=== PATIENT | female | born 1955 | race Caucasian/White ===

== ENCOUNTER 2016-11-08 13:17 | Emergency (ER) | payer MEDICARE, OTHER ==
[~2016-11-08] VITALS: Ht 167.6 cm; Wt 79.8 kg
[~2016-11-08 13:17] MED LIST: HYDR-757 PO
[2016-11-08] MEDS ORDERED: AMBIEN (13:45)
[2016-11-08] MEDS ORDERED: XANAX (13:46)
[2016-11-08] MEDS ORDERED: [UNRECOGNIZED DRUG - OTHER] (13:46)
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
[2016-11-08] MEDS ORDERED: SULF1TAB35 PO (14:37)
[2016-11-08] MEDS ORDERED: NAPR500T4 PO (14:37)
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
[2016-11-08 14:42] VITALS: BP 135/74
== END 2016-11-08 14:41 | disposition home or self-care (01) ==
LOC: EDUNIT# 13:17 → ER 13:23
DX: R22.0 Localized swelling, mass and lump, head (principal); E03.9 Hypothyroidism, unspecified; F41.9 Anxiety disorder, unspecified; F32.9 Major depressive disorder, single episode, unspecified; Z98.84 Bariatric surgery status; Z90.710 Acquired absence of both cervix and uterus; Z98.51 Tubal ligation status; Z90.89 Acquired absence of other organs
CPT/HCPCS: 70450; 99282

== ENCOUNTER → 2017-03-06 | Outpatient (CLI) | payer MEDICARE ==
[~2017-03-06] MED LIST changes: +AMBIEN; +NAPR500T4 PO; +SULF1TAB35 PO; +XANAX; +[UNRECOGNIZED DRUG - OTHER]
--- NOTE | 2017-03-06 09:44 | Diagnostic Imaging Report ---
PROCEDURE: CT sinuses without contrast TECHNIQUE: Multiple contiguous axial images were obtained through the sinuses without the use of intravenous contrast. Coronal and sagittal reformations were then performed. INDICATION: Chronic sinusitis. FINDINGS: There is a mucosal retention cyst measuring 1.4 cm in the inferior aspect of the left maxillary sinus. The right maxillary sinus is clear. The sphenoidal sinuses are clear. The frontal sinuses are clear. The ethmoidal air cells are also clear. There is moderate mucosal thickening along the inferior turbinates and mild mucosal thickening in the middle turbinates with mild narrowing of the nasal passages. No significant nasal septal deviation. The mastoid air cells and middle ear cavities are clear. IMPRESSION: Mucosal thickening along the nasal turbinates and mucosal retention cysts in the inferior aspect of the left maxillary sinus are seen. Dictated by: Dictated on workstation # [id number]
== END ==
LOC: RAD 07:57
PROVIDERS: ATTEND Family Medicine
DX: J34.1 Cyst and mucocele of nose and nasal sinus (principal); J32.9 Chronic sinusitis, unspecified
CPT/HCPCS: 70486

== ENCOUNTER 2017-04-10 10:43 | Emergency (ER) | payer MEDICARE ==
[~2017-04-10] VITALS: Ht 167.6 cm; Wt 72.6 kg
--- OUTSIDE RECORDS SUMMARY | 2017-04-10 10:49 | XMS REPORT | CCD ---
Author Author HERNANDEZ NICKERSON Unknown Address [address] [facility] [place], [place] [id number] Care Team Providers Care Dentistry Teacher Name Role Phone GERARDO MCCULLOUGH, FAVIOLA MC Attphys F., NICO NASST S., BIANKA PALAFOX NASST S., ROZ NASST C., ARLEEN KLEIN NASST S., ARCHANA NASST P., PARAMJIT NASST S., HAMMAD NASST B., DEMETRIUS Marquez NASST Vital Signs Vital Sign Value Unit Date/Time Recent/Initial? Weight Measured 176 lbs 02/08/2015 11:21 Initial VS Height 66 in 02/08/2015 11:21 Initial VS BMI (Body Mass Index) 28.41 kg/m^2 02/08/2015 11:21 Initial VS BSA (Body Surface Area) 1.93 m^2 02/08/2015 11:21 Initial VS BP Systolic 128 mmHg 02/08/2015 11:57 Initial VS BP Diastolic 63 mmHg 02/08/2015 11:57 Initial VS Heart Rate 91 bpm 02/08/2015 11:57 Initial VS O2 % BldC Oximetry 95 % 02/08/2015 11:57 Initial VS Respiratory Rate 18 bpm 02/08/2015 11:58 Initial VS Body Temperature 96.3 degrees 02/08/2015 13:15 Initial VS BP Systolic 121 mmHg 02/10/2015 11:17 Most Recent VS BP Diastolic 65 mmHg 02/10/2015 11:17 Most Recent VS Respiratory Rate 16 bpm 02/10/2015 11:17 Most Recent VS Heart Rate 80 bpm 02/10/2015 11:17 Most Recent VS O2 % BldC Oximetry 96 % 02/10/2015 11:17 Most Recent VS Body Temperature 99.5 degrees 02/10/2015 11:17 Most Recent VS Allergies Allergy Code Allergy Type Reaction Status KEFLEX 426228 Drug allergy LIP SWELLING, TROUBLE BREATHING Active MORPHINE 7052 Drug allergy LIP SWELLING, TROUBLE BREATHING Active Procedures Procedure Code Procedure Type Date Replacement of Left Knee Joint with Synthetic Substitute, Cemented, Open A [id number] ICD-10 PCS 02/08/2015 PT GROUP THERAPY 347182953 SNOMED CT 02/10/2015 PT GROUP THERAPY 193009142 SNOMED CT 02/10/2015 PT GROUP THERAPY 860732204 SNOMED CT 02/09/2015 PT GROUP THERAPY 012473332 SNOMED CT 02/09/2015 PT EVALUATION 463741591 SNOMED CT 02/08/2015 KNEE 1V OR 2V 63326209 SNOMED CT 02/08/2015 CBC W/ AUTO DIFF (RFLX MAN DIFF IF IND) 8064546 SNOMED CT 02/10/2015 CBC W/ AUTO DIFF (RFLX MAN DIFF IF IND) 3954321 SNOMED CT 02/09/2015 THERAPEP SUBSEQUENT 216793722 SNOMED CT 02/10/2015 THERAPEP SUBSEQUENT 745046139 SNOMED CT 02/10/2015 THERAPEP SUBSEQUENT 698842295 SNOMED CT 02/10/2015 THERAPEP SUBSEQUENT 832865489 SNOMED CT 02/09/2015 THERAPEP SUBSEQUENT 821733067 SNOMED CT 02/09/2015 THERAPEP SUBSEQUENT 406800315 SNOMED CT 02/09/2015 THERAPEP SUBSEQUENT 778984468 SNOMED CT 02/09/2015 THERAPEP SUBSEQUENT 531590511 SNOMED CT 02/08/2015 THERAPEP TREATMENT 889827801 SNOMED CT 02/08/2015 ^CBC W/AUTO DIFF 3682900 SNOMED CT 02/09/2015 ^CBC W/AUTO DIFF 7067970 SNOMED CT 02/10/2015 History of Immunizations Unknown or Not Available. Problems Problem Code Start Date Resolved Date Status Primary osteoarthritis of left knee 188167172 Active Post op pain 848716872 02/08/2015 Active Status post knee replacement [id number] 02/08/2015 Active Results CBC W/ AUTO DIFF (RFLX MAN DIFF IF IND) - Collect Date/Time: 02/10/2015 06:35 Test Name Code Test Result Test Units Test Ref Range WBC 78418-3 7.8 TH/CMM L=4.5 H=10.8 RBC 789-8 3.92 ML/CMM L=4.20 H=5.40 HGB 718-7 12.1 G/DL L=12.0 H=16.0 HCT 4544-3 37.2 % L=37.0 H=47.0 MCV 95 FL L=81 H=99 MCH 30.9 PG L=27.0 H=33.0 MCHC 32.5 G/DL L=31.0 H=36.0 RDW SD 44 FL L=36 H=50 RDW CV 12.7 % L=0.0 H=14.8 MPV 10.3 FL L=9.3 H=12.5 PLT 777-3 232 TH/CMM L=130 H=440 NRBC# 0.00 TH/CMM L=0.00 H=0.00 NRBC% 0.0 /100WBC L=0.0 H=2.0 %NEUT 62.4 % %LYMP 27.2 % %MONO 8.6 % %EOS 1.4 % %BASO 0.4 % #NEUT 4.85 TH/CMM L=2.10 H=8.20 #LYMP 2.12 TH/CMM L=0.90 H=5.20 #MONO 0.67 TH/CMM L=0.16 H=1.00 #EOS 0.11 TH/CMM L=0.00 H=0.80 #BASO 0.03 TH/CMM L=0.00 H=0.20 MANUAL DIFF NOT IND N/A CBC W/ AUTO DIFF (RFLX MAN DIFF IF IND) - Collect Date/Time: 02/09/2015 06:15 Test Name Code Test Result Test Units Test Ref Range WBC 14358-6 10.6 TH/CMM L=4.5 H=10.8 RBC 789-8 4.00 ML/CMM L=4.20 H=5.40 HGB 718-7 12.3 G/DL L=12.0 H=16.0 HCT 4544-3 37.4 % L=37.0 H=47.0 MCV 94 FL L=81 H=99 MCH 30.8 PG L=27.0 H=33.0 MCHC 32.9 G/DL L=31.0 H=36.0 RDW SD 42 FL L=36 H=50 RDW CV 12.3 % L=0.0 H=14.8 MPV 10.3 FL L=9.3 H=12.5 PLT 777-3 264 TH/CMM L=130 H=440 NRBC# 0.00 TH/CMM L=0.00 H=0.00 NRBC% 0.0 /100WBC L=0.0 H=2.0 %NEUT 69.5 % %LYMP 22.2 % %MONO 7.9 % %EOS 0.3 % %BASO 0.1 % #NEUT 7.39 TH/CMM L=2.10 H=8.20 #LYMP 2.36 TH/CMM L=0.90 H=5.20 #MONO 0.84 TH/CMM L=0.16 H=1.00 #EOS 0.03 TH/CMM L=0.00 H=0.80 #BASO 0.01 TH/CMM L=0.00 H=0.20 MANUAL DIFF NOT IND N/A Active Medications Medication Code Dose Units Frequency Route Modification Start Date/Time Aspirin 325MG Oral Tablet, Enteric Coated 692621 1 TABLET EVERY 12 HOURS BY MOUTH 02/09/2015 18:30 Prescription Detail 1 TABLET BY MOUTH EVERY 12 HOURS begin 24hrs after the last xarelto dose Citalopram 20MG Oral Tablet [id number] 20 MILLIGRAMS DAILY ORAL 02/09/2015 18:28 Prescription Detail 20 MILLIGRAMS ORAL DAILY Docusate Sodium 100MG Oral Capsule 4717606 1 TABLET TWO TIMES A DAY BY MOUTH 02/09/2015 18:28 Prescription Detail 1 TABLET BY MOUTH TWO TIMES A DAY Hold with loose stools Gabapentin 100MG Oral Capsule 871257 100 MILLIGRAMS NEEDED ORAL 02/09/2015 18:28 Prescription Detail 100 MILLIGRAMS ORAL NEEDED HYDROcodone bitartrate-acetaminophen 10MG-325MG Oral Tablet 302178 03/24 TABLET NEEDED EVERY 4 HR BY MOUTH FOR PAIN 02/09/2015 18:28 Prescription Detail 03/24 TABLET BY MOUTH NEEDED EVERY 4 HR FOR PAIN Levothyroxine 125MCG Oral Tablet 705260 125 MCG DAILY ORAL 02/09/2015 18:28 Prescription Detail 125 MCG ORAL DAILY Thera-M Enhanced 90MG-0.03MG-0.15MG-4 Oral Tablet 583220 1 TABLET DAILY BY MOUTH 02/09/2015 18:28 Prescription Detail 1 TABLET BY MOUTH DAILY Xarelto 10MG Oral Tablet [id number] 1 TABLET DAILY BY MOUTH 02/09/2015 18:28 Prescription Detail 1 TABLET BY MOUTH DAILY Medications Administered During Visit Medication Dose Units Frequency Route Date/ Time of Last Dose LR 1000ML IV [PREDEFINED] CONT IV IV 02/09/2015 02:43 VANCOMYCIN [PREDEFINED] ADV IV : 1000MG Q10H IVPB 02/09/2015 05:35 VITAMIN (LH SUB FOR ALL MULTIVITAMINS) 1 TAB DAILY PO 02/10/2015 08:06 ASCORBIC ACID [VITAMIN C] TAB : 500 MG 500 MG DAILY PO 02/10/2015 08:06 FERROUS SULFATE 325MG TABLET 325 MG BID PO 02/10/2015 08:06 DOCUSATE SODIUM 100 MG [COLACE] CAPSULE 100 MG BID PO 02/10/2015 08:06 RIVAROXABAN [XARELTO] TABLET : 10MG 10 MG X1 PO 02/09/2015 05:35 RIVAROXABAN [XARELTO] TABLET : 10MG 10 MG DAILY PO 02/10/2015 08:06 NORCO [HYDROCODONE/APAP] 10/325MG TAB 1 TAB PRN PO 02/10/2015 15:16 CELECOXIB [CELEBREX] CAPSULE : 200 MG 200 MG BID PO 02/10/2015 08:06 TRANEXAMIC ACID 1000MG/100ML [PREDEFINED X1 IVPB 02/08/2015 13:49 CITALOPRAM [CELEXA] TABLET : 20 MG 20 MG DAILY PO 02/10/2015 08:06 LEVOTHYROXINE (SYNTHROID)125 MCG 125 MCG DAILY PO 02/10/2015 05:39 Encounters Encounter Diagnosis Diagnosis Code Start Date Unilateral primary osteoarthritis, left knee [id number] 02/08/2015 Social History Smoking Status Code Start Date End Date Never smoker [id number] Patient Decision Aids Unknown or Not Available. Discharge Instructions You were admitted to [facility] on 02/08/2015 with a principal diagnosis of Unilateral primary osteoarthritis, left knee. You were discharged from [facility] on 02/10/2015. Should you have any questions prior to discharge, please contact a member of your healthcare team. If you have left the hospital and have any questions, please contact your primary care physician. CHIEF COMPLAINT: C/O PAIN TO LEFT KNEE. Chief Complaint and Reason For Visit Chief Complaint Date of Onset L TKR Function Status Unknown or Not Available. Plan of Care Unknown or Not Available. Referral/Transition of Care Unknown or Not Available.
--- NOTE | 2017-04-10 11:51 | Diagnostic Imaging Report ---
INDICATION: Fall, left lower leg pain. Exam correlated with knee radiographs 05/19/2015. FINDINGS: Knee arthroplasty appears stable. Regional swelling and joint effusion have significantly decreased. No fracture or dislocation. IMPRESSION: Reduction in joint effusion and swelling associated with knee arthroplasty. No acute abnormality or adverse change. Dictated by: Dictated on workstation # [id number]
--- NOTE | 2017-04-10 11:58 | Diagnostic Imaging Report ---
EXAMINATION: Left foot. INDICATION: Injury. FINDINGS: Three views were obtained. There is no fracture, dislocation, or acute bony abnormality evident. There is a prominent calcaneal spur. There is also a large calcified enthesophyte along the posterior aspect of the calcaneus. In addition, there is a small calcific density in the soft tissues adjacent to the base of the fifth metatarsal. This finding is most likely a sequela of prior trauma. Soft tissues are otherwise unremarkable. IMPRESSION: There is no evidence for an acute bony abnormality. Dictated by: Dictated on workstation # [id number]
[2017-04-10] MEDS ORDERED: HYDR-757 PO (13:12)
--- NOTE | 2017-04-10 13:12 | ED Lower Extremity ---
General Chief Complaint: Lower Extremity Stated Complaint: L FOOT PAIN Source: patient Exam Limitations: no limitations History of Present Illness Date Seen by Provider: Apr 10, 2017 Time Seen by Provider: 13:09 Initial Comments To ER wtih c/o fall of 3rd step of ladder yesterday. C/o foot pain on left only with weightbearing today. Onset: yesterday Severity: moderate Pain/Injury Location: left foot Modifying Factors: Worse With Movement Allergies and Home Medications Allergies Coded Allergies: cephalexin (Verified Allergy, Unknown, 01/25/15) morphine (Verified Allergy, Unknown, 01/25/15) Home Medications Hydrocodone/Acetaminophen 1 Each Tablet, 1 EACH PO TID PRN for PAIN, #10 Prescribed by: CHEL CAREY on 01/25/15 2306 Naproxen 500 Mg Tablet, 500 MG PO BID, #20 Prescribed by: PAO PALMA on 11/08/16 1437 Sulfamethoxazole/Trimethoprim 1 Each Tablet, 1 EACH PO BID, #20 Prescribed by: PAO PALMA on 11/08/16 1437 [Ambien] , (Reported) [Thyroidthyroid] , (Reported) [Xanax] , (Reported) Constitutional: see HPI EENTM: see HPI Respiratory: no symptoms reported Cardiovascular: no symptoms reported Genitourinary: no symptoms reported Musculoskeletal: see HPI Skin: no symptoms reported Psychiatric/Neurological: No Symptoms Reported Past Edcborv-Nibofr-Pazgwa Hx Patient Social History Recent Foreign Travel: No Contact w/Someone Who Travel: No Surgeries Surgeries: Abdominal, Gallbladder, Hysterectomy, Orthopedic, Thyroidectomy, 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 Reproductive System 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, 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 Endocrine Endocrine Disorders: Hypothyroidsim HEENT HEENT Disorders: Double Vision Psychosocial Behavioral Health Disorders: Anxiety, Depression Physical Exam Vital Signs Capillary Refill : General Appearance: WD/WN, no apparent distress HEENT: PERRL/EOMI, normal ENT inspection Neck: non-tender, full range of motion Respiratory: no respiratory distress, no accessory muscle use Hips: bilateral hip non-tender, bilateral hip normal inspection, bilateral hip normal range of motion Legs: bilateral leg non-tender, bilateral leg normal inspection, bilateral leg normal range of motion Knees: bilateral knee non-tender, bilateral knee normal inspection, bilateral knee normal range of motion Ankles: bilateral ankle non-tender, bilateral ankle normal inspection, bilateral ankle normal range of motion Feet: left foot pain, left foot soft tissue tenderness, left foot swelling Neurologic/Psychiatric: alert, normal mood/affect, oriented x 3 Skin: normal color, warm/dry Progress/Results/Core Measures Results/Orders My Orders Orders - CHEL CAREY APRN Tibia/Fibula, Left, 2 Views (04/10/17 10:48) Foot, Left, 3 Views (04/10/17 10:48) Departure Communication (Admissions) Progress Notes mild ecchymosis over the lateral left foot Impression Impression: Primary Impression: Contusion of foot Disposition: HOME, SELF-CARE Condition: Stable Departure-Patient Inst. Decision time for Depature: 13:11 Referrals: LONNIE WORTHINGTON MD (PCP/Family) Primary Care Physician Patient Instructions: Contusion (DC) Add. Discharge Instructions: 1. Wear the walking boot for 1 week or until pain subsides. If no improvement in 1 week follow up with your doctor 2. Pain meds as directed. All discharge instructions reviewed with patient and/ or family. Voiced understanding. Scripts Hydrocodone/Acetaminophen ([employer] 5-325 Tablet) 1 Each Tablet 1 EACH PO Q4H Y for PAIN-SEVERE TO BREAKTHROUGH, #10 TAB Prov: CHEL CAREY APRN 04/10/17 CHEL CAREY APRN Apr 10, 2017 13:12
[2017-04-10 13:30] VITALS: BP 136/103
== END 2017-04-10 13:30 | disposition home or self-care (01) ==
LOC: EDUNIT# 10:43 → ER 10:45
DX: S90.32XA Contusion of left foot, initial encounter (principal); F41.9 Anxiety disorder, unspecified; F32.9 Major depressive disorder, single episode, unspecified; E03.9 Hypothyroidism, unspecified; Z98.51 Tubal ligation status; Z90.710 Acquired absence of both cervix and uterus; Z90.89 Acquired absence of other organs; W11.XXXA Fall on and from ladder, initial encounter
CPT/HCPCS: 73590; 73630; 99283

== ENCOUNTER 2018-04-20 16:38 | Emergency (ER) | payer MEDICARE ==
[~2018-04-20] VITALS: Ht 167.6 cm; Wt 80.7 kg
[~2018-04-20 16:38] MED LIST changes: +HYDR-4226 PO; -HYDR-757 PO; +NAPR-915 PO; -NAPR500T4 PO
--- OUTSIDE RECORDS SUMMARY | 2018-04-20 16:43 | XMS REPORT ---
Author Author DARRIN GODWIN Organization [facility] Address [address] [place] [address] Care Team Providers Care Volunteer Services Assistant Name Role Phone DARRIN GODWIN Unavailable PROBLEMS Type Condition ICD9-CM Code ISY34-NW Code Onset Dates Condition Status SNOMED Code Problem Adjustment disorder with mixed anxiety and depressed mood F43.23 Active 92188825 Problem Psychophysiological insomnia F51.04 Active 075636382 Problem Generalized anxiety disorder F41.1 Active 95019486 Problem Current mild episode of major depressive disorder without prior episode F32.0 Active 29364530 Problem Hypothyroidism (acquired) E03.9 Active 549871981 Problem Primary insomnia F51.01 Active 9251046 Problem Hypoglycemia E16.2 Active 031843707 Problem Vitamin D deficiency E55.9 Active 67370091 Problem Moderate episode of recurrent major depressive disorder F33.1 Active 446813271 Problem Severe episode of recurrent major depressive disorder, without psychotic features F33.2 Active 86933171 Problem ROSY (generalized anxiety disorder) F41.1 Active 34081281 Problem Panic disorder F41.0 Active 871734777 ALLERGIES No Information ENCOUNTERS Encounter Location Date Diagnosis [place] [address] [address] Feb, [place] [address] [place] [id number] [place] [address] 64933- 7185 Jan, Hypothyroidism (acquired) E03.9 [facility] [address] [place] [id number] [place] [address] 28809- 7075 Dec, Panic disorder F41.0 [place] [address] [address]- [address] Dec, Allergic contact dermatitis due to food in contact with skin L23.6 and Encounter for immunization Z23 [place] [address] 44[address]- 1455 Nov, Panic disorder F41.0 ; ROSY (generalized anxiety disorder) F41.1 ; Moderate episode of recurrent major depressive disorder F33.1 and Primary insomnia F51.01 [facility] [address] [place] [id number] [place] [address] 48039- 0179 Nov, Panic disorder F41.0 [place] [address] [place] [id number] [place] [address] 07046- 5899 Oct, Current mild episode of major depressive disorder without prior episode F32.0 [place] [address] [place] [id number] [place] [address] 85525- 5799 Oct, Hypoglycemia E16.2 ; Allergic contact dermatitis due to plants, except food L23.7 ; Hypothyroidism (acquired) E03.9 ; Vitamin D deficiency E55.9 ; Current mild episode of major depressive disorder without prior episode F32.0 and Generalized anxiety disorder F41.1 [place] [address] [place] [address] 57963- 7002 Oct, Panic disorder F41.0 ; ROSY (generalized anxiety disorder) F41.1 ; Moderate episode of recurrent major depressive disorder F33.1 and Primary insomnia F51.01 [place] [address] [place] [address] 45088- 2228 Oct, [place] [address] [address] Sep, Panic disorder F41.0 [place] [address] [place] [id number] [place] [address] 18590- 0901 Aug, Panic disorder F41.0 ; Generalized anxiety disorder F41.1 and Moderate episode of recurrent major depressive disorder F33.1 [place] [address] [place] [address] 08242- 1271 Aug, [facility] [address] [place] [address] 44118- 7614 July, [place] [address] [place] [id number] [place] [address] 29807- 7070 July, [place] [address] [place] [id number] [place] [address] 06060- 7283 Jun, Panic disorder F41.0 ; ROSY (generalized anxiety disorder) F41.1 and Moderate episode of recurrent major depressive disorder F33.1 [place] [address] [place] [id number] [place] [address] 99874- 8117 Jun, [place] [address] 92443- 4862 Jun, Vitamin D deficiency E55.9 [place] [address] [place] [id number] [place] [address] 25740- 6080 Jun, Current mild episode of major depressive disorder without prior episode F32.0 and Generalized anxiety disorder F41.1 [place] [address] [place] [id number] [place] [address] 43718- 6241 Jun, Current mild episode of major depressive disorder without prior episode F32.0 ; Primary insomnia F51.01 and Hypothyroidism (acquired) E03.9 [place] [address] [place] [id number] [place] [address] 77308- 3346 May, Panic disorder F41.0 ; ROSY (generalized anxiety disorder) F41.1 and Moderate episode of recurrent major depressive disorder F33.1 [place] [address] [place] [id number] [place] [address] 54388- 6860 26 May, 2017 Severe episode of recurrent major depressive disorder, without psychotic features F33.2 ; Generalized anxiety disorder F41.1 and Adjustment disorder with mixed anxiety and depressed mood F43.23 [place] [address] [place] [id number] [place] [address] 66859- 0779 15 May, 2017 Severe episode of recurrent major depressive disorder, without psychotic features F33.2 ; Generalized anxiety disorder F41.1 and Adjustment disorder with mixed anxiety and depressed mood F43.23 [place] [address] [place] [id number] [place] [address] 48633- 8818 14 May, 2017 [place] [address] [facility] [id number] [place] [address] May, Severe episode of recurrent major depressive disorder, without psychotic features F33.2 ; Generalized anxiety disorder F41.1 ; Psychophysiological insomnia F51.04 ; Guilty feelings R45.89 and Adjustment disorder with mixed anxiety and depressed mood F43.23 IMMUNIZATIONS No Known Immunizations SOCIAL HISTORY Never Assessed REASON FOR VISIT Lab Order PLAN OF CARE VITAL SIGNS MEDICATIONS Unknown Medications RESULTS No Results PROCEDURES No Known procedures INSTRUCTIONS MEDICATIONS ADMINISTERED No Known Medications MEDICAL (GENERAL) HISTORY Type Description Date Medical History Depression Medical History anxiety/ panic attacks Medical History Hypothyroidism Surgical History Left & right knee replacement Surgical History Gastric bypass Surgical History Gallbladder Surgical History Thyroid Surgical History Hysterectomy Surgical History Tubal ligation Surgical History Carpal tunnel bi lat Surgical History Inpingment surgery bi lat shoulder Surgical History Cyst removal Surgical History right hand carpal tunnel release 12/26/17 Hospitalization History Surgery Hospitalization History Child
--- OUTSIDE RECORDS SUMMARY | 2018-04-20 16:43 | XMS REPORT ---
Author Author DARRIN GODWIN Organization [facility] Address [address] [place] [address] Care Team Providers Care Breaker Up Machine Operator Name Role Phone DARRIN GODWIN Unavailable PROBLEMS Type Condition ICD9-CM Code NPD90-EQ Code Onset Dates Condition Status SNOMED Code Problem Adjustment disorder with mixed anxiety and depressed mood F43.23 Active 41732780 Problem Psychophysiological insomnia F51.04 Active 124142873 Problem Generalized anxiety disorder F41.1 Active 51769951 Problem Current mild episode of major depressive disorder without prior episode F32.0 Active 95964848 Problem Hypothyroidism (acquired) E03.9 Active 133760594 Problem Primary insomnia F51.01 Active 4010743 Problem Hypoglycemia E16.2 Active 333616314 Problem Vitamin D deficiency E55.9 Active 17207668 Problem Moderate episode of recurrent major depressive disorder F33.1 Active 868853597 Problem Severe episode of recurrent major depressive disorder, without psychotic features F33.2 Active 58247645 Problem ROSY (generalized anxiety disorder) F41.1 Active 44262356 Problem Panic disorder F41.0 Active 987317637 ALLERGIES No Information ENCOUNTERS Encounter Location Date Diagnosis [place] [address] [place] [address] 63530- 0444 Feb, [facility] [address] [place] [id number] [place] [address] 51340- 4875 Jan, Panic disorder F41.0 [facility] [address] [place] [id number] [place] [address] 49652- 9427 Jan, Hypothyroidism (acquired) E03.9 [facility] [address] [place] [id number] [place] [address] 04479- 9423 Dec, Panic disorder F41.0 [facility] [address] [place] [id number] [place] [address] 88784- 5144 Dec, Allergic contact dermatitis due to food in contact with skin L23.6 and Encounter for immunization Z23 [place] [address] [place] [id number] [place] [address] 83827- 0014 Nov, Panic disorder F41.0 ; ROSY (generalized anxiety disorder) F41.1 ; Moderate episode of recurrent major depressive disorder F33.1 and Primary insomnia F51.01 [place] [address] [place] [id number] [place] [address] 17651- 5169 Nov, Panic disorder F41.0 [place] [address] [place] [id number] [place] [address] 21630- 5273 Oct, Current mild episode of major depressive disorder without prior episode F32.0 [place] [address] [place] [id number] [place] [address] 74152- 0704 Oct, Hypoglycemia E16.2 ; Allergic contact dermatitis due to plants, except food L23.7 ; Hypothyroidism (acquired) E03.9 ; Vitamin D deficiency E55.9 ; Current mild episode of major depressive disorder without prior episode F32.0 and Generalized anxiety disorder F41.1 [place] [address] [place] [id number] [place] [address] 92732- 1066 Oct, Panic disorder F41.0 ; ROSY (generalized anxiety disorder) F41.1 ; Moderate episode of recurrent major depressive disorder F33.1 and Primary insomnia F51.01 [place] [address] [place] [address] 84377- 9067 Oct, [place] [address] [place] [id number] [place] [address] 87005- 4539 Sep, Panic disorder F41.0 [place] [address] [place] [id number] [place] [address] 69951- 0787 Aug, Panic disorder F41.0 ; Generalized anxiety disorder F41.1 and Moderate episode of recurrent major depressive disorder F33.1 [place] [address] [place] [address] 13026- 6182 Aug, [place] [address] [place] [id number] [address]- 9214 July, [place] [address] [place] [id number] [place] [address] 77868- 6593 July, [place] [address] [place] [id number] [place] [address] 00240- 4802 Jun, Panic disorder F41.0 ; ROSY (generalized anxiety disorder) F41.1 and Moderate episode of recurrent major depressive disorder F33.1 [place] [address] [place] [id number] [place] [address] 32241- 4831 Jun, [place] [address] [place] [id number] [place] [address] 11981- 6354 Jun, Vitamin D deficiency E55.9 [place] [address] [place] [id number] [place] [address] 31250- 2039 Jun, Current mild episode of major depressive disorder without prior episode F32.0 and Generalized anxiety disorder F41.1 [place] [address] [address]- 5762 Jun, Current mild episode of major depressive disorder without prior episode F32.0 ; Primary insomnia F51.01 and Hypothyroidism (acquired) E03.9 [place] [address] [place] [address] 37882- 9576 May, Panic disorder F41.0 ; ROSY (generalized anxiety disorder) F41.1 and Moderate episode of recurrent major depressive disorder F33.1 [place] [address] [place] [address] 74901- 1424 May, Severe episode of recurrent major depressive disorder, without psychotic features F33.2 ; Generalized anxiety disorder F41.1 and Adjustment disorder with mixed anxiety and depressed mood F43.23 [place] [address] [place] [address] 04349- 5788 May, Severe episode of recurrent major depressive disorder, without psychotic features F33.2 ; Generalized anxiety disorder F41.1 and Adjustment disorder with mixed anxiety and depressed mood F43.23 [facility] [address] [facility] [id number] [place] [address]- 3533 May, [facility] [address] [facility] [id number] [address]- 1[address] 08 May, 2017 Severe episode of recurrent major depressive disorder, without psychotic features F33.2 ; Generalized anxiety disorder F41.1 ; Psychophysiological insomnia F51.04 ; Guilty feelings R45.89 and Adjustment disorder with mixed anxiety and depressed mood F43.23 IMMUNIZATIONS No Known Immunizations SOCIAL HISTORY Never Assessed REASON FOR VISIT medication PLAN OF CARE VITAL SIGNS MEDICATIONS Medication Instructions Dosage Frequency Start Date End Date Duration Status Celexa 40 MG Orally Once a day 1 tablet 24h May, 30 days Active Levothyroxine Sodium 112 MCG Orally Once a day 1 tablet 24h 30 days Active RESULTS No Results PROCEDURES No Known procedures [...]
--- OUTSIDE RECORDS SUMMARY | 2018-04-20 16:43 | XMS REPORT ---
Author Author DARRIN GODWIN Organization [facility] Address [address] [place] [address] Care Team Providers Care Seaport Planning Manager Name Role Phone DARRIN GODWIN Unavailable PROBLEMS Type Condition ICD9-CM Code LAU24-ME Code Onset Dates Condition Status SNOMED Code Problem Primary insomnia F51.01 Active 9129927 Problem Generalized anxiety disorder F41.1 Active 26395103 Problem Adjustment disorder with mixed anxiety and depressed mood F43.23 Active 24400890 Problem Current mild episode of major depressive disorder without prior episode F32.0 Active 84980816 Problem Hypothyroidism (acquired) E03.9 Active 548922847 Problem Hypoglycemia E16.2 Active 889016590 Problem Vitamin D deficiency E55.9 Active 35304441 Problem Severe episode of recurrent major depressive disorder, without psychotic features F33.2 Active 02193140 Problem Psychophysiological insomnia F51.04 Active 061481486 Problem Panic disorder F41.0 Active 648940300 Problem Moderate episode of recurrent major depressive disorder F33.1 Active 754404482 ALLERGIES No Information ENCOUNTERS Encounter Location Date Diagnosis [facility] [address] [place] [address] 28525- 9275 Mar, [facility] [address] [place] [id number] [place] [address] 55848- 4425 Feb, Panic disorder F41.0 ; Generalized anxiety disorder F41.1 ; Moderate episode of recurrent major depressive disorder F33.1 and Primary insomnia F51.01 [facility] [address] [place] [id number] [place] [address] 54328- 5981 Feb, Hypothyroidism (acquired) E03.9 [facility] [address] [place] [id number] [place] [address] 79757- 9429 Jan, Panic disorder F41.0 [facility] [address] [place] [id number] [place] [address] 31270- 3170 Jan, Hypothyroidism (acquired) E03.9 [place] [address] [place] [address] 56376- 6880 Dec, Panic disorder F41.0 [place] [address] [place] [address] 41477- 7821 Dec, Allergic contact dermatitis due to food in contact with skin L23.6 and Encounter for immunization Z23 [place] [address] [place] [id number] [place] [address] 53514- 6788 Nov, Panic disorder F41.0 ; ROSY (generalized anxiety disorder) F41.1 ; Moderate episode of recurrent major depressive disorder F33.1 and Primary insomnia F51.01 [place] [address] [place] [address] 61102- 8481 Nov, Panic disorder F41.0 [place] [address] [place] [id number] [place] [address] 89941- 1178 Oct, Current mild episode of major depressive disorder without prior episode F32.0 [place] [address] [place] [id number] [place] [address] 63658- 3352 Oct, Hypoglycemia E16.2 ; Allergic contact dermatitis due to plants, except food L23.7 ; Hypothyroidism (acquired) E03.9 ; Vitamin D deficiency E55.9 ; Current mild episode of major depressive disorder without prior episode F32.0 and Generalized anxiety disorder F41.1 [place] [address] [place] [address] 84375- 7346 Oct, Panic disorder F41.0 ; ROSY (generalized anxiety disorder) F41.1 ; Moderate episode of recurrent major depressive disorder F33.1 and Primary insomnia F51.01 [place] [address] [place] [address] 94402- 5508 Oct, [place] [address] [place] [address] 60270- 4222 Sep, Panic disorder F41.0 [place] [address] [place] [id number] [address]- 0186 Aug, Panic disorder F41.0 ; Generalized anxiety disorder F41.1 and Moderate episode of recurrent major depressive disorder F33.1 [place] [address] [place] [address] 88096- 3364 Aug, [place] [address] [place] [id number] [place] [address] 50546- 0862 July, [place] [address] [place] [id number] [place] [address] 90867- 7672 July, [place] [address] [place] [id number] [place] [address] 60144- 4999 Jun, Panic disorder F41.0 ; ROSY (generalized anxiety disorder) F41.1 and Moderate episode of recurrent major depressive disorder F33.1 [place] [address] [place] [id number] [place] [address] 40752- 9920 Jun, [place] [address] [place] [id number] [place] [address] 93517- 2741 Jun, Vitamin D deficiency E55.9 [place] [address] [place] [id number] [place] [address] 40416- 8092 Jun, Current mild episode of major depressive disorder without prior episode F32.0 and Generalized anxiety disorder F41.1 [place] [address] [place] [address] 88490- 2809 Jun, Current mild episode of major depressive disorder without prior episode F32.0 ; Primary insomnia F51.01 and Hypothyroidism (acquired) E03.9 [place] [address] [address]- 9798 May, Panic disorder F41.0 ; ROSY (generalized anxiety disorder) F41.1 and Moderate episode of recurrent major depressive disorder F33.1 [place] [address] [place] [address] 62773- 0159 May, Severe episode of recurrent major depressive disorder, without psychotic features F33.2 ; Generalized anxiety disorder F41.1 and Adjustment disorder with mixed anxiety and depressed mood F43.23 [facility] [address] [facility] [id number] [address]- [address] 15 May, 2017 Severe episode of recurrent major depressive disorder, without psychotic features F33.2 ; Generalized anxiety disorder F41.1 and Adjustment disorder with mixed anxiety and depressed mood F43.23 [place] [address] [place] [id number] [address]- 5595 14 May, 2017 [place] [address] [place] [id number] [address]- 8000 08 May, 2017 Severe episode of recurrent major depressive disorder, without psychotic features F33.2 ; Generalized anxiety disorder F41.1 ; Psychophysiological insomnia F51.04 ; Guilty feelings R45.89 and Adjustment disorder with mixed anxiety and depressed mood F43.23 IMMUNIZATIONS No Known Immunizations SOCIAL HISTORY Never Assessed REASON FOR VISIT Lab (walk-in) PLAN OF CARE VITAL SIGNS MEDICATIONS Unknown Medications RESULTS Name Result Date Reference Range TSH 2018-03-11 TSH 0.12 0.40-4.50 PROCEDURES Procedure Date Ordered Result Body Site ASSAY THYROID STIM HORMONE Mar 11, 2018 VENIPUNCT, ROUTINE* Mar 11, 2018 INSTRUCTIONS MEDICATIONS ADMINISTERED No Known Medications MEDICAL [...]
--- OUTSIDE RECORDS SUMMARY | 2018-04-20 16:44 | XMS REPORT ---
Author Author DARRIN GODWIN Organization [facility] Address [address] [place] [address] Care Team Providers Care Top Cager Name Role Phone DARRIN GODWIN Unavailable PROBLEMS Type Condition ICD9-CM Code [id number] Code Onset Dates Condition Status SNOMED Code Problem Adjustment disorder with mixed anxiety and depressed mood F43.23 Active 68971175 Problem Psychophysiological insomnia F51.04 Active 718833796 Problem Generalized anxiety disorder F41.1 Active 81821871 Problem Current mild episode of major depressive disorder without prior episode F32.0 Active 24164455 Problem Hypothyroidism (acquired) E03.9 Active 265208410 Problem Primary insomnia F51.01 Active 7183939 Problem Hypoglycemia E16.2 Active 143066299 Problem Vitamin D deficiency E55.9 Active 55354484 Problem Moderate episode of recurrent major depressive disorder F33.1 Active 315015595 Problem Severe episode of recurrent major depressive disorder, without psychotic features F33.2 Active 73436308 Problem ROSY (generalized anxiety disorder) F41.1 Active 74847285 Problem Panic disorder F41.0 Active 646567506 ALLERGIES Substance Reaction Event Type Date Status Morphine Sulfate headache/ nausea Drug Allergy Oct, Active Keflex anaphylaxis Drug Allergy Oct, Active ENCOUNTERS Encounter Location Date Diagnosis [facility] [id number] [address] Nov, Panic disorder F41.0 [facility] [id number] [address] Oct, Current mild episode of major depressive disorder without prior episode F32.0 [facility] [id number] [place] [address] 33992- 4616 Oct, Hypoglycemia E16.2 ; Allergic contact dermatitis due to plants, except food L23.7 ; Hypothyroidism (acquired) E03.9 ; Vitamin D deficiency E55.9 ; Current mild episode of major depressive disorder without prior episode F32.0 and Generalized anxiety disorder F41.1 [facility] [address], [place] [address] Oct, Panic disorder F41.0 ; ROSY (generalized anxiety disorder) F41.1 ; Moderate episode of recurrent major depressive disorder F33.1 and Primary insomnia F51.01 [facility] [address] [place] [address] 84600- [address]71 Oct, [facility] [id number], [place] [address] Sep, Panic disorder F41.0 [facility] [id number] [place] [address] 76129- 0509 Aug, Panic disorder F41.0 ; Generalized anxiety disorder F41.1 and Moderate episode of recurrent major depressive disorder F33.1 [facility] [id number] [place] [address] 22684- 5266 Aug, [facility] [address] [address] July, [facility] [id number] [place] [address] 72730- 9445 July, [facility] [id number] [address] Jun, Panic disorder F41.0 ; ROSY (generalized anxiety disorder) F41.1 and Moderate episode of recurrent major depressive disorder F33.1 [facility] [address], [place] [address] Jun, [facility] [id number] [place] [address] 36493- 0610 Jun, Vitamin D deficiency E55.9 [facility] [id number], [place] [address] Jun, Current mild episode of major depressive disorder without prior episode F32.0 and Generalized anxiety disorder F41.1 [place] [address] [place] [address] 20662- 1529 09 Jun, 2017 Current mild episode of major depressive disorder without prior episode F32.0 ; Primary insomnia F51.01 and Hypothyroidism (acquired) E03.9 [place] [id number] [place] [address] 25794- 7644 May, Panic disorder F41.0 ; ROSY (generalized anxiety disorder) F41.1 and Moderate episode of recurrent major depressive disorder F33.1 [place] [id number] [place] [address] 47730- 9206 May, Severe episode of recurrent major depressive disorder, without psychotic features F33.2 ; Generalized anxiety disorder F41.1 and Adjustment disorder with mixed anxiety and depressed mood F43.23 [place] [id number] [place] [address] 26009- 1315 15 May, 2017 Severe episode of recurrent major depressive disorder, without psychotic features F33.2 ; Generalized anxiety disorder F41.1 and Adjustment disorder with mixed anxiety and depressed mood F43.23 [place] [id number] [place] [address] 26114- 6271 May, [place] [id number] [place] [address] 85399- 3906 May, Severe episode of recurrent major depressive disorder, without psychotic features F33.2 ; Generalized anxiety disorder F41.1 ; Psychophysiological insomnia F51.04 ; Guilty feelings R45.89 and Adjustment disorder with mixed anxiety and depressed mood F43.23 IMMUNIZATIONS Vaccine Route Administration Date Status KENALOG 40 MG/ML (PER 10 MG) IM Intramuscular Oct 24, 2017 Administered SOCIAL HISTORY Never Assessed REASON FOR VISIT PT is here for thyroid levels checked as well as concerns with CESAR Yoder MA PLAN OF CARE VITAL SIGNS Height 66 in 2017-10-24 Weight 180.5 lbs 2017-10-24 Temperature 97.7 degrees Fahrenheit 2017-10-24 Heart Rate 76 bpm 2017-10-24 Respiratory Rate 18 2017-10-24 BMI 29.13 kg/m2 2017-10-24 Blood pressure systolic 128 mmHg 2017-10-24 Blood pressure diastolic 74 mmHg 2017-10-24 MEDICATIONS Medication Instructions Dosage Frequency Start Date End Date Duration Status Neurontin 100 mg Orally Once a day 2 capsule 24h Active Celexa 20 MG Orally Once a day 1 tablet 24h May, 30 days Active Klonopin 1 MG Orally twice a day as needed 1/2 tablet May, 30 days Active Amitriptyline HCl 25 MG Orally Once a day 1 tablet 24h 30 days Active Levothyroxine Sodium 112 MCG Orally Once a day 1 tablet 24h Active RESULTS No Results PROCEDURES Procedure Date Ordered Result Body Site GLYCATED HEMOGLOBIN TEST Oct 24, 2017 KENALOG 40 MG/ML (PER 10 MG) Oct 24, 2017 THER/PROPH/DIAG INJ, SC/IM Oct 24, 2017 INSTRUCTIONS MEDICATIONS ADMINISTERED No Known Medications MEDICAL [...] bi lat shoulder Surgical History Cyst removal Hospitalization History Surgery Hospitalization History Child
--- OUTSIDE RECORDS SUMMARY | 2018-04-20 16:44 | XMS REPORT ---
Author Author ROZ KAPLAN [facility] Address [address] [place] [address] Care Team Providers Care Consumer Marketing Manager Name Role Phone ROZ KAPLAN Unavailable PROBLEMS ALLERGIES ENCOUNTERS IMMUNIZATIONS No Known Immunizations SOCIAL HISTORY No smoking Hx information available REASON FOR VISIT PLAN OF CARE VITAL SIGNS MEDICATIONS RESULTS No Results PROCEDURES No Known procedures INSTRUCTIONS MEDICATIONS ADMINISTERED No Known Medications MEDICAL (GENERAL) HISTORY
--- OUTSIDE RECORDS SUMMARY | 2018-04-20 16:44 | XMS REPORT ---
Author Author DARRIN GODWIN Organization [facility] Address [address] [place] [address] Care Team Providers Care Cost Control Analyst Name Role Phone DARRIN GODWIN Unavailable PROBLEMS Type Condition ICD9-CM Code [id number] Code Onset Dates Condition Status SNOMED Code Problem Adjustment disorder with mixed anxiety and depressed mood F43.23 Active 37922864 Problem Psychophysiological insomnia F51.04 Active 630918345 Problem Generalized anxiety disorder F41.1 Active 40276909 Problem Current mild episode of major depressive disorder without prior episode F32.0 Active 39219068 Problem Hypothyroidism (acquired) E03.9 Active 401219261 Problem Primary insomnia F51.01 Active 7821513 Problem Hypoglycemia E16.2 Active 375767160 Problem Vitamin D deficiency E55.9 Active 70948053 Problem Moderate episode of recurrent major depressive disorder F33.1 Active 983068576 Problem Severe episode of recurrent major depressive disorder, without psychotic features F33.2 Active 65509137 Problem ROSY (generalized anxiety disorder) F41.1 Active 64276306 Problem Panic disorder F41.0 Active 793298978 ALLERGIES No Information ENCOUNTERS Encounter Location Date Diagnosis [address] [address] [place] [address] 79243- 9069 Nov, Panic disorder F41.0 [place] [address] [place] [address] 87820- 6238 Oct, Current mild episode of major depressive disorder without prior episode F32.0 [place] [id number] [place] [address] 45112- 0120 Oct, Hypoglycemia E16.2 ; Allergic contact dermatitis due to plants, except food L23.7 ; Hypothyroidism (acquired) E03.9 ; Vitamin D deficiency E55.9 ; Current mild episode of major depressive disorder without prior episode F32.0 and Generalized anxiety disorder F41.1 [place] [address], [place] [address] Oct, Panic disorder F41.0 ; ROSY (generalized anxiety disorder) F41.1 ; Moderate episode of recurrent major depressive disorder F33.1 and Primary insomnia F51.01 [facility] [address], [place] [address] Oct, [facility] [id number] [place] [address] 67362- 1412 Sep, Panic disorder F41.0 [facility] [id number] [place] [address] 03075- 6585 Aug, Panic disorder F41.0 ; Generalized anxiety disorder F41.1 and Moderate episode of recurrent major depressive disorder F33.1 [facility] [id number], [place] [address] Aug, [facility] [id number] [place] [address] 74137- 1129 July, [facility] [id number] [place] [address] 88979- 7000 July, [facility] [id number] [place] [address] 05185- 2536 Jun, Panic disorder F41.0 ; ROSY (generalized anxiety disorder) F41.1 and Moderate episode of recurrent major depressive disorder F33.1 [facility] [address], [place] [address] Jun, [facility] [address] [place] [address] 44024- 5779 Jun, Vitamin D deficiency E55.9 [facility] [address], [place] [address] Jun, Current mild episode of major depressive disorder without prior episode F32.0 and Generalized anxiety disorder F41.1 [facility] [address] [place] [address] 92074- 5406 Jun, Current mild episode of major depressive disorder without prior episode F32.0 ; Primary insomnia F51.01 and Hypothyroidism (acquired) E03.9 [id number] [place] [address] May, Panic disorder F41.0 ; ROSY (generalized anxiety disorder) F41.1 and Moderate episode of recurrent major depressive disorder F33.1 [place] [address] May, Severe episode of recurrent major depressive disorder, without psychotic features F33.2 ; Generalized anxiety disorder F41.1 and Adjustment disorder with mixed anxiety and depressed mood F43.23 [id number] [place] [address] 80120- 9150 May, Severe episode of recurrent major depressive disorder, without psychotic features F33.2 ; Generalized anxiety disorder F41.1 and Adjustment disorder with mixed anxiety and depressed mood F43.23 [address] [id number] [place] [address] 17647- 8752 May, [id number] [place] [address] 15331- 6364 May, Severe episode of recurrent major depressive disorder, without psychotic features F33.2 ; Generalized anxiety disorder F41.1 ; Psychophysiological insomnia F51.04 ; Guilty feelings R45.89 and Adjustment disorder with mixed anxiety and depressed mood F43.23 IMMUNIZATIONS No Known Immunizations SOCIAL HISTORY Never Assessed REASON FOR VISIT med refill PLAN OF CARE VITAL SIGNS MEDICATIONS Medication Instructions Dosage Frequency Start Date End Date Duration Status Levothyroxine Sodium 112 MCG Orally Once a [...]
--- OUTSIDE RECORDS SUMMARY | 2018-04-20 16:44 | XMS REPORT ---
Author Author ROSAURA ROZ Organization [facility] Address [address] [place] [address] Care Team Providers Care House Painting Instructor Name Role Phone ROSAURA ROZ Unavailable PROBLEMS Type Condition ICD9-CM Code [id number] Code Onset Dates Condition Status SNOMED Code Problem Adjustment disorder with mixed anxiety and depressed mood F43.23 Active 18674711 Problem Psychophysiological insomnia F51.04 Active 009437346 Problem Generalized anxiety disorder F41.1 Active 80513612 Problem Current mild episode of major depressive disorder without prior episode F32.0 Active 82355753 Problem Hypothyroidism (acquired) E03.9 Active 237853773 Problem Primary insomnia F51.01 Active 1601527 Problem Hypoglycemia E16.2 Active 576458875 Problem Vitamin D deficiency E55.9 Active 72234520 Problem Moderate episode of recurrent major depressive disorder F33.1 Active 001103789 Problem Severe episode of recurrent major depressive disorder, without psychotic features F33.2 Active 48581661 Problem ROSY (generalized anxiety disorder) F41.1 Active 49870998 Problem Panic disorder F41.0 Active 623750677 ALLERGIES No Information ENCOUNTERS Encounter Location Date Diagnosis [id number] [place] [address] 70251- [address]67 Feb, [facility] [id number] [place] [address] 11502- 4953 Dec, Panic disorder F41.0 [address] [id number] [place] [address] 02946- 3870 Dec, Allergic contact dermatitis due to food in contact with skin L23.6 and Encounter for immunization Z23 [address] [id number] [place] [address] 01260- 4623 24 Nov, 2017 Panic disorder F41.0 ; ROSY (generalized anxiety disorder) F41.1 ; Moderate episode of recurrent major depressive disorder F33.1 and Primary insomnia F51.01 [facility] [address], [place] [address]- [address] Nov, Panic disorder F41.0 [facility] [id number] [place] [address] 40786- 6632 Oct, Current mild episode of major depressive disorder without prior episode F32.0 [facility] [id number] [place] [address] 20573- 8353 Oct, Hypoglycemia E16.2 ; Allergic contact dermatitis due to plants, except food L23.7 ; Hypothyroidism (acquired) E03.9 ; Vitamin D deficiency E55.9 ; Current mild episode of major depressive disorder without prior episode F32.0 and Generalized anxiety disorder F41.1 [id number] [place] [address] 26251- 3659 Oct, Panic disorder F41.0 ; ROSY (generalized anxiety disorder) F41.1 ; Moderate episode of recurrent major depressive disorder F33.1 and Primary insomnia F51.01 [facility] [address] [place] [address] 93056- 8831 Oct, [facility] [id number] [place] [address] 40089- 2792 Sep, Panic disorder F41.0 [facility] [address] [place] [address] 55768- 9874 Aug, Panic disorder F41.0 ; Generalized anxiety disorder F41.1 and Moderate episode of recurrent major depressive disorder F33.1 [facility] [address], [place] [address] Aug, [facility] [id number] [place] [address] 65696- 5799 July, [facility] [address] [place] [address] 84268- 3867 July, [facility] [id number] [place] [address] 50236- 9623 Jun, Panic disorder F41.0 ; ROSY (generalized anxiety disorder) F41.1 and Moderate episode of recurrent major depressive disorder F33.1 [address] [address], [place] [address]- 2512 Jun, [address] [address] [place] [address] 44730- 9132 Jun, Vitamin D deficiency E55.9 [place] [address] [place] [address] 18610- 7864 Jun, Current mild episode of major depressive disorder without prior episode F32.0 and Generalized anxiety disorder F41.1 [place] [id number] [place] [address] 90585- 5031 Jun, Current mild episode of major depressive disorder without prior episode F32.0 ; Primary insomnia F51.01 and Hypothyroidism (acquired) E03.9 [place] [id number] [place] [address] 43411- 5878 May, Panic disorder F41.0 ; ROSY (generalized anxiety disorder) F41.1 and Moderate episode of recurrent major depressive disorder F33.1 [address] [address] [place] [address] 00028- 0277 May, Severe episode of recurrent major depressive disorder, without psychotic features F33.2 ; Generalized anxiety disorder F41.1 and Adjustment disorder with mixed anxiety and depressed mood F43.23 [address] [address] [place] [address] 63524- 6876 15 May, 2017 Severe episode of recurrent major depressive disorder, without psychotic features F33.2 ; Generalized anxiety disorder F41.1 and Adjustment disorder with mixed anxiety and depressed mood F43.23 [address] [address], [place] [address]- [address] May, [place] [address] [place] [address] 99302- 7323 May, Severe episode of recurrent major depressive disorder, without psychotic features F33.2 ; Generalized anxiety disorder F41.1 ; Psychophysiological insomnia F51.04 ; Guilty feelings R45.89 and Adjustment disorder with mixed anxiety and depressed mood F43.23 IMMUNIZATIONS No Known Immunizations SOCIAL HISTORY Never Assessed REASON FOR VISIT klonopin refill PLAN OF CARE VITAL SIGNS MEDICATIONS Medication Instructions Dosage Frequency Start Date End Date Duration Status Klonopin 1 MG Orally twice a day as needed 1/2 tablet May, 30 days Active RESULTS No Results PROCEDURES [...]
--- OUTSIDE RECORDS SUMMARY | 2018-04-20 16:44 | XMS REPORT ---
Author Author ROSAURA ROZ Organization [facility] Address [address] [place] [address] Care Team Providers Care Motorboat Mechanic Helper Name Role Phone NIDHIMYRA ROZ Unavailable PROBLEMS Type Condition ICD9-CM Code [id number] Code Onset Dates Condition Status SNOMED Code Problem Adjustment disorder with mixed anxiety and depressed mood F43.23 Active 69241025 Problem Psychophysiological insomnia F51.04 Active 863832810 Problem Generalized anxiety disorder F41.1 Active 99432593 Problem Current mild episode of major depressive disorder without prior episode F32.0 Active 57520369 Problem Hypothyroidism (acquired) E03.9 Active 138266375 Problem Primary insomnia F51.01 Active 0704218 Problem Hypoglycemia E16.2 Active 677719188 Problem Vitamin D deficiency E55.9 Active 29182063 Problem Moderate episode of recurrent major depressive disorder F33.1 Active 902243784 Problem Severe episode of recurrent major depressive disorder, without psychotic features F33.2 Active 49399597 Problem ROSY (generalized anxiety disorder) F41.1 Active 25125114 Problem Panic disorder F41.0 Active 977820537 ALLERGIES No Information ENCOUNTERS Encounter Location Date Diagnosis [facility] [id number] [place] [address] 54006- 0939 Oct, Current mild episode of major depressive disorder without prior episode F32.0 [facility] [id number] [place] [address] 25391- 4463 Oct, Hypoglycemia E16.2 ; Allergic contact dermatitis due to plants, except food L23.7 ; Hypothyroidism (acquired) E03.9 ; Vitamin D deficiency E55.9 ; Current mild episode of major depressive disorder without prior episode F32.0 and Generalized anxiety disorder F41.1 [facility] [id number] [address]- 5[address] Oct, Panic disorder F41.0 ; ROSY (generalized anxiety disorder) F41.1 ; Moderate episode of recurrent major depressive disorder F33.1 and Primary insomnia F51.01 [place] [address] [place] [address] 80363- 1142 Oct, [facility] [id number] [place] [address] 90107- 7481 Sep, Panic disorder F41.0 [facility] [id number] [place] [address] 94157- 6717 Aug, Panic disorder F41.0 ; Generalized anxiety disorder F41.1 and Moderate episode of recurrent major depressive disorder F33.1 [place] [id number] [place] [address] 02746- 9525 Aug, [place] [id number] [place] [address] 07219- 8304 July, [facility] [id number] [place] [address] 33344- 9998 July, [facility] [id number] [place] [address] 46754- 8708 Jun, Panic disorder F41.0 ; ROSY (generalized anxiety disorder) F41.1 and Moderate episode of recurrent major depressive disorder F33.1 [place] [address] [address]- 88[address] Jun, [place] [id number] [place] [address] 91564- 7501 Jun, Vitamin D deficiency E55.9 [place] [address] [place] [address] 35353- 8277 Jun, Current mild episode of major depressive disorder without prior episode F32.0 and Generalized anxiety disorder F41.1 [facility] [address] [address]- 9315 Jun, Current mild episode of major depressive disorder without prior episode F32.0 ; Primary insomnia F51.01 and Hypothyroidism (acquired) E03.9 [place] [id number] [address]- 1798 May, Panic disorder F41.0 ; ROSY (generalized anxiety disorder) F41.1 and Moderate episode of recurrent major depressive disorder F33.1 [place] [address] [address]- 1816 May, Severe episode of recurrent major depressive disorder, without psychotic features F33.2 ; Generalized anxiety disorder F41.1 and Adjustment disorder with mixed anxiety and depressed mood F43.23 [place] [address] [place] [address] 06014- 6044 15 May, 2017 Severe episode of recurrent major depressive disorder, without psychotic features F33.2 ; Generalized anxiety disorder F41.1 and Adjustment disorder with mixed anxiety and depressed mood F43.23 [place] [address] [address]- 9555 May, [place] [id number] [place] [address] 79854- 8976 May, Severe episode of recurrent major depressive [...]
--- OUTSIDE RECORDS SUMMARY | 2018-04-20 16:44 | XMS REPORT ---
Author Author ROSAURA ROZ Organization [facility] Address [address] [place] [address] Care Team Providers Care Dental Floss Packer Name Role Phone NIDHIMYRA ROZ Unavailable PROBLEMS Type Condition ICD9-CM Code [id number] Code Onset Dates Condition Status SNOMED Code Problem Adjustment disorder with mixed anxiety and depressed mood F43.23 Active 53761963 Problem Psychophysiological insomnia F51.04 Active 540973679 Problem Generalized anxiety disorder F41.1 Active 38785042 Problem Current mild episode of major depressive disorder without prior episode F32.0 Active 92106731 Problem Hypothyroidism (acquired) E03.9 Active 170139132 Problem Primary insomnia F51.01 Active 9237105 Problem Hypoglycemia E16.2 Active 402047572 Problem Vitamin D deficiency E55.9 Active 46901315 Problem Moderate episode of recurrent major depressive disorder F33.1 Active 069904156 Problem Severe episode of recurrent major depressive disorder, without psychotic features F33.2 Active 76469831 Problem ROSY (generalized anxiety disorder) F41.1 Active 74129572 Problem Panic disorder F41.0 Active 952609875 ALLERGIES Substance Reaction Event Type Date Status Morphine Sulfate headache/ nausea Drug Allergy Aug, Active Keflex anaphylaxis Drug Allergy Aug, Active ENCOUNTERS Encounter Location Date Diagnosis [facility] [address] [facility] [id number] [address] Nov, [facility] [address] [facility] [id number] [address] Oct, Current mild episode of major depressive disorder without prior episode F32.0 [facility] [id number] [address] Oct, Hypoglycemia E16.2 ; Allergic contact dermatitis due to plants, except food L23.7 ; Hypothyroidism (acquired) E03.9 ; Vitamin D deficiency E55.9 ; Current mild episode of major depressive disorder without prior episode F32.0 and Generalized anxiety disorder F41.1 [facility] [address] [address] Oct, Panic disorder F41.0 ; ROSY (generalized anxiety disorder) F41.1 ; Moderate episode of recurrent major depressive disorder F33.1 and Primary insomnia F51.01 [facility] [address] [place] [address] Oct, [facility] [id number] [address] Sep, Panic disorder F41.0 [facility] [id number] [place] [address]- 2447 Aug, Panic disorder F41.0 ; Generalized anxiety disorder F41.1 and Moderate episode of recurrent major depressive disorder F33.1 [facility] [id number] [place] [address] Aug, [facility] [address] [address] July, [facility] [id number] [place] [address] 28183- 8283 July, [facility] [id number] [address] Jun, Panic disorder F41.0 ; ROSY (generalized anxiety disorder) F41.1 and Moderate episode of recurrent major depressive disorder F33.1 [facility] [address] [address] Jun, [facility] [id number] [place] [address]04- 3190 Jun, Vitamin D deficiency E55.9 [facility] [id number] [address] Jun, Current mild episode of major depressive disorder without prior episode F32.0 and Generalized anxiety disorder F41.1 [place] [address] [place] [address] 09 Jun, 2017 Current mild episode of major depressive disorder without prior episode F32.0 ; Primary insomnia F51.01 and Hypothyroidism (acquired) E03.9 [place] [id number] [place] [address] 47748- 4[address] May, Panic disorder F41.0 ; ROSY (generalized anxiety disorder) F41.1 and Moderate episode of recurrent major depressive disorder F33.1 [place] [id number] [place] [address]35- 1686 May, Severe episode of recurrent major depressive disorder, without psychotic features F33.2 ; Generalized anxiety disorder F41.1 and Adjustment disorder with mixed anxiety and depressed mood F43.23 [place] [id number] [place] [address] 11684- 0728 15 May, 2017 Severe episode of recurrent major depressive disorder, without psychotic features F33.2 ; Generalized anxiety disorder F41.1 and Adjustment disorder with mixed anxiety and depressed mood F43.23 [place] [id number] [place] [address] 88028- 9828 14 May, 2017 [place] [id number] [place] [address] 29003- 3090 08 May, 2017 Severe episode of recurrent major depressive disorder, without psychotic features F33.2 ; Generalized anxiety disorder F41.1 ; Psychophysiological insomnia F51.04 ; Guilty feelings R45.89 and Adjustment disorder with mixed anxiety and depressed mood F43.23 IMMUNIZATIONS No Known Immunizations SOCIAL HISTORY Never Assessed REASON FOR VISIT eliud/oniel Cr MA PLAN OF CARE Activity Details Follow Up 4 Weeks, prn Reason: VITAL SIGNS Height 66 in 2017-08-27 Weight 185.5 lbs 2017-08-27 Heart Rate 63 bpm 2017-08-27 Respiratory Rate 20 2017-08-27 BMI 29.94 kg/m2 2017-08-27 Blood pressure systolic 115 mmHg 2017-08-27 Blood pressure diastolic 60 mmHg 2017-08-27 MEDICATIONS Medication Instructions Dosage Frequency Start Date End Date Duration Status Neurontin 100 MG Orally Once a day 2 capsule 24h Active Celexa 10 MG Orally Once a day 1 tablet 24h May, Active Levothyroxine Sodium 112 MCG Orally Once a day 1 tablet 24h Active Amitriptyline HCl 25 MG Orally Once a day 1 tablet 24h Aug, 30 day(s) Active Klonopin 0.5 MG Orally twice a day as needed 1 tablet May, Active RESULTS No Results PROCEDURES Procedure Date Ordered Result Body Site [facility] VISIT ESTABLISHED PATIENT August 27, 2017 INSTRUCTIONS MEDICATIONS ADMINISTERED No Known Medications [...]
--- OUTSIDE RECORDS SUMMARY | 2018-04-20 16:44 | XMS REPORT ---
Author Author ROSAURA ROZ Organization [facility] Address [address] [place] [address] Care Team Providers Care Reimbursement Liaison Name Role Phone NIDHIROZ RENTERIA Unavailable PROBLEMS Type Condition ICD9-CM Code [id number] Code Onset Dates Condition Status SNOMED Code Problem Adjustment disorder with mixed anxiety and depressed mood F43.23 Active 18131065 Problem Psychophysiological insomnia F51.04 Active 657135472 Problem Generalized anxiety disorder F41.1 Active 62316237 Problem Current mild episode of major depressive disorder without prior episode F32.0 Active 96784177 Problem Hypothyroidism (acquired) E03.9 Active 962656277 Problem Primary insomnia F51.01 Active 0586273 Problem Hypoglycemia E16.2 Active 230201919 Problem Vitamin D deficiency E55.9 Active 84345720 Problem Moderate episode of recurrent major depressive disorder F33.1 Active 835223809 Problem Severe episode of recurrent major depressive disorder, without psychotic features F33.2 Active 23577649 Problem ROSY (generalized anxiety disorder) F41.1 Active 51433609 Problem Panic disorder F41.0 Active 788597181 ALLERGIES Substance Reaction Event Type Date Status Morphine Sulfate headache/ nausea Drug Allergy Oct, Active Keflex anaphylaxis Drug Allergy Oct, Active ENCOUNTERS Encounter Location Date Diagnosis [facility] [id number] [address] Nov, Panic disorder F41.0 [facility] [id number] [address] Oct, Current mild episode of major depressive disorder without prior episode F32.0 [facility] [id number] [address] Oct, Hypoglycemia E16.2 ; Allergic contact dermatitis due to plants, except food L23.7 ; Hypothyroidism (acquired) E03.9 ; Vitamin D deficiency E55.9 ; Current mild episode of major depressive disorder without prior episode F32.0 and Generalized anxiety disorder F41.1 [facility] [id number] [place] [address] 9778 Oct, Panic disorder F41.0 ; ROSY (generalized anxiety disorder) F41.1 ; Moderate episode of recurrent major depressive disorder F33.1 and Primary insomnia F51.01 [facility] [id number] [place] [address] 74984- 5562 Oct, [facility] [id number] [place] [address] 30681- 8380 Sep, Panic disorder F41.0 [facility] [id number] [place] [address] 14658- 3354 Aug, Panic disorder F41.0 ; Generalized anxiety disorder F41.1 and Moderate episode of recurrent major depressive disorder F33.1 [facility] [id number] [place] [address] 01152- 5346 Aug, [facility] [id number] [place] [address] 35743- 3897 July, [facility] [id number] [place] [address] 59406- 2768 July, [facility] [id number] [place] [address] 16906- 4722 Jun, Panic disorder F41.0 ; ROSY (generalized anxiety disorder) F41.1 and Moderate episode of recurrent major depressive disorder F33.1 [facility] [address] [address] Jun, [facility] [id number] [place] [address] 46972- 7415 Jun, Vitamin D deficiency E55.9 [facility] [address] [address] Jun, Current mild episode of major depressive disorder without prior episode F32.0 and Generalized anxiety disorder F41.1 [place] [address] [place] [address] 98529- 6637 Jun, Current mild episode of major depressive disorder without prior episode F32.0 ; Primary insomnia F51.01 and Hypothyroidism (acquired) E03.9 [place] [id number] [place] [address] 70338- 7659 May, Panic disorder F41.0 ; ROSY (generalized anxiety disorder) F41.1 and Moderate episode of recurrent major depressive disorder F33.1 [place] [id number] [place] [address]99- 7977 May, Severe episode of recurrent major depressive disorder, without psychotic features F33.2 ; Generalized anxiety disorder F41.1 and Adjustment disorder with mixed anxiety and depressed mood F43.23 [place] [id number] [place] [address] 97089- 1356 15 May, 2017 Severe episode of recurrent major depressive disorder, without psychotic features F33.2 ; Generalized anxiety disorder F41.1 and Adjustment disorder with mixed anxiety and depressed mood F43.23 [place] [id number] [place] [address] 19771- 8779 May, [place] [id number] [place] [address] 44153- 3105 May, Severe episode of recurrent major depressive disorder, without psychotic features F33.2 ; Generalized anxiety disorder F41.1 ; Psychophysiological insomnia F51.04 ; Guilty feelings R45.89 and Adjustment disorder with mixed anxiety and depressed mood F43.23 IMMUNIZATIONS No Known Immunizations SOCIAL HISTORY Never Assessed REASON FOR VISIT f/u Guillermo PLAN OF CARE Activity Details Follow Up 4 Weeks Reason: VITAL SIGNS Height 66 in 2017-10-23 Weight 183.6 lbs 2017-10-23 Heart Rate 80 bpm 2017-10-23 Respiratory Rate 22 2017-10-23 BMI 29.63 kg/m2 2017-10-23 Blood pressure systolic 136 mmHg 2017-10-23 Blood pressure diastolic 90 mmHg 2017-10-23 MEDICATIONS Medication Instructions Dosage Frequency Start Date End Date Duration Status Celexa 20 MG Orally Once a day 1 tablet 24h May, 30 days Active Levothyroxine Sodium 112 MCG Orally Once a day 1 tablet 24h Active Neurontin 100 MG Orally Once a day 2 capsule 24h Active Klonopin 1 MG Orally twice a [...]
--- OUTSIDE RECORDS SUMMARY | 2018-04-20 16:44 | XMS REPORT ---
Author Author DARRIN GODWIN Organization [facility] Address [address] [place] [address] Care Team Providers Care Journeyman Level Acoustic Analyst Name Role Phone DARRIN GODWIN Unavailable PROBLEMS Type Condition ICD9-CM Code [id number] Code Onset Dates Condition Status SNOMED Code Problem Adjustment disorder with mixed anxiety and depressed mood F43.23 Active 32386797 Problem Psychophysiological insomnia F51.04 Active 474293621 Problem Generalized anxiety disorder F41.1 Active 32399856 Problem Current mild episode of major depressive disorder without prior episode F32.0 Active 28484733 Problem Hypothyroidism (acquired) E03.9 Active 772937646 Problem Primary insomnia F51.01 Active 6052819 Problem Hypoglycemia E16.2 Active 492900081 Problem Vitamin D deficiency E55.9 Active 29817228 Problem Moderate episode of recurrent major depressive disorder F33.1 Active 317353600 Problem Severe episode of recurrent major depressive disorder, without psychotic features F33.2 Active 69863976 Problem ROSY (generalized anxiety disorder) F41.1 Active 81347839 Problem Panic disorder F41.0 Active 397406241 ALLERGIES No Information ENCOUNTERS Encounter Location Date Diagnosis [place] [id number] [place] [address] 64372- 4693 Nov, Panic disorder F41.0 [place] [address] [place] [address] 24149- 9886 Oct, Current mild episode of major depressive disorder without prior episode F32.0 [place] [id number] [place] [address] 47828- 5421 Oct, Hypoglycemia E16.2 ; Allergic contact dermatitis due to plants, except food L23.7 ; Hypothyroidism (acquired) E03.9 ; Vitamin D deficiency E55.9 ; Current mild episode of major depressive disorder without prior episode F32.0 and Generalized anxiety disorder F41.1 [place] [address], [place] [address] Oct, Panic disorder F41.0 ; ROSY (generalized anxiety disorder) F41.1 ; Moderate episode of recurrent major depressive disorder F33.1 and Primary insomnia F51.01 [facility] [address], [place] [address] Oct, [facility] [id number] [place] [address] 19335- 4270 Sep, Panic disorder F41.0 [facility] [id number] [place] [address] 98091- 3908 Aug, Panic disorder F41.0 ; Generalized anxiety disorder F41.1 and Moderate episode of recurrent major depressive disorder F33.1 [facility] [id number], [place] [address] Aug, [facility] [id number] [place] [address] 25297- 0841 July, [facility] [id number] [place] [address] 33485- 6042 July, [facility] [id number] [place] [address] 92454- 9061 Jun, Panic disorder F41.0 ; ROSY (generalized anxiety disorder) F41.1 and Moderate episode of recurrent major depressive disorder F33.1 [facility] [address], [place] [address]- 16[address] Jun, [facility] [address] [place] [address] 08885- 1942 Jun, Vitamin D deficiency E55.9 [facility] [address], [place] [address]- [address] Jun, Current mild episode of major depressive disorder without prior episode F32.0 and Generalized anxiety disorder F41.1 [facility] [address] [place] [address] 57183- 3982 Jun, Current mild episode of major depressive disorder without prior episode F32.0 ; Primary insomnia F51.01 and Hypothyroidism (acquired) E03.9 [place] [id number] [place] [address] May, Panic disorder F41.0 ; ROSY (generalized anxiety disorder) F41.1 and Moderate episode of recurrent major depressive disorder F33.[address] [address]- [address] May, Severe episode of recurrent major depressive disorder, without psychotic features F33.2 ; Generalized anxiety disorder F41.1 and Adjustment disorder with mixed anxiety and depressed mood F43.23 [place] [id number] [place] [address] 41666- 8697 May, Severe episode of recurrent major depressive disorder, without psychotic features F33.2 ; Generalized anxiety disorder F41.1 and Adjustment disorder with mixed anxiety and depressed mood F43.23 [place] [id number] [place] [address] 03059- 9418 May, [place] [id number] [place] [address] 24356- 3263 May, Severe episode of recurrent major depressive disorder, without psychotic features F33.2 ; Generalized anxiety disorder F41.1 ; Psychophysiological insomnia F51.04 ; Guilty feelings R45.89 and Adjustment disorder with mixed anxiety and depressed mood F43.23 IMMUNIZATIONS No Known Immunizations SOCIAL HISTORY Never Assessed REASON FOR VISIT blood work PLAN OF CARE VITAL SIGNS MEDICATIONS Unknown [...]
--- OUTSIDE RECORDS SUMMARY | 2018-04-20 16:44 | XMS REPORT ---
Author Author ROSAURA ROZ Organization [facility] Address [address] [place] [address] Care Team Providers Care College Athlete Name Role Phone ROSAURA ROZ Unavailable PROBLEMS Type Condition ICD9-CM Code [id number] Code Onset Dates Condition Status SNOMED Code Problem Adjustment disorder with mixed anxiety and depressed mood F43.23 Active 89094552 Problem Psychophysiological insomnia F51.04 Active 285499511 Problem Generalized anxiety disorder F41.1 Active 00351547 Problem Current mild episode of major depressive disorder without prior episode F32.0 Active 24071929 Problem Hypothyroidism (acquired) E03.9 Active 749283172 Problem Primary insomnia F51.01 Active 3208843 Problem Hypoglycemia E16.2 Active 709297683 Problem Vitamin D deficiency E55.9 Active 64814503 Problem Moderate episode of recurrent major depressive disorder F33.1 Active 703214176 Problem Severe episode of recurrent major depressive disorder, without psychotic features F33.2 Active 48204305 Problem ROSY (generalized anxiety disorder) F41.1 Active 41926375 Problem Panic disorder F41.0 Active 104889134 ALLERGIES No Information ENCOUNTERS Encounter Location Date Diagnosis [place] [id number], [place] [address] Feb, [facility] [address] [place] [address]102- 2716 Dec, [facility] [id number] [place] [address] 13559- 0833 24 Nov, 2017 Panic disorder F41.0 ; ROSY (generalized anxiety disorder) F41.1 ; Moderate episode of recurrent major depressive disorder F33.1 and Primary insomnia F51.01 [facility] [address], [place] [address]- [address] 12 Nov, 2017 Panic disorder F41.0 [place] [address], [place] [address]- [address] Oct, Current mild episode of major depressive disorder without prior episode F32.0 [place] [id number] [place] [address] 96256- 9831 Oct, Hypoglycemia E16.2 ; Allergic contact dermatitis due to plants, except food L23.7 ; Hypothyroidism (acquired) E03.9 ; Vitamin D deficiency E55.9 ; Current mild episode of major depressive disorder without prior episode F32.0 and Generalized anxiety disorder F41.1 [place] [address] [place] [address] 42295- 7917 Oct, Panic disorder F41.0 ; ROSY (generalized anxiety disorder) F41.1 ; Moderate episode of recurrent major depressive disorder F33.1 and Primary insomnia F51.01 [place] [id number] [place] [address] 02846- 9089 Oct, [place] [id number] [place] [address] 43543- 5055 Sep, Panic disorder F41.0 [place] [id number] [place] [address] 72771- 6048 Aug, Panic disorder F41.0 ; Generalized anxiety disorder F41.1 and Moderate episode of recurrent major depressive disorder F33.1 [place] [address] [place] [address] 91833- 7632 Aug, [place] [id number] [place] [address] 59904- 9703 July, [facility] [id number] [place] [address] 00069- 5800 July, [place] [id number] [place] [address] 93726- 2990 Jun, Panic disorder F41.0 ; ROSY (generalized anxiety disorder) F41.1 and Moderate episode of recurrent major depressive disorder F33.1 [place] [id number] [place] [address] 43323- 4690 Jun, [place] [address] 8[address]15- 5638 Jun, Vitamin D deficiency E55.9 [place] [id number] [place] [address] 80580- 3167 10 Jun, 2017 Current mild episode of major depressive disorder without prior episode F32.0 and Generalized anxiety disorder F41.1 [place] [address] 06777- 8189 09 Jun, 2017 Current mild episode of major depressive disorder without prior episode F32.0 ; Primary insomnia F51.01 and Hypothyroidism (acquired) E03.9 [place] [address] 50388- 3294 May, Panic disorder F41.0 ; ROSY (generalized anxiety disorder) F41.1 and Moderate episode of recurrent major depressive disorder F33.1 [place] [id number] [place] [address] 61606- 0824 May, Severe episode of recurrent major depressive disorder, without psychotic features F33.2 ; Generalized anxiety disorder F41.1 and Adjustment disorder with mixed anxiety and depressed mood F43.23 [place] [id number] [place] [address] 73343- 6223 15 May, 2017 Severe episode of recurrent major depressive disorder, without psychotic features F33.2 ; Generalized anxiety disorder F41.1 and Adjustment disorder with mixed anxiety and depressed mood F43.23 [place] [id number] [place] [address] 63394- 0003 May, [place] [address] 11198- 8523 08 May, 2017 Severe episode of recurrent [...]
--- OUTSIDE RECORDS SUMMARY | 2018-04-20 16:45 | XMS REPORT ---
Author Author DARRIN GODWIN Organization [facility] Address [address] [place] [address] Care Team Providers Care Distribution District Supervisor Name Role Phone DARRIN GODWIN Unavailable PROBLEMS Type Condition ICD9-CM Code TAU64-ND Code Onset Dates Condition Status SNOMED Code Problem Primary insomnia F51.01 Active 0471392 Problem Generalized anxiety disorder F41.1 Active 63451990 Problem Adjustment disorder with mixed anxiety and depressed mood F43.23 Active 49032605 Problem Current mild episode of major depressive disorder without prior episode F32.0 Active 33460879 Problem Hypothyroidism (acquired) E03.9 Active 894051932 Problem Vitamin D deficiency E55.9 Active 11684123 Problem ROSY (generalized anxiety disorder) F41.1 Active 94623643 Problem Severe episode of recurrent major depressive disorder, without psychotic features F33.2 Active 37130502 Problem Psychophysiological insomnia F51.04 Active 657618687 Problem Panic disorder F41.0 Active 486961840 Problem Moderate episode of recurrent major depressive disorder F33.1 Active 127206023 ALLERGIES No Information ENCOUNTERS Encounter Location Date Diagnosis [facility] [id number] [place] [address] 26384- 6386 Sep, Panic disorder F41.0 [facility] [id number] [place] [address] 62554- 2020 Aug, Panic disorder F41.0 ; Generalized anxiety disorder F41.1 and Moderate episode of recurrent major depressive disorder F33.1 [facility] [id number] [place] [address] 68811- 7008 Aug, [facility] [id number] [place] [address] 65498- 9599 July, [facility] [id number] [place] [address] 74912- 4555 July, [place] [address] [address] Jun, Panic disorder F41.0 ; ROSY (generalized anxiety disorder) F41.1 and Moderate episode of recurrent major depressive disorder F33.1 [place] [id number] [place] [address] 98349- 5784 Jun, [place] [address] 75925- 3781 Jun, Vitamin D deficiency E55.9 [place] [id number] [place] [address] 44496- 8430 Jun, Current mild episode of major depressive disorder without prior episode F32.0 and Generalized anxiety disorder F41.1 [place] [id number] [place] [address] 33998- 8455 Jun, Current mild episode of major depressive disorder without prior episode F32.0 ; Primary insomnia F51.01 and Hypothyroidism (acquired) E03.9 [place] [id number] [place] [address] 95970- 6542 May, Panic disorder F41.0 ; ROSY (generalized anxiety disorder) F41.1 and Moderate episode of recurrent major depressive disorder F33.1 [place] [id number] [place] [address] 34706- 1113 May, Severe episode of recurrent major depressive disorder, without psychotic features F33.2 ; Generalized anxiety disorder F41.1 and Adjustment disorder with mixed anxiety and depressed mood F43.23 [place] [id number] [place] [address] 51445- 1484 15 May, 2017 Severe episode of recurrent major depressive disorder, without psychotic features F33.2 ; Generalized anxiety disorder F41.1 and Adjustment disorder with mixed anxiety and depressed mood F43.23 [place] [id number] [place] [address] 61976- 1109 May, [place] [address] 92886- 9803 08 May, 2017 Severe episode of recurrent major depressive disorder, without psychotic features F33.2 ; Generalized anxiety disorder F41.1 ; Psychophysiological insomnia F51.04 ; Guilty feelings R45.89 and Adjustment disorder with mixed anxiety and depressed mood F43.23 IMMUNIZATIONS No Known Immunizations SOCIAL HISTORY Never Assessed REASON FOR VISIT PLAN OF CARE VITAL SIGNS MEDICATIONS Medication Instructions Dosage Frequency Start Date End Date Duration Status Cholecalciferol 31484 UNIT Orally 2 times a week 1 capsule Jun, Jun, 12 Weeks Active RESULTS No Results PROCEDURES No Known [...]
--- OUTSIDE RECORDS SUMMARY | 2018-04-20 16:45 | XMS REPORT ---
Author Author ROSAURA ROZ Organization [facility] Address [address] [place] [address] Care Team Providers Care Butt Sawyer Name Role Phone ROSAURA ROZ Unavailable PROBLEMS Type Condition ICD9-CM Code [id number] Code Onset Dates Condition Status SNOMED Code Problem Adjustment disorder with mixed anxiety and depressed mood F43.23 Active 04990060 Problem Psychophysiological insomnia F51.04 Active 952136271 Problem Generalized anxiety disorder F41.1 Active 64849281 Problem Current mild episode of major depressive disorder without prior episode F32.0 Active 57903307 Problem Hypothyroidism (acquired) E03.9 Active 653184842 Problem Primary insomnia F51.01 Active 2784969 Problem Hypoglycemia E16.2 Active 832950075 Problem Vitamin D deficiency E55.9 Active 96908366 Problem Moderate episode of recurrent major depressive disorder F33.1 Active 565053962 Problem Severe episode of recurrent major depressive disorder, without psychotic features F33.2 Active 64693385 Problem ROSY (generalized anxiety disorder) F41.1 Active 08383139 Problem Panic disorder F41.0 Active 110739148 ALLERGIES No Information ENCOUNTERS Encounter Location Date Diagnosis [facility] [address] [place] [address] 41774- 5681 Nov, [facility] [id number] [place] [address] 78965- 2137 Oct, Hypoglycemia E16.2 ; Allergic contact dermatitis due to plants, except food L23.7 ; Hypothyroidism (acquired) E03.9 ; Vitamin D deficiency E55.9 ; Current mild episode of major depressive disorder without prior episode F32.0 and Generalized anxiety disorder F41.1 [facility] [id number] [address] Oct, Panic disorder F41.0 ; ROSY (generalized anxiety disorder) F41.1 ; Moderate episode of recurrent major depressive disorder F33.1 and Primary insomnia F51.01 [place] [address] [address] Oct, [place] [address] [place] [id number] [place] [address] 89112- 8360 Sep, Panic disorder F41.0 [place] [id number] [place] [address] 38349- 4414 Aug, Panic disorder F41.0 ; Generalized anxiety disorder F41.1 and Moderate episode of recurrent major depressive disorder F33.1 [place] [address] [place] [id number] [place] [address] 28031- 0480 Aug, [place] [id number] [place] [address] 28426- 7741 July, [place] [id number] [place] [address] 71965- 9449 July, [place] [id number] [place] [address] 90003- 9660 Jun, Panic disorder F41.0 ; ROSY (generalized anxiety disorder) F41.1 and Moderate episode of recurrent major depressive disorder F33.1 [place] [address] [place] [address] 20552- 3066 Jun, [place] [address] [id number] [place] [address] 48324- 5572 Jun, Vitamin D deficiency E55.9 [place] [address] [id number] [place] [address] 44476- 7121 Jun, Current mild episode of major depressive disorder without prior episode F32.0 and Generalized anxiety disorder F41.1 [place] [address] [place] [address] 21063- 5121 Jun, Current mild episode of major depressive disorder without prior episode F32.0 ; Primary insomnia F51.01 and Hypothyroidism (acquired) E03.9 [place] [address] [place] [address] [address] 1437 May, Panic disorder F41.0 ; ROSY (generalized anxiety disorder) F41.1 and Moderate episode of recurrent major depressive disorder F33.1 [place] [address] [place] [address] 77470- 8924 May, Severe episode of recurrent major depressive disorder, without psychotic features F33.2 ; Generalized anxiety disorder F41.1 and Adjustment disorder with mixed anxiety and depressed mood F43.23 [place] [address] [id number] [place] [address] 59594- 2306 15 May, 2017 Severe episode of recurrent major depressive disorder, without psychotic features F33.2 ; Generalized anxiety disorder F41.1 and Adjustment disorder with mixed anxiety and depressed mood F43.23 [place] [address] [place] [address] 57598- 8708 May, [place] [address] [place] [address] 66547- 8628 May, Severe episode of recurrent major depressive disorder, without psychotic features F33.2 ; Generalized anxiety disorder F41.1 ; Psychophysiological insomnia F51.04 ; Guilty feelings R45.89 and Adjustment disorder with mixed anxiety and depressed mood F43.23 IMMUNIZATIONS No Known Immunizations SOCIAL HISTORY Never Assessed REASON FOR VISIT Requests return call PLAN OF CARE VITAL SIGNS MEDICATIONS Medication Instructions Dosage Frequency Start Date End Date Duration Status Trazodone HCl 50 MG Orally Once a day 0.5-1 tablet at night prn sleep 24h July, 30 day(s) Active RESULTS No Results PROCEDURES No Known [...]
--- OUTSIDE RECORDS SUMMARY | 2018-04-20 16:45 | XMS REPORT ---
Author Author DARRIN GODWIN Organization [facility] [place] Address [address] [place] [address] Care Team Providers Care Placing Judge Name Role Phone DARRIN GODWIN Unavailable PROBLEMS Type Condition ICD9-CM Code IZM76-OD Code Onset Dates Condition Status SNOMED Code Problem Primary insomnia F51.01 Active 5116169 Problem Generalized anxiety disorder F41.1 Active 47901700 Problem Adjustment disorder with mixed anxiety and depressed mood F43.23 Active 30514135 Problem Current mild episode of major depressive disorder without prior episode F32.0 Active 41784960 Problem Hypothyroidism (acquired) E03.9 Active 955832126 Problem Vitamin D deficiency E55.9 Active 23246570 Problem ROSY (generalized anxiety disorder) F41.1 Active 71685556 Problem Severe episode of recurrent major depressive disorder, without psychotic features F33.2 Active 13480968 Problem Psychophysiological insomnia F51.04 Active 469720851 Problem Panic disorder F41.0 Active 662507295 Problem Moderate episode of recurrent major depressive disorder F33.1 Active 438756873 ALLERGIES No Information ENCOUNTERS Encounter Location Date Diagnosis [facility] [place] [address] [place] [address] 75855- 3905 Sep, Panic disorder F41.0 [facility] [place] [id number] [place] [address] 78022- 2161 Aug, Panic disorder F41.0 ; Generalized anxiety disorder F41.1 and Moderate episode of recurrent major depressive disorder F33.1 [facility] [place] [id number] [place] [address] 22364- 5619 Aug, [facility] [place] [id number] [place] [address] 92510- 6551 July, [facility] [place] [id number] [place] [address] 78888- 2498 July, [place] [address], [place] [address]- 2195 Jun, Panic disorder F41.0 ; ROSY (generalized anxiety disorder) F41.1 and Moderate episode of recurrent major depressive disorder F33.1 [place] [id number] [place] [address] 54133- 4555 Jun, [place] [address] 11718- 2575 Jun, Vitamin D deficiency E55.9 [place] [address] [id number] [place] [address] 33906- 4401 Jun, Current mild episode of major depressive disorder without prior episode F32.0 and Generalized anxiety disorder F41.1 [place] [address] [id number] [place] [address] 77023- 5412 Jun, Current mild episode of major depressive disorder without prior episode F32.0 ; Primary insomnia F51.01 and Hypothyroidism (acquired) E03.9 [place] [address] [id number] [place] [address] 61736- 2767 May, Panic disorder F41.0 ; ROSY (generalized anxiety disorder) F41.1 and Moderate episode of recurrent major depressive disorder F33.1 [place] [address] [id number] [place] [address] 52569- 1218 May, Severe episode of recurrent major depressive disorder, without psychotic features F33.2 ; Generalized anxiety disorder F41.1 and Adjustment disorder with mixed anxiety and depressed mood F43.23 [place] [id number] [place] [address] 61773- 3231 15 May, 2017 Severe episode of recurrent major depressive disorder, without psychotic features F33.2 ; Generalized anxiety disorder F41.1 and Adjustment disorder with mixed anxiety and depressed mood F43.23 [place] [id number] [place] [address] 76564- 4791 May, [place] [address] 08945- 2757 08 May, 2017 Severe episode of recurrent major depressive disorder, without psychotic features F33.2 ; Generalized anxiety disorder F41.1 ; Psychophysiological insomnia F51.04 ; Guilty feelings R45.89 and Adjustment disorder with mixed anxiety and depressed mood F43.23 IMMUNIZATIONS No Known Immunizations SOCIAL HISTORY Never Assessed REASON FOR VISIT lab results PLAN OF CARE VITAL SIGNS MEDICATIONS Medication Instructions Dosage Frequency Start Date End Date Duration Status Cholecalciferol 30375 UNIT Orally 2 times a week 1 [...]
--- OUTSIDE RECORDS SUMMARY | 2018-04-20 16:45 | XMS REPORT ---
Author Author ROSAURA ROZ Organization [facility] Address [address] [place] [address] Care Team Providers Care Grain Distributor Name Role Phone NIDHIMYRA ROZ Unavailable PROBLEMS Type Condition ICD9-CM Code XBZ24-LO Code Onset Dates Condition Status SNOMED Code Problem Adjustment disorder with mixed anxiety and depressed mood F43.23 Active 47443541 Problem Psychophysiological insomnia F51.04 Active 837954483 Problem Generalized anxiety disorder F41.1 Active 74061093 Problem Current mild episode of major depressive disorder without prior episode F32.0 Active 86420824 Problem Hypothyroidism (acquired) E03.9 Active 154008068 Problem Primary insomnia F51.01 Active 9182634 Problem Hypoglycemia E16.2 Active 197356706 Problem Vitamin D deficiency E55.9 Active 86561057 Problem Moderate episode of recurrent major depressive disorder F33.1 Active 285790614 Problem Severe episode of recurrent major depressive disorder, without psychotic features F33.2 Active 87956424 Problem ROSY (generalized anxiety disorder) F41.1 Active 66384668 Problem Panic disorder F41.0 Active 011038595 ALLERGIES No Information ENCOUNTERS Encounter Location Date Diagnosis [place] [address] [place] [address] 50350- 6365 Nov, [place] [address] [place] [address] 64908- 3202 Oct, Current mild episode of major depressive disorder without prior episode F32.0 [place] [address] [place] [address] 23982- 4778 Oct, Hypoglycemia E16.2 ; Allergic contact dermatitis due to plants, except food L23.7 ; Hypothyroidism (acquired) E03.9 ; Vitamin D deficiency E55.9 ; Current mild episode of major depressive disorder without prior episode F32.0 and Generalized anxiety disorder F41.1 [place] [address], [place] [address]- 8899 Oct, Panic disorder F41.0 ; ROSY (generalized anxiety disorder) F41.1 ; Moderate episode of recurrent major depressive disorder F33.1 and Primary insomnia F51.01 [facility] [address], [place] [address]- 48[address] Oct, [facility] [id number] [place] [address] 63784- 4679 Sep, Panic disorder F41.0 [facility] [id number] [place] [address] 87167- 1926 Aug, Panic disorder F41.0 ; Generalized anxiety disorder F41.1 and Moderate episode of recurrent major depressive disorder F33.1 [facility] [id number] [address]- 9406 Aug, [facility] [id number] [place] [address] 80011- 9638 July, [facility] [id number] [place] [address] 61533- 2045 July, [facility] [id number] [place] [address] 76661- 1663 Jun, Panic disorder F41.0 ; ROSY (generalized anxiety disorder) F41.1 and Moderate episode of recurrent major depressive disorder F33.1 [facility] [address], [place] [address]- 2532 Jun, [facility] [address] [place] [address] 27818- 3891 Jun, Vitamin D deficiency E55.9 [facility] [address], [place] [address]- 3242 Jun, Current mild episode of major depressive disorder without prior episode F32.0 and Generalized anxiety disorder F41.1 [facility] [address] [place] [address] 77192- 1695 Jun, Current mild episode of major depressive disorder without prior episode F32.0 ; Primary insomnia F51.01 and Hypothyroidism (acquired) E03.9 [place] [id number] [place], [place] [address]- 5752 May, Panic disorder F41.0 ; ROSY (generalized anxiety disorder) F41.1 and Moderate episode of recurrent major depressive disorder F33.[address] 74154- 4300 May, Severe episode of recurrent major depressive disorder, without psychotic features F33.2 ; Generalized anxiety disorder F41.1 and Adjustment disorder with mixed anxiety and depressed mood F43.23 [place] [id number] [place] [address] 43780- 5600 May, Severe episode of recurrent major depressive disorder, without psychotic features F33.2 ; Generalized anxiety disorder F41.1 and Adjustment disorder with mixed anxiety and depressed mood F43.23 [place] [id number] [place] [address] 15844- 8506 May, [place] [id number] [place] [address] 63916- 7121 May, Severe episode of recurrent major depressive disorder, without psychotic features F33.2 ; Generalized anxiety disorder F41.1 ; Psychophysiological insomnia F51.04 ; Guilty feelings R45.89 and Adjustment disorder with mixed anxiety and depressed mood F43.23 IMMUNIZATIONS No Known Immunizations SOCIAL HISTORY Never Assessed REASON FOR VISIT medication questions PLAN OF CARE VITAL SIGNS MEDICATIONS Unknown [...]
--- OUTSIDE RECORDS SUMMARY | 2018-04-20 16:45 | XMS REPORT ---
Author Author ROSAURA ROZ Organization [facility] Address [address] [place] [address] Care Team Providers Care Vacation Sales Advisor Name Role Phone ROSAURA ROZ Unavailable PROBLEMS Type Condition ICD9-CM Code [id number] Code Onset Dates Condition Status SNOMED Code Problem Primary insomnia F51.01 Active 9165367 Problem Generalized anxiety disorder F41.1 Active 19117742 Problem Adjustment disorder with mixed anxiety and depressed mood F43.23 Active 43596245 Problem Current mild episode of major depressive disorder without prior episode F32.0 Active 63953161 Problem Hypothyroidism (acquired) E03.9 Active 776266693 Problem Vitamin D deficiency E55.9 Active 72738095 Problem ROSY (generalized anxiety disorder) F41.1 Active 81188828 Problem Severe episode of recurrent major depressive disorder, without psychotic features F33.2 Active 47743029 Problem Psychophysiological insomnia F51.04 Active 475392187 Problem Panic disorder F41.0 Active 191734360 Problem Moderate episode of recurrent major depressive disorder F33.1 Active 364267023 ALLERGIES No Information ENCOUNTERS Encounter Location Date Diagnosis [facility] [address] [place] [address] 94238- 0234 Nov, [facility] [id number] [place] [address] 70116- 9701 Oct, [facility] [id number] [place] [address] 40921- 5550 Oct, Panic disorder F41.0 ; ROSY (generalized anxiety disorder) F41.1 ; Moderate episode of recurrent major depressive disorder F33.1 and Primary insomnia F51.01 [facility] [address] [place] [address] 11912- 7150 Oct, [facility] [id number] [place] [address] 81565- 3744 Sep, Panic disorder F41.0 [place] [address] [place] [address] 86429- 0426 Aug, Panic disorder F41.0 ; Generalized anxiety disorder F41.1 and Moderate episode of recurrent major depressive disorder F33.1 [place] [address] [place] [address] 66142- 6881 Aug, [place] [id number] [place] [address] 54302- 5999 July, [place] [address] [place] [address] 82485- 7971 July, [place] [id number] [place] [address] 64405- 8454 Jun, Panic disorder F41.0 ; ROSY (generalized anxiety disorder) F41.1 and Moderate episode of recurrent major depressive disorder F33.1 [place] [address] [place] [address] 04760- 2977 Jun, [place] [id number] [place] [address] 56416- 7029 Jun, Vitamin D deficiency E55.9 [place] [address] [place] [address] 14733- 4764 Jun, Current mild episode of major depressive disorder without prior episode F32.0 and Generalized anxiety disorder F41.1 [place] [address] [place] [address] 07834- 9759 Jun, Current mild episode of major depressive disorder without prior episode F32.0 ; Primary insomnia F51.01 and Hypothyroidism (acquired) E03.9 [place] [address] [place] [address] 81273- 5465 May, Panic disorder F41.0 ; ROSY (generalized anxiety disorder) F41.1 and Moderate episode of recurrent major depressive disorder F33.1 [place] [address] [place] [address] 52407- 5617 May, Severe episode of recurrent major depressive disorder, without psychotic features F33.2 ; Generalized anxiety disorder F41.1 and Adjustment disorder with mixed anxiety and depressed mood F43.23 [place] [id number], [place] [address] 15 May, 2017 Severe episode of recurrent major depressive disorder, without psychotic features F33.2 ; Generalized anxiety disorder F41.1 and Adjustment disorder with mixed anxiety and depressed mood F43.23 [place] [id number] [address] 14 May, 2017 [place] [id number] [address] 266[address] May, Severe episode of recurrent major depressive disorder, without psychotic features F33.2 ; Generalized anxiety disorder F41.1 ; Psychophysiological insomnia F51.04 ; Guilty feelings R45.89 and Adjustment disorder with mixed anxiety and depressed mood F43.23 IMMUNIZATIONS No Known Immunizations SOCIAL HISTORY Never Assessed REASON FOR VISIT f/u WB-OLI PLAN OF CARE Activity Details Follow Up 3 Months, prn Reason: VITAL SIGNS Height 66 in 2017-07-14 Weight 177 lbs 2017-07-14 Heart Rate 70 bpm 2017-07-14 Respiratory Rate 20 2017-07-14 BMI 28.57 kg/m2 2017-07-14 Blood pressure systolic 118 mmHg 2017-07-14 Blood pressure diastolic 74 mmHg 2017-07-14 MEDICATIONS Medication Instructions Dosage Frequency Start Date End Date Duration Status Cholecalciferol 62886 UNIT Orally 2 times a week 1 capsule Jun, Jun, 12 Weeks Active Neurontin 100 MG Orally Once a day 2 capsule 24h Active Celexa 10 MG Orally Once a day 1 tablet 24h May, 30 days Active Klonopin 0.5 MG Orally twice a day as needed 1 tablet May, 30 days Active Levothyroxine Sodium 112 MCG Orally Once a day 1 tablet 24h Active RESULTS No Results PROCEDURES Procedure Date Ordered Result Body Site [facility] VISIT ESTABLISHED PATIENT July 14, 2017 INSTRUCTIONS MEDICATIONS ADMINISTERED No Known Medications [...]
--- OUTSIDE RECORDS SUMMARY | 2018-04-20 16:45 | XMS REPORT ---
Author Author DARRIN GODWIN Organization [facility] Address [address] [place] [address] Care Team Providers Care Ham Marker Name Role Phone DARRIN GODWIN Unavailable PROBLEMS Type Condition ICD9-CM Code YRO92-PA Code Onset Dates Condition Status SNOMED Code Problem Primary insomnia F51.01 Active 5196120 Problem Generalized anxiety disorder F41.1 Active 78887439 Problem Adjustment disorder with mixed anxiety and depressed mood F43.23 Active 12048897 Problem Current mild episode of major depressive disorder without prior episode F32.0 Active 61894654 Problem Hypothyroidism (acquired) E03.9 Active 893337548 Problem Vitamin D deficiency E55.9 Active 01823825 Problem ROSY (generalized anxiety disorder) F41.1 Active 41921736 Problem Severe episode of recurrent major depressive disorder, without psychotic features F33.2 Active 43413503 Problem Psychophysiological insomnia F51.04 Active 774585079 Problem Panic disorder F41.0 Active 809001651 Problem Moderate episode of recurrent major depressive disorder F33.1 Active 174196317 ALLERGIES Substance Reaction Event Type Date Status Morphine Sulfate headache/ nausea Drug Allergy Jun, Active Keflex anaphylaxis Drug Allergy Jun, Active ENCOUNTERS Encounter Location Date Diagnosis [facility] [id number] [address] Sep, Panic disorder F41.0 [facility] [id number] [address] Aug, Panic disorder F41.0 ; Generalized anxiety disorder F41.1 and Moderate episode of recurrent major depressive disorder F33.1 [facility] [id number] [address] Aug, [facility] [id number] [address] July, [place] [address] [place] [address] 81474- 3599 July, [place] [id number] [place] [address] 66556- 7863 Jun, Panic disorder F41.0 ; ROSY (generalized anxiety disorder) F41.1 and Moderate episode of recurrent major depressive disorder F33.1 [place] [id number] [place] [address] 62701- 8468 Jun, [place] [id number] [place] [address] 18231- 9567 Jun, Vitamin D deficiency E55.9 [place] [id number] [place] [address] 31392- 9184 Jun, Current mild episode of major depressive disorder without prior episode F32.0 and Generalized anxiety disorder F41.1 [place] [id number] [place] [address] 11415- 7782 Jun, Current mild episode of major depressive disorder without prior episode F32.0 ; Primary insomnia F51.01 and Hypothyroidism (acquired) E03.9 [place] [id number] [place] [address] 48523- 8553 May, Panic disorder F41.0 ; ROSY (generalized anxiety disorder) F41.1 and Moderate episode of recurrent major depressive disorder F33.1 [place] [id number] [place] [address] 19148- 9045 May, Severe episode of recurrent major depressive disorder, without psychotic features F33.2 ; Generalized anxiety disorder F41.1 and Adjustment disorder with mixed anxiety and depressed mood F43.23 [place] [id number] [place] [address] 24564- 0169 15 May, 2017 Severe episode of recurrent major depressive disorder, without psychotic features F33.2 ; Generalized anxiety disorder F41.1 and Adjustment disorder with mixed anxiety and depressed mood F43.23 [place] [id number] [place] [address] 99677- 2044 May, [facility] [address] [facility] [id number] [address] May, Severe episode of recurrent major depressive disorder, without psychotic features F33.2 ; Generalized anxiety disorder F41.1 ; Psychophysiological insomnia F51.04 ; Guilty feelings R45.89 and Adjustment disorder with mixed anxiety and depressed mood F43.23 IMMUNIZATIONS No Known Immunizations SOCIAL HISTORY Never Assessed REASON FOR VISIT Establish Care----Bushra, requesting thyroid labs PLAN OF CARE VITAL SIGNS Height 66 in 2017-06-30 Weight 182 lbs 2017-06-30 Temperature 98.1 degrees Fahrenheit 2017-06-30 Heart Rate 70 bpm 2017-06-30 Respiratory Rate 20 2017-06-30 BMI 29.37 kg/m2 2017-06-30 Blood pressure systolic 114 mmHg 2017-06-30 Blood pressure diastolic 70 mmHg 2017-06-30 MEDICATIONS Medication Instructions Dosage Frequency Start Date End Date Duration Status Klonopin 0.5 MG Orally twice a day as needed 1 tablet May, 30 days Active Levothyroxine Sodium 125 mcg Orally Once a day 1 tablet 24h Active Neurontin 100 MG Orally Once a day 2 capsule 24h Active Ambien 10 mg Orally Once a day 1 tablet at bedtime as needed 24h Jun, Active Celexa 10 MG Orally Once a day 1 tablet 24h May, 30 day(s) Active RESULTS No Results PROCEDURES Procedure Date Ordered Result Body Site [facility] VISIT ESTABLISHED PATIENT June 30, 2017 VENFARRAH, ROUTINE* June 30, 2017 LAB NOT BILLED BY [facility] June 30, 2017 INSTRUCTIONS MEDICATIONS ADMINISTERED No Known Medications [...]
--- OUTSIDE RECORDS SUMMARY | 2018-04-20 16:45 | XMS REPORT ---
Author Author DARRIN GODWIN Organization [facility] Address [address] [place] [address] Care Team Providers Care Worm Packer Name Role Phone DARRIN GODWIN Unavailable PROBLEMS Type Condition ICD9-CM Code YHF42-ZA Code Onset Dates Condition Status SNOMED Code Problem Primary insomnia F51.01 Active 9679380 Problem Generalized anxiety disorder F41.1 Active 07680568 Problem Adjustment disorder with mixed anxiety and depressed mood F43.23 Active 52107996 Problem Current mild episode of major depressive disorder without prior episode F32.0 Active 66559914 Problem Hypothyroidism (acquired) E03.9 Active 798395261 Problem Vitamin D deficiency E55.9 Active 63754483 Problem ROSY (generalized anxiety disorder) F41.1 Active 09193549 Problem Severe episode of recurrent major depressive disorder, without psychotic features F33.2 Active 65904451 Problem Psychophysiological insomnia F51.04 Active 852025368 Problem Panic disorder F41.0 Active 377894225 Problem Moderate episode of recurrent major depressive disorder F33.1 Active 776654224 ALLERGIES No Information ENCOUNTERS Encounter Location Date Diagnosis [facility] [address] [place] [address] 89097- 9628 Sep, Panic disorder F41.0 [facility] [id number] [place] [address] 35212- 4969 Aug, Panic disorder F41.0 ; Generalized anxiety disorder F41.1 and Moderate episode of recurrent major depressive disorder F33.1 [facility] [id number] [place] [address] 21646- 8729 Aug, [facility] [id number] [place] [address] 41017- 5074 July, [facility] [id number] [place] [address] 35491- 3435 July, [place] [address] [address]- 0671 Jun, Panic disorder F41.0 ; ROSY (generalized anxiety disorder) F41.1 and Moderate episode of recurrent major depressive disorder F33.1 [place] [id number] [place] [address] 61059- 0757 Jun, [place] [address] 0[address]76- 2686 Jun, Vitamin D deficiency E55.9 [place] [id number] [place] [address] 82903- 1946 Jun, Current mild episode of major depressive disorder without prior episode F32.0 and Generalized anxiety disorder F41.1 [place] [id number] [place] [address] 76626- 6484 Jun, Current mild episode of major depressive disorder without prior episode F32.0 ; Primary insomnia F51.01 and Hypothyroidism (acquired) E03.9 [place] [id number] [place] [address] 26747- 9703 May, Panic disorder F41.0 ; ROSY (generalized anxiety disorder) F41.1 and Moderate episode of recurrent major depressive disorder F33.1 [place] [id number] [place] [address] 48075- 0712 May, Severe episode of recurrent major depressive disorder, without psychotic features F33.2 ; Generalized anxiety disorder F41.1 and Adjustment disorder with mixed anxiety and depressed mood F43.23 [place] [id number] [place] [address] 74705- 8728 15 May, 2017 Severe episode of recurrent major depressive disorder, without psychotic features F33.2 ; Generalized anxiety disorder F41.1 and Adjustment disorder with mixed anxiety and depressed mood F43.23 [place] [id number] [place] [address] 94916- 9364 May, [place] [address] 02485- 3270 May, Severe episode of recurrent major depressive disorder, without psychotic features F33.2 ; Generalized anxiety disorder F41.1 ; Psychophysiological insomnia F51.04 ; Guilty feelings R45.89 and Adjustment disorder with mixed anxiety and depressed mood F43.23 IMMUNIZATIONS No Known Immunizations SOCIAL HISTORY Never Assessed REASON FOR VISIT lab results. PLAN OF CARE VITAL SIGNS MEDICATIONS Medication Instructions Dosage Frequency Start Date End Date Duration Status Levothyroxine Sodium 112 MCG Orally Once a day 1 tablet 24h Active RESULTS No Results PROCEDURES No Known [...]
--- OUTSIDE RECORDS SUMMARY | 2018-04-20 16:45 | XMS REPORT ---
Author Author SWATHI DE LA ROSA [facility] Address [address] [place] [address] Care Team Providers Care Community Development Coordinator Name Role Phone SWATHI DE LA ROSA Unavailable PROBLEMS Type Condition ICD9-CM Code JBA54-ML Code Onset Dates Condition Status SNOMED Code Problem Adjustment disorder with mixed anxiety and depressed mood F43.23 Active 05683571 Problem Psychophysiological insomnia F51.04 Active 746535351 Problem Generalized anxiety disorder F41.1 Active 54813172 Problem Current mild episode of major depressive disorder without prior episode F32.0 Active 10708892 Problem Hypothyroidism (acquired) E03.9 Active 163895635 Problem Primary insomnia F51.01 Active 7216397 Problem Hypoglycemia E16.2 Active 922003672 Problem Vitamin D deficiency E55.9 Active 93804119 Problem Moderate episode of recurrent major depressive disorder F33.1 Active 554026933 Problem Severe episode of recurrent major depressive disorder, without psychotic features F33.2 Active 89661064 Problem ROSY (generalized anxiety disorder) F41.1 Active 02860753 Problem Panic disorder F41.0 Active 532617787 ALLERGIES No Information ENCOUNTERS Encounter Location Date Diagnosis [facility] [address] [place] [address] 48511- 4064 Nov, [facility] [address] [place] [address] 67213- 7560 Oct, Hypoglycemia E16.2 ; Allergic contact dermatitis due to plants, except food L23.7 ; Hypothyroidism (acquired) E03.9 ; Vitamin D deficiency E55.9 ; Current mild episode of major depressive disorder without prior episode F32.0 and Generalized anxiety disorder F41.1 [facility] [id number] [place] [address] 75231- 5360 Oct, Panic disorder F41.0 ; ROSY (generalized anxiety disorder) F41.1 ; Moderate episode of recurrent major depressive disorder F33.1 and Primary insomnia F51.01 [place] [address], [place] [address]- [address] Oct, [place] [id number] [place] [address] 99693- 9861 Sep, Panic disorder F41.0 [place] [id number] [place] [address] 26764- 1681 Aug, Panic disorder F41.0 ; Generalized anxiety disorder F41.1 and Moderate episode of recurrent major depressive disorder F33.1 [place] [id number] [place] [address] 53333- 4906 Aug, [place] [id number] [place] [address] 23746- 1331 July, [place] [id number] [place] [address] 06244- 5177 July, [place] [id number] [place] [address] 97256- 2929 Jun, Panic disorder F41.0 ; ROSY (generalized anxiety disorder) F41.1 and Moderate episode of recurrent major depressive disorder F33.1 [place] [address] [place] [address] 24854- 1390 Jun, [place] [id number] [place] [address] 62939- 3634 Jun, Vitamin D deficiency E55.9 [place] [address] [place] [address] 56775- 3005 Jun, Current mild episode of major depressive disorder without prior episode F32.0 and Generalized anxiety disorder F41.1 [place] [id number] [place] [address] 11095- 1181 Jun, Current mild episode of major depressive disorder without prior episode F32.0 ; Primary insomnia F51.01 and Hypothyroidism (acquired) E03.9 [place] [id number], [place] [address]- 9581 May, Panic disorder F41.0 ; ROSY (generalized anxiety disorder) F41.1 and Moderate episode of recurrent major depressive disorder F33.1 [place] [address] [place] [address] 05017- 7093 May, Severe episode of recurrent major depressive disorder, without psychotic features F33.2 ; Generalized anxiety disorder F41.1 and Adjustment disorder with mixed anxiety and depressed mood F43.23 [place] [id number] [place] [address] 44076- 7993 15 May, 2017 Severe episode of recurrent major depressive disorder, without psychotic features F33.2 ; Generalized anxiety disorder F41.1 and Adjustment disorder with mixed anxiety and depressed mood F43.23 [place] [address] [place] [address] 87583- 6925 May, [place] [address] [place] [address] 19177- 3216 May, Severe episode of recurrent major depressive disorder, without psychotic features F33.2 ; Generalized anxiety disorder F41.1 ; Psychophysiological insomnia F51.04 ; Guilty feelings R45.89 and Adjustment disorder with mixed anxiety and depressed mood F43.23 IMMUNIZATIONS No Known Immunizations SOCIAL HISTORY Never Assessed REASON FOR VISIT eye exam PLAN OF CARE VITAL SIGNS MEDICATIONS Unknown [...]
--- OUTSIDE RECORDS SUMMARY | 2018-04-20 16:46 | XMS REPORT ---
Author Author ALEXANDRO Navas Organization [facility] Address [address] [place] [address] Care Team Providers Care Kennel Helper Name Role Phone Yosef ALEXANDRO Unavailable PROBLEMS Type Condition ICD9-CM Code HSD02-RR Code Onset Dates Condition Status SNOMED Code Problem Primary insomnia F51.01 Active 9994822 Problem Generalized anxiety disorder F41.1 Active 27773352 Problem Adjustment disorder with mixed anxiety and depressed mood F43.23 Active 83467321 Problem Current mild episode of major depressive disorder without prior episode F32.0 Active 58065312 Problem Hypothyroidism (acquired) E03.9 Active 422009447 Problem Vitamin D deficiency E55.9 Active 12583963 Problem ROSY (generalized anxiety disorder) F41.1 Active 58911300 Problem Severe episode of recurrent major depressive disorder, without psychotic features F33.2 Active 40828935 Problem Psychophysiological insomnia F51.04 Active 832058791 Problem Panic disorder F41.0 Active 945965475 Problem Moderate episode of recurrent major depressive disorder F33.1 Active 346491216 ALLERGIES No Information ENCOUNTERS Encounter Location Date Diagnosis [facility] [address], [place] [address] Sep, [facility] [address] [place] [address] Aug, Panic disorder F41.0 ; Generalized anxiety disorder F41.1 and Moderate episode of recurrent major depressive disorder F33.1 [facility] [address] [place] [address] Aug, [facility] [id number] [place] [address] July, [facility] [id number] [place] [address] July, [place] [address], [place] [address] Jun, Panic disorder F41.0 ; ROSY (generalized anxiety disorder) F41.1 and Moderate episode of recurrent major depressive disorder F33.1 [place] [address], [place] [address] Jun, [place] [id number] [place] [address]- 79[address] Jun, Vitamin D deficiency E55.9 [place] [id number] [place] [address]- [address] Jun, Current mild episode of major depressive disorder without prior episode F32.0 and Generalized anxiety disorder F41.1 [place] [id number] [place] [address]- [address] Jun, Current mild episode of major depressive disorder without prior episode F32.0 ; Primary insomnia F51.01 and Hypothyroidism (acquired) E03.9 [place] [id number] [place] [address] May, Panic disorder F41.0 ; RSOY (generalized anxiety disorder) F41.1 and Moderate episode of recurrent major depressive disorder F33.1 [place] [address], [place] [address] May, Severe episode of recurrent major depressive disorder, without psychotic features F33.2 ; Generalized anxiety disorder F41.1 and Adjustment disorder with mixed anxiety and depressed mood F43.23 [place] [address], [place] [address] 15 May, 2017 Severe episode of recurrent major depressive disorder, without psychotic features F33.2 ; Generalized anxiety disorder F41.1 and Adjustment disorder with mixed anxiety and depressed mood F43.23 [place] [address], [place] [address] May, [place] [id number] [place] [address] 08 May, 2017 Severe episode of recurrent major depressive disorder, without psychotic features F33.2 ; Generalized anxiety disorder F41.1 ; Psychophysiological insomnia F51.04 ; Guilty feelings R45.89 and Adjustment disorder with mixed anxiety and depressed mood F43.23 IMMUNIZATIONS No Known Immunizations SOCIAL HISTORY Never Assessed REASON FOR VISIT f/u PLAN OF CARE Activity Details Follow Up Next available Reason:depression, anxiety VITAL SIGNS MEDICATIONS Unknown Medications RESULTS No Results PROCEDURES Procedure Date Ordered Result Body Site Psychotherapy, patient &/family, 30 minutes, established patient June 05, 2017 INSTRUCTIONS MEDICATIONS ADMINISTERED No Known Medications [...]
--- OUTSIDE RECORDS SUMMARY | 2018-04-20 16:46 | XMS REPORT ---
Author Author ROSAURA ROZ Organization [facility] Address [address] [place] [address] Care Team Providers Care Instructor Nurse Name Role Phone NIDHIMYRA ROZ Unavailable PROBLEMS Type Condition ICD9-CM Code UCE93-ZI Code Onset Dates Condition Status SNOMED Code Problem Primary insomnia F51.01 Active 5791391 Problem Generalized anxiety disorder F41.1 Active 09185707 Problem Adjustment disorder with mixed anxiety and depressed mood F43.23 Active 53451275 Problem Current mild episode of major depressive disorder without prior episode F32.0 Active 12822922 Problem Hypothyroidism (acquired) E03.9 Active 497109234 Problem Vitamin D deficiency E55.9 Active 02727853 Problem ROSY (generalized anxiety disorder) F41.1 Active 81047453 Problem Severe episode of recurrent major depressive disorder, without psychotic features F33.2 Active 81490607 Problem Psychophysiological insomnia F51.04 Active 362655581 Problem Panic disorder F41.0 Active 035357651 Problem Moderate episode of recurrent major depressive disorder F33.1 Active 829789598 ALLERGIES Substance Reaction Event Type Date Status Morphine Sulfate headache/ nausea Drug Allergy May, Active Keflex anaphylaxis Drug Allergy May, Active ENCOUNTERS Encounter Location Date Diagnosis [facility] [id number], [place] [address] Sep, [facility] [id number], [place] [address] Sep, Panic disorder F41.0 [facility] [address], [place] [address] Aug, Panic disorder F41.0 ; Generalized anxiety disorder F41.1 and Moderate episode of recurrent major depressive disorder F33.1 [facility] [id number], [place] [address] Aug, [place] [address], [place] [address] July, [place] [id number] [place] [address]- [address] July, [place] [address] [place] [address] 07[address]- 7689 Jun, Panic disorder F41.0 ; ROSY (generalized anxiety disorder) F41.1 and Moderate episode of recurrent major depressive disorder F33.1 [place] [id number] [place] [address]- [address] Jun, [place] [id number] [place] [address]- 9415 Jun, Vitamin D deficiency E55.9 [place] [id number] [place] [address] 32[address]- 3556 Jun, Current mild episode of major depressive disorder without prior episode F32.0 and Generalized anxiety disorder F41.1 [place] [id number] [place] [address]- 7[address] Jun, Current mild episode of major depressive disorder without prior episode F32.0 ; Primary insomnia F51.01 and Hypothyroidism (acquired) E03.9 [place] [address], [place] [address] May, Panic disorder F41.0 ; ROSY (generalized anxiety disorder) F41.1 and Moderate episode of recurrent major depressive disorder F33.1 [place] [address], [place] [address] May, Severe episode of recurrent major depressive disorder, without psychotic features F33.2 ; Generalized anxiety disorder F41.1 and Adjustment disorder with mixed anxiety and depressed mood F43.23 [place] [address], [place] [address] May, Severe episode of recurrent major depressive disorder, without psychotic features F33.2 ; Generalized anxiety disorder F41.1 and Adjustment disorder with mixed anxiety and depressed mood F43.23 [facility] [address] [facility] [id number] [place] [address] 14 May, 2017 [facility] [address] [facility] [id number] [place] [address] 08 May, 2017 Severe episode of recurrent major depressive disorder, without psychotic features F33.2 ; Generalized anxiety disorder F41.1 ; Psychophysiological insomnia F51.04 ; Guilty feelings R45.89 and Adjustment disorder with mixed anxiety and depressed mood F43.23 IMMUNIZATIONS No Known Immunizations SOCIAL HISTORY Never Assessed REASON FOR VISIT intake Guillermo PLAN OF CARE Activity Details Follow Up 4 Weeks Reason: VITAL SIGNS Height 66 in 2017-06-16 Weight 180.5 lbs 2017-06-16 Heart Rate 64 bpm 2017-06-16 Respiratory Rate 20 2017-06-16 BMI 29.13 kg/m2 2017-06-16 Blood pressure systolic 112 mmHg 2017-06-16 Blood pressure diastolic 66 mmHg 2017-06-16 MEDICATIONS Medication Instructions Dosage Frequency Start Date End Date Duration Status Celexa 10 MG Orally Once a day 1 tablet 24h May, 30 day(s) Active Neurontin 100 MG Orally Once a day 2 capsule 24h Active Klonopin 0.5 MG Orally twice a day as needed 1 tablet May, 30 days Active Levothyroxine Sodium 125 MCG Orally Once a day 1 tablet 24h Active RESULTS No Results PROCEDURES Procedure Date Ordered Result Body Site [facility] VISIT ESTABLISHED PATIENT June 16, 2017 INSTRUCTIONS MEDICATIONS ADMINISTERED No Known Medications [...]
--- OUTSIDE RECORDS SUMMARY | 2018-04-20 16:46 | XMS REPORT ---
Author Author ALEXANDRO Navas Organization [facility] Address [address] [place] [address] Care Team Providers Care Director Community Health Nursing Name Role Phone Yosef ALEXANDRO Unavailable PROBLEMS Type Condition ICD9-CM Code TBH00-RM Code Onset Dates Condition Status SNOMED Code Problem Primary insomnia F51.01 Active 2579827 Problem Generalized anxiety disorder F41.1 Active 07643066 Problem Adjustment disorder with mixed anxiety and depressed mood F43.23 Active 57463369 Problem Current mild episode of major depressive disorder without prior episode F32.0 Active 72793567 Problem Hypothyroidism (acquired) E03.9 Active 850107831 Problem Vitamin D deficiency E55.9 Active 97291986 Problem ROSY (generalized anxiety disorder) F41.1 Active 97386388 Problem Severe episode of recurrent major depressive disorder, without psychotic features F33.2 Active 29511246 Problem Psychophysiological insomnia F51.04 Active 078035535 Problem Panic disorder F41.0 Active 516698239 Problem Moderate episode of recurrent major depressive disorder F33.1 Active 248303051 ALLERGIES No Information ENCOUNTERS Encounter Location Date Diagnosis [facility] [address], [place] [address] Sep, [facility] [address] [place] [address]- 3085 Sep, Panic disorder F41.0 [facility] [id number] [place] [address]- 4123 Aug, Panic disorder F41.0 ; Generalized anxiety disorder F41.1 and Moderate episode of recurrent major depressive disorder F33.1 [facility] [address], [place] [address] Aug, [facility] [id number] [place] [address]- [address] July, [place] [address], [place] [address] July, [place] [address] [place] [address]- 3260 Jun, Panic disorder F41.0 ; ROSY (generalized anxiety disorder) F41.1 and Moderate episode of recurrent major depressive disorder F33.1 [place] [id number] [place] [address]- 1180 Jun, [place] [id number] [place] [address] 23107- 1425 Jun, Vitamin D deficiency E55.9 [place] [address] [place] [address] 43851- 7913 Jun, Current mild episode of major depressive disorder without prior episode F32.0 and Generalized anxiety disorder F41.1 [place] [address] [place] [address] 65653- 5202 Jun, Current mild episode of major depressive disorder without prior episode F32.0 ; Primary insomnia F51.01 and Hypothyroidism (acquired) E03.9 [place] [address] [place] [address]15- 3801 May, Panic disorder F41.0 ; ROSY (generalized anxiety disorder) F41.1 and Moderate episode of recurrent major depressive disorder F33.1 [place] [address] [place] [address] 48466- 1689 May, Severe episode of recurrent major depressive disorder, without psychotic features F33.2 ; Generalized anxiety disorder F41.1 and Adjustment disorder with mixed anxiety and depressed mood F43.23 [place] [address] [place] [address] 9[address]- 1076 May, Severe episode of recurrent major depressive disorder, without psychotic features F33.2 ; Generalized anxiety disorder F41.1 and Adjustment disorder with mixed anxiety and depressed mood F43.23 [place] [id number] [address] May, [facility] [address] [facility] [id number] [place] [address] 08 May, 2017 Severe episode of recurrent major depressive disorder, without psychotic features F33.2 ; Generalized anxiety disorder F41.1 ; Psychophysiological insomnia F51.04 ; Guilty feelings R45.89 and Adjustment disorder with mixed anxiety and depressed mood F43.23 IMMUNIZATIONS No Known Immunizations SOCIAL HISTORY Never Assessed REASON FOR VISIT Requests return call PLAN OF CARE VITAL SIGNS MEDICATIONS Unknown [...]
--- OUTSIDE RECORDS SUMMARY | 2018-04-20 16:46 | XMS REPORT | Continuity of Care Document ---
Author Author [facility] Organization [facility] Address Unknown Phone Unavailable Allergies Active Description Code Type Severity Reaction Onset Reported/Identified Relationship to Patient Clinical Status Yes cephalexin [id number] Drug Allergy Unknown N/A 01/25/2015 Yes morphine [id number] Drug Allergy Unknown N/A 01/25/2015 Yes No Known Drug Allergies [id number] Drug Allergy Unknown N/A 01/25/2015 Medications There is no data. Problems Date Dx Coded Attending Type Code Diagnosis Diagnosed By 01/25/2015 CHEL CAREY APRN Ot S83.91XA SPRAIN OF UNSPECIFIED SITE OF RIGHT KNEE 01/25/2015 CHEL CAREY APRN Ot W17.81XA FALL DOWN EMBANKMENT (HILL), INITIAL ENC 01/25/2015 CHEL CAREY APRN Ot Y92.838 [facility] RECREATION AREA PLACE 01/25/2015 CHEL CAREY ENTERPRISE INTEGRATION DEVELOPER Ot Y99.8 OTHER EXTERNAL CAUSE STATUS 01/25/2015 CHEL CAREY APRN Ot Z96.651 PRESENCE OF RIGHT ARTIFICIAL KNEE JOINT 02/27/2015 IRENE MCCULLOUGH, CARRIE Tariq Ot R10.9 UNSPECIFIED ABDOMINAL PAIN 02/27/2015 IRENE MCCULLOUGH, CARRIE Tariq Ot R40.0 SOMNOLENCE 02/27/2015 IRENE MCCULLOUGH, CARRIE T Ot R42 DIZZINESS AND GIDDINESS 02/27/2015 IRENE MCCULLOUGH, CARRIE Tariq Ot T43.3X5A ADVERSE EFFECT OF PHENOTHIAZINE ANTIPSYC 11/08/2016 PAO PALMA DO Ot E03.9 HYPOTHYROIDISM, UNSPECIFIED 11/08/2016 PAO PALMA DO Ot F32.9 MAJOR DEPRESSIVE DISORDER, SINGLE EPISOD 11/08/2016 PAO PALMA DO Ot F41.9 ANXIETY DISORDER, UNSPECIFIED 11/08/2016 PAO PALMA DO Ot H57.8 OTHER SPECIFIED DISORDERS OF EYE AND ADN 11/08/2016 PAO PALMA DO Ot R22.0 LOCALIZED SWELLING, MASS AND LUMP, HEAD 11/08/2016 PAO PALMA DO Ot Z90.710 ACQUIRED ABSENCE OF BOTH CERVIX AND UTER 11/08/2016 PAO PALMA DO Ot Z90.89 ACQUIRED ABSENCE OF OTHER ORGANS 11/08/2016 PAO PALMA DO Ot Z98.51 TUBAL LIGATION STATUS 11/08/2016 PAO PALMA DO Ot Z98.84 BARIATRIC SURGERY STATUS 03/07/2017 ANDER MCCULLOUGH, LONNIE R Ot J32.9 CHRONIC SINUSITIS, UNSPECIFIED 03/07/2017 ANDER MCCULLOUGH, LONNIE R Ot J34.1 CYST AND MUCOCELE OF NOSE AND NASAL SINU 03/27/2017 ANDER MCCULLOUGH, LONNIE R Ot J32.9 CHRONIC SINUSITIS, UNSPECIFIED 03/27/2017 ANDER MCCULLOUGH, LONNIE R Ot J34.1 CYST AND MUCOCELE OF NOSE AND NASAL SINU 04/10/2017 CHEL CAREY APRN Ot E03.9 HYPOTHYROIDISM, UNSPECIFIED 04/10/2017 CHEL CAREY APRN Ot F32.9 MAJOR DEPRESSIVE DISORDER, SINGLE EPISOD 04/10/2017 CHEL CAREY APRN Ot F41.9 ANXIETY DISORDER, UNSPECIFIED 04/10/2017 CHEL CAREY APRN Ot M25.572 PAIN IN LEFT ANKLE AND JOINTS OF LEFT FO 04/10/2017 CHEL CAREY APRN Ot S90.32XA CONTUSION OF LEFT FOOT, INITIAL ENCOUNTE 04/10/2017 CHEL CAREY APRN Ot W11.XXXA FALL ON AND FROM LADDER, INITIAL ENCOUNT 04/10/2017 CHEL CAREY APRN Ot Z90.710 ACQUIRED ABSENCE OF BOTH CERVIX AND UTER 04/10/2017 CHEL CAREY APRN Ot Z90.89 ACQUIRED ABSENCE OF OTHER ORGANS 04/10/2017 CHEL CAREY APRN Ot Z98.51 TUBAL LIGATION STATUS 04/14/2017 CHEL CAREY APRN Ot E03.9 HYPOTHYROIDISM, UNSPECIFIED 04/14/2017 CHEL CAREY APRN Ot F32.9 MAJOR DEPRESSIVE DISORDER, SINGLE EPISOD 04/14/2017 CHEL CAREY APRN Ot F41.9 ANXIETY DISORDER, UNSPECIFIED 04/14/2017 CHEL CAREY APRN Ot M25.572 PAIN IN LEFT ANKLE AND JOINTS OF LEFT FO 04/14/2017 CHEL CAREY APRN Ot S90.32XA CONTUSION OF LEFT FOOT, INITIAL ENCOUNTE 04/14/2017 CHEL CAREY APRN Ot W11.XXXA FALL ON AND FROM LADDER, INITIAL ENCOUNT 04/14/2017 CHEL CAREY APRN Ot Z90.710 ACQUIRED ABSENCE OF BOTH CERVIX AND UTER 04/14/2017 CHEL CAREY APRN Ot Z90.89 ACQUIRED ABSENCE OF OTHER ORGANS 04/14/2017 CHEL CAREY APRN Ot Z98.51 TUBAL LIGATION STATUS 05/02/2017 ANDER MCCULLOUGH, LONNIE Carias Ot J32.9 CHRONIC SINUSITIS, UNSPECIFIED 05/02/2017 LONNIE WORTHINGTON MD, Ot J34.1 CYST AND MUCOCELE OF NOSE AND NASAL SINU Procedures There is no data. Results Test Result Range TSH - 06/30/17 10:11 TSH 0.07 mIU/L 0.40-4.50 VITAMIN D, 25-H - 06/30/17 10:11 VITAMIN D,25-OH,TOTAL,IA 17 ng/mL 30-100 TSH - 10/24/17 11:10 TSH 0.30 mIU/L 0.40-4.50 TSH - 03/11/18 11:04 TSH 0.12 mIU/L 0.40-4.50 Encounters ACCT No. Visit Date/Time Discharge Status Pt. Type Provider Facility Loc./Unit Complaint [id number] 03/25/2015 23:04:22 03/25/2015 23:59:59 CLS Outpatient Cari Craig [id number] 03/19/2013 12:46:57 Document Registration [id number] 04/16/2018 09:20:00 04/16/2018 23:59:59 CLS Outpatient DARRIN GODWIN APRN [facility] [id number] 03/11/2018 11:00:00 Document Registration [id number] 10/24/2017 11:00:00 Document Registration [id number] 06/30/2017 10:20:00 Document Registration [id number] 04/10/2017 10:45:00 04/10/2017 13:30:00 DIS Emergency CHEL CAREY APRN [facility] ER L FOOT PAIN [id number] 03/06/2017 07:57:00 03/06/2017 23:59:59 CLS Outpatient ANDER MCCULLOUGH, LONNIE Carias [facility] RAD HX OF PARANASAL SINUS PAIN [id number] 11/08/2016 13:23:00 11/08/2016 14:41:00 DIS Emergency PAO PALMA DO [facility] ER RIGHT EYE ISSUES [id number] 04/29/2015 14:30:00 04/29/2015 23:59:59 CLS Outpatient TRAVIS ROMAN [facility] QUICK [id number] 02/27/2015 21:11:00 02/27/2015 23:22:00 DIS Emergency IRENE MCCULLOUGH, CARRIE Tariq [facility] ER ALLERGIC REACTION TO MEDS [id number] 01/25/2015 21:28:00 01/25/2015 23:14:00 DIS Emergency CHEL CAREY APRN [facility] ER R KNEE PAIN/FALL
--- OUTSIDE RECORDS SUMMARY | 2018-04-20 16:46 | XMS REPORT ---
Author Author ALEXANDRO Navas Organization [facility] Address [address] [place] [address] Care Team Providers Care Rehabilitation Supervisor Name Role Phone Yosef ALEXANDRO Unavailable PROBLEMS Type Condition ICD9-CM Code MIJ12-WH Code Onset Dates Condition Status SNOMED Code Problem Primary insomnia F51.01 Active 0254260 Problem Generalized anxiety disorder F41.1 Active 04294909 Problem Adjustment disorder with mixed anxiety and depressed mood F43.23 Active 77619886 Problem Current mild episode of major depressive disorder without prior episode F32.0 Active 65276030 Problem Hypothyroidism (acquired) E03.9 Active 680000224 Problem Vitamin D deficiency E55.9 Active 34015432 Problem ROSY (generalized anxiety disorder) F41.1 Active 20709829 Problem Severe episode of recurrent major depressive disorder, without psychotic features F33.2 Active 02885196 Problem Psychophysiological insomnia F51.04 Active 953976216 Problem Panic disorder F41.0 Active 241628843 Problem Moderate episode of recurrent major depressive disorder F33.1 Active 844610341 ALLERGIES No Information ENCOUNTERS Encounter Location Date Diagnosis [facility] [address], [place] [address] Sep, [facility] [address] [place] [address]- [address] Sep, Panic disorder F41.0 [facility] [id number] [place] [address]67- 6[address] Aug, Panic disorder F41.0 ; Generalized anxiety disorder F41.1 and Moderate episode of recurrent major depressive disorder F33.1 [facility] [address], [place] [address] Aug, [facility] [id number] [place] [address]- [address]32 July, [place] [address], [place] [address] July, [place] [address] [place] [address]8529- 6668 Jun, Panic disorder F41.0 ; ROSY (generalized anxiety disorder) F41.1 and Moderate episode of recurrent major depressive disorder F33.1 [place] [id number] [place] [address] 78[address]- 0174 Jun, [place] [id number] [place] [address] 21433- 1527 Jun, Vitamin D deficiency E55.9 [place] [address] [place] [address] 742[address]- 2965 Jun, Current mild episode of major depressive disorder without prior episode F32.0 and Generalized anxiety disorder F41.1 [place] [address] [place] [address] 19015- 4199 Jun, Current mild episode of major depressive disorder without prior episode F32.0 ; Primary insomnia F51.01 and Hypothyroidism (acquired) E03.9 [place] [address] [place] [address] 70194- 1738 May, Panic disorder F41.0 ; ROSY (generalized anxiety disorder) F41.1 and Moderate episode of recurrent major depressive disorder F33.1 [place] [address] [place] [address] 62[address]- 6030 May, Severe episode of recurrent major depressive disorder, without psychotic features F33.2 ; Generalized anxiety disorder F41.1 and Adjustment disorder with mixed anxiety and depressed mood F43.23 [place] [address] [place] [address] 28813- 8772 May, Severe episode of recurrent major depressive disorder, without psychotic features F33.2 ; Generalized anxiety disorder F41.1 and Adjustment disorder with mixed anxiety and depressed mood F43.23 [place] [id number] [address] May, [facility] [address] [facility] [id number] [place] [address] 08 May, 2017 Severe episode of recurrent major depressive disorder, without psychotic features F33.2 ; Generalized anxiety disorder F41.1 ; Psychophysiological insomnia F51.04 ; Guilty feelings R45.89 and Adjustment disorder with mixed anxiety and depressed mood F43.23 IMMUNIZATIONS No Known Immunizations SOCIAL HISTORY Never Assessed REASON FOR VISIT f/u PLAN OF CARE Activity Details Follow Up 2 Weeks Reason:Depression, anxiety VITAL SIGNS MEDICATIONS Unknown Medications RESULTS No Results PROCEDURES Procedure Date Ordered Result Body Site Psychotherapy, patient &/family, 30 minutes, established patient June 16, 2017 INSTRUCTIONS MEDICATIONS ADMINISTERED No [...]
--- OUTSIDE RECORDS SUMMARY | 2018-04-20 16:46 | XMS REPORT ---
Author Author ALEXANDRO Navas Organization [facility] Address [address] [place] [address] Care Team Providers Care Fertilizer Loader Name Role Phone Yosef ALEXANDRO Unavailable PROBLEMS Type Condition ICD9-CM Code [id number] Code Onset Dates Condition Status SNOMED Code Problem Primary insomnia F51.01 Active 1413052 Problem Generalized anxiety disorder F41.1 Active 98726957 Problem Adjustment disorder with mixed anxiety and depressed mood F43.23 Active 67432703 Problem Current mild episode of major depressive disorder without prior episode F32.0 Active 58146419 Problem Hypothyroidism (acquired) E03.9 Active 807790153 Problem Vitamin D deficiency E55.9 Active 39252561 Problem ROSY (generalized anxiety disorder) F41.1 Active 18472358 Problem Severe episode of recurrent major depressive disorder, without psychotic features F33.2 Active 53491229 Problem Psychophysiological insomnia F51.04 Active 252678092 Problem Panic disorder F41.0 Active 633192131 Problem Moderate episode of recurrent major depressive disorder F33.1 Active 062575479 ALLERGIES No Information ENCOUNTERS Encounter Location Date Diagnosis [facility] [id number] [address] Sep, [facility] [id number] [place] [address] Aug, Panic disorder F41.0 ; Generalized anxiety disorder F41.1 and Moderate episode of recurrent major depressive disorder F33.1 [facility] [id number] [place] [address] Aug, [facility] [id number] [place] [address] July, [facility] [id number] [place] [address] July, [place] [id number], [place] [address] Jun, Panic disorder F41.0 ; ROSY (generalized anxiety disorder) F41.1 and Moderate episode of recurrent major depressive disorder F33.1 [place] [address], [place] [address] Jun, [place] [id number] [place] [address] Jun, Vitamin D deficiency E55.9 [place] [id number] [place] [address] Jun, Current mild episode of major depressive disorder without prior episode F32.0 and Generalized anxiety disorder F41.1 [place] [id number] [place] [address] Jun, Current mild episode of major depressive disorder without prior episode F32.0 ; Primary insomnia F51.01 and Hypothyroidism (acquired) E03.9 [place] [id number] [place] [address] May, Panic disorder F41.0 ; ROSY (generalized anxiety disorder) F41.1 and Moderate episode of recurrent major depressive disorder F33.1 [place] [address] [address] May, Severe episode of recurrent major depressive disorder, without psychotic features F33.2 ; Generalized anxiety disorder F41.1 and Adjustment disorder with mixed anxiety and depressed mood F43.23 [place] [address], [place] [address] May, 2017 Severe episode of recurrent major depressive disorder, without psychotic features F33.2 ; Generalized anxiety disorder F41.1 and Adjustment disorder with mixed anxiety and depressed mood F43.23 [place] [address], [place] [address] May, [place] [id number] [place] [address] May, Severe episode of recurrent major depressive disorder, without psychotic features F33.2 ; Generalized anxiety disorder F41.1 ; Psychophysiological insomnia F51.04 ; Guilty feelings R45.89 and Adjustment disorder with mixed anxiety and depressed mood F43.23 IMMUNIZATIONS No Known Immunizations SOCIAL HISTORY Never Assessed REASON FOR VISIT intake PLAN OF CARE Activity Details Follow Up 1 Week Reason:Anxiety, depression, adjustment disorder VITAL SIGNS MEDICATIONS Unknown Medications RESULTS No Results PROCEDURES Procedure Date Ordered Result Body Site Psych diagnostic evaluation, new patient May 29, 2017 INSTRUCTIONS MEDICATIONS ADMINISTERED No Known Medications [...]
[2018-04-20] MEDS ORDERED: NS IV 1000 ML 1,000 ML IV SCH (17:00)
[2018-04-20] MEDS ORDERED: KETOROLAC 30 MG/ML VIAL IVP ONE (17:00)
[2018-04-20 17:09] LABS: BASOPHILS % (AUTO) 1 % (0-10); EOSINOPHILS # (AUTO) 0.2 10^3/uL (0.0-0.3); EOSINOPHILS % (AUTO) 2 % (0-10); HEMATOCRIT 41 % (35-52); HEMOGLOBIN 13.5 G/DL (11.5-16.0); LYMPHOCYTES # (AUTO) 2.6 X 10^3 (1.0-4.0); LYMPHOCYTES % (AUTO) 37 % (12-44); MEAN CORPUSCULAR HEMOGLOBIN 31 PG (25-34); MEAN CORPUSCULAR HGB CONC 33 G/DL (32-36); MEAN CORPUSCULAR VOLUME 94 FL (80-99); MEAN PLATELET VOLUME 9.3 FL (7.4-10.4); MONOCYTES # (AUTO) 0.5 X 10^3 (0.0-1.0); MONOCYTES % (AUTO) 6 % (0-12); NEUTROPHILS # (AUTO) 3.8 X 10^3 (1.8-7.8); NEUTROPHILS % (AUTO) 54 % (42-75); PLATELET COUNT 311 10^3/uL (130-400)
[2018-04-20 17:12] LABS: BILIRUBIN,URINE NEGATIVE (NEGATIVE); CLARITY,URINE CLEAR; COLOR,URINE YELLOW; GLUCOSE, URINE (UA) NEGATIVE (NEGATIVE); KETONES,URINE NEGATIVE (NEGATIVE); LEUKOCYTE ESTERASE ,URINE 3+ (NEGATIVE); NITRITE,URINE NEGATIVE (NEGATIVE); PH,URINE 5 (5-9); PROTEIN,URINE NEGATIVE (NEGATIVE); UROBILINOGEN,URINE NORMAL (NORMAL)
[2018-04-20 17:18] LABS: BACTERIA,URINE NEGATIVE /HPF
[2018-04-20 17:27] LABS: BILIRUBIN,TOTAL 0.4 MG/DL (0.1-1.0); CALCIUM 8.6 MG/DL (8.5-10.1); CREATININE SERUM 0.97 MG/DL (0.60-1.30); POTASSIUM 4.3 MMOL/L (3.6-5.0); TOTAL PROTEIN 6.9 GM/DL (6.4-8.2)
--- NOTE | 2018-04-20 17:51 | Diagnostic Imaging Report ---
INDICATION: Right flank pain KUB 5:39 PM Gallbladder surgically absent. There is moderate amount of stool throughout the colon. Bowel gas pattern is normal. There are no pathologic masses or calcifications. IMPRESSION: Fecal stasis consistent with constipation. Dictated by: Dictated on workstation # [id number]
--- NOTE | 2018-04-20 17:52 | Diagnostic Imaging Report ---
PROCEDURE: CT urinary tract, rule out kidney stone. TECHNIQUE: Multiple contiguous axial images were obtained through the abdomen and pelvis without the use of intravenous contrast. INDICATION: Posterior flank pain. History of kidney stones. COMPARISON: None FINDINGS: Included portions of the lung bases show 4-5 mm juxtapleural micronodular density within the included portions of the posterior left lower lobe (image 12, series 2). Benign calcified granuloma is also noted within the left lower lobe. CT ABDOMEN: There is colonic diverticulosis, but no CT evidence of acute diverticulitis. A normal appendix cannot be adequately identified, but there is no pericecal inflammation. Small bowel loops are nondistended. Postsurgical changes of previous gastric bypass are noted. Evaluation of the kidneys suggests small hypodense cyst involving the posterior medial margins of the inferior pole on the right. Otherwise, kidneys have an unremarkable noncontrast CT appearance. No renal or ureter calculi are seen on either side. There is no hydroureteronephrosis or other evidence of obstruction. The adrenal glands, spleen, pancreas, and liver have an unremarkable noncontrast CT appearance. There is no loculated fluid collection, free fluid, or free air within the abdomen. No abnormal mesenteric or retroperitoneal adenopathy is seen. There is mild scattered calcified aortic and arterial atherosclerosis. Bony structures show no acute abnormalities. CT PELVIS: Urinary bladder is unopacified. No calculi are seen within the urinary bladder. There is no loculated fluid collection, free fluid, or free air within the pelvis. No abnormal lymph nodes are identified. Bony structures show no acute abnormalities. IMPRESSION: 1. Probable hypodense right renal cyst. Otherwise, unremarkable noncontrast CT of the kidneys and bilateral renal collecting systems. 2. Colonic diverticulosis, but no CT evidence of acute diverticulitis. 3. Small micronodule within the included portions of the left lower lobe, as described above. If patient is in a high-risk category, such as history of smoking, may want to consider one-year followup to ensure stability. Dictated by: Dictated on workstation # [id number]
--- NOTE | 2018-04-20 18:22 | ED Back Pain ---
General Chief Complaint: Back Problems Stated Complaint: PAIN IN LOWER BACK RIGHT SIDE Nursing Triage Note: pt arrived POV with family member et ambulated to triage room with complaints of right flank et back pain. Pt was seen at [facility] and her urine sample showed she had blood in urine. pt states that she has hx of kidney stones. pt states no one will get her in for a dr appointment for 3 weeks and the pain is getting worse. Nursing Sepsis Screen: No Definite Risk History of Present Illness Date Seen by Provider: Apr 20, 2018 Time Seen by Provider: 16:50 Initial Comments 62-year-old female who presents to the emergency room with complaints of low back pain for 3 weeks and blood in her urine. She reports that she was seen at [facility] and was told that her urine sample had blood in it. She then went to Dr. Villa office to make herself an appointment and has one scheduled for 04/27/18. She is concerned that she will not be able to make it to the appointment because her pain is getting worse. Denies nausea, vomiting, diarrhea. Allergies and Home Medications Allergies Coded Allergies: cephalexin (Verified Allergy, Unknown, 01/25/15) morphine (Verified Allergy, Unknown, 01/25/15) Home Medications Hydrocodone/Acetaminophen 1 Each Tablet, 1 EACH PO TID PRN for PAIN Prescribed by: CHEL CAREY on 01/25/15 2306 Hydrocodone/Acetaminophen 1 Each Tablet, 1 EACH PO Q4H PRN for PAIN-SEVERE TO BREAKTHROUGH Prescribed by: CHEL CAREY on 04/10/17 1312 Naproxen 500 Mg Tablet, 500 MG PO BID Prescribed by: PAO PALMA on 11/08/16 1437 Sulfamethoxazole/Trimethoprim 1 Each Tablet, 1 EACH PO BID Prescribed by: PAO PALMA on 11/08/16 1437 Past Dituavo-Vwcusw-Shcnhi Hx Patient Social History Alcohol Use: Denies Use Recreational Drug Use: No Recent Foreign Travel: No Contact w/Someone Who Travel: No Recent Infectious Disease Expo: No Past Medical History Surgeries: Yes (gastric bypass, carpal tunel, bilat shoulder, r knee) Abdominal, Gallbladder, Hysterectomy, Orthopedic, Thyroidectomy, 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 Respiratory: No Cardiac: No Neurological: No Reproductive Disorders: No 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 oz. 80.314294xe; 28.40 BMI Method:Stated Progress/Results/Core Measures Results/Orders Lab Results Laboratory Tests Test 04/20/18 16:59 04/20/18 17:05 Range/Units White Blood Count 7.0 4.3-11.0 10^3/uL Red Blood Count 4.31 L 4.35-5.85 10^6/uL Hemoglobin 13.5 11.5-16.0 G/DL Hematocrit 41 35-52 % Mean Corpuscular Volume 94 80-99 FL Mean Corpuscular Hemoglobin 31 25-34 PG Mean Corpuscular Hemoglobin Concent 33 32-36 G/DL Red Cell Distribution Width 12.0 10.0-14.5 % Platelet Count 311 130-400 10^3/uL Mean Platelet Volume 9.3 7.4-10.4 FL Neutrophils (%) (Auto) 54 42-75 % Lymphocytes (%) (Auto) 37 12-44 % Monocytes (%) (Auto) 6 0-12 % Eosinophils (%) (Auto) 2 0-10 % Basophils (%) (Auto) 1 0-10 % Neutrophils # (Auto) 3.8 1.8-7.8 X 10^3 Lymphocytes # (Auto) 2.6 1.0-4.0 X 10^3 Monocytes # (Auto) 0.5 0.0-1.0 X 10^3 Eosinophils # (Auto) 0.2 0.0-0.3 10^3/uL Basophils # (Auto) 0.0 0.0-0.1 10^3/uL Sodium Level 141 135-145 MMOL/L Potassium Level 4.3 3.6-5.0 MMOL/L Chloride Level 106 98-107 MMOL/L Carbon Dioxide Level 25 21-32 MMOL/L Anion Gap 10 5-14 MMOL/L Blood Urea Nitrogen 15 7-18 MG/DL Creatinine 0.97 0.60-1.30 MG/DL Estimat Glomerular Filtration Rate 59 BUN/Creatinine Ratio 15 Glucose Level 83 70-105 MG/DL Calcium Level 8.6 8.5-10.1 MG/DL Corrected Calcium 8.6 8.5-10.1 MG/DL Total Bilirubin 0.4 0.1-1.0 MG/DL Aspartate Amino Transf (AST/SGOT) 19 5-34 U/L Alanine Aminotransferase (ALT/SGPT) 14 0-55 U/L Alkaline Phosphatase 98 40-136 U/L Total Protein 6.9 6.4-8.2 GM/DL Albumin 4.0 3.2-4.5 GM/DL Amylase Level 47 25-125 U/L Lipase 29 8-78 U/L Urine Color YELLOW Urine Clarity CLEAR Urine pH 5 5-9 Urine Specific [place] 1.025 H 1.016-1.022 Urine Protein NEGATIVE NEGATIVE Urine Glucose (UA) NEGATIVE NEGATIVE Urine Ketones NEGATIVE NEGATIVE Urine Nitrite NEGATIVE NEGATIVE Urine Bilirubin NEGATIVE NEGATIVE Urine Urobilinogen NORMAL NORMAL MG/DL Urine Leukocyte Esterase 3+ H NEGATIVE Urine RBC (Auto) 4+ H NEGATIVE Urine RBC 2-5 H /HPF Urine WBC 2-5 /HPF Urine Squamous Epithelial Cells 2-5 /HPF Urine Crystals NONE /LPF Urine Bacteria NEGATIVE /HPF Urine Casts NONE /LPF Urine Mucus NEGATIVE /LPF Urine Culture Indicated NO My Orders Orders - PILAR MYLES Comprehensive Metabolic Panel (04/20/18 16:50) Lipase (04/20/18 16:50) Amylase (04/20/18 16:50) Ua Culture If Indicated (04/20/18 16:50) Saline Lock/Iv-Start (04/20/18 16:50) Cbc With Automated Diff (04/20/18 16:50) Ct Abd/Pelvis Wo(Kidney Stone) (04/20/18 16:50) Abdomen/Kub 1view (04/20/18 16:50) Ketorolac Injection (Toradol Injection) (04/20/18 17:00) Ns Iv 1000 Ml (Sodium Chloride 0.9%) (04/20/18 17:00) Medications Given in ED Current Medications Medications Dose Ordered Sig/Vivian Route Start Time Stop Time Status Last Admin Dose Admin Ketorolac Tromethamine 30 mg ONCE ONCE IVP 04/20/18 17:00 1/28/19 17:01 DC 04/20/18 17:10 30 MG Vital Signs/I&O 04/20/18 16:38 Temp 96.7 Pulse 70 Resp 18 B/P (MAP) 177/77 (110) Pulse Ox 98 O2 Delivery Room Air Blood Pressure Mean: 110 Departure Impression Primary Impression: Hematuria Additional Impressions: Low back pain Constipation Lung nodule Disposition: HOME, SELF-CARE Condition: Stable/Unchanged Departure-Patient Inst. Decision time for Depature: 18:20 Referrals: LONNIE WORTHINGTON MD (PCP/Family) Primary Care Physician Patient Instructions: Blood in the Urine (Hematuria) in Adults, Constipation in Adults, Low Back Pain (DC) Add. Discharge Instructions: Keep your appointment as scheduled with Dr. Mcqueen on 04/27/18. Follow-up with your primary care provider as scheduled on 05/11/18. For your constipation I would recommend MiraLAX 1 capful twice a day until clear and then use half a capful as needed to manage regular bowel movements. You may use ibuprofen and Tylenol as directed by the bottle for pain relief. Return back to the emergency room for worsening symptoms or concerns as needed. Follow-up with your primary care provider to further evaluate the lung nodule. CT is recommending follow-up within 1 year. All discharge instructions reviewed with patient and/or family. Voiced understanding. PILAR MYLES Apr 20, 2018 18:22
[2018-04-20 18:36] VITALS: BP 0/0
== END 2018-04-20 18:34 | disposition home or self-care (01) ==
LOC: EDUNIT# 16:38 → ER 16:39
DX: R31.9 Hematuria, unspecified (principal); M54.5 Low back pain; K59.00 Constipation, unspecified; R91.1 Solitary pulmonary nodule; E05.00 Thyrotoxicosis with diffuse goiter without thyrotoxic crisis or storm; E03.9 Hypothyroidism, unspecified; F41.9 Anxiety disorder, unspecified; F32.9 Major depressive disorder, single episode, unspecified; Z88.1 Allergy status to other antibiotic agents; Z88.5 Allergy status to narcotic agent; Z98.84 Bariatric surgery status; Z98.890 Other specified postprocedural states; Z90.710 Acquired absence of both cervix and uterus; Z90.89 Acquired absence of other organs; Z98.51 Tubal ligation status
CPT/HCPCS: 36415; 74018; 74176; 80053; 81000; 82150; 83690; 85025; 96374

== ENCOUNTER 2018-05-08 11:15 | Outpatient (CLI) | payer MEDICARE ==
[2018-05-08] MEDS ORDERED: RT-ALBUTEROL SULF 2.5 MG/3 ML PRE-MIX VIAL INH ONE (12:00)
== END 2018-05-08 12:45 | disposition home or self-care (01) ==
LOC: SLEEP 11:15
PROVIDERS: ATTEND Nurse Practitioner Family
DX: G47.10 Hypersomnia, unspecified (principal); G47.00 Insomnia, unspecified; E66.9 Obesity, unspecified; R06.00 Dyspnea, unspecified; R91.1 Solitary pulmonary nodule
CPT/HCPCS: 94060; 94726; 94729

== ENCOUNTER → 2018-05-25 | Outpatient (CLI) | payer MEDICARE ==
[~2018-05-25] MED LIST changes: +CATHETER FLUSH 10 ML SYR IV PRN; +IOHEXOL 350 MG/ML 100 ML (OMNIPAQUE 350) VIAL IV ONE; +NS 100 ML (IVPB) BAG IV ONE; +RECEIVED CONTRAST 20 ML VIAL IV SCH
[2018-05-25 06:55] LABS: CREATININE SERUM 0.96 MG/DL (0.60-1.30)
--- NOTE | 2018-05-25 09:21 | Diagnostic Imaging Report ---
PROCEDURE: CT chest with contrast only. TECHNIQUE: Multiple contiguous axial images were obtained through the chest after administration of intravenous contrast. INDICATION: Followup pulmonary nodule. COMPARISON: CT of abdomen and pelvis dated 04/20/2018. FINDINGS: Evaluation of the lung hinojosa demonstrates 6 mm micronodular density associated with the major fissure on the left (image #27, series 2). There is a 9 mm subpleural micronodular density within the posterior margins of the left lower lobe. This however is new when compared to 04/20/2018. Previously described juxtapleural 4 mm micronodule is only faintly visualized on this exam (image #38, series 2), but appears stable. Subpleural micronodule more superiorly also within the posterior margins of the left lower lobe is noted and measures [address] showed benign calcifications. Calcifications on this exam are inconspicuous and may be related to volume averaging given the differences in slice thickness. No suspicious for nodules or masses are seen on the right. There is no focal consolidation, large effusion, nor pneumothorax on either side. Cardiomediastinal structures show stable heart size. There is no large pericardial effusion. No pathologically enlarged or morphologically abnormal adenopathy is seen within the mediastinum, gia, nor axilla on today's exam. Bony structures show age-related degenerative changes. No acute appearing osseous abnormalities are identified. Included portions of the upper abdomen are unremarkable. IMPRESSION: Multiple left-sided pulmonary micronodules as described above. The largest of these measures 9 mm, but given that this appears to be new when compared to 04/20/2018 it is felt to be on the basis of probable small focus of rounded atelectasis or other infectious or inflammatory change. Regardless, six-month followup CT chest is recommended to ensure stability. Dictated by: Dictated on workstation # [id number]
== END ==
LOC: RAD 06:27
PROVIDERS: ATTEND Nurse Practitioner Family
DX: J98.4 Other disorders of lung (principal); M89.8X9 Other specified disorders of bone, unspecified site; R91.8 Other nonspecific abnormal finding of lung field; G47.10 Hypersomnia, unspecified; G47.00 Insomnia, unspecified; E66.9 Obesity, unspecified
CPT/HCPCS: 36415; 71260; 82565; 84520

== ENCOUNTER 2018-09-19 12:27 | Emergency (ER) | payer MEDICARE ==
[~2018-09-19] VITALS: Ht 167.6 cm; Wt 82.6 kg
[~2018-09-19 12:27] MED LIST changes: -CATHETER FLUSH 10 ML SYR IV PRN; -IOHEXOL 350 MG/ML 100 ML (OMNIPAQUE 350) VIAL IV ONE; -NS 100 ML (IVPB) BAG IV ONE; -RECEIVED CONTRAST 20 ML VIAL IV SCH
--- OUTSIDE RECORDS SUMMARY | 2018-09-19 12:34 | XMS REPORT | Continuity of Care Document ---
Author Organization Unknown Address Unknown Allergies Active Description Code Type Severity Reaction Onset Reported/Identified Relationship to Patient Clinical Status Yes cephalexin [id number] Drug Allergy Unknown N/A 01/25/2015 Yes morphine [id number] Drug Allergy Unknown N/A 01/25/2015 Yes No Known Drug Allergies [id number] Drug Allergy Unknown N/A 01/25/2015 Medications There is no data. Problems Date Dx Coded Attending Type Code Diagnosis Diagnosed By 01/25/2015 CHEL CAREY APRN Ot S83.91XA SPRAIN OF UNSPECIFIED SITE OF RIGHT KNEE 01/25/2015 CHEL CAREY APRN Ot W17.81XA FALL DOWN EMBANKMENT ([place]), INITIAL ENC 01/25/2015 CHEL CAREY APRN Ot Y92.838 [facility] RECREATION AREA PLACE 01/25/2015 CHEL CAREY POLITICAL GEOGRAPHER Ot Y99.8 OTHER EXTERNAL CAUSE STATUS 01/25/2015 [...] APRN Ot F41.9 ANXIETY DISORDER, UNSPECIFIED 04/10/2017 CHLE CAREY APRN Ot M25.572 PAIN IN LEFT [...] TUBAL LIGATION STATUS 05/02/2017 ANDER MCCULLOUGH, LONNIE R Ot J32.9 CHRONIC SINUSITIS, UNSPECIFIED 05/02/2017 ANDER MCCULLOUGH, LONNIE R Ot J34.1 CYST AND MUCOCELE OF NOSE AND NASAL SINU 04/20/2018 ANDER MCCULLOUGH, LONNIE R Ot J32.9 CHRONIC SINUSITIS, UNSPECIFIED 04/20/2018 ANDER MCCULLOUGH, LONNIE R Ot J34.1 CYST AND MUCOCELE OF NOSE AND NASAL SINU 04/20/2018 PILAR MYLES Ot E03.9 HYPOTHYROIDISM, UNSPECIFIED 04/20/2018 PILAR MYLES Ot E05.00 THYROTOXICOSIS W DIFFUSE GOITER W/O THYR 04/20/2018 PILAR MYLES Ot F32.9 MAJOR DEPRESSIVE DISORDER, SINGLE EPISOD 04/20/2018 PILAR MYLES Ot F41.9 ANXIETY DISORDER, UNSPECIFIED 04/20/2018 PILAR MYLES Ot K59.00 CONSTIPATION, UNSPECIFIED 04/20/2018 PILAR MYLES Ot M54.5 LOW BACK PAIN 04/20/2018 PILAR MYLES Ot R31.9 HEMATURIA, UNSPECIFIED 04/20/2018 PILAR MYLES Ot R91.1 SOLITARY PULMONARY NODULE 04/20/2018 PILAR MYLES Ot Z88.1 ALLERGY STATUS TO OTHER ANTIBIOTIC AGENT 04/20/2018 PILAR MYLES Ot Z88.5 ALLERGY STATUS TO NARCOTIC AGENT STATUS 04/20/2018 PILAR MYLES Ot Z90.710 ACQUIRED ABSENCE OF BOTH CERVIX AND UTER 04/20/2018 PILAR MYLES Ot Z90.89 ACQUIRED ABSENCE OF OTHER ORGANS 04/20/2018 PILAR MYLES Ot Z98.51 TUBAL LIGATION STATUS 04/20/2018 MAGNUS MYLESIS Ot Z98.84 BARIATRIC SURGERY STATUS 04/20/2018 PILAR MYLES Ot Z98.890 OTHER SPECIFIED POSTPROCEDURAL STATES 04/20/2018 ANDER MCCULLOUGH, LONNIE R Ot J32.9 CHRONIC SINUSITIS, UNSPECIFIED 04/20/2018 ANDER MCCULLOUGH, LONNIE R Ot J34.1 CYST AND MUCOCELE OF NOSE AND NASAL SINU 05/07/2018 KATHLEEN TALAVERA POLITICAL GEOGRAPHER Ot G47.10 HYPERSOMNIA, UNSPECIFIED 05/08/2018 KATHLEEN TALAVERA POLITICAL GEOGRAPHER Ot G47.10 HYPERSOMNIA, UNSPECIFIED 05/08/2018 ANDER MCCULLOUGH, LONNIE R Ot J32.9 CHRONIC SINUSITIS, UNSPECIFIED 05/08/2018 ANDER MCCULLOUGH, LONNIE R Ot J34.1 CYST AND MUCOCELE OF NOSE AND NASAL SINU 05/08/2018 KATHLEEN TALAVERA POLITICAL GEOGRAPHER Ot G47.10 HYPERSOMNIA, UNSPECIFIED 05/08/2018 KATHLEEN TALAVREA POLITICAL GEOGRAPHER Ot E66.9 OBESITY, UNSPECIFIED 05/08/2018 KATHLEEN TALAVERA POLITICAL GEOGRAPHER Ot G47.00 INSOMNIA, UNSPECIFIED 05/08/2018 KATHLEEN TALAVERA POLITICAL GEOGRAPHER Ot G47.10 HYPERSOMNIA, UNSPECIFIED 05/08/2018 KATHLEEN TALAVERA POLITICAL GEOGRAPHER Ot R06.00 DYSPNEA, UNSPECIFIED 05/08/2018 KATHLEEN TALAVERA POLITICAL GEOGRAPHER Ot R91.1 SOLITARY PULMONARY NODULE 05/11/2018 KATHLEEN TALAVERA POLITICAL GEOGRAPHER Ot E66.9 OBESITY, UNSPECIFIED 05/11/2018 EDMUNDO TALAVERAINE Chevy POLITICAL GEOGRAPHER Ot G47.00 INSOMNIA, UNSPECIFIED 05/11/2018 KATHLEEN TALAVERA POLITICAL GEOGRAPHER Ot G47.10 HYPERSOMNIA, UNSPECIFIED 05/11/2018 KATHLEEN TALAVERA POLITICAL GEOGRAPHER Ot R06.00 DYSPNEA, UNSPECIFIED 05/11/2018 KATHLEEN TALAVERA POLITICAL GEOGRAPHER Ot R91.1 SOLITARY PULMONARY NODULE 05/11/2018 KATHLEEN TALAVERA POLITICAL GEOGRAPHER Ot E66.9 OBESITY, UNSPECIFIED 05/11/2018 KATHLEEN TALAVERA POLITICAL GEOGRAPHER Ot G47.00 INSOMNIA, UNSPECIFIED 05/11/2018 KATHLEEN TALAVERA POLITICAL GEOGRAPHER Ot G47.10 HYPERSOMNIA, UNSPECIFIED 05/11/2018 KATHLEEN TALAVERA POLITICAL GEOGRAPHER Ot R06.00 DYSPNEA, UNSPECIFIED 05/11/2018 KATHLEEN TALAVERA POLITICAL GEOGRAPHER Ot R91.1 SOLITARY PULMONARY NODULE 05/25/2018 ANDER MCCULLOUGH, LONNIE R Ot J32.9 CHRONIC SINUSITIS, UNSPECIFIED 05/25/2018 ANDER MCCULLOUGH, LONNIE R Ot J34.1 CYST AND MUCOCELE OF NOSE AND NASAL SINU 05/26/2018 KATHLEEN TALAVERA POLITICAL GEOGRAPHER Ot E66.9 OBESITY, UNSPECIFIED 05/26/2018 KATHLEEN TALAVERA POLITICAL GEOGRAPHER Ot G47.00 INSOMNIA, UNSPECIFIED 05/26/2018 KATHLEEN TALAVERA POLITICAL GEOGRAPHER Ot G47.10 HYPERSOMNIA, UNSPECIFIED 05/26/2018 KATHLEEN TALAVERA POLITICAL GEOGRAPHER Ot J98.4 OTHER DISORDERS OF LUNG 05/26/2018 KATHLEEN TALAVERA POLITICAL GEOGRAPHER Ot M89.8X9 OTHER SPECIFIED DISORDERS OF BONE, UNSPE 05/26/2018 KATHLEEN TALAVERA POLITICAL GEOGRAPHER Ot R91.8 OTHER NONSPECIFIC ABNORMAL FINDING OF [place] 06/01/2018 KATHLEEN TALAVERA POLITICAL GEOGRAPHER Ot E66.9 OBESITY, UNSPECIFIED 06/01/2018 KATHLEEN TALAVERA POLITICAL GEOGRAPHER Ot G47.00 INSOMNIA, UNSPECIFIED 06/01/2018 KATHLEEN TALAVERA POLITICAL GEOGRAPHER Ot G47.10 HYPERSOMNIA, UNSPECIFIED 06/01/2018 KATHLEEN TALAVERA POLITICAL GEOGRAPHER Ot J98.4 OTHER DISORDERS OF LUNG 06/01/2018 KATHLEEN TALAVERA POLITICAL GEOGRAPHER Ot M89.8X9 OTHER SPECIFIED DISORDERS OF BONE, UNSPE 06/01/2018 KATHLEEN TALAVERA POLITICAL GEOGRAPHER Ot R91.8 OTHER NONSPECIFIC ABNORMAL FINDING OF [place] Procedures There is no data. Results Test Result Range TSH - 06/30/17 10:11 TSH 0.07 mIU/L 0.40-4.50 VITAMIN D, 25-H - 06/30/17 10:11 VITAMIN D,25-OH,TOTAL,IA 17 ng/mL 30-100 TSH - 10/24/17 11:10 TSH 0.30 mIU/L 0.40-4.50 TSH - 03/11/18 11:04 TSH 0.12 mIU/L 0.40-4.50 Complete blood count (CBC) with automated white blood cell (WBC) differential - 04/20/18 16:59 Blood leukocytes automated count (number/volume) 7.0 10*3/uL 4.3-11.0 Blood erythrocytes automated count (number/volume) 4.31 10*6/uL 4.35-5.85 Venous blood hemoglobin measurement (mass/volume) 13.5 g/dL 11.5-16.0 Blood hematocrit (volume fraction) 41 % 35-52 Automated erythrocyte mean corpuscular volume 94 [foz_us] 80-99 Automated erythrocyte mean corpuscular hemoglobin (mass per erythrocyte) 31 pg 25-34 Automated erythrocyte mean corpuscular hemoglobin concentration measurement (mass/volume) 33 g/dL 32-36 Automated erythrocyte distribution width ratio 12.0 % 10.0- 14.5 Automated blood platelet count (count/volume) 311 10*3/uL 130-400 Automated blood platelet mean volume measurement 9.3 [foz_us] 7.4-10.4 Automated blood neutrophils/100 leukocytes 54 % 42-75 Automated blood lymphocytes/100 leukocytes 37 % 12-44 Blood monocytes/100 leukocytes 6 % 0-12 Automated blood eosinophils/100 leukocytes 2 % 0-10 Automated blood basophils/100 leukocytes 1 % 0-10 Blood neutrophils automated count (number/volume) 3.8 10*3 1.8-7.8 Blood lymphocytes automated count (number/volume) 2.6 10*3 1.0-4.0 Blood monocytes automated count (number/volume) 0.5 10*3 0.0- 1.0 Automated eosinophil count 0.2 10*3/uL 0.0-0.3 Automated blood basophil count (count/volume) 0.0 10*3/uL 0.0-0.1 Comprehensive metabolic panel - 04/20/18 16:59 Serum or plasma sodium measurement (moles/volume) 141 mmol/L 135-145 Serum or plasma potassium measurement (moles/volume) 4.3 mmol/L 3.6-5.0 Serum or plasma chloride measurement (moles/volume) 106 mmol/L 98-107 Carbon dioxide 25 mmol/L 21-32 Serum or plasma anion gap determination (moles/volume) 10 mmol/L 5-14 Serum or plasma urea nitrogen measurement (mass/volume) 15 mg/dL 7-18 Serum or plasma creatinine measurement (mass/volume) 0.97 mg/dL 0.60-1.30 Serum or plasma urea nitrogen/creatinine mass ratio 15 NRG Serum or plasma creatinine measurement with calculation of estimated glomerular filtration rate 59 NRG Serum or plasma glucose measurement (mass/volume) 83 mg/dL 70-105 Serum or plasma calcium measurement (mass/volume) 8.6 mg/dL 8.5-10.1 Serum or plasma total bilirubin measurement (mass/volume) 0.4 mg/dL 0.1-1.0 Serum or plasma alkaline phosphatase measurement (enzymatic activity/volume) 98 U/L 40-136 Serum or plasma aspartate aminotransferase measurement (enzymatic activity/volume) 19 U/L 5-34 Serum or plasma alanine aminotransferase measurement (enzymatic activity/volume) 14 U/L 0-55 Serum or plasma protein measurement (mass/volume) 6.9 g/dL 6.4-8.2 Serum or plasma albumin measurement (mass/volume) 4.0 g/dL 3.2-4.5 CALCIUM CORRECTED 8.6 mg/dL 8.5-10.1 Serum or plasma amylase measurement (enzymatic activity/volume) - 04/20/18 16:59 Serum or plasma amylase measurement (enzymatic activity/volume) 47 U/L 25-125 Lipase - 04/20/18 16:59 Lipase 29 U/L 8-78 Complete urinalysis with reflex to culture - 04/20/18 17:05 Urine color determination YELLOW NRG Urine clarity determination CLEAR NRG Urine pH measurement by test strip 5 5-9 Specific gravity of urine by test strip 1.025 1.016-1.022 Urine protein assay by test strip, semi-quantitative NEGATIVE NEGATIVE Urine glucose detection by automated test strip NEGATIVE NEGATIVE Erythrocytes detection in urine sediment by light microscopy 4+ NEGATIVE Urine ketones detection by automated test strip NEGATIVE NEGATIVE Urine nitrite detection by test strip NEGATIVE NEGATIVE Urine total bilirubin detection by test strip NEGATIVE NEGATIVE Urine urobilinogen measurement by automated test strip (mass/volume) NORMAL NORMAL Urine leukocyte esterase detection by dipstick 3+ NEGATIVE Automated urine sediment erythrocyte count by microscopy (number/high power field) [HPF] NRG Automated urine sediment leukocyte count by microscopy (number/high power field) [HPF] NRG Bacteria detection in urine sediment by light microscopy NEGATIVE NRG Squamous epithelial cells detection in urine sediment by light microscopy 2-5 NRG Crystals detection in urine sediment by light microscopy NONE NRG Casts detection in urine sediment by light microscopy NONE NRG Mucus detection in urine sediment by light microscopy NEGATIVE NRG Complete urinalysis with reflex to culture NO NRG LIPID PANEL - 09/14/18 12:16 CHOLESTEROL, TOTAL 191 mg/dL <200 HDL CHOLESTEROL 78 mg/dL >50 TRIGLYCERIDES 122 mg/dL <150 LDL-CHOLESTEROL 91 mg/dL (calc) NRG CHOL/HDLC RATIO 2.4 (calc) <5.0 NON HDL CHOLESTEROL 113 mg/dL (calc) <130 Encounters ACCT No. Visit Date/Time Discharge Status Pt. Type Provider Facility Loc./Unit Complaint [id number] 09/14/2018 10:00:00 09/14/2018 23:59:59 CLS Outpatient DARRIN GODWIN APRN [facility] [id number] 09/14/2018 10:00:00 Document Registration [id number] 03/11/2018 11:00:00 Document Registration [id number] 10/24/2017 11:00:00 Document Registration [id number] 06/30/2017 10:20:00 Document Registration [id number] 03/25/2015 23:04:22 03/25/2015 23:59:59 CLS Outpatient Cari Craig [id number] 03/19/2013 12:46:57 Document Registration [id number] 05/27/2018 09:12:00 05/27/2018 23:59:59 CLS Preadmit KATHLEEN TALAVERA APRN [facility] RAD HYPERSOMNIA, UNSPECIFIED [id number] 05/25/2018 06:27:00 05/25/2018 23:59:59 CLS Outpatient KATHLEEN TALAVERA APRN [facility] RAD LUNG NODULE <6CM ON CT [id number] 05/08/2018 11:15:00 05/08/2018 12:45:00 DIS Outpatient KATHLEEN TALAVERA APRN [facility] SLEEP SUSPECTED SLEEP APNEA [id number] 04/27/2018 09:52:00 04/27/2018 23:59:59 CLS Preadmit KATHLEEN TALAVERA APRN [facility] RT LUNG NODULE <6CM ON CT [id number] 04/20/2018 16:39:00 04/20/2018 18:34:00 DIS Emergency PILAR MYLES [facility] ER PAIN IN LOWER BACK RIGHT SIDE [id number] 04/10/2017 10:45:00 04/10/2017 13:30:00 DIS Emergency CHEL CAREY APRN [facility] ER L FOOT PAIN [id number] 03/06/2017 07:57:00 03/06/2017 23:59:59 CLS Outpatient ANDER MCCULLOUGH, LONNIE Carias [facility] RAD HX OF PARANASAL SINUS PAIN [id number] 11/08/2016 13:23:00 11/08/2016 14:41:00 DIS Emergency PAO PALMA DO [facility] ER RIGHT EYE ISSUES [id number] 04/29/2015 14:30:00 04/29/2015 23:59:59 CLS Outpatient TRAVIS ROMAN [facility] QUICK [id number] 02/27/2015 21:11:00 02/27/2015 23:22:00 DIS Emergency IRENE MCCULLOUGH, CARRIE Tariq [facility] ER ALLERGIC REACTION TO MEDS [id number] 01/25/2015 21:28:00 01/25/2015 23:14:00 DIS Emergency CHEL CAREY APRN [facility] ER R KNEE PAIN/FALL
[2018-09-19] MEDS ORDERED: ANTACID SUSP 30 ML UDC (MYLANTA) PO ONE (12:45)
[2018-09-19] MEDS ORDERED: LIDOCAINE 2% VISCOUS 15 ML UDC PO ONE (12:45)
--- NOTE | 2018-09-19 12:51 | ED Abdominal Pain ---
General Chief Complaint: Abdominal/GI Problems Stated Complaint: STOMACH PAIN/BURNING Source of Information: Patient Exam Limitations: No Limitations History of Present Illness Date Seen by Provider: Sep 19, 2018 Time Seen by Provider: 12:36 Initial Comments Here with burning epigastric pain that has been going on this morning. Has had increasing pain for a few days. Never really had anything like this before. Has had nausea in the past and takes nausea medicines but does not take any acid reducers. Does have history of gastric bypass. Denies vomiting, blood in vomit, stool or urine. Denies fever or chills. Denies breathing problems. Only concern is the epigastric burning pain. Timing/Duration: 4-6 Hours Severity/Quality: Moderate, Burning Location: Epigastric Radiation: No Radiation Activities at Onset: None Modifying Factors: Improves With Other (none) Associated Symptoms: No Back Pain, No Chest Pain, No Diaphoresis, No Fever/Chills, No Fatigue; Nausea/Vomiting; No Shortness of Air, No Swelling/Mass in Abdomen, No Weakness Allergies and Home Medications Allergies Coded Allergies: cephalexin (Verified Allergy, Unknown, 01/25/15) morphine (Verified Allergy, Unknown, 01/25/15) Home Medications Hydrocodone/Acetaminophen 1 Each Tablet, 1 EACH PO TID PRN for PAIN Prescribed by: CHEL CAREY on 01/25/15 2306 Hydrocodone/Acetaminophen 1 Each Tablet, 1 EACH PO Q4H PRN for PAIN-SEVERE TO BREAKTHROUGH Prescribed by: CHEL CAREY on 04/10/17 1312 Naproxen 500 Mg Tablet, 500 MG PO BID Prescribed by: PAO PALMA on 11/08/16 1437 Sulfamethoxazole/Trimethoprim 1 Each Tablet, 1 EACH PO BID Prescribed by: PAO PALMA on 11/08/16 1437 Patient Home Medication List Home Medication List Reviewed: Yes Review of Systems Review of Systems Constitutional: see HPI; No chills, No fever EENTM: No Symptoms Reported Respiratory: Denies Cough, Denies Shortness of Air Cardiovascular: Denies Chest Pain, Denies Palpitations Gastrointestinal: Abdominal Pain; Denies Diarrhea; Nausea; Denies Vomiting Genitourinary: No Symptoms Reported Musculoskeletal: no symptoms reported Skin: no symptoms reported Psychiatric/Neurological: No Symptoms Reported Past Epammrw-Fhzbed-Ztfouo Hx Past Med/Social Hx: Reviewed Nursing Past Med/Soc Hx Patient Social History Alcohol Use: Rarely Uses Recreational Drug Use: No Smoking Status: Never a Smoker Recent Foreign Travel: No Contact w/Someone Who Travel: No Physical Abuse: No Sexual Abuse: No Mistreated: No Fear: No Past Medical History Surgeries: Yes (gastric bypass, carpal tunel, bilat shoulder, r knee) Abdominal, Gallbladder, Hysterectomy, Orthopedic, Thyroidectomy, 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 Respiratory: No Cardiac: No Neurological: No Reproductive Disorders: No [employer] History: Hysterectomy, 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 Genitourinary: No Gastrointestinal: No Musculoskeletal: No Endocrine: Yes (Grave's Eye disease) Hypothyroidsim Double Vision Cancer: No Psychosocial: Yes Anxiety, Depression Integumentary: No Blood Disorders: No Family Medical History Reviewed Nursing Family Hx No Pertinent Family Hx Physical Exam Vital Signs Vital Signs - First Documented 09/19/18 12:40 Temp 97.5 Pulse 92 Resp 20 B/P (MAP) 116/85 (95) Pulse Ox 97 Capillary Refill : Height/Weight/BMI Height: 5'6.00" Weight: 178lbs. oz. 80.175457gv; 28.40 BMI Method:Stated General Appearance: WD/WN, mild distress HEENT: PERRL/EOMI, pharynx normal Neck: full range of motion, supple Respiratory: lungs clear, normal breath sounds Cardiovascular: regular rate, rhythm, no murmur Gastrointestinal: soft; No guarding, No rebound; tenderness (epigastric) Extremities: non-tender, normal inspection Back: normal inspection, no CVA tenderness, no vertebral tenderness Neurologic/Psychiatric: alert, oriented x 3 Skin: normal color, warm/dry Progress/Results/Core Measures Results/Orders Lab Results Laboratory Tests Test 09/19/18 13:13 Range/Units White Blood Count 5.4 4.3-11.0 10^3/uL Red Blood Count 4.13 L 4.35-5.85 10^6/uL Hemoglobin 13.4 11.5-16.0 G/DL Hematocrit 40 35-52 % Mean Corpuscular Volume 98 80-99 FL Mean Corpuscular Hemoglobin 32 25-34 PG Mean Corpuscular Hemoglobin Concent 33 32-36 G/DL Red Cell Distribution Width 12.1 10.0-14.5 % Platelet Count 281 130-400 10^3/uL Mean Platelet Volume 9.1 7.4-10.4 FL Neutrophils (%) (Auto) 63 42-75 % Lymphocytes (%) (Auto) 28 12-44 % Monocytes (%) (Auto) 7 0-12 % Eosinophils (%) (Auto) 2 0-10 % Basophils (%) (Auto) 0 0-10 % Neutrophils # (Auto) 3.4 1.8-7.8 X 10^3 Lymphocytes # (Auto) 1.5 1.0-4.0 X 10^3 Monocytes # (Auto) 0.4 0.0-1.0 X 10^3 Eosinophils # (Auto) 0.1 0.0-0.3 10^3/uL Basophils # (Auto) 0.0 0.0-0.1 10^3/uL Sodium Level 140 135-145 MMOL/L Potassium Level 4.2 3.6-5.0 MMOL/L Chloride Level 104 98-107 MMOL/L Carbon Dioxide Level 26 21-32 MMOL/L Anion Gap 10 5-14 MMOL/L Blood Urea Nitrogen 9 7-18 MG/DL Creatinine 0.87 0.60-1.30 MG/DL Estimat Glomerular Filtration Rate > 60 BUN/Creatinine Ratio 10 Glucose Level 80 70-105 MG/DL Calcium Level 9.2 8.5-10.1 MG/DL Corrected Calcium 9.3 8.5-10.1 MG/DL Total Bilirubin 0.6 0.1-1.0 MG/DL Aspartate Amino Transf (AST/SGOT) 106 H 5-34 U/L Alanine Aminotransferase (ALT/SGPT) 47 0-55 U/L Alkaline Phosphatase 122 40-136 U/L Troponin I < 0.028 <0.028 NG/ML Total Protein 6.7 6.4-8.2 GM/DL Albumin 3.9 3.2-4.5 GM/DL Lipase 39 8-78 U/L My Orders Orders - ELIANA PINEDO MD Lidocaine 2% Viscous 15 Ml (Xylocaine Vi (09/19/18 12:45) Antacid Suspension (Mylanta Suspension (09/19/18 12:45) Cbc With Automated Diff (09/19/18 13:09) Comprehensive Metabolic Panel (09/19/18 13:09) Lipase (09/19/18 13:09) Ed Iv/Invasive Line Start (09/19/18 13:09) Famotidine Injection (Pepcid Injection) (09/19/18 13:09) Pantoprazole Injection (Protonix Injecti (09/19/18 13:15) Fentanyl Injection (Sublimaze Injection (09/19/18 13:09) Ondansetron Injection (Zofran Injectio (09/19/18 13:15) Troponin I (09/19/18 13:19) Ekg Tracing (09/19/18 13:19) Chest Pa/Lat (2 View) (09/19/18 13:23) Fentanyl Injection (Sublimaze Injection (09/19/18 13:43) Sucralfate Tablet (Carafate Tablet) (09/19/18 13:45) Medications Given in ED Current Medications Medications Dose Ordered Sig/Vivian Route Start Time Stop Time Status Last Admin Dose Admin Al Hydrox/Mg Hydrox/Simethicone 30 ml ONCE ONCE PO 09/19/18 12:45 09/19/18 12:46 DC 09/19/18 12:51 30 ML Lidocaine HCl 15 ml ONCE ONCE PO 09/19/18 12:45 09/19/18 12:46 DC 09/19/18 12:52 15 ML Ondansetron HCl 4 mg ONCE ONCE IVP 09/19/18 13:15 09/19/18 13:16 DC 09/19/18 13:19 4 MG Pantoprazole 40 mg ONCE ONCE IV 09/19/18 13:15 09/19/18 13:16 DC 09/19/18 13:18 40 MG Sucralfate 1 gm ONCE ONCE PO 09/19/18 13:45 09/19/18 13:46 DC 09/19/18 13:56 1 GM Vital Signs/I&O 09/19/18 12:40 Temp 97.5 Pulse 92 Resp 20 B/P (MAP) 116/85 (95) Pulse Ox 97 Progress Progress Note : Progress Note Seen and evaluated. GI cocktail ordered. Monitor patient. Pain persists despite GI cocktail. IV, labs, EKG and chest x-ray ordered. Fentanyl 25 g IV ordered as well as Zofran 4 mg IV. Monitor patient. We will initiate Pepcid 20 mg IV and Protonix 40 mg IV. Patient had persistence of pain. Carafate 1 g by mouth as well as fentanyl 25 g IV repeated. Monitor patient. 1403: No significant acute findings on labs or x-ray currently. Monitor patient. 1417: Patient feeling a little better. I did have a long conversation with her about concerns for peptic ulcer disease. We will initiate Carafate outpatient as well as PPI. I will refer her to Dr. Kulkarni. I will send a copy of the chart to his office and she will call Friday morning for appointment. Discharged home with return precautions. Patient verbalize understanding instructions and agreement with plan. Initial ECG Impression Date: Sep 19, 2018 Initial ECG Impression Time: 13:32 Initial ECG Rate: 71 Comment Sinus rhythm with left atrial abnormality. Leftward axis. No evidence of ST elevation FL. No previous available for comparison. Interpreted by me. Diagnostic Imaging Diagonstic Imaging: Xray Plain Films/CT/US/NM/MRI: chest Comments NAME: [facility] REC#: [id number] PT STATUS: REG ER : 1955 PHYSICIAN: ELIANA PINEDO MD ADMIT DATE: 09/19/18/ER Draft Date of Exam:09/19/18 CHEST PA/LAT (2 VIEW) INDICATION: Abdominal and epigastric pain. EXAMINATION: PA and lateral views were obtained. FINDINGS: The heart size, mediastinal configuration, and pulmonary vascularity are within normal limits. There is no pleural effusion, pneumothorax, or pneumonia. The osseous structures are unremarkable. IMPRESSION: No acute cardiopulmonary abnormality. Dictated on workstation # [id number] Dict: 09/19/18 1359 Trans: 09/19/18 1400 [facility] [id number] Interpreted by: KHAI BUSH MD Electronically signed by: Departure Impression Primary Impression: Epigastric abdominal pain Disposition: 01 HOME, SELF-CARE Condition: Stable Departure-Patient Inst. Decision time for Depature: 14:20 Referrals: [facility] (PCP) Primary Care Physician DARRIN GODWIN (Family) Primary Care Physician JO KULKARNI DO Patient Instructions: Peptic Ulcers (DC), Acute Abdomen (Belly Pain), Adult (DC) Add. Discharge Instructions: All discharge instructions reviewed with patient and/or family. Voiced understanding. Take medications as directed. Follow-up with Dr. Kulkarni this week for recheck and further evaluation. Call his office Friday morning for appointment. You should purchase [id number] omeprazole 20 mg tablet or capsule and take that daily for the next 2 weeks. You may extend that for up to 4 more weeks. You may also take Pepcid or the generic famotidine 20 mg once or twice daily as needed for stomach acid problems or stomach upset. You may take Tylenol/acetaminophen 1000 mg every 6-8 hours as needed for pain. Return for worse pain, vomiting, blood in your vomit or stool, black/tarry stools, weakne ss, breathing problems or other concerns as needed. Scripts Sucralfate (Sucralfate) 1 Gm Tablet 1 GM PO ACHS, #60 TAB 0 Refills Prov: ELIANA PINEDO MD 09/19/18 Copy Copies To 1: JO KULKARNI TIMOTHY D MD Sep 19, 2018 12:51
[2018-09-19] MEDS ORDERED: fentaNYL INJECTION 100 MCG/2 ML AMP IVP STA ×2 (13:09→13:43)
[2018-09-19] MEDS ORDERED: FAMOTIDINE 20MG/2ML IV (PEPCID) IV STA (13:09)
[2018-09-19] MEDS ORDERED: ONDANSETRON 4 MG/2 ML (SDV) Z0FRAN IVP ONE (13:15)
[2018-09-19] MEDS ORDERED: PANTOPRAZOLE 40 MG (PROTONIX) VIAL IV ONE (13:15)
[2018-09-19 13:20] LABS: BASOPHILS % (AUTO) 0 % (0-10); EOSINOPHILS # (AUTO) 0.1 10^3/uL (0.0-0.3); EOSINOPHILS % (AUTO) 2 % (0-10); HEMATOCRIT 40 % (35-52); HEMOGLOBIN 13.4 G/DL (11.5-16.0); LYMPHOCYTES # (AUTO) 1.5 X 10^3 (1.0-4.0); LYMPHOCYTES % (AUTO) 28 % (12-44); MEAN CORPUSCULAR HEMOGLOBIN 32 PG (25-34); MEAN CORPUSCULAR HGB CONC 33 G/DL (32-36); MEAN CORPUSCULAR VOLUME 98 FL (80-99); MEAN PLATELET VOLUME 9.1 FL (7.4-10.4); MONOCYTES # (AUTO) 0.4 X 10^3 (0.0-1.0); MONOCYTES % (AUTO) 7 % (0-12); NEUTROPHILS # (AUTO) 3.4 X 10^3 (1.8-7.8); NEUTROPHILS % (AUTO) 63 % (42-75); PLATELET COUNT 281 10^3/uL (130-400); RED CELL DISTRIBUTION WIDTH 12.1 % (10.0-14.5); WHITE BLOOD COUNT 5.4 10^3/uL (4.3-11.0)
[2018-09-19 13:38] LABS: ALANINE AMINOTRANSFERASE 47 U/L (0-55); ALBUMIN 3.9 GM/DL (3.2-4.5); ALKALINE PHOSPHATASE 122 U/L (40-136); BILIRUBIN,TOTAL 0.6 MG/DL (0.1-1.0); BUN/CREATININE RATIO 10; CALCIUM 9.2 MG/DL (8.5-10.1); CARBON DIOXIDE 26 MMOL/L (21-32); CHLORIDE 104 MMOL/L (98-107); CREATININE SERUM 0.87 MG/DL (0.60-1.30); GFR ESTIMATED > 60; GLUCOSE 80 MG/DL (70-105); LIPASE 39 U/L (8-78); POTASSIUM 4.2 MMOL/L (3.6-5.0); SODIUM 140 MMOL/L (135-145); TOTAL PROTEIN 6.7 GM/DL (6.4-8.2)
[2018-09-19] MEDS ORDERED: SUCRALFATE 1 GM (CARAFATE) TAB PO ONE (13:45)
--- NOTE | 2018-09-19 14:01 | Diagnostic Imaging Report ---
INDICATION: Abdominal and epigastric pain. EXAMINATION: PA and lateral views were obtained. FINDINGS: The heart size, mediastinal configuration, and pulmonary vascularity are within normal limits. There is no pleural effusion, pneumothorax, or pneumonia. The osseous structures are unremarkable. IMPRESSION: No acute cardiopulmonary abnormality. Dictated by: Dictated on workstation # [id number]
[2018-09-19] MEDS ORDERED: SUCR1TAB PO (14:26)
[2018-09-19 14:38] VITALS: BP 132/71
== END 2018-09-19 14:38 | disposition home or self-care (01) ==
LOC: EDUNIT# 12:27 → ER 12:28
DX: R10.13 Epigastric pain (principal); E03.9 Hypothyroidism, unspecified; F41.9 Anxiety disorder, unspecified; F32.9 Major depressive disorder, single episode, unspecified; Z90.710 Acquired absence of both cervix and uterus; Z98.51 Tubal ligation status; Z88.1 Allergy status to other antibiotic agents; Z88.5 Allergy status to narcotic agent; Z98.84 Bariatric surgery status
CPT/HCPCS: 36415; 71046; 80053; 83690; 84484; 85025; 93005

== ENCOUNTER 2018-09-28 05:40 | Outpatient (CLI) | payer MEDICARE ==
[~2018-09-28] VITALS: Ht 167.6 cm; Wt 82.6 kg
[~2018-09-28 05:40] MED LIST changes: +SUCR1TAB PO
[2018-09-28] MEDS ORDERED: QUET50TA55 PO (13:02)
[2018-09-28] MEDS ORDERED: LEVO112T55 PO (13:02)
[2018-09-28] MEDS ORDERED: CYCL10TA9 PO (13:02)
[2018-09-28] MEDS ORDERED: CLON1TAB13 PO (13:02)
[2018-09-28] MEDS ORDERED: GABA-486 PO (13:02)
[2018-09-28] MEDS ORDERED: DULO60CA58 PO (13:02)
[2018-09-28] MEDS ORDERED: ONDA4TAB10 PO (13:02)
== END 2018-09-28 13:04 | disposition home or self-care (01) ==
LOC: PREOP 05:40
PROVIDERS: ATTEND Surgery
DX: Z01.818 Encounter for other preprocedural examination (principal)

== ENCOUNTER 2018-10-21 13:36 | Inpatient (IN) | payer MEDICARE, OTHER ==
[~2018-10-21] VITALS: Ht 167.6 cm; Wt 89.2 kg
[~2018-10-21 13:36] MED LIST changes: +CLON1TAB13 PO; +CYCL10TA9 PO; +DULO60CA59 PO; +GABA-486 PO; +LEVO112T55 PO; +ONDA4TAB10 PO; +QUET50TA55 PO
--- OUTSIDE RECORDS SUMMARY | 2018-10-21 13:43 | XMS REPORT | Continuity of Care Document ---
Author Organization Unknown Address Unknown Phone Unavailable Allergies Active Description Code Type Severity Reaction Onset Reported/Identified Relationship to Patient Clinical Status Yes cephalexin [id number] Drug Allergy Unknown N/A 01/25/2015 Yes morphine [id number] Drug Allergy Unknown N/A 01/25/2015 Yes No Known Drug Allergies [id number] Drug Allergy Unknown N/A 01/25/2015 Yes cephalexin [id number] Drug Allergy Severe HIVES/LIPS SWEL 09/28/2018 Yes morphine [id number] Drug Allergy Severe DIFFICULTY BUDDY 09/28/2018 Medications There is no data. Problems Date Dx Coded Attending Type Code Diagnosis Diagnosed By 01/25/2015 CHEL CAREY APRN Ot S83.91XA SPRAIN OF UNSPECIFIED SITE OF RIGHT KNEE 01/25/2015 CHEL CAREY QUIRK SANDER Ot W17.81XA FALL DOWN EMBANKMENT (HILL), INITIAL ENC 01/25/2015 CHEL CAREY APRN Ot Y92.838 [facility] 01/25/2015 CHEL CAREY APRN Ot Y99.8 OTHER EXTERNAL CAUSE STATUS 01/25/2015 CHEL CAREY QUIRK SANDER Ot Z96.651 PRESENCE OF RIGHT ARTIFICIAL KNEE JOINT 02/27/2015 IRENE MCCULLOUGH, CARRIE Tariq Ot R10.9 UNSPECIFIED ABDOMINAL PAIN 02/27/2015 IRENE MCCULLOUGH, CARRIE Tariq Ot R40.0 SOMNOLENCE 02/27/2015 IRENE MCCULLOUGH, CARRIE Tariq Ot R42 DIZZINESS AND GIDDINESS 02/27/2015 IRENE [...] OF NOSE AND NASAL SINU 03/27/2017 ANDER MCCULLOUGH LONNIE R Ot J32.9 CHRONIC SINUSITIS, UNSPECIFIED 03/27/2017 ANDER MCCULLOUGH, LONNIE R Ot J34.1 CYST AND MUCOCELE OF NOSE AND NASAL SINU 04/10/2017 CHEL CRAEY APRN Ot E03.9 HYPOTHYROIDISM, UNSPECIFIED 04/10/2017 CHEL [...] MYLES Ot Z98.51 TUBAL LIGATION STATUS 04/20/2018 PILAR MYLES Ot Z98.84 BARIATRIC SURGERY STATUS 04/20/2018 IPLAR MYLES Ot Z98.890 OTHER SPECIFIED POSTPROCEDURAL STATES 04/20/2018 ANDER MCCULLOUGH, LONNIE R Ot J32.9 CHRONIC SINUSITIS, UNSPECIFIED 04/20/2018 ANDER MCCULLOUGH, LONNIE R Ot J34.1 CYST AND MUCOCELE OF NOSE AND NASAL SINU 05/07/2018 KATHLEEN TALAVERA QUIRK SANDER Ot G47.10 HYPERSOMNIA, UNSPECIFIED 05/08/2018 KATHLEEN TALAVERA QUIRK SANDER Ot G47.10 HYPERSOMNIA, UNSPECIFIED 05/08/2018 ANDER MCCULLOUGH, LONNIE R Ot J32.9 CHRONIC SINUSITIS, UNSPECIFIED 05/08/2018 ANDER MCCULLOUGH, LONNIE R Ot J34.1 CYST AND MUCOCELE OF NOSE AND NASAL SINU 05/08/2018 KATHLEEN TALAVERA E QUIRK SANDER Ot G47.10 HYPERSOMNIA, UNSPECIFIED 05/08/2018 EDMUNDO TALAVERAINE E QUIRK SANDER Ot E66.9 OBESITY, UNSPECIFIED 05/08/2018 EDMUNDO TALAVERAINE E QUIRK SANDER Ot G47.00 INSOMNIA, UNSPECIFIED 05/08/2018 EDMUNDO TALAVERAINE E QUIRK SANDER Ot G47.10 HYPERSOMNIA, UNSPECIFIED 05/08/2018 KATHLEEN TALAVERA QUIRK SANDER Ot R06.00 DYSPNEA, UNSPECIFIED 05/08/2018 KATHLEEN TALAVERA QUIRK SANDER Ot R91.1 SOLITARY PULMONARY NODULE 05/11/2018 KATHLEEN TALAVERA QUIRK SANDER Ot E66.9 OBESITY, UNSPECIFIED 05/11/2018 KATHLEEN TALAVERA QUIRK SANDER Ot G47.00 INSOMNIA, UNSPECIFIED 05/11/2018 KATHLEEN TALAVERA QUIRK SANDER Ot G47.10 HYPERSOMNIA, UNSPECIFIED 05/11/2018 EDMUNDO TALAVERAINE E QUIRK SANDER Ot R06.00 DYSPNEA, UNSPECIFIED 05/11/2018 EDMUNDO TALAVERAINE E QUIRK SANDER Ot R91.1 SOLITARY PULMONARY NODULE 05/11/2018 KATHLEEN TALAVERA QUIRK SANDER Ot E66.9 OBESITY, UNSPECIFIED 05/11/2018 KATHLEEN TALAVERA QUIRK SANDER Ot G47.00 INSOMNIA, UNSPECIFIED 05/11/2018 KATHLEEN TALAVERA QUIRK SANDER Ot G47.10 HYPERSOMNIA, UNSPECIFIED 05/11/2018 KATHLEEN TALAVERA QUIRK SANDER Ot R06.00 DYSPNEA, UNSPECIFIED 05/11/2018 KATHLEEN TALAVERA QUIRK SANDER Ot R91.1 SOLITARY PULMONARY NODULE 05/25/2018 ANDER MCCULLOUGH, LONNIE R Ot J32.9 CHRONIC SINUSITIS, UNSPECIFIED 05/25/2018 ANDER MCCULLOUGH, LONNIE R Ot J34.1 CYST AND MUCOCELE OF NOSE AND NASAL SINU 05/26/2018 KATHLEEN TALAVERA QUIRK SANDER Ot E66.9 OBESITY, UNSPECIFIED 05/26/2018 KATHLEEN TALAVERA QUIRK SANDER Ot G47.00 INSOMNIA, UNSPECIFIED 05/26/2018 KATHLEEN TALAVERA QUIRK SANDER Ot G47.10 HYPERSOMNIA, UNSPECIFIED 05/26/2018 KATHLEEN TALAVERA QUIRK SANDER Ot J98.4 OTHER DISORDERS OF LUNG 05/26/2018 KATHLEEN TALAVERA QUIRK SANDER Ot M89.8X9 OTHER SPECIFIED DISORDERS OF BONE, UNSPE 05/26/2018 EDMUNDO TALAVERAINE Chevy QUIRK SANDER Ot R91.8 OTHER NONSPECIFIC ABNORMAL FINDING OF [place] 06/01/2018 KATHLEEN TALAVERA QUIRK SANDER Ot E66.9 OBESITY, UNSPECIFIED 06/01/2018 KATHLEEN TALAVERA QUIRK SANDER Ot G47.00 INSOMNIA, UNSPECIFIED 06/01/2018 KATHLEEN TALAVERA QUIRK SANDER Ot G47.10 HYPERSOMNIA, UNSPECIFIED 06/01/2018 KATHLEEN TALAVERA QUIRK SANDER Ot J98.4 OTHER DISORDERS OF LUNG 06/01/2018 KATHLEEN TALAVERA QUIRK SANDER Ot M89.8X9 OTHER SPECIFIED DISORDERS OF BONE, UNSPE 06/01/2018 KATHLEEN TALAVERA QUIRK SANDER Ot R91.8 OTHER NONSPECIFIC ABNORMAL FINDING OF [place] 09/19/2018 SHAHIDA MCCULLOUGH, ELIANA Siddiqui Ot E03.9 HYPOTHYROIDISM, UNSPECIFIED 09/19/2018 ELIANA PINEDO MD Ot F32.9 MAJOR DEPRESSIVE DISORDER, SINGLE EPISOD 09/19/2018 ELIANA PINEDO MD Ot F41.9 ANXIETY DISORDER, UNSPECIFIED 09/19/2018 ELIANA PINEDO MD Ot R10.13 EPIGASTRIC PAIN 09/19/2018 ELIANA PINEDO MD Ot Z88.1 ALLERGY STATUS TO OTHER ANTIBIOTIC AGENT 09/19/2018 ELIANA PINEDO MD Ot Z88.5 ALLERGY STATUS TO NARCOTIC AGENT STATUS 09/19/2018 ELIANA PINEOD MD Ot Z90.710 ACQUIRED ABSENCE OF BOTH CERVIX AND UTER 09/19/2018 ELIANA PINEDO MD Ot Z98.51 TUBAL LIGATION STATUS 09/19/2018 ELIANA PINEDO MD Ot Z98.84 BARIATRIC SURGERY STATUS 09/22/2018 ELIANA PINEDO MD Ot E03.9 HYPOTHYROIDISM, UNSPECIFIED 09/22/2018 ELIANA PINEDO MD Ot F32.9 MAJOR DEPRESSIVE DISORDER, SINGLE EPISOD 09/22/2018 ELIANA PINEDO MD Ot F41.9 ANXIETY DISORDER, UNSPECIFIED 09/22/2018 ELIANA PINEDO MD Ot R10.13 EPIGASTRIC PAIN 09/22/2018 ELIANA PINEDO MD Ot Z88.1 ALLERGY STATUS TO OTHER ANTIBIOTIC AGENT 09/22/2018 ELIANA PINEDO MD Ot Z88.5 ALLERGY STATUS TO NARCOTIC AGENT STATUS 09/22/2018 ELIANA PINEDO MD Ot Z90.710 ACQUIRED ABSENCE OF BOTH CERVIX AND UTER 09/22/2018 ELIANA PINEDO MD Ot Z98.51 TUBAL LIGATION STATUS 09/22/2018 ELIANA PINEDO MD Ot Z98.84 BARIATRIC SURGERY STATUS 09/28/2018 JO KULKARNI DO Ot Z01.818 ENCOUNTER FOR OTHER PREPROCEDURAL EXAMIN 10/13/2018 LONNIE WORTHINGTON MD R Ot J32.9 CHRONIC SINUSITIS, UNSPECIFIED 10/13/2018 LONNIE WORTHINGTON MD Ot J34.1 CYST AND MUCOCELE OF NOSE AND NASAL SINU 10/13/2018 KATHLEEN TALAVERA APRN Ot E66.9 OBESITY, UNSPECIFIED 10/13/2018 KATHLEEN TALAVERA APRN Ot G47.00 INSOMNIA, UNSPECIFIED 10/13/2018 KATHLEEN TALAVERA APRN Ot G47.10 HYPERSOMNIA, UNSPECIFIED 10/13/2018 ILAN, KATHLEEN E QUIRK SANDER Ot J98.4 OTHER DISORDERS OF LUNG 10/13/2018 KATHLEEN TALAVERA QUIRK SANDER Ot M89.8X9 OTHER SPECIFIED DISORDERS OF BONE, UNSPE 10/13/2018 KATHLEEN TALAVERA QUIRK SANDER Ot R91.8 OTHER NONSPECIFIC ABNORMAL FINDING OF [place] 10/13/2018 KATHLEEN TALAVERA APRN Ot E66.9 OBESITY, UNSPECIFIED 10/13/2018 KATHLEEN TALAVERA APRN Ot G47.00 INSOMNIA, UNSPECIFIED 10/13/2018 KATHLEEN TALAVERA APRN Ot G47.10 HYPERSOMNIA, UNSPECIFIED 10/13/2018 KATHLEEN TALAVERA QUIRK SANDER Ot J98.4 OTHER DISORDERS OF LUNG 10/13/2018 KATHLEEN TALAVERA APRN Ot M89.8X9 OTHER SPECIFIED DISORDERS OF BONE, UNSPE 10/13/2018 KATHLEEN TALAVERA QUIRK SANDER Ot R91.8 OTHER NONSPECIFIC ABNORMAL FINDING OF [place] 10/14/2018 JO KULKARNI DO B Ot D12.0 BENIGN NEOPLASM OF CECUM 10/14/2018 JO KULKARNI DO B Ot D12.4 BENIGN NEOPLASM OF DESCENDING COLON 10/14/2018 JO KULKARNI DO B Ot F32.9 MAJOR DEPRESSIVE DISORDER, SINGLE EPISOD 10/14/2018 JO KULKARNI DO B Ot F41.9 ANXIETY DISORDER, UNSPECIFIED 10/14/2018 JO KULKARNI DO B Ot G47.10 HYPERSOMNIA, UNSPECIFIED 10/14/2018 DAV KULKARNI DOIC B Ot K20.9 ESOPHAGITIS, UNSPECIFIED 10/14/2018 DAV KULKARNI DOIC B Ot K29.50 UNSPECIFIED CHRONIC GASTRITIS WITHOUT BL 10/14/2018 DAV KULKARNI DOIC B Ot K57.30 DVRTCLOS OF LG INT W/O PERFORATION OR AB 10/14/2018 DAV KULKARNI DOIC B Ot K64.8 OTHER HEMORRHOIDS 10/14/2018 JO KULKARNI DO B Ot R91.1 SOLITARY PULMONARY NODULE 10/14/2018 JO KULKARNI DO B Ot Z79.899 OTHER PENITENTIARY (CURRENT) DRUG THERAPY 10/14/2018 DAV KULKARNI DOIC B Ot Z86.010 PERSONAL HISTORY OF COLONIC POLYPS 10/14/2018 JO KULKARNI DO B Ot Z87.442 PERSONAL HISTORY OF URINARY CALCULI 10/14/2018 JO KULKARNI DO Ot Z88.5 ALLERGY STATUS TO NARCOTIC AGENT STATUS 10/14/2018 JO KULKARNI DO Ot Z96.653 PRESENCE OF ARTIFICIAL KNEE JOINT, BILAT 10/14/2018 JO KULKARNI DO Ot Z98.84 BARIATRIC SURGERY STATUS Procedures There is no data. Results Test [...] NON HDL CHOLESTEROL 113 mg/dL (calc) <130 Complete blood count (CBC) with automated white blood cell (WBC) differential - 09/19/18 13:13 Blood leukocytes automated count (number/volume) 5.4 10*3/uL 4.3-11.0 Blood erythrocytes automated count (number/volume) 4.13 10*6/uL 4.35-5.85 Venous blood hemoglobin measurement (mass/volume) 13.4 g/dL 11.5-16.0 Blood hematocrit (volume fraction) 40 % 35-52 Automated erythrocyte mean corpuscular volume 98 [foz_us] 80-99 Automated erythrocyte mean corpuscular hemoglobin (mass per erythrocyte) 32 pg 25-34 Automated erythrocyte mean corpuscular hemoglobin concentration measurement (mass/volume) 33 g/dL 32-36 Automated erythrocyte distribution width ratio 12.1 % 10.0- 14.5 Automated blood platelet count (count/volume) 281 10*3/uL 130-400 Automated blood platelet mean volume measurement 9.1 [foz_us] 7.4-10.4 Automated blood neutrophils/100 leukocytes 63 % 42-75 Automated blood lymphocytes/100 leukocytes 28 % 12-44 Blood monocytes/100 leukocytes 7 % 0-12 Automated blood eosinophils/100 leukocytes 2 % 0-10 Automated blood basophils/100 leukocytes 0 % 0-10 Blood neutrophils automated count (number/volume) 3.4 10*3 1.8-7.8 Blood lymphocytes automated count (number/volume) 1.5 10*3 1.0-4.0 Blood monocytes automated count (number/volume) 0.4 10*3 0.0- 1.0 Automated eosinophil count 0.1 10*3/uL 0.0-0.3 Automated blood basophil count (count/volume) 0.0 10*3/uL 0.0-0.1 Comprehensive metabolic panel - 09/19/18 13:13 Serum or plasma sodium measurement (moles/volume) 140 mmol/L 135-145 Serum or plasma potassium measurement (moles/volume) 4.2 mmol/L 3.6-5.0 Serum or plasma chloride measurement (moles/volume) 104 mmol/L 98-107 Carbon dioxide 26 mmol/L 21-32 Serum or plasma anion gap determination (moles/volume) 10 mmol/L 5-14 Serum or plasma urea nitrogen measurement (mass/volume) 9 mg/dL 7-18 Serum or plasma creatinine measurement (mass/volume) 0.87 mg/dL 0.60-1.30 Serum or plasma urea nitrogen/creatinine mass ratio 10 NRG Serum or plasma creatinine measurement with calculation of estimated glomerular filtration rate > NRG Serum or plasma glucose measurement (mass/volume) 80 mg/dL 70-105 Serum or plasma calcium measurement (mass/volume) 9.2 mg/dL 8.5-10.1 Serum or plasma total bilirubin measurement (mass/volume) 0.6 mg/dL 0.1-1.0 Serum or plasma alkaline phosphatase measurement (enzymatic activity/volume) 122 U/L 40-136 Serum or plasma aspartate aminotransferase measurement (enzymatic activity/volume) 106 U/L 5-34 Serum or plasma alanine aminotransferase measurement (enzymatic activity/volume) 47 U/L 0-55 Serum or plasma protein measurement (mass/volume) 6.7 g/dL 6.4-8.2 Serum or plasma albumin measurement (mass/volume) 3.9 g/dL 3.2-4.5 CALCIUM CORRECTED 9.3 mg/dL 8.5-10.1 Lipase - 09/19/18 13:13 Lipase 39 U/L 8-78 Serum or plasma troponin i.cardiac measurement (mass/volume) - 09/19/18 13:13 Serum or plasma troponin i.cardiac measurement (mass/volume) < ng/mL <0.028 Encounters ACCT No. Visit Date/Time Discharge Status Pt. Type Provider Facility Loc./Unit Complaint [id number] 09/14/2018 10:00:00 09/14/2018 23:59:59 CLS Outpatient DARRIN GODWIN APRN [facility] [id number] 09/14/2018 10:00:00 Document Registration [id number] 03/11/2018 11:00:00 Document Registration [id number] 10/24/2017 11:00:00 Document Registration [id number] 06/30/2017 10:20:00 Document Registration [id number] 03/25/2015 23:04:22 03/25/2015 23:59:59 CLS Outpatient Cari Craig [id number] 03/19/2013 12:46:57 Document Registration [id number] 10/05/2018 08:28:00 10/05/2018 11:40:00 DIS Outpatient JO KULKARNI DO [facility] ENDO ABD PAIN/NAUSEA [id number] 09/28/2018 05:40:00 09/28/2018 13:04:00 DIS Outpatient JO KULKARNI DO [facility] PREOP COLONOSCOPY/EGD [id number] 09/19/2018 12:28:00 09/19/2018 14:38:00 DIS Emergency SHAHIDA MCCULLOUGH, ELIANA Siddiqui [facility] ER STOMACH PAIN/BURNING [id number] 05/27/2018 09:12:00 05/27/2018 23:59:59 CLS Preadmit KATHLEEN TALAVERA APRN [facility] RAD HYPERSOMNIA, UNSPECIFIED [id number] 05/25/2018 06:27:00 05/25/2018 23:59:59 CLS Outpatient KATHLEEN TALAVERA APRN [facility] RAD LUNG NODULE <6CM ON CT [id number] 05/08/2018 11:15:00 05/08/2018 12:45:00 DIS Outpatient KATHLEEN TALAVERA APRN [facility] SLEEP SUSPECTED SLEEP APNEA [id number] 04/27/2018 09:52:00 04/27/2018 23:59:59 CLS Preadmit KATHLEEN TALAVERA APRN [facility] RT LUNG NODULE <6CM ON CT [id number] 04/20/2018 16:39:00 04/20/2018 18:34:00 DIS Emergency PILAR MYLES [facility] ER PAIN IN LOWER BACK RIGHT SIDE [id number] 04/10/2017 10:45:00 04/10/2017 13:30:00 DIS Emergency CHEL CAREY APRN [facility] ER L FOOT PAIN [id number] 03/06/2017 07:57:00 03/06/2017 23:59:59 CLS Outpatient ANDER MCCULLOUGH, LONNIE Carias [facility] RAD HX OF PARANASAL SINUS PAIN [id number] 11/08/2016 13:23:00 11/08/2016 14:41:00 DIS Emergency LOUIE DOPAO K [facility] ER RIGHT EYE ISSUES [id number] 04/29/2015 14:30:00 04/29/2015 23:59:59 CLS Outpatient TRAVIS ROMAN [facility] QUICK [id number] 02/27/2015 21:11:00 02/27/2015 23:22:00 DIS Emergency IRENE MCCULLOUGH, CARRIE Tariq [facility] ER ALLERGIC REACTION TO MEDS [id number] 01/25/2015 21:28:00 01/25/2015 23:14:00 DIS Emergency CHEL CAREY APRN [facility] ER R KNEE PAIN/FALL
--- NOTE | 2018-10-21 13:56 | ED Abdominal Pain ---
General Stated Complaint: ABD PAIN Source of Information: Patient Exam Limitations: No Limitations History of Present Illness Date Seen by Provider: Oct 21, 2018 Time Seen by Provider: 13:54 Initial Comments To ER with reports of epigastric abdominal pain described as "hot coals" present for 6 months intermittently. Since she awakened this morning at 6 AM the pain has been more constant throughout the day.. She's had gastric bypass, hysterectomy, laparoscopic cholecystectomy. She's had endoscopy and colonoscopy to evaluate for these symptoms recently done here by Dr. Nguyen. Timing/Duration: 1-2 Days Severity/Quality: Moderate Location: Epigastric Radiation: No Radiation Activities at Onset: None Associated Symptoms: Nausea/Vomiting Allergies and Home Medications Allergies Coded Allergies: cephalexin (Verified Allergy, Severe, HIVES/LIPS SWELLING, 09/28/18) morphine (Verified Allergy, Severe, DIFFICULTY BREATHING/HIVES, 09/28/18) Home Medications Clonazepam 1 Mg Tablet, 1 TAB PO PRN, (Reported) Dicyclomine HCl 10 Mg Capsule, 10 MG PO TID Prescribed by: CHEL CAREY on 10/21/18 1545 Duloxetine HCl 60 Mg Capsule.dr, 60 MG PO DAILY, (Reported) Gabapentin 100 Mg Capsule, 100 MG PO DAILY, (Reported) Levothyroxine Sodium 112 Mcg Tablet, 112 MG PO DAILY, (Reported) Ondansetron HCl 4 Mg Tablet, 4 MG PO BID PRN for NAUSEA/VOMITING, (Reported) Quetiapine Fumarate 50 Mg Tablet, 50 MG PO DAILY, (Reported) Sucralfate 1 Gm Tablet, 1 GM PO ACHS Prescribed by: ELIANA PINEDO on 09/19/18 1426 Patient Home Medication List Home Medication List Reviewed: Yes Review of Systems Review of Systems Constitutional: see HPI EENTM: No Symptoms Reported Respiratory: No Symptoms Reported Cardiovascular: No Symptoms Reported Gastrointestinal: See HPI, Abdominal Pain Genitourinary: No Symptoms Reported Musculoskeletal: no symptoms reported Skin: no symptoms reported Psychiatric/Neurological: No Symptoms Reported Endocrine: No Symptoms Reported Hematologic/Lymphatic: No Symptoms Reported Past Lomjgan-Wnsfcl-Ygmbft Hx Patient Social History 2nd Hand Smoke Exposure: No Recent Foreign Travel: No Contact w/Someone Who Travel: No Recent Hopitalizations: No Immunizations Up To Date Date of Pneumonia Vaccine: Dec 22, 2013 Date of Influenza Vaccine: Dec 29, 2017 Seasonal Allergies Seasonal Allergies: No Past Medical History Surgeries: Yes (gastric bypass, carpal tunel, bilat shoulder, BILAT TKR) Abdominal, Gallbladder, Hysterectomy, Orthopedic, Thyroidectomy, 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 Respiratory: No Cardiac: No Neurological: No Reproductive Disorders: No [employer] History: Hysterectomy, 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 Sexually Transmitted Disease: No HIV/AIDS: No Genitourinary: Yes Kidney Stones Gastrointestinal: Yes (ABD PAIN/NAUSEA) Chronic Constipation Musculoskeletal: Yes Arthritis Endocrine: Yes (Grave's Eye disease) Hypothyroidsim HEENT: No (GLASSES, DENTURES) Double Vision Loss of Vision: Denies Hearing Impairment: Denies Cancer: Yes (BASAL CELL ON NOSE) Psychosocial: Yes Anxiety, Depression Integumentary: No Blood Disorders: No Adverse Reaction/Blood Tranf: Yes (N/A) Family Medical History No Pertinent Family Hx Physical Exam Vital Signs Vital Signs - First Documented 10/21/18 14:00 Temp 98.0 Pulse 92 Resp 18 B/P (MAP) 121/88 (99) Pulse Ox 95 O2 Delivery Room Air Capillary Refill : Height/Weight/BMI Height: 5'6.00" Weight: 182lbs. 0.0oz. [id number]; 29.4 BMI Method:Stated General Appearance: WD/WN, no apparent distress Respiratory: no respiratory distress, no accessory muscle use Gastrointestinal: normal bowel sounds, soft Extremities: normal range of motion, non-tender Neurologic/Psychiatric: alert, normal mood/affect, oriented x 3 Skin: normal color, warm/dry Progress/Results/Core Measures Results/Orders Lab Results Laboratory Tests Test 10/21/18 13:57 10/21/18 14:10 Range/Units White Blood Count 6.3 4.3-11.0 10^3/uL Red Blood Count 4.25 L 4.35-5.85 10^6/uL Hemoglobin 13.8 11.5-16.0 G/DL Hematocrit 42 35-52 % Mean Corpuscular Volume 99 80-99 FL Mean Corpuscular Hemoglobin 33 25-34 PG Mean Corpuscular Hemoglobin Concent 33 32-36 G/DL Red Cell Distribution Width 12.3 10.0-14.5 % Platelet Count 298 130-400 10^3/uL Mean Platelet Volume 9.3 7.4-10.4 FL Neutrophils (%) (Auto) 65 42-75 % Lymphocytes (%) (Auto) 27 12-44 % Monocytes (%) (Auto) 7 0-12 % Eosinophils (%) (Auto) 1 0-10 % Basophils (%) (Auto) 0 0-10 % Neutrophils # (Auto) 4.1 1.8-7.8 X 10^3 Lymphocytes # (Auto) 1.7 1.0-4.0 X 10^3 Monocytes # (Auto) 0.4 0.0-1.0 X 10^3 Eosinophils # (Auto) 0.1 0.0-0.3 10^3/uL Basophils # (Auto) 0.0 0.0-0.1 10^3/uL Sodium Level 142 135-145 MMOL/L Potassium Level 4.3 3.6-5.0 MMOL/L Chloride Level 106 98-107 MMOL/L Carbon Dioxide Level 26 21-32 MMOL/L Anion Gap 10 5-14 MMOL/L Blood Urea Nitrogen 11 7-18 MG/DL Creatinine 0.89 0.60-1.30 MG/DL Estimat Glomerular Filtration Rate > 60 BUN/Creatinine Ratio 12 Glucose Level 96 70-105 MG/DL Calcium Level 9.2 8.5-10.1 MG/DL Corrected Calcium 9.4 8.5-10.1 MG/DL Total Bilirubin 0.5 0.1-1.0 MG/DL Aspartate Amino Transf (AST/SGOT) 142 H 5-34 U/L Alanine Aminotransferase (ALT/SGPT) 52 0-55 U/L Alkaline Phosphatase 129 40-136 U/L Total Protein 6.8 6.4-8.2 GM/DL Albumin 3.8 3.2-4.5 GM/DL Lipase 31 8-78 U/L Urine Color YELLOW Urine Clarity CLEAR Urine pH 6 5-9 Urine Specific [place] 1.020 1.016-1.022 Urine Protein 1+ H NEGATIVE Urine Glucose (UA) NEGATIVE NEGATIVE Urine Ketones NEGATIVE NEGATIVE Urine Nitrite NEGATIVE NEGATIVE Urine Bilirubin NEGATIVE NEGATIVE Urine Urobilinogen NORMAL NORMAL MG/DL Urine Leukocyte Esterase NEGATIVE NEGATIVE Urine RBC (Auto) 3+ H NEGATIVE Urine RBC 5-10 H /HPF Urine WBC NONE /HPF Urine Squamous Epithelial Cells 0-2 /HPF Urine Crystals NONE /LPF Urine Bacteria TRACE /HPF Urine Casts NONE /LPF Urine Mucus SMALL H /LPF Urine Culture Indicated NO Urine Opiates Screen NEGATIVE NEGATIVE Urine Oxycodone Screen NEGATIVE NEGATIVE Urine Methadone Screen NEGATIVE NEGATIVE Urine Propoxyphene Screen NEGATIVE NEGATIVE Urine Barbiturates Screen NEGATIVE NEGATIVE Ur Tricyclic Antidepressants Screen POSITIVE H NEGATIVE Urine Phencyclidine Screen NEGATIVE NEGATIVE Urine Amphetamines Screen NEGATIVE NEGATIVE Urine Methamphetamines Screen NEGATIVE NEGATIVE Urine Benzodiazepines Screen NEGATIVE NEGATIVE Urine Cocaine Screen NEGATIVE NEGATIVE Urine Cannabinoids Screen NEGATIVE NEGATIVE My Orders Orders - CHEL CAREY APRN Cbc With Automated Diff (10/21/18 13:51) Comprehensive Metabolic Panel (10/21/18 13:51) Lipase (10/21/18 13:51) Ua Culture If Indicated (10/21/18 13:51) Ed Iv/Invasive Line Start (10/21/18 13:51) Antacid Suspension (Mylanta Suspension (10/21/18 14:00) Lidocaine 2% Viscous 15 Ml (Xylocaine Vi (10/21/18 14:00) Ondansetron Injection (Zofran Injectio (10/21/18 14:00) Fentanyl Injection (Sublimaze Injection (10/21/18 14:00) Ketorolac Injection (Toradol Injection) (10/21/18 14:15) Ct Abdomen/Pelvis W (10/21/18 14:26) Lorazepam Injection (Ativan Injection) (10/21/18 15:00) Drug Screen Stat (Urine) (10/21/18 14:49) Iohexol Injection (Omnipaque 350 Mg/Ml 1 (10/21/18 15:15) Received Contrast (Hold Metformin- Contr (10/21/18 15:15) Sodium Chloride Flush (Catheter Flush Sy (10/21/18 15:15) Ns (Ivpb) (Sodium Chloride 0.9% Ivpb Bag (10/21/18 15:15) Fentanyl Injection (Sublimaze Injection (10/21/18 16:15) Benzocaine Extension Tube (Hurricaine Ex (10/21/18 16:15) Chest 1 View, Ap/Pa Only (10/21/18 16:33) Medications Given in ED Current Medications Medications Dose Ordered Sig/Vivian Route Start Time Stop Time Status Last Admin Dose Admin Al Hydrox/Mg Hydrox/Simethicone 30 ml ONCE ONCE PO 10/21/18 14:00 10/21/18 14:01 DC 10/21/18 14:10 30 ML Benzocaine 1 ea STK-MED ONCE .ROUTE 10/21/18 16:15 10/21/18 16:22 DC 10/21/18 16:15 1 EA Fentanyl Citrate 25 mcg ONCE PRN IVP 10/21/18 14:00 10/21/18 14:10 25 MCG Fentanyl Citrate 50 mcg ONCE ONCE IVP 10/21/18 16:15 10/21/18 16:16 DC 10/21/18 16:15 50 MCG Lidocaine HCl 15 ml ONCE ONCE PO 10/21/18 14:00 10/21/18 14:01 DC 10/21/18 14:10 15 ML Lorazepam 0.5 mg ONCE PRN IVP 10/21/18 15:00 10/21/18 15:10 0.5 MG Ondansetron HCl 4 mg ONCE ONCE IVP 10/21/18 14:00 10/21/18 14:01 DC 10/21/18 14:10 4 MG Vital Signs/I&O 10/21/18 10/21/18 14:00 14:10 Temp 98.0 98.0 Pulse 92 Resp 18 B/P (MAP) 121/88 (99) Pulse Ox 95 O2 Delivery Room Air Departure Communication (Admissions) Time/Spoke to Admitting Phy: 16:[address] Vanegas, we will admit and reevaluate in the morning. 16 [place] nasogastric tube was inserted by me in the left nostril. Patient tolerated this well. We had no output however over the course of about 30 minutes. I went back to check on her and she insisted we remove it. Since we had no output from the nasogastric tube and it was bothering her so much, I did go ahead and remove it. Impression Primary Impression: Intussusception intestine Additional Impression: ABD PAIN; NAUSEA Disposition: ADMITTED INPATIENT Condition: Stable Admissions Decision to Admit Reason: Admit from ER (General) Decision to Admit/Date: Oct 21, 2018 Time/Decision to Admit Time: 16:16 Departure-Patient Inst. Decision time for Depature: 15:19 Referrals: [facility] (PCP) Primary Care Physician DARRIN GODWIN (Family) Primary Care Physician Patient Instructions: CHRONIC PAIN, Irritable Bowel Syndrome (DC) Add. Discharge Instructions: 1. Follow-up with your doctor next week 2. Return to ER for any concerns 3. Scripts Dicyclomine HCl (Dicyclomine HCl) 10 Mg Capsule 10 MG PO TID, #15 CAP Prov: CHEL CAREY APRN 10/21/18 CHEL CAREY APRN Oct 21, 2018 13:56
[2018-10-21] MEDS ORDERED: LIDOCAINE 2% VISCOUS 15 ML UDC PO ONE (14:00)
[2018-10-21] MEDS ORDERED: fentaNYL INJECTION 100 MCG/2 ML AMP IVP PRN (14:00)
[2018-10-21] MEDS ORDERED: ONDANSETRON 4 MG/2 ML (SDV) Z0FRAN IVP ONE (14:00)
[2018-10-21] MEDS ORDERED: ANTACID SUSP 30 ML UDC (MYLANTA) PO ONE (14:00)
[2018-10-21 14:03] LABS: BASOPHILS % (AUTO) 0 % (0-10); EOSINOPHILS # (AUTO) 0.1 10^3/uL (0.0-0.3); EOSINOPHILS % (AUTO) 1 % (0-10); HEMATOCRIT 42 % (35-52); HEMOGLOBIN 13.8 G/DL (11.5-16.0); LYMPHOCYTES # (AUTO) 1.7 X 10^3 (1.0-4.0); LYMPHOCYTES % (AUTO) 27 % (12-44); MEAN CORPUSCULAR HEMOGLOBIN 33 PG (25-34); MEAN CORPUSCULAR HGB CONC 33 G/DL (32-36); MEAN CORPUSCULAR VOLUME 99 FL (80-99); MEAN PLATELET VOLUME 9.3 FL (7.4-10.4); MONOCYTES # (AUTO) 0.4 X 10^3 (0.0-1.0); MONOCYTES % (AUTO) 7 % (0-12); NEUTROPHILS # (AUTO) 4.1 X 10^3 (1.8-7.8); NEUTROPHILS % (AUTO) 65 % (42-75); PLATELET COUNT 298 10^3/uL (130-400); RED CELL DISTRIBUTION WIDTH 12.3 % (10.0-14.5); WHITE BLOOD COUNT 6.3 10^3/uL (4.3-11.0)
[2018-10-21] MEDS ORDERED: KETOROLAC 30 MG/ML VIAL IM ONE (14:15)
[2018-10-21 14:17] LABS: BILIRUBIN,URINE NEGATIVE (NEGATIVE); CLARITY,URINE CLEAR; COLOR,URINE YELLOW; GLUCOSE, URINE (UA) NEGATIVE (NEGATIVE); KETONES,URINE NEGATIVE (NEGATIVE); LEUKOCYTE ESTERASE ,URINE NEGATIVE (NEGATIVE); NITRITE,URINE NEGATIVE (NEGATIVE); PH,URINE 6 (5-9); PROTEIN,URINE 1+ (NEGATIVE); UROBILINOGEN,URINE NORMAL (NORMAL)
[2018-10-21 14:23] LABS: ALANINE AMINOTRANSFERASE 52 U/L (0-55); ALBUMIN 3.8 GM/DL (3.2-4.5); ALKALINE PHOSPHATASE 129 U/L (40-136); BILIRUBIN,TOTAL 0.5 MG/DL (0.1-1.0); BUN/CREATININE RATIO 12; CALCIUM 9.2 MG/DL (8.5-10.1); CARBON DIOXIDE 26 MMOL/L (21-32); CHLORIDE 106 MMOL/L (98-107); CREATININE SERUM 0.89 MG/DL (0.60-1.30); GFR ESTIMATED > 60; GLUCOSE 96 MG/DL (70-105); LIPASE 31 U/L (8-78); POTASSIUM 4.3 MMOL/L (3.6-5.0); SODIUM 142 MMOL/L (135-145); TOTAL PROTEIN 6.8 GM/DL (6.4-8.2)
[2018-10-21 14:31] LABS: BACTERIA,URINE TRACE /HPF; SQUAMOUS EPITHELIAL CELL,UR 0-2 /HPF
[2018-10-21] MEDS ORDERED: LORazepam INJ 2 MG/ML (ATIVAN) VIAL IVP PRN (15:00)
[2018-10-21 15:14] LABS: AMPHETAMINE SCREEN, URINE NEGATIVE (NEGATIVE); BARBITURATE SCREEN URINE NEGATIVE (NEGATIVE); BENZODIAZEPINES SCREEN URINE NEGATIVE (NEGATIVE); CANNABINOID SCREEN, URINE NEGATIVE (NEGATIVE); COCAINE SCREEN URINE NEGATIVE (NEGATIVE); METHADONE STAT NEGATIVE (NEGATIVE); METHAMPHETAMINE SCREEN URINE S NEGATIVE (NEGATIVE); OPIATE SCREEN URINE NEGATIVE (NEGATIVE); OXYCODONE STAT NEGATIVE (NEGATIVE); PROPOXYPHENE STAT NEGATIVE (NEGATIVE); TRICYCLIC ANTIDEPRESSANTS SCRE POSITIVE (NEGATIVE)
[2018-10-21] MEDS ORDERED: IOHEXOL 350 MG/ML 100 ML (OMNIPAQUE 350) VIAL IV ONE (15:15)
[2018-10-21] MEDS ORDERED: HOLD METFORMIN - RECEIVED CONTRAST 20 ML VIAL IV SCH (15:15)
[2018-10-21] MEDS ORDERED: NS 100 ML (IVPB) BAG IV ONE (15:15)
[2018-10-21] MEDS ORDERED: CATHETER FLUSH 10 ML SYR IV PRN (15:15)
[2018-10-21] MEDS ORDERED: DICY10CA12 PO (15:45)
--- NOTE | 2018-10-21 16:11 | Diagnostic Imaging Report ---
PROCEDURE: CT abdomen and pelvis with contrast. TECHNIQUE: Multiple contiguous axial images were obtained through the abdomen and pelvis after administration of intravenous contrast. Auto Exposure Controls were utilized during the CT exam to meet ALARA standards for radiation dose reduction. DATE: October 21, 2018. COMPARISON: CT abdomen and pelvis April 20, 2018. INDICATION: 63-year-old female, abdominal pain, nausea, vomiting. FINDINGS: There is a benign calcified 4 mm left lower lobe granuloma. There is mild atelectasis in the left lower lobe. The heart is not enlarged. There is no identified pericardial effusion. The liver is normal in size and contour. There is no identified liver lesion. The patient is status post cholecystectomy. There is no intrahepatic or extrahepatic bile duct dilation. The main pancreatic duct is not abnormally dilated. Unremarkable appearance of the pancreatic parenchyma. The spleen is not enlarged. The adrenal glands are unremarkable. There is a low-attenuation right renal lesion measuring 9 mm in size on axial image 41 which is consistent with a benign cyst based on internal attenuation measurements. The urinary collecting systems are not distended. There is no identified renal or ureteral stone. The urinary bladder is unremarkable in appearance. There is a large amount of stool throughout the colon. The appendix is not well seen. There are no secondary findings to specifically suggest acute appendicitis. There are postoperative changes at the level of the stomach. There are sutures associated with small bowel. At the site of small bowel related sutures, there is focal dilation of the bowel lumen. This is perhaps best illustrated on coronal image 15 and adjacent sequential images. Just distal to this area, there is a short segment small bowel intussusception perhaps best illustrated on axial image 46 and coronal image 18. The more proximal small bowel is not grossly dilated. There is no free intraperitoneal air. There is no drainable fluid collection. There is no free pelvic fluid. There are atherosclerotic calcifications. There is no identified abnormally enlarged lymph node in the abdomen or pelvis which specifically meets CT size criteria for adenopathy. There is a benign L3 vertebral body hemangioma. There are degenerative changes of the spine. There is no identified acute bony abnormality. IMPRESSION: CT ABDOMEN AND PELVIS. 1. Short segment small bowel intussusception in the mid abdomen which is just distal to the site of small bowel sutures with dilated segment of small bowel at the level of the sutures measuring up to 4.1 cm and no more prominent proximal small bowel distention. 2. No pneumatosis or portal venous gas to specifically suggest intestinal ischemia. No free intraperitoneal air or drainable fluid collection. Dictated by: Dictated on workstation # [id number]
[2018-10-21] MEDS ORDERED: HURRICAINE EXT TUBE (BENZOCAINE) ONE (16:15)
[2018-10-21] MEDS ORDERED: fentaNYL INJECTION 100 MCG/2 ML AMP IVP ONE (16:15)
--- OUTSIDE RECORDS SUMMARY | 2018-10-21 16:56 | XMS REPORT | Continuity of Care Document ---
Author Organization Unknown Address Unknown Phone Unavailable Allergies Active Description Code Type Severity Reaction Onset Reported/Identified Relationship to Patient Clinical Status Yes cephalexin [id number] Drug Allergy Unknown N/A 01/25/2015 Yes morphine [id number] Drug Allergy Unknown N/A 01/25/2015 Yes No Known Drug Allergies [id number] Drug Allergy Unknown N/A 01/25/2015 Yes cephalexin [id number] Drug Allergy Severe HIVES/LIPS SWEL 09/28/2018 Yes morphine [id number] Drug Allergy Severe DIFFICULTY BUDDY 09/28/2018 Medications There is no data. Problems Date Dx Coded Attending Type Code Diagnosis Diagnosed By 01/25/2015 CHEL CAREY APRN Ot S83.91XA SPRAIN OF UNSPECIFIED SITE OF RIGHT KNEE 01/25/2015 CHEL CAREY ROTOFORMER BACKTENDER Ot W17.81XA FALL DOWN EMBANKMENT ([place]), INITIAL ENC 01/25/2015 CHEL CAREY APRN Ot Y92.838 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 [...] MYLES Ot Z98.84 BARIATRIC SURGERY STATUS 04/20/2018 PILAR MYLES Ot Z98.890 OTHER SPECIFIED POSTPROCEDURAL STATES 04/20/2018 ANDER MCCULLOUGH, LONNIE R Ot J32.9 CHRONIC SINUSITIS, UNSPECIFIED 04/20/2018 ANDER MCCULLOUGH, LONNIE R Ot J34.1 CYST AND MUCOCELE OF NOSE AND NASAL SINU 05/07/2018 KATHLEEN TALAVERA ROTOFORMER BACKTENDER Ot G47.10 HYPERSOMNIA, UNSPECIFIED 05/08/2018 KATHLEEN TALAVERA ROTOFORMER BACKTENDER Ot G47.10 HYPERSOMNIA, UNSPECIFIED 05/08/2018 ANDER MCCULLOUGH, LONNIE R Ot J32.9 CHRONIC SINUSITIS, UNSPECIFIED 05/08/2018 ANDER MCCULLOUGH, LONNIE R Ot J34.1 CYST AND MUCOCELE OF NOSE AND NASAL SINU 05/08/2018 KATHLEEN TALAVERA E ROTOFORMER BACKTENDER Ot G47.10 HYPERSOMNIA, UNSPECIFIED 05/08/2018 EDMUNDO TALAVERAINE E ROTOFORMER BACKTENDER Ot E66.9 OBESITY, UNSPECIFIED 05/08/2018 EDMUNDO TALAVERAINE E ROTOFORMER BACKTENDER Ot G47.00 INSOMNIA, UNSPECIFIED 05/08/2018 EDMUNDO TALAVERAINE E ROTOFORMER BACKTENDER Ot G47.10 HYPERSOMNIA, UNSPECIFIED 05/08/2018 KATHLEEN TALAVERA ROTOFORMER BACKTENDER Ot R06.00 DYSPNEA, UNSPECIFIED 05/08/2018 KATHLEEN TALAVERA ROTOFORMER BACKTENDER Ot R91.1 SOLITARY PULMONARY NODULE 05/11/2018 KATHLEEN TALAVERA ROTOFORMER BACKTENDER Ot E66.9 OBESITY, UNSPECIFIED 05/11/2018 KATHLEEN TALAVERA ROTOFORMER BACKTENDER Ot G47.00 INSOMNIA, UNSPECIFIED 05/11/2018 KATHLEEN TALAVERA ROTOFORMER BACKTENDER Ot G47.10 HYPERSOMNIA, UNSPECIFIED 05/11/2018 EDMUNDO TALAVERAINE E ROTOFORMER BACKTENDER Ot R06.00 DYSPNEA, UNSPECIFIED 05/11/2018 EDMUNDO TALAVERAINE E ROTOFORMER BACKTENDER Ot R91.1 SOLITARY PULMONARY NODULE 05/11/2018 KATHLEEN TALAVERA ROTOFORMER BACKTENDER Ot E66.9 OBESITY, UNSPECIFIED 05/11/2018 KATHLEEN TALAVERA ROTOFORMER BACKTENDER Ot G47.00 INSOMNIA, UNSPECIFIED 05/11/2018 KATHLEEN TALAVERA ROTOFORMER BACKTENDER Ot G47.10 HYPERSOMNIA, UNSPECIFIED 05/11/2018 KATHLEEN TALAVERA ROTOFORMER BACKTENDER Ot R06.00 DYSPNEA, UNSPECIFIED 05/11/2018 KATHLEEN TALAVERA ROTOFORMER BACKTENDER Ot R91.1 SOLITARY PULMONARY NODULE 05/25/2018 ANDER MCCULLOUGH, LONINE R Ot J32.9 CHRONIC SINUSITIS, UNSPECIFIED 05/25/2018 ANDER MCCULLOUGH, LONNIE R Ot J34.1 CYST AND MUCOCELE OF NOSE AND NASAL SINU 05/26/2018 KATHLEEN TALAVERA ROTOFORMER BACKTENDER Ot E66.9 OBESITY, UNSPECIFIED 05/26/2018 KATHLEEN TALAVERA ROTOFORMER BACKTENDER Ot G47.00 INSOMNIA, UNSPECIFIED 05/26/2018 KATHLEEN TALAVERA ROTOFORMER BACKTENDER Ot G47.10 HYPERSOMNIA, UNSPECIFIED 05/26/2018 KATHLEEN TALAVERA ROTOFORMER BACKTENDER Ot J98.4 OTHER DISORDERS OF LUNG 05/26/2018 KATHLEEN TALAVERA ROTOFORMER BACKTENDER Ot M89.8X9 OTHER SPECIFIED DISORDERS OF BONE, UNSPE 05/26/2018 EDMUNDO TALAVERAINE Chevy ROTOFORMER BACKTENDER Ot R91.8 OTHER NONSPECIFIC ABNORMAL FINDING OF AUGUSTO 06/01/2018 KATHLEEN TALAVERA ROTOFORMER BACKTENDER Ot E66.9 OBESITY, UNSPECIFIED 06/01/2018 KATHLEEN TALAVERA ROTOFORMER BACKTENDER Ot G47.00 INSOMNIA, UNSPECIFIED 06/01/2018 KATHLEEN TALAVERA ROTOFORMER BACKTENDER Ot G47.10 HYPERSOMNIA, UNSPECIFIED 06/01/2018 KATHLEEN TALAVERA ROTOFORMER BACKTENDER Ot J98.4 OTHER DISORDERS OF LUNG 06/01/2018 KATHLEEN TALAVERA ROTOFORMER BACKTENDER Ot M89.8X9 OTHER SPECIFIED DISORDERS OF BONE, UNSPE 06/01/2018 KATHLEEN TALAVERA ROTOFORMER BACKTENDER Ot R91.8 OTHER NONSPECIFIC ABNORMAL FINDING OF [place]UST[place] 09/19/2018 SHAHIDA MCCULLOUGH, ELIANA Sididqui Ot E03.9 HYPOTHYROIDISM, UNSPECIFIED 09/19/2018 ELIANA PINEDO MD Ot F32.9 MAJOR DEPRESSIVE DISORDER, SINGLE EPISOD 09/19/2018 ELIANA PINEDO MD Ot F41.9 ANXIETY DISORDER, UNSPECIFIED 09/19/2018 ELIANA PINEDO MD Ot R10.13 EPIGASTRIC PAIN 09/19/2018 ELIANA PINEDO MD Ot Z88.1 ALLERGY STATUS TO OTHER ANTIBIOTIC AGENT 09/19/2018 ELIANA PINEDO MD Ot Z88.5 ALLERGY STATUS TO NARCOTIC AGENT STATUS 09/19/2018 ELIANA PINEDO MD Ot Z90.710 ACQUIRED ABSENCE [...] G47.10 HYPERSOMNIA, UNSPECIFIED 10/13/2018 ILAN, KATHLEEN E ROTOFORMER BACKTENDER Ot J98.4 OTHER DISORDERS OF LUNG 10/13/2018 KATHLEEN TALAVERA ROTOFORMER BACKTENDER Ot M89.8X9 OTHER SPECIFIED DISORDERS OF BONE, UNSPE 10/13/2018 KATHLEEN TALAVERA ROTOFORMER BACKTENDER Ot R91.8 OTHER NONSPECIFIC ABNORMAL FINDING OF [place] 10/13/2018 KATHLEEN TALAVERA APRN Ot E66.9 OBESITY, UNSPECIFIED 10/13/2018 KATHLEEN TALAVERA APRN Ot G47.00 INSOMNIA, UNSPECIFIED 10/13/2018 KATHLEEN TALAVERA APRN Ot G47.10 HYPERSOMNIA, UNSPECIFIED 10/13/2018 KATHLEEN TALAVERA ROTOFORMER BACKTENDER Ot J98.4 OTHER DISORDERS OF LUNG 10/13/2018 KATHLEEN TALAVERA APRN Ot M89.8X9 OTHER SPECIFIED DISORDERS OF BONE, UNSPE 10/13/2018 KATHLEEN TALAVERA ROTOFORMER BACKTENDER Ot R91.8 OTHER NONSPECIFIC ABNORMAL FINDING OF [...] JO KULKARNI DO B Ot Z79.899 OTHER [facility] (CURRENT) DRUG THERAPY 10/14/2018 DAV KULKARNI DOIC [...] troponin i.cardiac measurement (mass/volume) < ng/mL <0.028 Complete blood count (CBC) with automated white blood cell (WBC) differential - 10/21/18 13:57 Blood leukocytes automated count (number/volume) 6.3 10*3/uL 4.3-11.0 Blood erythrocytes automated count (number/volume) 4.25 10*6/uL 4.35-5.85 Venous blood hemoglobin measurement (mass/volume) 13.8 g/dL 11.5-16.0 Blood hematocrit (volume fraction) 42 % 35-52 Automated erythrocyte mean corpuscular volume 99 [foz_us] 80-99 Automated erythrocyte mean corpuscular hemoglobin (mass per erythrocyte) 33 pg 25-34 Automated erythrocyte mean corpuscular hemoglobin concentration measurement (mass/volume) 33 g/dL 32-36 Automated erythrocyte distribution width ratio 12.3 % 10.0- 14.5 Automated blood platelet count (count/volume) 298 10*3/uL 130-400 Automated blood platelet mean volume measurement 9.3 [foz_us] 7.4-10.4 Automated blood neutrophils/100 leukocytes 65 % 42-75 Automated blood lymphocytes/100 leukocytes 27 % 12-44 Blood monocytes/100 leukocytes 7 % 0-12 Automated blood eosinophils/100 leukocytes 1 % 0-10 Automated blood basophils/100 leukocytes 0 % 0-10 Blood neutrophils automated count (number/volume) 4.1 10*3 1.8-7.8 Blood lymphocytes automated count (number/volume) 1.7 10*3 1.0-4.0 Blood monocytes automated count (number/volume) 0.4 10*3 0.0- 1.0 Automated eosinophil count 0.1 10*3/uL 0.0-0.3 Automated blood basophil count (count/volume) 0.0 10*3/uL 0.0-0.1 Comprehensive metabolic panel - 10/21/18 13:57 Serum or plasma sodium measurement (moles/volume) 142 mmol/L 135-145 Serum or plasma potassium measurement (moles/volume) 4.3 mmol/L 3.6-5.0 Serum or plasma chloride measurement (moles/volume) 106 mmol/L 98-107 Carbon dioxide 26 mmol/L 21-32 Serum or plasma anion gap determination (moles/volume) 10 mmol/L 5-14 Serum or plasma urea nitrogen measurement (mass/volume) 11 mg/dL 7-18 Serum or plasma creatinine measurement (mass/volume) 0.89 mg/dL 0.60-1.30 Serum or plasma urea nitrogen/creatinine mass ratio 12 NRG Serum or plasma creatinine measurement with calculation of estimated glomerular filtration rate > NRG Serum or plasma glucose measurement (mass/volume) 96 mg/dL 70-105 Serum or plasma calcium measurement (mass/volume) 9.2 mg/dL 8.5-10.1 Serum or plasma total bilirubin measurement (mass/volume) 0.5 mg/dL 0.1-1.0 Serum or plasma alkaline phosphatase measurement (enzymatic activity/volume) 129 U/L 40-136 Serum or plasma aspartate aminotransferase measurement (enzymatic activity/volume) 142 U/L 5-34 Serum or plasma alanine aminotransferase measurement (enzymatic activity/volume) 52 U/L 0-55 Serum or plasma protein measurement (mass/volume) 6.8 g/dL 6.4-8.2 Serum or plasma albumin measurement (mass/volume) 3.8 g/dL 3.2-4.5 CALCIUM CORRECTED 9.4 mg/dL 8.5-10.1 Lipase - 10/21/18 13:57 Lipase 31 U/L 8-78 Complete urinalysis with reflex to culture - 10/21/18 14:10 Urine color determination YELLOW NRG Urine clarity determination CLEAR NRG Urine pH measurement by test strip 6 5-9 Specific gravity of urine by test strip 1.020 1.016-1.022 Urine protein assay by test strip, semi-quantitative 1+ NEGATIVE Urine glucose detection by automated test strip NEGATIVE NEGATIVE Erythrocytes detection in urine sediment by light microscopy 3+ NEGATIVE Urine ketones detection by automated test strip NEGATIVE NEGATIVE Urine nitrite detection by test strip NEGATIVE NEGATIVE Urine total bilirubin detection by test strip NEGATIVE NEGATIVE Urine urobilinogen measurement by automated test strip (mass/volume) NORMAL NORMAL Urine leukocyte esterase detection by dipstick NEGATIVE NEGATIVE Automated urine sediment erythrocyte count by microscopy (number/high power field) [HPF] [facility] Automated urine sediment leukocyte count by microscopy (number/high power field) NONE NRG Bacteria detection in urine sediment by light microscopy TRACE NRG Squamous epithelial cells detection in urine sediment by light microscopy 0-2 NRG Crystals detection in urine sediment by light microscopy NONE NRG Casts detection in urine sediment by light microscopy NONE NRG Mucus detection in urine sediment by light microscopy SMALL NRG Complete urinalysis with reflex to culture NO NRG Urine drug screening test - 10/21/18 14:10 Urine phencyclidine detection by screening method NEGATIVE NEGATIVE Urine benzodiazepines detection by screening method NEGATIVE NEGATIVE Urine cocaine detection NEGATIVE NEGATIVE Urine amphetamines detection by screening method NEGATIVE NEGATIVE Urine methamphetamine detection by screening method NEGATIVE NEGATIVE Urine cannabinoids detection by screening method NEGATIVE NEGATIVE Urine opiates detection by screening method NEGATIVE NEGATIVE Urine barbiturates detection NEGATIVE NEGATIVE Screening urine tricyclic antidepressants detection POSITIVE NEGATIVE Urine methadone detection by screening method NEGATIVE NEGATIVE Urine oxycodone detection NEGATIVE NEGATIVE Urine propoxyphene detection NEGATIVE NEGATIVE Encounters ACCT No. Visit Date/Time Discharge Status Pt. Type Provider Facility Loc./Unit Complaint [id number] 09/14/2018 10:00:00 09/14/2018 23:59:59 CLS Outpatient CITLALI VALENTIN DARRIN Tariq [facility] [place] [id number] 09/14/2018 10:00:00 Document Registration [id number] 03/11/2018 11:00:00 Document Registration [id number] 10/24/2017 11:00:00 Document Registration [id number] 06/30/2017 10:20:00 Document Registration [id number] 03/25/2015 23:04:22 03/25/2015 23:59:59 CLS Outpatient Cari Craig [id number] 03/19/2013 12:46:57 Document Registration [id number] 10/05/2018 08:28:00 10/05/2018 11:40:00 DIS Outpatient JO KULKARNI DO [facility] ENDO ABD PAIN/NAUSEA [id number] 09/28/2018 05:40:00 09/28/2018 13:04:00 DIS Outpatient JO KULKARNI DO [facility] PREOP COLONOSCOPY/EGD [id number] 09/19/2018 12:28:00 09/19/2018 14:38:00 DIS Emergency ELIANA PINEDO MD [facility] ER STOMACH PAIN/BURNING [id number] 05/27/2018 09:12:00 05/27/2018 23:59:59 CLS Preadmit KATHLEEN TALAVERA ROTOFORMER BACKTENDER [facility] RAD HYPERSOMNIA, UNSPECIFIED [id number] 05/25/2018 06:27:00 05/25/2018 23:59:59 CLS Outpatient KATHLEEN TALAVERA ROTOFORMER BACKTENDER [facility] RAD LUNG NODULE <6CM ON CT [id number] 05/08/2018 11:15:00 05/08/2018 12:45:00 DIS Outpatient KATHLEEN TALAVERA ROTOFORMER BACKTENDER [facility] SLEEP SUSPECTED SLEEP APNEA [id number] 04/27/2018 09:52:00 04/27/2018 23:59:59 CLS Preadmit KATHLEEN TALAVERA ROTOFORMER BACKTENDER [facility] RT LUNG NODULE <6CM ON CT [id number] 04/20/2018 16:39:00 04/20/2018 18:34:00 DIS Emergency PILAR MYLES [facility] ER PAIN IN LOWER BACK RIGHT SIDE [id number] 04/10/2017 10:45:00 04/10/2017 13:30:00 DIS Emergency CHEL CAREY ROTOFORMER BACKTENDER [facility] ER L FOOT PAIN [id number] 03/06/2017 07:57:00 03/06/2017 23:59:59 CLS Outpatient ANDER MCCULLOUGH, LONNIE Carias [facility] RAD HX OF PARANASAL SINUS PAIN [id number] 11/08/2016 13:23:00 11/08/2016 14:41:00 DIS Emergency PAO PALMA DO [facility] ER RIGHT EYE ISSUES [id number] 04/29/2015 14:30:00 04/29/2015 23:59:59 CLS Outpatient TRAVIS ROMAN [facility] QUICK [id number] 02/27/2015 21:11:00 02/27/2015 23:22:00 DIS Emergency CARRIE BONILLA MD [facility] ER ALLERGIC REACTION TO MEDS [id number] 01/25/2015 21:28:00 01/25/2015 23:14:00 DIS Emergency CHEL CAREY APRN [facility] ER R KNEE PAIN/FALL [id number] 10/21/2018 14:04:00 Document Registration
[2018-10-21] MEDS ORDERED: ONDANSETRON 4 MG/2 ML (SDV) Z0FRAN IV PRN (17:30)
[2018-10-21] MEDS ORDERED: PROMETHAZINE INJ 25 MG/ML (PHENERGAN) AMP IV PRN (17:30)
--- NOTE | 2018-10-21 17:35 | NUR ---
CLAYTON DANIELLE admitted to room 408-1, with an admitting diagnosis of SMALL BOWEL INTUSSUSCEPTION , on 10/21/18 from ED via , accompanied by STAFF AND FAMILY.CLAYTON DANIELLE introduced to surroundings, call light, bed controls, phone, TV, temperature control, lights, meal times, smoking policy, visitor policy, side rail policy, bathrooms and showers. Patient Rights given to patient in the handbook. CLAYTON DANIELLE verbalizes understanding that [facility] is not responsible for the loss or damage to any personal effects or valuables that are kept in the patients posession during their hospitalization. CLAYTON DANIELLE verbalizes understanding of Interdisciplinary Patient Education. Patient and/or family were informed about the Rapid Response Team and its purpose.
[2018-10-21] MEDS: fentaNYL INJECTION 100 MCG/2 ML AMP IV PRN (18:03)
[2018-10-21] MEDS: PANTOPRAZOLE 40 MG (PROTONIX) VIAL IV SCH (18:10)
[2018-10-21] MEDS: LACTATED RINGERS 1,000 ML IV SCH (18:10)
[2018-10-21 18:56] VITALS: BP 147/85
[2018-10-21 20:00] VITALS: BP 123/79
[2018-10-22] VITALS: BP 122/78
[2018-10-22] MEDS: LACTATED RINGERS 1,000 ML IV SCH ×4 (00:03→19:30)
[2018-10-22] MEDS: fentaNYL INJECTION 100 MCG/2 ML AMP IV PRN ×3 (00:03→12:00)
[2018-10-22 04:00] VITALS: BP 129/80
[2018-10-22 06:48] LABS: BASOPHILS % (AUTO) 0 % (0-10); EOSINOPHILS # (AUTO) 0.2 10^3/uL (0.0-0.3); EOSINOPHILS % (AUTO) 4 % (0-10); HEMATOCRIT 39 % (35-52); HEMOGLOBIN 12.8 G/DL (11.5-16.0); LYMPHOCYTES # (AUTO) 1.8 X 10^3 (1.0-4.0); LYMPHOCYTES % (AUTO) 34 % (12-44); MEAN CORPUSCULAR HEMOGLOBIN 32 PG (25-34); MEAN CORPUSCULAR HGB CONC 33 G/DL (32-36); MEAN CORPUSCULAR VOLUME 99 FL (80-99); MEAN PLATELET VOLUME 9.7 FL (7.4-10.4); MONOCYTES # (AUTO) 0.3 X 10^3 (0.0-1.0); MONOCYTES % (AUTO) 6 % (0-12); NEUTROPHILS % (AUTO) 56 % (42-75); PLATELET COUNT 277 10^3/uL (130-400); RED CELL DISTRIBUTION WIDTH 12.3 % (10.0-14.5); WHITE BLOOD COUNT 5.3 10^3/uL (4.3-11.0)
[2018-10-22 07:13] LABS: ALANINE AMINOTRANSFERASE 38 U/L (0-55); ALBUMIN 3.4 GM/DL (3.2-4.5); ALKALINE PHOSPHATASE 109 U/L (40-136); BILIRUBIN,TOTAL 0.6 MG/DL (0.1-1.0); BUN/CREATININE RATIO 11; CARBON DIOXIDE 27 MMOL/L (21-32); CHLORIDE 104 MMOL/L (98-107); CREATININE SERUM 0.81 MG/DL (0.60-1.30); GFR ESTIMATED > 60; GLUCOSE 73 MG/DL (70-105); POTASSIUM 4.4 MMOL/L (3.6-5.0); SODIUM 141 MMOL/L (135-145); TOTAL PROTEIN 5.9 GM/DL (6.4-8.2)
[2018-10-22 08:00] VITALS: BP 147/87
[2018-10-22] MEDS: PANTOPRAZOLE 40 MG (PROTONIX) VIAL IV SCH (08:50)
[2018-10-22] MEDS ORDERED: OMEP20TA33 PO (09:02)
[2018-10-22] MEDS ORDERED: RANI-613 PO (09:02)
[2018-10-22] MEDS ORDERED: QUET100T69 PO (09:02)
--- NOTE | 2018-10-22 09:05 | NUR ---
WENT OVER THE EXT MED HX WITH THE PATIENT AND SHE VERIFIED HOW SHE TAKES EACH MEDICATION. SHE NO LONGER TAKES THE QUETIAPINE 50MG #90 FOR 30 DAYS FILLED 09-22-18 - SHE IS NOW TAKING THE 100MG HS ONLY. SHE FILLED CARAFATE 1GM #60 FOR A 15 DAY SUPPLY 09-19-18 HOWEVER STATES SHE IS NOT TAKING IT BECAUSE SHE DID NOT THINK IT WORKED. SHE FILLED TRIAMCINOLONE BUT STATES SHE HAD AN ALLERGIC REACTION TO IT WITH [facility]ES AND RASH SO I ADDED IT TO HER ALLERGY LIST. SHE TAKES PRILOSEC AND ZANTAC OTC EACH BID. SHE WAS PRESCRIBED BENTYL FROM THE EMERGENCY ROOM YESTERDAY PRIOR TO BEING ADMITTED. [facility] SO I LEFT IT ON THE MED REC AND EXPLAINED IT TO THE PATIENT SO IT CAN BE ADDRESSED AT DISCHARGE.
[2018-10-22 12:00] VITALS: BP 137/79
--- NOTE | 2018-10-22 12:36 | NUR ---
Initial visit: The pt is [employer] and attends [employer] in [place]. She describes it as a gnosticism of down to earth country people, with whom she well-connects and among whom she feels loved and accepted. The pt has two sons: Mauricio, in [facility] [place] and another who is a policeman in [place], [place]. She requested prayer for Mauricio who is 40, with 4 children, and was recently diagnosed with kidney cancer. We prayed together for her health and that of her son. I offered to close the door as I exited; the pt said the light from the hallway hurts her eyes, so she appreciated the door being closed. Room lights dimmed at this time.
--- NOTE | 2018-10-22 13:15 | Diagnostic Imaging Report ---
INDICATION: Abdominal pain. COMPARISON: CT abdomen and pelvis of 10/21/2018. FINDINGS: There remain a few gas-filled and borderline dilated loops of small bowel in the mid epigastric region. This is most conspicuous at the anastomotic suture line, but could be physiologic due to a [id number] small bowel anastomosis at this location. Air-fluid level is seen on upright imaging. No free intraperitoneal air. Cholecystectomy is noted. Moderate volume of colonic stool. Scattered pelvic phleboliths. Lung bases are clear. IMPRESSION: 1. Persistent gaseous distention of a few proximal small bowel loops could be physiologic from [id number] small bowel anastomosis. If there remains concern for small bowel obstruction, small bowel follow-through may be beneficial. 2. No free intraperitoneal air. Dictated by: Dictated on workstation # [id number]
[2018-10-22 15:56] VITALS: BP 140/78
--- NOTE | 2018-10-22 17:46 | CONSULTATION REPORT ---
DATE OF SERVICE: HISTORY OF PRESENT ILLNESS: The patient is a 63-year-old female who presented with epigastric burning sensation as well as mild nausea; however, no vomiting. She underwent a recent EGD and it sounds as though she did have significant reflux esophagitis; however, no signs of any obstruction. A CT scan was performed upon presentation to the Emergency Department, which did show a few dilated loops of small bowel proximal to the jejunojejunostomy; however, this was not a complete obstruction. She does have a significant amount of stool throughout her colon as well. She underwent a laparoscopic Twan-en-Y gastric bypass in 2011 in the [facility]. Since being admitted, she has had minimal abdominal pain and after enemas and multiple bowel movements, was started on a clear liquid diet, which she has been able to tolerate without any difficulty. PAST MEDICAL HISTORY: Degenerative joint disease, history of Graves' disease, constipation, depression. PAST SURGICAL HISTORY: Tubal ligation, bilateral total knee arthroplasty, bilateral shoulder repair, carpal tunnel release, Twan-en-Y gastric bypass, laparoscopic cholecystectomy, hysterectomy, thyroidectomy. ALLERGIES: CEPHALEXIN, MORPHINE. MEDICATIONS: Clonazepam 1 mg p.r.n., dicyclomine 10 mg t.i.d., duloxetine 60 mg daily, gabapentin 100 mg daily, levothyroxine 112 mcg daily, Zofran 4 mg p.r.n., quetiapine fumarate 50 mg daily, sucralfate q.i.d. SOCIAL HISTORY: Negative smoke, negative alcohol. FAMILY HISTORY: Noncontributory. VITAL SIGNS: Temperature 98.9, blood pressure 140/78, pulse 66, respirations 22, pulse ox 96% on room air. REVIEW OF SYSTEMS: Well-nourished female, currently in no acute distress. She is not experiencing any shortness of breath or difficulty breathing. No chest pain, palpitations, diaphoresis. No nausea, vomiting with mild epigastric burning sensation on an intermittent basis. No longstanding history of chronic constipation and has not had a bowel movement in several days. No red blood per rectum, no dark tarry stools. No fever, chills. No recent inadvertent weight loss. All other review of systems negative. PHYSICAL EXAMINATION: CHEST: Clear. Good breath sounds bilaterally. HEART: Regular, no murmurs. EXTREMITIES: No lower extremity edema, negative Homans sign. ABDOMEN: Soft. There is mild discomfort upon deep palpation of the mid abdominal region. There are no peritoneal signs. No hernias palpable. SKIN: Warm, dry. LABORATORY DATA: WBC 5.3, hemoglobin 12.8, hematocrit 39, platelets 277, BUN 9, creatinine 0.81. ASSESSMENT AND PLAN: A 63-year-old female with history of gastroesophageal reflux disease as well as possible mild stricture at the jejunojejunostomy anastomosis from her previous Twan-en-Y gastric bypass. If this is the case and she develops worsening symptoms including abdominal distention, crampy pain as well as nausea and vomiting, she may need revision of this area of anastomosis. In this scenario, I would recommend further evaluation with an upper GI contrast study with small bowel follow through to confirm the area of stricture or stenosis and then we refer to the appropriate consultants which may include a bariatric surgeon that does do revisions for Twan-en-Y gastric bypass. At this time, she is doing well. We will start a clear liquid diet and recommend stool softeners on a regular basis. We will also slowly advance her diet and when she is able to tolerate a soft diet, we will discharge her home. Job ID: [id number] DocumentID: [id number] Dictated Date: 10/22/2018 17:20:26 Button Tufting Machine Operator Date: 10/22/2018 17:45:55 Dictated By: RONEL LONDONO MD
[2018-10-22] MEDS ORDERED: ACETAMINOPHEN 325 MG TABLET PO PRN (19:15)
[2018-10-22 19:55] VITALS: BP 119/76
[2018-10-23] VITALS: BP 145/85
[2018-10-23] MEDS: fentaNYL INJECTION 100 MCG/2 ML AMP IV PRN (00:43)
[2018-10-23] MEDS: LACTATED RINGERS 1,000 ML IV SCH ×2 (03:13→09:30)
[2018-10-23 04:00] VITALS: BP 138/83
[2018-10-23 08:00] VITALS: BP 151/88
[2018-10-23] MEDS: PANTOPRAZOLE 40 MG (PROTONIX) VIAL IV SCH (08:06)
[2018-10-23 12:00] VITALS: BP 160/79
--- NOTE | 2018-10-23 14:13 | Progress Note ---
Subjective Date Seen by a Provider: Oct 23, 2018 Time Seen by a Provider: 14:00 Subjective/Events-last exam Patient reports doing well today. No N/V. Having BMs. No abdominal pain, fever/chills. Tolerating diet. Patient reports that she is ready to go home. Objective Exam Vital Signs Date Time Temp Pulse Resp B/P (MAP) Pulse Ox O2 Delivery O2 Flow Rate FiO2 10/23/18 12:00 99.0 70 18 160/79 (106) 96 Room Air 10/23/18 08:00 Room Air 10/23/18 08:00 98.9 59 18 151/88 (109) 96 Room Air 10/23/18 04:00 98.6 56 20 138/83 (101) 94 Room Air 10/23/18 00:00 98.7 67 22 145/85 (105) 92 Room Air 10/22/18 20:00 Room Air 10/22/18 19:55 98.9 90 20 119/76 (90) 92 Room Air 10/22/18 15:56 98.9 66 22 140/78 (98) 96 Room Air I & O 10/23/18 07:00 Intake Total 2750 ml Balance 2750 ml Capillary Refill : Less Than 3 Seconds General Appearance: No Apparent Distress, WD/WN Neck: Full Range of Motion, Non Tender, Supple Respiratory: Normal Breath Sounds, No Accessory Muscle Use, No Respiratory Distress Cardiovascular: Regular Rate, Rhythm, No Edema Gastrointestinal: normal bowel sounds, non tender, soft Extremity: Normal Capillary Refill, Normal Inspection, Normal Range of Motion Neurologic/Psychiatric: Alert, Oriented x3 Skin: Normal Color, Warm/Dry Assessment/Plan Assessment/Plan Assess & Plan/Chief Complaint A 63 year old female with history of gastroesophageal reflux disease as well as possible mild stricture at the jejunojejunostomy anastomosis from her previous Twan-en-Y gastric bypass. At this time she tolerating diet. She is not reporting any abdominal pain, N/V, fever/chills. She is having BMs. She may be discharged home and is to call the office next week for follow-up test. Clinical Quality Measures DVT/VTE Risk/Contraindication: Risk Factor Score Per Nursin RFS Level Per Nursing on Admit: 2=Moderate JAG GONZALEZ APRN Oct 23, 2018 14:13
[2018-10-23] MEDS ORDERED: PANT40TA2 PO (14:18)
[2018-10-23] MEDS ORDERED: SUCR1TAB36 PO (14:18)
--- NOTE | 2018-10-23 14:21 | Discharge Inst-Surgical ---
D/C Lap Instructions-KIDO Reconcile Patient Problems Problems Reviewed?: Yes New, Converted, or Re-Newed RX: RX on Chart Call office next week for follow up testing. Activity as tolerated No driving while on pain medications High Fiber Diet 25g or more per day Avoid Alcohol, Caffeine, Spicy [place] and Acid foods. Drink 64 fluid oz or more of fluids per day. Symptoms to Report: Fever over 101 degree F, Nausea/Vomiting If any problems/questions: Contact your physician or go to Emergency Room JAG GONZALEZ APRN Oct 23, 2018 14:21
[2018-10-23 14:47] VITALS: BP 160/79
--- NOTE | 2018-10-26 14:46 | Physician Query-Final Dx ---
SHANTEL DEVINE 10/26/18 1446: Final Diagnosis Give Final Diagnosis Please give Final Diagnosis RONEL LONDONO MD 10/28/18 1003: Final Diagnosis Give Final Diagnosis partial small bowel obstruction SHANTEL DEVINE Oct 26, 2018 14:46 RONEL LONDONO MD Oct 28, 2018 10:03
== END 2018-10-23 14:47 | disposition home or self-care (01) | DRG 394 ==
LOC: EDUNIT# 13:36 → ER 13:36 → UNDOADMOB 16:30 → 4TH 16:30 → OBSVTOIN 10-23 11:45 → INTOOBSV 10-23 11:45 → UNDODISIN 10-23 14:47
PROVIDERS: ADMIT Surgery; ATTEND Surgery
PROC: 0D9670Z Drainage of Stomach with Drainage Device, Via Natural or Artificial Opening (ICD-10-PCS; principal; 2018-10-21)
DX: K91.89 Other postprocedural complications and disorders of digestive system (principal); K56.690 Other partial intestinal obstruction; E05.00 Thyrotoxicosis with diffuse goiter without thyrotoxic crisis or storm; E03.9 Hypothyroidism, unspecified; F41.9 Anxiety disorder, unspecified; F32.9 Major depressive disorder, single episode, unspecified; K21.9 Gastro-esophageal reflux disease without esophagitis; M19.90 Unspecified osteoarthritis, unspecified site; Z90.710 Acquired absence of both cervix and uterus; Z90.49 Acquired absence of other specified parts of digestive tract
CPT/HCPCS: 36415; 74019; 74177; 80053; 80306; 81000; 83690; 85025; G0378

== ENCOUNTER → 2018-10-30 | Outpatient (CLI) | payer MEDICARE ==
[~2018-10-30] MED LIST changes: +BARIUM SUSPENSION 105% (LIQUID POLIBAR PLUS) 240 ML/DOSE PO ONE; +BARIUM SUSPENSION 60% (LIQUID EZ PAQUE) 240 ML DOSE PO ONE; +DICY10CA12 PO; +OMEP20TA33 PO; +PANT40TA2 PO; +QUET100T69 PO; +RANI-613 PO; +SUCR1TAB36 PO
--- NOTE | 2018-10-30 10:08 | Diagnostic Imaging Report ---
INDICATION: Upper abdominal pain. Patient ingested effervescent crystals as well as thin and thick barium and imaging of the esophagus, stomach and small bowel was performed. One minute 26 seconds of fluoroscopy was utilized. Preliminary radiograph does show moderate stool throughout the colon. Surgical clips in the right upper quadrant. The esophagus has fairly smooth contour. No mass or stricture was demonstrated. No hiatal hernia or gastroesophageal reflux was identified. Postsurgical changes gastric bypass are seen. There is prompt emptying into small bowel. Normal progression of contrast through the small bowel is seen. No obstruction is identified. No mass is identified. Fold pattern is unremarkable. IMPRESSION: Postoperative changes of gastric bypass. No acute abnormalities detected. Dictated by: Dictated on workstation # [id number]
== END ==
LOC: RAD 07:08
PROVIDERS: ATTEND Surgery
DX: R10.10 Upper abdominal pain, unspecified (principal); Z98.84 Bariatric surgery status
CPT/HCPCS: 74249

== ENCOUNTER → 2019-04-20 | Outpatient (CLI) | payer MEDICARE ==
[~2019-04-20] MED LIST changes: -BARIUM SUSPENSION 105% (LIQUID POLIBAR PLUS) 240 ML/DOSE PO ONE; -BARIUM SUSPENSION 60% (LIQUID EZ PAQUE) 240 ML DOSE PO ONE; +HOLD METFORMIN - RECEIVED CONTRAST 20 ML VIAL IV SCH; +IOHEXOL 350 MG/ML 100 ML (OMNIPAQUE 350) VIAL IV ONE; +NS 100 ML (IVPB) BAG IV ONE
[2019-04-20 12:21] LABS: BUN/CREATININE RATIO 14; CREATININE SERUM 0.94 MG/DL (0.60-1.30); GFR ESTIMATED > 60
--- NOTE | 2019-04-20 12:58 | Diagnostic Imaging Report ---
EXAMINATION: CT Abdomen and Pelvis with intravenous contrast. TECHNIQUE: Multiple contiguous axial images were obtained through the abdomen and pelvis after the uneventful administration of intravenous contrast. All CT scans use one or more of the following dose optimizing techniques: automated exposure control, MA and/or KvP adjustment based on a patient size and exam type, or iterative reconstruction. HISTORY: Abdominal pain. COMPARISON: 10/21/2018. FINDINGS: Limited views of the lower thorax are unremarkable. The liver is normal without focal lesion. There is no biliary ductal dilation. Gallbladder is absent. Pancreas is normal. Spleen is normal. Adrenal glands are normal. There has been a Twan-en-Y gastric bypass. The CT appearance of the anastomosis is normal. The kidneys are normal. There is no hydronephrosis. Urinary bladder is normal. There are no dilated loops of large or small bowel. No obstruction or inflammation. No free fluid or air. No abdominal or pelvic lymphadenopathy. Aorta is normal in caliber without aneurysm. There are no suspicious osseus lesions. IMPRESSION: 1. Status post Twan-en-Y gastric bypass without acute abnormality in the abdomen or pelvis. Dictated by: Dictated on workstation # [id number]
== END ==
LOC: RAD 11:41
PROVIDERS: ATTEND Surgery
DX: R10.9 Unspecified abdominal pain (principal); Z98.84 Bariatric surgery status
CPT/HCPCS: 36415; 74177; 82565; 84520

== ENCOUNTER 2019-05-04 15:15 | Outpatient (CLI) | payer MEDICARE ==
[~2019-05-04] VITALS: Ht 167 cm; Wt 90.0 kg
[~2019-05-04 15:15] MED LIST changes: -HOLD METFORMIN - RECEIVED CONTRAST 20 ML VIAL IV SCH; -IOHEXOL 350 MG/ML 100 ML (OMNIPAQUE 350) VIAL IV ONE; -NS 100 ML (IVPB) BAG IV ONE; +QUET200T29 PO
== END 2019-05-04 15:29 | disposition home or self-care (01) ==
LOC: PREOP 15:15
PROVIDERS: ATTEND Surgery
DX: Z01.818 Encounter for other preprocedural examination (principal)

== ENCOUNTER 2019-07-29 07:25 | Outpatient (RCR) | payer MEDICARE ==
[~2019-07-29] VITALS: Ht 167.7 cm; Wt 87.3 kg
[~2019-07-29 07:25] MED LIST changes: +ONDA-105 PO; -ONDA4TAB10 PO; +QUET100T33 PO; -QUET100T69 PO; +SPIR25TA5 PO
== END 2019-07-29 15:31 | disposition home or self-care (01) ==
LOC: PREOP 07:25
PROVIDERS: ATTEND Surgery
DX: Z01.818 Encounter for other preprocedural examination (principal); Z11.59 Encounter for screening for other viral diseases
CPT/HCPCS: 87635

== ENCOUNTER 2019-12-11 13:08 | Emergency (ER) | payer MEDICARE ==
[~2019-12-11] VITALS: Ht 168 cm; Wt 80.0 kg
[~2019-12-11 13:08] MED LIST changes: +PANT40TA52 PO
[2019-12-11] MEDS ORDERED: ONDANSETRON 4 MG (ZOFRAN) ORAL DISSOLVE TAB SL STA (13:40)
[2019-12-11] MEDS ORDERED: LIDOCAINE 2% VISCOUS 15 ML UDC PO ONE (13:45)
[2019-12-11] MEDS ORDERED: ANTACID SUSP 30 ML UDC (MYLANTA) PO ONE (13:45)
[2019-12-11 14:19] LABS: BILIRUBIN,URINE NEGATIVE (NEGATIVE); CLARITY,URINE CLEAR; COLOR,URINE YELLOW; GLUCOSE, URINE (UA) NEGATIVE (NEGATIVE); KETONES,URINE NEGATIVE (NEGATIVE); LEUKOCYTE ESTERASE ,URINE NEGATIVE (NEGATIVE); NITRITE,URINE NEGATIVE (NEGATIVE); PROTEIN,URINE NEGATIVE (NEGATIVE)
[2019-12-11 14:32] LABS: AMORPHOUS SEDIMENT,UR RARE AMOR URATES /LPF; BACTERIA,URINE FEW /HPF; WBC,URINE RARE /HPF
--- NOTE | 2019-12-11 14:38 | ED Abdominal Pain ---
General Chief Complaint: Abdominal/GI Problems Stated Complaint: ABD PAIN Nursing Triage Note: Patient reports nausea and feeling like her stomach is on fire x 6 months Sepsis Screen: No Definite Risk Source of Information: Patient Exam Limitations: No Limitations History of Present Illness Date Seen by Provider: Dec 11, 2019 Time Seen by Provider: 13:15 Initial Comments This 64-year-old woman presents to the emergency room with intermittent severe epigastric pain for about the last 6 months. Today he became intolerable. She is presently taking omeprazole once a day and Carafate 3 times a day. She has history of gastric bypass surgery. She is a patient of Dr. Kulkarni and admits she is in need of upper endoscopy. She has had no fever, cough, or shortness of breath. She has nausea without vomiting. Allergies and Home Medications Allergies Coded Allergies: cephalexin (Verified Allergy, Severe, HIVES/LIPS SWELLING, 05/04/19) morphine (Verified Allergy, Severe, DIFFICULTY BREATHING/HIVES, 05/04/19) triamcinolone (Verified Allergy, Intermediate, HIVES/RASH, 05/04/19) Home Medications Clonazepam 1 Mg Tablet, 0.5 MG PO BID PRN for ANXIETY, (Reported) Duloxetine HCl 60 Mg Capsule.dr, 60 MG PO DAILY, (Reported) Famotidine 20 Mg Tablet, 20 MG PO BID Prescribed by: CARRIE MIRANDA on 12/11/19 1439 Gabapentin 100 Mg Capsule, 200 MG PO HS, (Reported) TAKES 2 (100MG) CAPSULES Levothyroxine Sodium 112 Mcg Tablet, 112 MG PO DAILY, (Reported) Pantoprazole Sodium 40 Mg Tablet.dr, 40 MG PO DAILY Prescribed by: CHEL CAREY on 11/26/192221 Quetiapine Fumarate 200 Mg Tablet, 200 MG PO HS, (Reported) Spironolactone 25 Mg Tablet, 25 MG PO DAILY, (Reported) Sucralfate 1 Gm Tablet, 1 GM PO ACHS Chew tablet to a slurry and then swallow Prescribed by: CHEL CAREY on 11/26/192221 Patient Home Medication List Home Medication List Reviewed: Yes Review of Systems Review of Systems Constitutional: no symptoms reported EENTM: No Symptoms Reported Respiratory: No Symptoms Reported Cardiovascular: No Symptoms Reported Gastrointestinal: See HPI Genitourinary: No Symptoms Reported Musculoskeletal: no symptoms reported Skin: no symptoms reported Psychiatric/Neurological: No Symptoms Reported Endocrine: No Symptoms Reported Hematologic/Lymphatic: No Symptoms Reported Past [id number]-Upulni-Krinqz Hx Past Med/Social Hx: Reviewed Nursing Past Med/Soc Hx Patient Social History Alcohol Use: Denies Use Recreational Drug Use: No 2nd Hand Smoke Exposure: No Recent Foreign Travel: No Contact w/Someone Who Travel: No Recent Infectious Disease Expo: No Recent Hopitalizations: No Immunizations Up To Date PED Vaccines UTD: No Date of Pneumonia Vaccine: Dec 22, 2013 Date of Influenza Vaccine: Dec 28, 2018 Seasonal Allergies Seasonal Allergies: No Past Medical History Surgeries: Yes (gastric bypass, carpal tunel, bilat shoulder, BILAT TKR) Abdominal, Gallbladder, Hysterectomy, Orthopedic, Thyroidectomy, 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 Respiratory: No Cardiac: No Neurological: No Reproductive Disorders: No 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 Sexually Transmitted Disease: No HIV/AIDS: No Genitourinary: Yes Kidney Stones Gastrointestinal: Yes Chronic Constipation, Polyps Musculoskeletal: Yes Arthritis Endocrine: Yes Hypothyroidsim HEENT: No (GLASSES, DENTURES) Double Vision Loss of Vision: Denies Hearing Impairment: Denies Cancer: Yes (BASAL CELL ON NOSE) Psychosocial: Yes Anxiety, Depression Integumentary: No Blood Disorders: No Adverse Reaction/Blood Tranf: Yes (N/A) Family Medical History No Pertinent Family Hx Physical Exam Vital Signs Vital Signs - First Documented 12/11/19 13:22 Temp 36.4 Pulse 89 Resp 18 B/P (MAP) 140/82 (101) Pulse Ox 95 Capillary Refill : Less Than 3 Seconds Height/Weight/BMI Height: 5'6.00" Weight: 196lbs. 9.6oz. [id number]; 28.00 BMI Method:Stated General Appearance: WD/WN, no apparent distress HEENT: PERRL/EOMI, normal ENT inspection Neck: normal inspection Respiratory: lungs clear, normal breath sounds, no respiratory distress Cardiovascular: regular rate, rhythm, no edema, no murmur Gastrointestinal: normal bowel sounds, soft, tenderness (epigastric) Extremities: normal inspection, no pedal edema Neurologic/Psychiatric: primer powder blender wet II-XII nml as tested, no motor/sensory deficits, alert, normal mood/affect, oriented x 3 Skin: normal color, warm/dry Progress/Results/Core Measures Results/Orders Lab Results Laboratory Tests Test 12/11/19 13:57 Range/Units Urine Color YELLOW Urine Clarity CLEAR Urine pH 6.0 5-9 Urine Specific [place] 1.025 H 1.016-1.022 Urine Protein NEGATIVE NEGATIVE Urine Glucose (UA) NEGATIVE NEGATIVE Urine Ketones NEGATIVE NEGATIVE Urine Nitrite NEGATIVE NEGATIVE Urine Bilirubin NEGATIVE NEGATIVE Urine Urobilinogen 1.0 < = 1.0 MG/DL Urine Leukocyte Esterase NEGATIVE NEGATIVE Urine RBC (Auto) 1+ H NEGATIVE Urine RBC NONE /HPF Urine WBC RARE /HPF Urine Squamous Epithelial Cells 2-5 /HPF Urine Crystals NONE /LPF Urine Amorphous Sediment RARE KHAI URATES H /LPF Urine Bacteria FEW H /HPF Urine Casts NONE /LPF Urine Mucus NEGATIVE /LPF Urine Culture Indicated NO My Orders Orders - CARRIE BONILLA MD Ua Culture If Indicated (12/11/19 13:15) Ondansetron Oral Dissolve Tab (Zofran (12/11/19 13:40) Lidocaine 2% Viscous 15 Ml (Xylocaine Vi (12/11/19 13:45) Antacid Suspension (Mylanta Suspension (12/11/19 13:45) Medications Given in ED Current Medications Medications Dose Ordered Sig/Vivian Route Start Time Stop Time Status Last Admin Dose Admin Al Hydrox/Mg Hydrox/Simethicone 30 ml ONCE ONCE PO 12/11/19 13:45 12/11/19 13:46 DC 12/11/19 13:58 30 ML Lidocaine HCl 15 ml ONCE ONCE PO 12/11/19 13:45 12/11/19 13:46 DC 12/11/19 13:58 15 ML Vital Signs/I&O 12/11/19 12/11/19 13:22 14:46 Temp 36.4 36.4 Pulse 89 89 Resp 18 18 B/P (MAP) 140/82 (101) 140/82 (101) Pulse Ox 95 95 Blood Pressure Mean: 101 Progress Progress Note : Progress Note GI cocktail improved her pain significantly. We will be beef up her treatment regimen by adding in an H2 mili and increasing her omeprazole to twice daily. I'm also increasing the frequency of her Carafate to 4 times daily. Departure Impression Primary Impression: Epigastric pain Disposition: 01 HOME, SELF-CARE Condition: Improved Departure-Patient Inst. Decision time for Depature: 14:32 Referrals: [facility] (PCP) Primary Care Physician DARRIN GODWIN (Family) Primary Care Physician Patient Instructions: Gastritis, Severe Abdominal Pain, Adult (DC) Add. Discharge Instructions: Increase omeprazole to 20 mg twice a daily. Add Pepcid (famotidine) 20 mg twice daily. Take your Carafate (sucralfate) 30 minutes before meals and again at bedtime (4 times daily). Dissolve or crush and mixed into a small amount of water to make a slurry. Make an appointment with Dr. Kulkarni as soon as possible for endoscopy. Return to the emergency room if you have worsening symptoms despite following these measures. For acute treatment of pain you may also take Tylenol (acetaminophen) up to 1000 mg every 6 hours as needed. You may also use Tums. Avoid the following: Eating large meals, eating close to bedtime, caffeine, carbonation, chocolate, tobacco, alcohol, citrus fruits or juices, tomato products, spicy foods, NSAID medications such as ibuprofen or naproxen, fatty or greasy foods, mints, or anything else you know irritates your stomach. All discharge instructions reviewed with patient and/or family. Voiced understanding. Scripts Famotidine (Pepcid) 20 Mg Tablet 20 MG PO BID, #60 TAB Prov: CARRIE BONILLA MD 12/11/19 Copy Copies To 1: JO KULKARNI DO Copies To 2: SWATHI DE LA ROSA DO CARRIE BONILLA MD Dec 11, 2019 14:38
[2019-12-11] MEDS ORDERED: FAMO-119 PO (14:39)
[2019-12-11 14:46] VITALS: BP 140/82
== END 2019-12-11 14:46 | disposition home or self-care (01) ==
LOC: EDUNIT# 13:08 → ER 13:09
DX: R10.13 Epigastric pain (principal); E03.9 Hypothyroidism, unspecified; F32.9 Major depressive disorder, single episode, unspecified; F41.9 Anxiety disorder, unspecified; Z88.5 Allergy status to narcotic agent; Z88.1 Allergy status to other antibiotic agents; Z88.8 Allergy status to other drugs, medicaments and biological substances; Z79.890 Hormone replacement therapy
CPT/HCPCS: 81000; 99283

== ENCOUNTER 2019-12-30 05:37 | Outpatient (RCR) | payer MEDICARE ==
[~2019-12-30] VITALS: Ht 167.7 cm; Wt 89.1 kg
[~2019-12-30 05:37] MED LIST changes: +FAMO-119 PO; +OMEP40CA27 PO
== END 2020-03-26 | disposition home or self-care (01) ==
LOC: PREOP 05:37
PROVIDERS: ATTEND Surgery
DX: Z01.812 Encounter for preprocedural laboratory examination (principal); Z12.11 Encounter for screening for malignant neoplasm of colon; Z20.828 Contact with and (suspected) exposure to other viral communicable diseases
CPT/HCPCS: 87635

== ENCOUNTER 2020-01-03 08:58 | Day surgery (SDC) | payer MEDICARE ==
[~2020-01-03] VITALS: Ht 93.5 cm; Wt 88.9 kg
--- NOTE | 2020-01-03 09:06 | Progress Note-Pre Operative ---
Pre-Operative Progress Note H&P Reviewed The H&P was reviewed, patient examined and no changes noted. Time Seen by Provider: 09:03 Date H&P Reviewed: Jan 03, 2020 Time H&P Reviewed: 09:03 Pre-Operative Diagnosis: Increasing Epigastric pain, GastroEsophagitis JO KULKARNI DO Jan 03, 2020 09:06
[2020-01-03] MEDS ORDERED: LACTATED RINGERS 1,000 ML IV STA (09:10)
[2020-01-03] MEDS ORDERED: HURRICAINE EXT TUBE (BENZOCAINE) XX PRN (09:15)
[2020-01-03] MEDS ORDERED: LACTATED RINGERS 1,000 ML IV ONE (09:17)
[2020-01-03] MEDS ORDERED: PROPOFOL INJECTION 50 ML IV ONE (09:34)
[2020-01-03] MEDS ORDERED: MIDAZOLAM 2 MG/2 ML (VERSED) VIAL ONE (09:34)
[2020-01-03 09:37] VITALS: BP 145/83
[2020-01-03] MEDS ORDERED: HURRICAINE EXT TUBE (BENZOCAINE) ONE (09:58)
[2020-01-03 10:05] VITALS: BP 131/58
--- NOTE | 2020-01-03 10:05 | Progress Note-Post Operative ---
Post-Operative Progess Note Surgeon (s)/Dry Goods Inspector (s) Surgeon JO KULKARNI DO Dry Goods Inspector: none Pre-Operative Diagnosis Increasing Epigastric pain, GastroEsophagitis Post-Operative Diagnosis Esophagitis Gastritis Procedure & Operative Findings Date of Procedure 01/03/20 Procedure Performed/Findings EGD with bx Anesthesia Type IV sedation by YARD SPECIALIST Estimated Blood Loss Estimated blood loss (mL): scant Specimens/Packing Specimens Removed GE jxn JO Rankin DO Jan 03, 2020 10:05
--- NOTE | 2020-01-03 10:08 | Endoscopy Discharge Instruct ---
Endo Procedure/Findings Findings 1.: Gastritis 2.: Other Findings (Esophagitis) Discharge Instructions - Activity: You might feel a little sleepy until tomorrow. This is due to the medicine you received to relax you. Until tomorrow, you should: NOT drive a car, operate machinery or power tools. NOT drink any alcoholic beverages. NOT make any important decisions or sign importortant papers. Do not return to work until tomorrow, unless otherwise instructed. Resume previous activities tomorrow. Diet: Start by taking liquids. If you tolerate liquids, advance to solid food. 1.: EGD in 3 years Notify Physician - If you experience excessive bleeding, unusual abdominal pain, fever, or chest pain, contact your doctor immediately. JO KULKARNI DO Jan 03, 2020 10:08
[2020-01-03 10:10] VITALS: BP 130/66
[2020-01-03 10:44] VITALS: BP 128/68
--- NOTE | 2020-01-03 14:16 | Anesthesia-General Post-Op ---
MAC Patient Condition Mental Status/LOC: Same as Preop Cardiovascular: Satisfactory Nausea/Vomiting: Absent Respiratory: Satisfactory Pain: Controlled Complications: Absent Post Op Complications Complications None Follow Up Care/Instructions Patient Instructions None needed. Anesthesiology Discharge Order Discharge Order Patient is doing well, no complaints, stable vital signs, no apparent adverse anesthesia problems. No complications reported per nursing. GEORGE RAMIREZ CRNA Jan 03, 2020 14:16
--- NOTE | 2020-01-04 02:32 | OPERATIVE REPORT ---
DATE OF SERVICE: 01/03/2020 PREOPERATIVE DIAGNOSES: Increasing epigastric pain, history of gastritis. POSTOPERATIVE DIAGNOSES: Esophagitis, gastritis. SURGEON: Anshu Nguyen DO SALES FLOOR ASSOCIATE: None. ANESTHESIA: IV sedation by the RN MEDICAL SURGICAL. PROCEDURE: EGD with biopsy. SPECIMEN: Biopsy of the GE junction. BLOOD LOSS: Scant. FLUIDS: Per anesthesia. POSTOPERATIVE CONDITION: Stable. INDICATION FOR PROCEDURE: The patient is a 64-year-old female who is having increasing epigastric pain, burning pain that she states she cannot even stand. She has had multiple EGDs, but she has a history of Twan-en-Y bypass, need to make sure she did not have a marginal ulcer. FINDINGS: The patient had some mild gastritis and esophagitis, but did not see any ulcers. PROCEDURE NOTE: After informed consent was obtained, the patient was brought to the endoscopy suite, placed in bed in left lateral decubitus position. She was administered IV sedation by the RN MEDICAL SURGICAL who then monitored her vitals the entire time, heart rate, blood pressure and pulse ox, then inserted the scope down the mouth through the esophagus right into the very small gastric pouch, could actually see old suture, took a picture of this, looked in the small intestine, looked fine, did see some mild couple spots of blood in the gastric pouch, but again trying to look did not see any ulcers. There is some mild inflammation and what looked like an esophagitis at the GE junction, did a biopsy here and then at this point pulled the scope up the esophagus and out the mouth. The patient tolerated the procedure. She was recovered in endoscopy suite. Job ID: [id number] DocumentID: [id number] Dictated Date: 01/03/2020 16:27:23 Psychological Examiner Date: 01/04/2020 02:30:42 Dictated By: ANSHU NGUYEN DO
== END 2020-01-03 10:45 | disposition home or self-care (01) ==
LOC: ENDO 08:58
PROVIDERS: ATTEND Surgery
DX: K29.50 Unspecified chronic gastritis without bleeding (principal); K21.00 Gastro-esophageal reflux disease with esophagitis, without bleeding; G47.00 Insomnia, unspecified; E89.0 Postprocedural hypothyroidism; F41.9 Anxiety disorder, unspecified; F32.9 Major depressive disorder, single episode, unspecified; M19.91 Primary osteoarthritis, unspecified site; Z88.1 Allergy status to other antibiotic agents; Z98.84 Bariatric surgery status; Z88.5 Allergy status to narcotic agent; Z79.899 Other long term (current) drug therapy; Z79.890 Hormone replacement therapy; Z87.19 Personal history of other diseases of the digestive system; Z96.653 Presence of artificial knee joint, bilateral; Z86.010 Personal history of colon polyps; Z87.442 Personal history of urinary calculi; Z85.828 Personal history of other malignant neoplasm of skin
CPT/HCPCS: 88305

== ENCOUNTER → 2020-01-26 | Outpatient (CLI) | payer MEDICARE | LOC: LABNPT 06:08 | PROVIDERS: ATTEND Podiatrist | DX: Z01.812 Encounter for preprocedural laboratory examination (principal); Z20.828 Contact with and (suspected) exposure to other viral communicable diseases | CPT/HCPCS: 87635 ==

== ENCOUNTER → 2020-02-23 | Outpatient (CLI) | payer MEDICARE ==
--- NOTE | 2020-02-23 11:23 | Diagnostic Imaging Report ---
INDICATION: Right lower extremity pain. 3 weeks post foot surgery. TECHNIQUE: Multiple real-time grayscale images were obtained over the right lower extremity in various projections, bilaterally. Additional duplex Doppler and color Doppler images were also obtained. CORRELATION STUDY: None FINDINGS: Color and grayscale sonographic images demonstrate no intraluminal defect within the visualized portion of the common femoral, superficial femoral and/or popliteal veins to suggest thrombus formation. These vessels demonstrate normal response to compression and augmentation. No soft tissue fluid collection. IMPRESSION: 1. Negative for deep venous thrombosis of the right leg. Dictated by: Dictated on workstation # [id number]
== END ==
LOC: RAD 10:28
PROVIDERS: ATTEND Podiatrist
DX: M79.661 Pain in right lower leg (principal); Z20.828 Contact with and (suspected) exposure to other viral communicable diseases

== ENCOUNTER 2020-06-07 05:35 | Emergency (ER) | payer MEDICARE ==
[~2020-06-07] VITALS: Ht 167.7 cm; Wt 90.0 kg
[~2020-06-07 05:35] MED LIST changes: +QUET50TA22 PO; -QUET50TA55 PO
[2020-06-07 05:50] LABS: BILIRUBIN,URINE NEGATIVE (NEGATIVE); CLARITY,URINE CLEAR; COLOR,URINE YELLOW; GLUCOSE, URINE (UA) NEGATIVE (NEGATIVE); KETONES,URINE NEGATIVE (NEGATIVE); LEUKOCYTE ESTERASE ,URINE NEGATIVE (NEGATIVE); NITRITE,URINE NEGATIVE (NEGATIVE); PH,URINE 5.5 (5-9); PROTEIN,URINE NEGATIVE (NEGATIVE)
--- NOTE | 2020-06-07 06:13 | ED Abdominal Pain ---
General Chief Complaint: - Urinary Stated Complaint: LOWER BACK PAIN;LOWER ABD PRESSURE Nursing Triage Note: AMBULATES TO ROOM #6 WITH C/O URINARY URGENCY ET PRESSURE ASSOCIATED WITH BILAT FLANK PAIN. REPORTS HX KIDNEY STONES. Sepsis Screen: Possible Severe Sepsis Risk Source of Information: Patient Exam Limitations: No Limitations History of Present Illness Date Seen by Provider: Jun 07, 2020 Time Seen by Provider: 06:12 Initial Comments Patient is a 64-year-old female who presents to the emergency department today with a chief complaint of lower abdominal "fullness" and pressure along with increased urinary frequency and urgency. Patient complains of some left-sided back pain. Symptom onset 2 days ago and worse this morning. Patient states she took her nighttime medications last night in order to help her sleep but she still cannot sleep secondary to the discomfort. Patient is currently rating her pain at a "8" out of 10. Patient states that she has not had any nausea, vomiting or diarrhea. Last normal bowel movement was this morning. She denies any fevers or chills or recent upper respiratory tract infections. Patient most recently received her second Covid vaccination 2 days ago. She has not taken anything for the discomfort. Patient states that she has a history of kidney stones in the past most recently about a year ago. Patient has never had to have instrumentation or lithotripsy secondary to kidney stones. She has never seen a urologist for kidney stones. All other review of systems reviewed and negative except as stated. Timing/Duration: 1-2 Days Severity/Quality: Full Location: LLQ Radiation: No Radiation Activities at Onset: None Associated Symptoms: Back Pain (Left flank) Allergies and Home Medications Allergies Coded Allergies: cephalexin (Verified Allergy, Severe, HIVES/LIPS SWELLING, 05/04/19) morphine (Verified Allergy, Severe, DIFFICULTY BREATHING/HIVES, 05/04/19) triamcinolone (Verified Allergy, Intermediate, HIVES/RASH, 05/04/19) Home Medications Clonazepam 1 Mg Tablet, 1 MG PO BID PRN for ANXIETY, (Reported) Duloxetine HCl 60 Mg Capsule.dr, 60 MG PO DAILY, (Reported) Famotidine 20 Mg Tablet, 20 MG PO BID Prescribed by: CARRIE MIRANDA on 12/11/19 1439 Gabapentin 100 Mg Capsule, 200 MG PO HS, (Reported) TAKES 2 (100MG) CAPSULES Levothyroxine Sodium 112 Mcg Tablet, 112 MG PO DAILY, (Reported) Omeprazole 40 Mg Capsule.dr, 40 MG PO DAILY, (Reported) Pantoprazole Sodium 40 Mg Tablet.dr, 40 MG PO DAILY Prescribed by: CHEL CAREY on 11/26/192221 Quetiapine Fumarate 200 Mg Tablet, 200 MG PO HS, (Reported) Spironolactone 25 Mg Tablet, 25 MG PO DAILY, (Reported) Sucralfate 1 Gm Tablet, 1 GM PO ACHS Chew tablet to a slurry and then swallow Prescribed by: CHEL CAREY on 11/26/192221 Patient Home Medication List Home Medication List Reviewed: Yes Review of Systems Review of Systems Constitutional: see HPI EENTM: No Symptoms Reported Cardiovascular: No Symptoms Reported Gastrointestinal: Abdominal Pain ("Fullness") Genitourinary: Frequency, Urgency Musculoskeletal: no symptoms reported Skin: no symptoms reported All Other Systems Reviewed Negative Unless Noted: Yes Past Bhcopzw-Cjnehf-Hsicyi Hx Patient Social History Alcohol Use: Denies Use Smoking Status: Never a Smoker 2nd Hand Smoke Exposure: No Recent Infectious Disease Expo: No Recent Hopitalizations: No Immunizations Up To Date PED Vaccines UTD: No Date of Pneumonia Vaccine: Dec 22, 2013 Date of Influenza Vaccine: Nov 24, 2019 Seasonal Allergies Seasonal Allergies: No Past Medical History Surgeries: Yes (gastric bypass, carpal tunel, bilat shoulder, BILAT TKR) Abdominal, Gallbladder, Hysterectomy, Orthopedic, Thyroidectomy, 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 Respiratory: No Cardiac: No Neurological: No Reproductive Disorders: No 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 Sexually Transmitted Disease: No HIV/AIDS: No Genitourinary: Yes Kidney Stones Gastrointestinal: Yes Gastroesophageal Reflux, Chronic Constipation, Polyps Musculoskeletal: Yes Arthritis Endocrine: Yes Hypothyroidsim HEENT: No (GLASSES, DENTURES) Double Vision Loss of Vision: Denies Hearing Impairment: Denies Cancer: Yes (BASAL CELL ON NOSE) What Type of Treatment Did You: Surgical Intervention Psychosocial: Yes Anxiety, Depression Integumentary: No Blood Disorders: No Adverse Reaction/Blood Tranf: Yes (N/A) Family Medical History No Pertinent Family Hx Physical Exam Vital Signs Vital Signs - First Documented 06/07/20 05:40 Temp 35.9 Pulse 92 Resp 16 B/P (MAP) 149/89 (109) Pulse Ox 97 O2 Delivery Room Air Capillary Refill : Less Than 3 Seconds Height/Weight/BMI Height: 5'6.00" Weight: 196lbs. 9.6oz. [id number]; 32.00 BMI Method:Stated General Appearance: WD/WN, no apparent distress HEENT: PERRL/EOMI Neck: normal inspection Respiratory: lungs clear, normal breath sounds, no respiratory distress, no accessory muscle use Cardiovascular: regular rate, rhythm Gastrointestinal: non tender, soft Extremities: normal inspection Back: normal inspection, CVA tenderness (L) Neurologic/Psychiatric: alert, normal mood/affect, oriented x 3 Skin: normal color, warm/dry Progress/Results/Core Measures Results/Orders Lab Results Laboratory Tests Test 06/07/20 05:45 06/07/20 06:35 Range/Units Urine Color YELLOW Urine Clarity CLEAR Urine pH 5.5 5-9 Urine Specific [place] 1.010 L 1.016-1.022 Urine Protein NEGATIVE NEGATIVE Urine Glucose (UA) NEGATIVE NEGATIVE Urine Ketones NEGATIVE NEGATIVE Urine Nitrite NEGATIVE NEGATIVE Urine Bilirubin NEGATIVE NEGATIVE Urine Urobilinogen 0.2 < = 1.0 MG/DL Urine Leukocyte Esterase NEGATIVE NEGATIVE Urine RBC (Auto) 2+ H NEGATIVE Urine RBC 5-10 H /HPF Urine WBC 2-5 /HPF Urine Squamous Epithelial Cells 2-5 /HPF Urine Crystals PRESENT H /LPF Urine Amorphous Sediment FEW KHAI URATES H /LPF Urine Bacteria NEGATIVE /HPF Urine Casts NONE /LPF Urine Mucus NEGATIVE /LPF Urine Culture Indicated NO Sodium Level 137 135-145 MMOL/L Potassium Level 4.4 3.6-5.0 MMOL/L Chloride Level 104 98-107 MMOL/L Carbon Dioxide Level 26 21-32 MMOL/L Anion Gap 7 5-14 MMOL/L Blood Urea Nitrogen 14 7-18 MG/DL Creatinine 1.15 0.60-1.30 MG/DL Estimat Glomerular Filtration Rate 48 BUN/Creatinine Ratio 12 Glucose Level 100 70-105 MG/DL Calcium Level 8.4 L 8.5-10.1 MG/DL My Orders Orders - BOB WISEMAN MD Ct Abd/Pelvis Wo(Kidney Stone) (06/07/20 06:26) Abdomen, Flat & Upright/Decub (06/07/20 06:26) Ed Iv/Invasive Line Start (06/07/20 06:26) Basic Metabolic Panel (06/07/20 06:26) Fentanyl Injection (Sublimaze Injection (06/07/20 06:30) Ns Iv 1000 Ml (Sodium Chloride 0.9%) (06/07/20 06:30) Fentanyl Injection (Sublimaze Injection (06/07/20 07:30) Glycopyrrolate Injection (Robinul Inject (06/07/20 07:30) Medications Given in ED Current Medications Medications Dose Ordered Sig/Vivian Route Start Time Stop Time Status Last Admin Dose Admin Fentanyl Citrate 50 mcg ONCE ONCE IVP 06/07/20 06:30 06/07/20 06:31 DC 06/07/20 06:36 50 MCG Vital Signs/I&O 06/07/20 05:40 Temp 35.9 Pulse 92 Resp 16 B/P (MAP) 149/89 (109) Pulse Ox 97 O2 Delivery Room Air Blood Pressure Mean: 109 Departure Impression Primary Impression: Renal colic on left side Additional Impression: Hematuria Qualified Codes: R31.29 - Other microscopic hematuria Disposition: HOME, SELF-CARE Condition: Stable Departure-Patient Inst. Decision time for Depature: 07:33 Referrals: [facility] [place]) Primary Care Physician DARRIN GODWIN (Family) Primary Care Physician THADDEUS MCQUEEN MD Patient Instructions: Renal Colic (DC) Add. Discharge Instructions: Drink plenty of fluids to stay well-hydrated. I have given you a prescription for pain medications, take this only as needed for moderate to severe pain every [address] and take pain medication as it can make you sleepy. Always take your pain medication with food. Follow-up with the urologist regarding the blood in your urine. I have given you contact information for Dr. Mcqueen. Return to the emergency department for increased pain especially associated with fever, nausea vomiting or any other emergent concerning symptoms. Scripts Hydrocodone/Acetaminophen (Hydrocodone-Acetamin 5-325 mg) 1 Each Tablet 1 TAB PO Q6H PRN for PAIN-MODERATE (5-7), #10 TAB Prov: BOB WISEMAN MD 06/07/20 BOB WISEMAN MD Jun 07, 2020 06:13
[2020-06-07 06:17] LABS: AMORPHOUS SEDIMENT,UR FEW AMOR URATES /LPF; BACTERIA,URINE NEGATIVE /HPF
[2020-06-07] MEDS ORDERED: fentaNYL INJ 100 MCG/2 ML AMP IVP ONE ×2 (06:30→07:30)
[2020-06-07] MEDS ORDERED: NS IV 1000 ML 1,000 ML IV SCH (06:30)
[2020-06-07 06:52] LABS: POTASSIUM 4.4 MMOL/L (3.6-5.0)
--- NOTE | 2020-06-07 06:52 | Diagnostic Imaging Report ---
INDICATION: Left flank pain with hematuria. KUB shows a moderate amount of stool present in the colon overlying the kidneys obscuring detail. No calculi are demonstrated along the kidneys, ureters or bladder. There are multiple phleboliths in the pelvis. IMPRESSION: No evidence of renal or ureteral calculi. Dictated by: Dictated on workstation # [id number]
[2020-06-07 06:54] LABS: CALCIUM 8.4 MG/DL (8.5-10.1)
--- NOTE | 2020-06-07 06:56 | Diagnostic Imaging Report ---
PROCEDURE: CT urinary tract, rule out kidney stone. TECHNIQUE: Multiple contiguous axial images were obtained through the abdomen and pelvis without the use of intravenous contrast. Auto Exposure Controls were utilized during the CT exam to meet ALARA standards for radiation dose reduction. INDICATION: Hematuria with left flank pain. Comparison with 04/20/2019 exam. FINDINGS: There is no hydronephrosis. No renal calculi. The ureters are not dilated. Bladder appears normal. There are multiple phleboliths in the pelvis. No pelvic masses. Bowel gas pattern appears normal throughout. Surgical sutures are noted within the small bowel as well as the stomach with the gastric sleeve. The liver appears normal. Gallbladder is absent. Bile ducts not dilated. Pancreas and spleen are normal. The adrenal glands are normal. No free air or free fluid. There is mild atherosclerotic changes aorta without aneurysm. No intra-abdominal adenopathy. IMPRESSION: No acute abnormalities are demonstrated when compared with 04/20/2019 exam. Dictated by: Dictated on workstation # [id number]
[2020-06-07 06:58] LABS: CREATININE SERUM 1.15 MG/DL (0.60-1.30)
[2020-06-07] MEDS ORDERED: GLYCOPYRROLATE 0.2 MG/ML (ROBINUL) 2 ML VIAL IV ONE (07:30)
[2020-06-07] MEDS ORDERED: ACHD5005 PO (07:41)
[2020-06-07 07:48] VITALS: BP 135/70
== END 2020-06-07 07:48 | disposition home or self-care (01) ==
LOC: EDUNIT# 05:35 → ER 05:37
DX: N23 Unspecified renal colic (principal); R31.9 Hematuria, unspecified; I10 Essential (primary) hypertension; K21.9 Gastro-esophageal reflux disease without esophagitis; F41.9 Anxiety disorder, unspecified; F32.9 Major depressive disorder, single episode, unspecified; E03.9 Hypothyroidism, unspecified; Z88.1 Allergy status to other antibiotic agents; Z88.5 Allergy status to narcotic agent; Z88.8 Allergy status to other drugs, medicaments and biological substances; Z85.828 Personal history of other malignant neoplasm of skin; Z79.890 Hormone replacement therapy
CPT/HCPCS: 36415; 74019; 74176; 80048; 81000

== ENCOUNTER 2020-06-24 21:14 | Emergency (ER) | payer MEDICARE ==
[~2020-06-24] VITALS: Ht 167.7 cm; Wt 90.7 kg
[~2020-06-24 21:14] MED LIST changes: +ACHD5005 PO
[2020-06-24] MEDS ORDERED: LACTATED RINGERS 1,000 ML IV ONE (21:30)
[2020-06-24 21:36] LABS: BASOPHILS # (AUTO) 0.1 10^3/uL (0.0-0.1); BASOPHILS % (AUTO) 1 % (0-10); EOSINOPHILS # (AUTO) 0.2 10^3/uL (0.0-0.3); EOSINOPHILS % (AUTO) 3 % (0-10); HEMATOCRIT 37 % (35-52); HEMOGLOBIN 12.3 g/dL (11.5-16.0); LYMPHOCYTES # (AUTO) 2.3 10^3/uL (1.0-4.0); LYMPHOCYTES % (AUTO) 28 % (12-44); MEAN CORPUSCULAR HEMOGLOBIN 34 pg (25-34); MEAN CORPUSCULAR HGB CONC 33 g/dL (32-36); MEAN CORPUSCULAR VOLUME 103 fL (80-99); MEAN PLATELET VOLUME 9.1 fL (9.0-12.2); MONOCYTES # (AUTO) 0.6 10^3/uL (0.0-1.0); MONOCYTES % (AUTO) 8 % (0-12); NEUTROPHILS # (AUTO) 4.8 10^3/uL (1.8-7.8); NEUTROPHILS % (AUTO) 60 % (42-75); PLATELET COUNT 306 10^3/uL (130-400)
--- NOTE | 2020-06-24 21:41 | ED GU-Female ---
General Chief Complaint: - Urinary Stated Complaint: DX KIDNEY STONES / URINARY PAIN / BACK PAIN Source: patient History of Present Illness Date Seen by Provider: Jun 24, 2020 Time Seen by Provider: 21:21 Initial Comments PT ARRIVES VIA POV FROM HOME STATES "I'VE BEEN SUFFERING WITH KIDNEY STONES FOR A LONG TIME" STATES THIS EPISODE HAS BEEN GOING ON FOR A MONTH AND GETTING WORSE C/O DIFFUSE LOWER BACK/BILATERAL FLANK PAIN--STATES HER BACK ALWAYS HURTS, AND IT HURTS REALLY BAD WHEN SHE IS PASSING KIDNEY STONES C/O URINARY URGENCY, FREQUENCY, PRESSURE, SMALL AMOUNTS C/O NAUSEA, VOMITED X 4 TODAY--STATES "WHEN THE PAIN GETS BAD" NO FEVER HAS HYDROCODONE AT HOME, BUT HAS NOT TAKEN ANYTHING FOR PAIN AT ANY TIME--STATES "THE PAIN WAS TOO BAD" REASON WHY SHE DID NOT TAKE ANYTHING FOR PAIN PT STATES SHE THINKS SHE MIGHT HAVE PASSED A STONE YESTERDAY, STATES PAIN WAS REAL BAD, AND IT HURT WHEN SHE URINATED, AND THERE WAS BLOOD ON TISSUE WHEN SHE WIPED AFTERWARD PT HAS NEVER SEEN A UROLOGIST, NOR HAD ANY SURGICAL INTERVENTION FOR KIDNEY STONES SEEN HERE 06/07/20 FOR THIS PROBLEM--PAIN WAS ON LEFT SIDE AT THAT TIME PT STATES SHE SAW MECHANICAL SOUND TECHNICIAN AT [facility] IN FOLLOW UP AND WAS REFERRED TO UNKNOWN DIP LUBE OPERATOR IN [place] FOR "BAD KIDNEY FUNCTION" SHE WAS REFERRED TO DR. CAZARES, UROLOGIST, AFTER THAT ER VISIT, BUT PT NEVER FOLLOWED UP NOR ATTEMPTED TO MAKE AN APPOINTMENT WITH HIM PCP: [facility] Allergies and Home Medications Allergies Coded Allergies: cephalexin (Verified Allergy, Severe, HIVES/LIPS SWELLING, 05/04/19) morphine (Verified Allergy, Severe, DIFFICULTY BREATHING/HIVES, 05/04/19) triamcinolone (Verified Allergy, Intermediate, HIVES/RASH, 05/04/19) Home Medications Clonazepam 1 Mg Tablet, 1 MG PO BID PRN for ANXIETY, (Reported) Cyclobenzaprine HCl 10 Mg Tablet, 10 MG PO Q8H PRN for SPASMS Prescribed by: PAO PALMA on 06/24/20 2310 Duloxetine HCl 60 Mg Capsule., 60 MG PO DAILY, (Reported) Famotidine 20 Mg Tablet, 20 MG PO BID Prescribed by: CARRIE MIRANDA on 12/11/19 1439 Gabapentin 100 Mg Capsule, 200 MG PO HS, (Reported) TAKES 2 (100MG) CAPSULES Hydrocodone/Acetaminophen 1 Each Tablet, 1 TAB PO Q6H PRN for PAIN-MODERATE (5- 7) Prescribed by: BOB WISEMAN on 06/07/20 0741 Ketorolac Tromethamine 10 Mg Tablet, 10 MG PO Q6H Prescribed by: PAO PALMA on 06/24/200 Levothyroxine Sodium 112 Mcg Tablet, 112 MG PO DAILY, (Reported) Omeprazole 40 Mg Capsule.dr, 40 MG PO DAILY, (Reported) Pantoprazole Sodium 40 Mg Tablet.dr, 40 MG PO DAILY Prescribed by: CHEL CAREY on 11/26/192221 Quetiapine Fumarate 200 Mg Tablet, 200 MG PO HS, (Reported) Spironolactone 25 Mg Tablet, 25 MG PO DAILY, (Reported) Sucralfate 1 Gm Tablet, 1 GM PO ACHS Chew tablet to a slurry and then swallow Prescribed by: CHEL CAREY on 11/26/192221 Tamsulosin HCl 0.4 Mg Cap, 0.4 MG PO DAILY Prescribed by: PAO PALMA on 06/24/202309 Patient Home Medication List Home Medication List Reviewed: Yes Review of Systems Review of Systems Constitutional: no symptoms reported; No fever Respiratory: no symptoms reported Cardiovascular: no symptoms reported Gastrointestinal: see HPI; No abdominal pain, No diarrhea; nausea, vomiting Genitourinary: see HPI, dysuria, frequency, flank pain, hematuria, pain, urgenc y Musculoskeletal: see HPI, back pain Skin: no symptoms reported Psychiatric/Neurological: No Symptoms Reported Endocrine: No Symptoms Reported Hematologic/Lymphatic: No Symptoms Reported Past Rlorste-Oliqpl-Nzgtqx Hx Past Med/Social Hx: Reviewed and Corrections made Patient Social History 2nd Hand Smoke Exposure: No Recent Hopitalizations: No Immunizations Up To Date PED Vaccines UTD: No Date of Pneumonia Vaccine: Dec 22, 2013 Date of Influenza Vaccine: Nov 24, 2019 Seasonal Allergies Seasonal Allergies: No Past Medical History Surgeries: Yes (gastric bypass, carpal tunel, bilat shoulder, BILAT TKR) Abdominal, Gallbladder, Hysterectomy, Orthopedic, Thyroidectomy, 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 Respiratory: No Cardiac: No Neurological: No Reproductive Disorders: No 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, 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 Sexually Transmitted Disease: No HIV/AIDS: No Genitourinary: Yes Kidney Stones Gastrointestinal: Yes (GASTRITIS) Gastroesophageal Reflux, Chronic Constipation, Diverticulosis, Hemorrhoids, Polyps Musculoskeletal: Yes (MULTIPLE ORTHOPEDIC SURGERIES) Arthritis Endocrine: Yes Hypothyroidsim HEENT: Yes (GLASSES, DENTURES) Double Vision Loss of Vision: Denies Hearing Impairment: Denies Cancer: Yes (BASAL CELL ON NOSE) Skin Did You Recieve Any Treatments: Yes What Type of Treatment Did You: Surgical Intervention Psychosocial: Yes Sleep Difficulties, Anxiety, Depression Integumentary: No Blood Disorders: No Adverse Reaction/Blood Tranf: Yes (N/A) Family Medical History No Pertinent Family Hx PAST SURGICAL HISTORY: -BILATERAL TUBAL LIGATION -BILATERAL TOTAL KNEE REPLACEMENTS -CARPAL TUNNEL SURGERY -LAPAROSCOPIC CHOLECYSTECTOMY -HYSTERECTOMY -THROIDECTOMY -MJ-EN-Y GASTRIC BYPASS IN 2011 OR 2012 -EGD 12/2019--GASTRITIS -COLONOSCOPY 11/2019--POLYPS, DIVERTICULAR DISEASE, INTERNAL HEMORRHOIDS Physical Exam Vital Signs Vital Signs - First Documented 06/24/20 21:20 Temp 36.5 Pulse 85 Resp 18 B/P (MAP) 161/91 (114) Pulse Ox 97 Capillary Refill : Height, Weight, BMI Height: 5'6.00" Weight: 196lbs. 9.6oz. 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, no motor/sensory deficits, alert, normal mood/affect, oriented x 3 Skin: normal color, warm/dry, tattoos/piercings (TATTOOS) Progress/Results/Core Measures Suspected Sepsis SIRS Temperature: Pulse: Respiratory Rate: Laboratory Tests 06/24/20 21:30: White Blood Count 8.0 Blood Pressure / Mean: Laboratory Tests 06/24/20 21:30: Creatinine 1.40H, Platelet Count 306, Total Bilirubin 0.3 Results/Orders Lab Results Laboratory Tests Test 06/24/20 21:30 06/24/20 22:35 Range/Units White Blood Count 8.0 4.3-11.0 10^3/uL Red Blood Count 3.60 L 3.80-5.11 10^6/uL Hemoglobin 12.3 11.5-16.0 g/dL Hematocrit 37 35-52 % Mean Corpuscular Volume 103 H 80-99 fL Mean Corpuscular Hemoglobin 34 25-34 pg Mean Corpuscular Hemoglobin Concent 33 32-36 g/dL Red Cell Distribution Width 12.1 10.0-14.5 % Platelet Count 306 130-400 10^3/uL Mean Platelet Volume 9.1 9.0-12.2 fL Immature Granulocyte % (Auto) 0 % Neutrophils (%) (Auto) 60 42-75 % Lymphocytes (%) (Auto) 28 12-44 % Monocytes (%) (Auto) 8 0-12 % Eosinophils (%) (Auto) 3 0-10 % Basophils (%) (Auto) 1 0-10 % Neutrophils # (Auto) 4.8 1.8-7.8 10^3/uL Lymphocytes # (Auto) 2.3 1.0-4.0 10^3/uL Monocytes # (Auto) 0.6 0.0-1.0 10^3/uL Eosinophils # (Auto) 0.2 0.0-0.3 10^3/uL Basophils # (Auto) 0.1 0.0-0.1 10^3/uL Immature Granulocyte # (Auto) 0.0 0.0-0.1 10^3/uL Sodium Level 140 135-145 MMOL/L Potassium Level 4.0 3.6-5.0 MMOL/L Chloride Level 105 98-107 MMOL/L Carbon Dioxide Level 23 21-32 MMOL/L Anion Gap 12 5-14 MMOL/L Blood Urea Nitrogen 17 7-18 MG/DL Creatinine 1.40 H 0.60-1.30 MG/DL Estimat Glomerular Filtration Rate 38 BUN/Creatinine Ratio 12 Glucose Level 82 70-105 MG/DL Calcium Level 8.4 L 8.5-10.1 MG/DL Corrected Calcium 8.4 L 8.5-10.1 MG/DL Total Bilirubin 0.3 0.1-1.0 MG/DL Aspartate Amino Transf (AST/SGOT) 15 5-34 U/L Alanine Aminotransferase (ALT/SGPT) 14 0-55 U/L Alkaline Phosphatase 131 40-136 U/L Total Protein 7.0 6.4-8.2 GM/DL Albumin 4.0 3.2-4.5 GM/DL Amylase Level 36 25-125 U/L Lipase 47 8-78 U/L Urine Color YELLOW Urine Clarity CLEAR Urine pH 5.5 5-9 Urine Specific [place] 1.010 L 1.016-1.022 Urine Protein NEGATIVE NEGATIVE Urine Glucose (UA) NEGATIVE NEGATIVE Urine Ketones NEGATIVE NEGATIVE Urine Nitrite NEGATIVE NEGATIVE Urine Bilirubin NEGATIVE NEGATIVE Urine Urobilinogen 0.2 < = 1.0 MG/DL Urine Leukocyte Esterase NEGATIVE NEGATIVE Urine RBC (Auto) 1+ H NEGATIVE Urine RBC NONE /HPF Urine WBC NONE /HPF Urine Squamous Epithelial Cells RARE /HPF Urine Crystals NONE /LPF Urine Bacteria NEGATIVE /HPF Urine Casts NONE /LPF Urine Mucus NEGATIVE /LPF Urine Culture Indicated NO Urine Opiates Screen NEGATIVE NEGATIVE Urine Oxycodone Screen NEGATIVE NEGATIVE Urine Methadone Screen NEGATIVE NEGATIVE Urine Propoxyphene Screen NEGATIVE NEGATIVE Urine Barbiturates Screen NEGATIVE NEGATIVE Ur Tricyclic Antidepressants Screen POSITIVE H NEGATIVE Urine Phencyclidine Screen NEGATIVE NEGATIVE Urine Amphetamines Screen NEGATIVE NEGATIVE Urine Methamphetamines Screen NEGATIVE NEGATIVE Urine Benzodiazepines Screen NEGATIVE NEGATIVE Urine Cocaine Screen NEGATIVE NEGATIVE Urine Cannabinoids Screen NEGATIVE NEGATIVE My Orders Orders - PAO PALMA DO Ed Iv/Invasive Line Start (06/24/20 21:21) Monitor-Rhythm Ecg Trace Only (06/24/20 21:21) Ct Abd/Pelvis Wo(Kidney Stone) (06/24/20 21:21) Abdomen/Kub 1view (06/24/20 21:21) Amylase (06/24/20 21:21) Cbc With Automated Diff (06/24/20 21:21) Comprehensive Metabolic Panel (06/24/20 21:21) Lipase (06/24/20 21:21) Ua Culture If Indicated (06/24/20 21:21) Ed Iv/Invasive Line Start (06/24/20 21:21) Lactated Ringers (Lr 1000 Ml Iv Solution (06/24/20 21:30) Drug Screen Stat (Urine) (06/24/20 21:23) Ketorolac Injection (Toradol Injection) (06/24/20 21:45) Ondansetron Injection (Zofran Injectio (06/24/20 21:45) Bladder Scan (06/24/20 21:44) Catheter(Urinary) Insert & Ass 03,15 (06/24/20 22:29) Orphenadrine Inj (Ed Only) (Norflex Inje (06/24/20 23:00) Medications Given in ED Current Medications Medications Dose Ordered Sig/Vivian Route Start Time Stop Time Status Last Admin Dose Admin Ketorolac Tromethamine 30 mg ONCE ONCE IVP 06/24/20 21:45 06/24/20 21:46 DC 06/24/20 21:41 30 MG Lactated Ringer's 1,000 ml @ 0 mls/hr Q0M ONCE IV 06/24/20 21:30 06/24/20 21:31 DC 06/24/20 21:41 0 MLS/HR Ondansetron HCl 4 mg ONCE ONCE IVP 06/24/20 21:45 06/24/20 21:46 DC 06/24/20 21:41 4 MG Orphenadrine Citrate 60 mg ONCE ONCE IV 06/24/20 23:00 06/24/20 23:01 DC 06/24/20 23:28 60 MG Vital Signs/I&O 06/24/20 06/24/20 21:20 23:35 Temp 36.5 Pulse 85 74 Resp 18 18 B/P (MAP) 161/91 (114) 134/74 Pulse Ox 97 98 Capillary Refill : Progress Note : Progress Note GIVEN IV FLUIDS, ZOFRAN, TORADOL AND NORFLEX WITH IMPROVEMENT IN SYMPTOMS Diagnostic Imaging Comments CT ABDOMEN/PELVIS--PER RADIOLOGIST REPORT AT 2210 FINDINGS: The visualized lung bases are clear. Postsurgical changes of a gastric bypass are again identified. Cholecystectomy. The unenhanced liver and spleen are unremarkable. The adrenal glands are unremarkable. The pancreas is unremarkable. The bilateral kidneys and ureters are unremarkable. Mild vascular calcifications within the aorta and its branch vessels without aneurysmal dilatation of the abdominal aorta. The urinary bladder is unremarkable. Uterus is not visualized, likely surgically absent. No abnormal adnexal mass lesion. No bowel obstruction or pneumatosis. No significant adenopathy, free air or free fluid within the abdomen or pelvis. No acute osseous abnormality with mild scattered osseous degenerative changes. IMPRESSION: Stable appearing examination demonstrating postsurgical and chronic findings without acute abnormality. Reviewed: Reviewed by Me Departure Impression Primary Impression: Bilateral flank pain Additional Impressions: Microscopic hematuria Mild renal insufficiency Difficulty urinating Disposition: HOME, SELF-CARE Condition: Improved Departure-Patient Inst. Referrals: [facility] (PCP) Primary Care Physician THADDEUS CAZARES MD Patient Instructions: Blood in the Urine (Hematuria), Adult (DC), Dysuria, Adult (DC), Flank Pain (DC) Add. Discharge Instructions: INCREASE YOUR CLEAR LIQUID INTAKE FOLLOW UP WITH DR. CAZARES, UROLOGIST, FOR KIDNEY STONES, BLOOD IN URINE AND DIFFICULTY URINATING FOLLOW UP WITH DIP LUBE OPERATOR IN [place] ADVISED, FOR YOUR KIDNEY FUNCTION All discharge instructions reviewed with patient and/or family. Voiced understanding. Scripts Ketorolac Tromethamine (Ketorolac Tromethamine) 10 Mg Tablet 10 MG PO Q6H for Pain, #15 TAB Prov: PAO PALMA DO 06/24/20 Cyclobenzaprine HCl (Cyclobenzaprine HCl) 10 Mg Tablet 10 MG PO Q8H PRN for SPASMS, #15 TAB 0 Refills Prov: PAO PALMA DO 06/24/20 Tamsulosin HCl (Flomax) 0.4 Mg Cap 0.4 MG PO DAILY, #10 CAP Prov: PAO PALMA DO 06/24/20 PAO PALMA DO Jun 24, 2020 21:41
[2020-06-24] MEDS ORDERED: KETOROLAC 30 MG/ML VIAL IVP ONE (21:45)
[2020-06-24] MEDS ORDERED: ONDANSETRON 4 MG/2 ML (SDV) Z0FRAN IVP ONE (21:45)
[2020-06-24 21:56] LABS: BILIRUBIN,TOTAL 0.3 MG/DL (0.1-1.0); CALCIUM 8.4 MG/DL (8.5-10.1); CREATININE SERUM 1.4 MG/DL (0.60-1.30)
--- NOTE | 2020-06-24 22:04 | Diagnostic Imaging Report ---
PROCEDURE: CT urinary tract, rule out kidney stone. TECHNIQUE: Multiple contiguous axial images were obtained through the abdomen and pelvis without the use of intravenous contrast. Auto Exposure Controls were utilized during the CT exam to meet ALARA standards for radiation dose reduction. INDICATION: Flank pain, abdominal pain. COMPARISON: 06/07/2020. FINDINGS: The visualized lung bases are clear. Postsurgical changes of a gastric bypass are again identified. Cholecystectomy. The unenhanced liver and spleen are unremarkable. The adrenal glands are unremarkable. The pancreas is unremarkable. The bilateral kidneys and ureters are unremarkable. Mild vascular calcifications within the aorta and its branch vessels without aneurysmal dilatation of the abdominal aorta. The urinary bladder is unremarkable. Uterus is not visualized, likely surgically absent. No abnormal adnexal mass lesion. No bowel obstruction or pneumatosis. No significant adenopathy, free air or free fluid within the abdomen or pelvis. No acute osseous abnormality with mild scattered osseous degenerative changes. IMPRESSION: Stable appearing examination demonstrating postsurgical and chronic findings without acute abnormality. Dictated by: Dictated on workstation # [id number]
[2020-06-24 22:52] LABS: BILIRUBIN,URINE NEGATIVE (NEGATIVE); CLARITY,URINE CLEAR; COLOR,URINE YELLOW; GLUCOSE, URINE (UA) NEGATIVE (NEGATIVE); KETONES,URINE NEGATIVE (NEGATIVE); LEUKOCYTE ESTERASE ,URINE NEGATIVE (NEGATIVE); NITRITE,URINE NEGATIVE (NEGATIVE); PH,URINE 5.5 (5-9); PROTEIN,URINE NEGATIVE (NEGATIVE)
[2020-06-24 22:58] LABS: AMPHETAMINE SCREEN, URINE NEGATIVE (NEGATIVE); BACTERIA,URINE NEGATIVE /HPF; BARBITURATE SCREEN URINE NEGATIVE (NEGATIVE); BENZODIAZEPINES SCREEN URINE NEGATIVE (NEGATIVE); CANNABINOID SCREEN, URINE NEGATIVE (NEGATIVE); COCAINE SCREEN URINE NEGATIVE (NEGATIVE); METHADONE STAT NEGATIVE (NEGATIVE); METHAMPHETAMINE SCREEN URINE S NEGATIVE (NEGATIVE); OPIATE SCREEN URINE NEGATIVE (NEGATIVE); OXYCODONE STAT NEGATIVE (NEGATIVE); PROPOXYPHENE STAT NEGATIVE (NEGATIVE); SQUAMOUS EPITHELIAL CELL,UR RARE /HPF; TRICYCLIC ANTIDEPRESSANTS SCRE POSITIVE (NEGATIVE)
[2020-06-24] MEDS ORDERED: ORPHENADRINE 60 MG/2 ML (NORFLEX) AMP (ED ONLY) IV ONE (23:00)
[2020-06-24] MEDS ORDERED: KETO10TA PO (23:10)
[2020-06-24] MEDS ORDERED: TMSL.4C PO (23:10)
[2020-06-24] MEDS ORDERED: CYCL10TA9 PO (23:10)
[2020-06-24 23:35] VITALS: BP 134/74
--- NOTE | 2020-06-25 08:18 | Diagnostic Imaging Report ---
INDICATION: Abdominal pain. COMPARISON: 06/07/2020. FINDINGS: The bowel gas pattern is nonspecific. Surgical clips in right upper quadrant. Osseous structures are unremarkable. There are no abnormal abdominal calcifications. IMPRESSION: Nonspecific bowel gas pattern Dictated by: Dictated on workstation # [id number]
== END 2020-06-24 23:35 | disposition home or self-care (01) ==
LOC: EDUNIT# 21:14 → ER 21:16
DX: R31.29 Other microscopic hematuria (principal); R39.198 Other difficulties with micturition; N28.9 Disorder of kidney and ureter, unspecified; K21.9 Gastro-esophageal reflux disease without esophagitis; E89.0 Postprocedural hypothyroidism; F41.9 Anxiety disorder, unspecified; F32.9 Major depressive disorder, single episode, unspecified; Z87.442 Personal history of urinary calculi; Z85.828 Personal history of other malignant neoplasm of skin; Z88.1 Allergy status to other antibiotic agents; Z88.5 Allergy status to narcotic agent; Z88.8 Allergy status to other drugs, medicaments and biological substances; Z79.890 Hormone replacement therapy; Z79.899 Other long term (current) drug therapy
CPT/HCPCS: 36415; 51702; 74018; 74176; 80053; 80306; 81000; 82150; 83690; 85025; 93041

== ENCOUNTER → 2020-10-17 | Outpatient (CLI) | payer MEDICARE ==
[~2020-10-17] MED LIST changes: +KETO10TA PO; -OMEP40CA27 PO; +OMEP40CA6 PO; -SULF1TAB35 PO; +SULF1TAB38 PO; +TMSL.4C PO
--- NOTE | 2020-10-17 13:07 | Diagnostic Imaging Report ---
INDICATION: 65-year-old asymptomatic postmenopausal female. History of hyperparathyroidism. COMPARISON: None available. FINDINGS: AP Spine L2-L4: [BMD (g/cm2): 0.993] [T-Score: -1.7] [Z-Score: -1.1] [BMD Previous: NA] [BMD % Change: NA] LT Hip Neck: [BMD (g/cm2): 0.750] [T-Score: -2.1] [Z-Score: -1.2] LT Hip Total: [BMD (g/cm2):0.797] [T-Score:-1.7] [Z-Score: -1.2] [BMD Previous: NA] [BMD % Change: NA] RT Hip Neck: [BMD (g/cm2):0.721] [T-Score:-2.3] [Z-Score:-1.4] RT Hip Total: [BMD (g/cm2):0.746] [T-score:-2.1] [Z-Score:-1.6] [BMD Previous:NA] [BMD % Change:NA] *Indicates significant change from prior examination based on 95% confidence level. World Health Organization criteria for BMD interpretation classify patients as Normal (T-score at or above -1.0), Osteopenic (T-score between -1.0 and -2.5) or Osteoporotic (T-score at or below -2.5). LIMITATIONS AND MODIFICATION: None. FRACTURE RISK (FRAX SCORE): The ten year probability of (%): Major Osteoporotic Fracture: [11.1] Hip Fracture: [1.9] IMPRESSION: 1. Osteopenia (Low bone mass). 2. Baseline examination. 3. See below National Osteoporosis Foundation guidelines on when to potentially initiate pharmacologic therapy. Based on the National Osteoporosis Foundation Guidelines, pharmacologic treatment should be initiated in any of the following, unless clinical conditions suggest otherwise: * Any patient with prior fragility fracture of the hip or vertebrae. A spine fracture indicates 5X risk for subsequent spine fracture and 2X risk for subsequent hip fracture. * Osteoporosis (T-score <-2.5). * Postmenopausal women and men age 50 and older with low bone mass/osteopenia (T-score between -1.0 and -2.5) by DXA and 10-year major osteoporotic fracture greater than 20% or a 10-year probability of hip fracture greater than 3%. These fracture risks are supplied above in the FRAX score, if applicable. * Clinician judgement and/or patient preferences may indicate treatment for people with 10-year fracture probabilities above or below these levels. Dictated by: Dictated on workstation # [id number]
--- NOTE | 2020-10-17 13:16 | Diagnostic Imaging Report ---
Indication: Routine screening. No prior studies are available for comparison. This is a baseline study. 2-D and 3-D bilateral screening mammography was performed with CAD. Both breasts are heterogeneously dense, limiting the sensitivity of mammography. No mass or malignant-appearing microcalcifications are seen. There are benign calcifications bilaterally. Axillae are unremarkable. IMPRESSION: BI-RADS Category 2 No mammographic features suspicious for malignancy are identified. ACR BI-RADS Category 2: Benign findings. Result letter will be mailed to the patient. Note: At least 10% of breast cancer is not imaged by mammography. Dictated by: Dictated on workstation # [id number]
== END ==
LOC: RAD 10:00
PROVIDERS: ATTEND Nurse Practitioner Family
DX: Z12.31 Encounter for screening mammogram for malignant neoplasm of breast (principal); Z13.820 Encounter for screening for osteoporosis; M85.80 Other specified disorders of bone density and structure, unspecified site; Z78.0 Asymptomatic menopausal state; Z86.39 Personal history of other endocrine, nutritional and metabolic disease
CPT/HCPCS: 77063; 77067; 77080

== ENCOUNTER → 2020-10-18 | Outpatient (CLI) | payer MEDICARE ==
--- NOTE | 2020-10-18 13:19 | Diagnostic Imaging Report ---
PROCEDURE: CT abdomen and pelvis without contrast. TECHNIQUE: Multiple contiguous axial images were obtained through the abdomen and pelvis without the use of intravenous contrast. Auto Exposure Controls were utilized during the CT exam to meet ALARA standards for radiation dose reduction. INDICATION: Stones and hematuria. COMPARISON: Comparison is made with prior CT from 06/24/2020. FINDINGS: The lung bases are clear. There are postop changes from gastric bypass surgery. No discrete liver mass is identified. The gallbladder is surgically absent. There is no biliary ductal dilatation. Pancreas and spleen are unremarkable. No adrenal mass is detected. No renal calculi or hydronephrosis is identified. Aorta is nonaneurysmal. No definite ureteral calculi are identified. The bladder is decompressed. The uterus is surgically absent. Bowel loops are nonobstructed. There is moderate stool in the colon. No free fluid or fluid collection is identified. No inflammatory changes are identified. IMPRESSION: No urinary tract calculi or obstruction is identified. No acute feature is detected. Dictated by: Dictated on workstation # [id number]
== END ==
LOC: RAD 13:15
PROVIDERS: ATTEND Urology
DX: N20.0 Calculus of kidney (principal)
CPT/HCPCS: 74176

== ENCOUNTER 2021-01-21 19:46 | Emergency (ER) | payer MEDICARE ==
[~2021-01-21] VITALS: Ht 165.1 cm; Wt 89.8 kg
[~2021-01-21 19:46] MED LIST changes: -QUET50TA22 PO; +QUET50TA23 PO
[2021-01-21 20:00] LABS: BILIRUBIN,URINE NEGATIVE (NEGATIVE); CLARITY,URINE CLOUDY; COLOR,URINE YELLOW; GLUCOSE, URINE (UA) NEGATIVE (NEGATIVE); KETONES,URINE NEGATIVE (NEGATIVE); LEUKOCYTE ESTERASE ,URINE 2+ (NEGATIVE); NITRITE,URINE POSITIVE (NEGATIVE); PH,URINE 5.5 (5-9); PROTEIN,URINE 2+ (NEGATIVE)
--- NOTE | 2021-01-21 20:06 | ED GU-Female ---
General Chief Complaint: - Reproductive Stated Complaint: BLOOD IN URINE, BLADDER PAIN Source: patient Exam Limitations: no limitations History of Present Illness Date Seen by Provider: Jan 21, 2021 Time Seen by Provider: 20:03 Initial Comments To ER with reports of blood in the urine and vaginal pain as well as "peeing razor blades" since yesterday morning. The started mild and has gotten progressively worse. No fever no chills no nausea no vomiting. No bowel changes. Has a history of kidney stones and this feels different. She has no flank pain now or at any time. Timing/Duration: constant Severity/Quality: moderate Radiation: none Prior Genitourinary Problems: none Sexual [place] History: not active Associated Symptoms: urinary frequency Allergies and Home Medications Allergies Coded Allergies: cephalexin (Verified Allergy, Severe, HIVES/LIPS SWELLING, 05/04/19) morphine (Verified Allergy, Severe, DIFFICULTY BREATHING/HIVES, 05/04/19) triamcinolone (Verified Allergy, Intermediate, HIVES/RASH, 05/04/19) Patient Home Medication List Home Medication List Reviewed: Yes Clonazepam (Clonazepam) 1 Mg Tablet, 1 MG PO BID PRN for ANXIETY, (Reported) Entered as Reported by: KWESI STEWART on 09/28/18 1302 Cyclobenzaprine HCl (Cyclobenzaprine HCl) 10 Mg Tablet, 10 MG PO Q8H PRN for SPASMS Prescribed by: PAO PALMA on 06/24/20 2310 Duloxetine HCl (Duloxetine HCl) 60 Mg Capsule.dr, 60 MG PO DAILY, (Reported) Entered as Reported by: KWESI STEWART on 09/28/18 1302 Famotidine (Pepcid) 20 Mg Tablet, 20 MG PO BID Prescribed by: CARRIE MIRANDA on 12/11/19 1439 Gabapentin (Gabapentin) 100 Mg Capsule, 200 MG PO HS, (Reported) Entered as Reported by: KWESI STEWART on 09/28/18 1302 Hydrocodone/Acetaminophen (Hydrocodone-Acetamin 5-325 mg) 1 Each Tablet, 1 TAB PO Q6H PRN for PAIN-MODERATE (5-7) Prescribed by: BOB WISEMAN on 06/07/20 0741 Ketorolac Tromethamine (Ketorolac Tromethamine) 10 Mg Tablet, 10 MG PO Q6H Prescribed by: PAO PALMA on 06/24/202309 Levothyroxine Sodium (Levothyroxine Sodium) 112 Mcg Tablet, 112 MG PO DAILY, (Reported) Entered as Reported by: KWESI STEWART on 09/28/18 1302 Omeprazole (Omeprazole) 40 Mg Capsule.dr, 40 MG PO DAILY, (Reported) Entered as Reported by: BEATRIZ LA on 12/27/19 1339 Pantoprazole Sodium (Pantoprazole Sodium) 40 Mg Tablet.dr, 40 MG PO DAILY Prescribed by: CHEL CAREY on 11/26/192221 Phenazopyridine HCl (Pyridium) 100 Mg Tablet, 100 MG PO TID Prescribed by: CHEL CAREY on 01/21/212026 Quetiapine Fumarate (Quetiapine Fumarate) 200 Mg Tablet, 200 MG PO HS, (Reported) Entered as Reported by: KWESI STEWART on 05/04/19 1338 Spironolactone (Spironolactone) 25 Mg Tablet, 25 MG PO DAILY, (Reported) Entered as Reported by: BEATRIZ LA on 07/28/19 1508 Sucralfate (Sucralfate) 1 Gm Tablet, 1 GM PO ACHS Prescribed by: CHEL CAREY on 11/26/192221 Sulfamethoxazole/Trimethoprim (Bactrim Ds Tablet) 1 Each Tablet, 1 EACH PO BID Prescribed by: CHEL CAREY on 01/21/212026 Tamsulosin HCl (Flomax) 0.4 Mg Cap, 0.4 MG PO DAILY Prescribed by: PAO PALMA on 06/24/202309 Review of Systems Review of Systems Constitutional: see HPI EENTM: see HPI Respiratory: no symptoms reported Cardiovascular: no symptoms reported Genitourinary: see HPI, dysuria, frequency Musculoskeletal: no symptoms reported Skin: no symptoms reported Psychiatric/Neurological: No Symptoms Reported Endocrine: No Symptoms Reported Past Ubyejml-Piobvg-Mjngpv Hx Immunizations Up To Date Tetanus Booster (TDap): Unknown PED Vaccines UTD: No Seasonal Allergies Seasonal Allergies: No Past Medical History Surgeries: Yes (gastric bypass, carpal tunel, bilat shoulder, BILAT TKR) Abdominal, Gallbladder, Hysterectomy, Orthopedic, Thyroidectomy, 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 Respiratory: No Cardiac: No Neurological: No Reproductive Disorders: No [employer] History: Hysterectomy, Menopausal Sexually Transmitted Disease: No HIV/AIDS: No Genitourinary: Yes Kidney Stones Gastrointestinal: Yes (GASTRITIS) Gastroesophageal Reflux, Chronic Constipation, Diverticulosis, Hemorrhoids, Polyps Musculoskeletal: Yes (MULTIPLE ORTHOPEDIC SURGERIES) Arthritis Endocrine: Yes Hypothyroidsim HEENT: Yes (GLASSES, DENTURES) Double Vision Loss of Vision: Denies Hearing Impairment: Denies Cancer: Yes (BASAL CELL ON NOSE) Skin Did You Recieve Any Treatments: Yes What Type of Treatment Did You: Surgical Intervention Psychosocial: Yes Sleep Difficulties, Anxiety, Depression Integumentary: No Blood Disorders: No Adverse Reaction/Blood Tranf: Yes (N/A) Family Medical History No Pertinent Family Hx PAST SURGICAL HISTORY: -BILATERAL TUBAL LIGATION -BILATERAL TOTAL KNEE REPLACEMENTS -CARPAL TUNNEL SURGERY -LAPAROSCOPIC CHOLECYSTECTOMY -HYSTERECTOMY -THROIDECTOMY -MJ-EN-Y GASTRIC BYPASS IN 2011 OR 2012 -EGD 12/2019--GASTRITIS -COLONOSCOPY 11/2019--POLYPS, DIVERTICULAR DISEASE, INTERNAL HEMORRHOIDS Physical Exam Vital Signs Vital Signs - First Documented 01/21/21 19:52 Temp 36.5 Pulse 102 Resp 20 B/P (MAP) 160/105 (123) Pulse Ox 96 O2 Delivery Room Air Capillary Refill : Height, Weight, BMI Height: 5'6.00" Weight: 196lbs. 9.6oz. 89.062946lu; 32.00 BMI Method:Stated General Appearance: WD/WN, no apparent distress HEENT: PERRL/EOMI, normal ENT inspection Neck: non-tender, full range of motion Respiratory: normal breath sounds, no respiratory distress, no accessory muscle use Gastrointestinal: normal bowel sounds, non tender Extremities: normal range of motion, non-tender Neurologic/Psychiatric: alert, normal mood/affect, oriented x 3 Skin: normal color, warm/dry Progress/Results/Core Measures Suspected Sepsis SIRS Temperature: Pulse: Respiratory Rate: Laboratory Tests 01/21/21 20:10: White Blood Count 9.1 Blood Pressure / Mean: Laboratory Tests 01/21/21 20:10: Creatinine 1.21, Platelet Count 345, Total Bilirubin 0.4 Results/Orders Lab Results Laboratory Tests Test 01/21/21 19:55 01/21/21 20:10 Range/Units Urine Color YELLOW Urine Clarity CLOUDY Urine pH 5.5 5-9 Urine Specific [place] >=1.030 1.016-1.022 Urine Protein 2+ H NEGATIVE Urine Glucose (UA) NEGATIVE NEGATIVE Urine Ketones NEGATIVE NEGATIVE Urine Nitrite POSITIVE H NEGATIVE Urine Bilirubin NEGATIVE NEGATIVE Urine Urobilinogen 1.0 < = 1.0 MG/DL Urine Leukocyte Esterase 2+ H NEGATIVE Urine RBC (Auto) 3+ H NEGATIVE Urine RBC 50-100 H /HPF Urine WBC 50-100 H /HPF Urine Squamous Epithelial Cells NONE /HPF Urine Renal Epithelial Cells NONE /HPF Urine Crystals NONE /LPF Urine Bacteria MODERATE H /HPF Urine Casts NONE /LPF Urine Mucus NEGATIVE /LPF Urine Culture Indicated YES White Blood Count 9.1 4.3-11.0 10^3/uL Red Blood Count 3.99 3.80-5.11 10^6/uL Hemoglobin 13.3 11.5-16.0 g/dL Hematocrit 41 35-52 % Mean Corpuscular Volume 102 H 80-99 fL Mean Corpuscular Hemoglobin 33 25-34 pg Mean Corpuscular Hemoglobin Concent 33 32-36 g/dL Red Cell Distribution Width 12.0 10.0-14.5 % Platelet Count 345 130-400 10^3/uL Mean Platelet Volume 9.3 9.0-12.2 fL Immature Granulocyte % (Auto) 0 % Neutrophils (%) (Auto) 59 42-75 % Lymphocytes (%) (Auto) 30 12-44 % Monocytes (%) (Auto) 6 0-12 % Eosinophils (%) (Auto) 5 0-10 % Basophils (%) (Auto) 1 0-10 % Neutrophils # (Auto) 5.4 1.8-7.8 10^3/uL Lymphocytes # (Auto) 2.8 1.0-4.0 10^3/uL Monocytes # (Auto) 0.5 0.0-1.0 10^3/uL Eosinophils # (Auto) 0.4 H 0.0-0.3 10^3/uL Basophils # (Auto) 0.1 0.0-0.1 10^3/uL Immature Granulocyte # (Auto) 0.0 0.0-0.1 10^3/uL Sodium Level 138 135-145 MMOL/L Potassium Level 3.4 L 3.6-5.0 MMOL/L Chloride Level 103 98-107 MMOL/L Carbon Dioxide Level 22 21-32 MMOL/L Anion Gap 13 5-14 MMOL/L Blood Urea Nitrogen 20 H 7-18 MG/DL Creatinine 1.21 0.60-1.30 MG/DL Estimat Glomerular Filtration Rate 45 BUN/Creatinine Ratio 17 Glucose Level 98 70-105 MG/DL Calcium Level 9.2 8.5-10.1 MG/DL Corrected Calcium 9.2 8.5-10.1 MG/DL Total Bilirubin 0.4 0.1-1.0 MG/DL Aspartate Amino Transf (AST/SGOT) 15 5-34 U/L Alanine Aminotransferase (ALT/SGPT) 11 0-55 U/L Alkaline Phosphatase 127 40-136 U/L Total Protein 7.2 6.4-8.2 GM/DL Albumin 4.0 3.2-4.5 GM/DL My Orders Orders - CHEL CAREY APRN Cbc With Automated Diff (01/21/21 20:01) Comprehensive Metabolic Panel (01/21/21 20:01) Ed Iv/Invasive Line Start (01/21/21 20:01) Ns Iv 1000 Ml (Sodium Chloride 0.9%) (01/21/21 20:15) Ketorolac Injection (Toradol Injection) (01/21/21 20:15) Phenazopyridine Tablet (Pyridium Tablet) (01/21/21 20:15) Medications Given in ED Current Medications Medications Dose Ordered Sig/Vivian Route Start Time Stop Time Status Last Admin Dose Admin Ketorolac Tromethamine 15 mg ONCE ONCE IVP 01/21/21 20:15 01/21/21 20:16 DC 01/21/21 20:15 15 MG Phenazopyridine HCl 100 mg ONCE ONCE PO 01/21/21 20:15 01/21/21 20:16 DC 01/21/21 20:15 100 MG Vital Signs/I&O 01/21/21 19:52 Temp 36.5 Pulse 102 Resp 20 B/P (MAP) 160/105 (123) Pulse Ox 96 O2 Delivery Room Air Capillary Refill : Departure Impression Primary Impression: Urinary tract infection Disposition: HOME, SELF-CARE Condition: Stable Departure-Patient Inst. Decision time for Depature: 20:26 Referrals: [facility] (PCP) Primary Care Physician DARRIN GODWIN (Family) Primary Care Physician Patient Instructions: Urinary Tract Infection, Adult (DC) Add. Discharge Instructions: 1. Increase water intake 2. Medication as directed 3. Follow-up with your doctor next week Return to ER for any worsening. All discharge instructions reviewed with patient and/or family. Voiced understanding. Scripts Phenazopyridine HCl (Pyridium) 100 Mg Tablet 100 MG PO TID, #9 TAB Prov: CHEL CAREY APRN 01/21/21 Sulfamethoxazole/Trimethoprim (Bactrim Ds Tablet) 1 Each Tablet 1 EACH PO BID, #10 TAB Prov: CHEL CAREY APRN 01/21/21 CHEL CAREY APRN Jan 21, 2021 20:06
[2021-01-21 20:09] LABS: BACTERIA,URINE MODERATE /HPF; RBC,URINE 50-100 /HPF; WBC,URINE 50-100 /HPF
[2021-01-21] MEDS ORDERED: KETOROLAC 30 MG/ML VIAL IVP ONE (20:15)
[2021-01-21] MEDS ORDERED: PHENAZOPYRIDINE 100 MG (PYRIDIUM) TABLET PO ONE (20:15)
[2021-01-21] MEDS ORDERED: NS IV 1000 ML 1,000 ML IV SCH (20:15)
[2021-01-21 20:19] LABS: BASOPHILS # (AUTO) 0.1 10^3/uL (0.0-0.1); BASOPHILS % (AUTO) 1 % (0-10); EOSINOPHILS # (AUTO) 0.4 10^3/uL (0.0-0.3); EOSINOPHILS % (AUTO) 5 % (0-10); HEMATOCRIT 41 % (35-52); HEMOGLOBIN 13.3 g/dL (11.5-16.0); LYMPHOCYTES # (AUTO) 2.8 10^3/uL (1.0-4.0); LYMPHOCYTES % (AUTO) 30 % (12-44); MEAN CORPUSCULAR HEMOGLOBIN 33 pg (25-34); MEAN CORPUSCULAR HGB CONC 33 g/dL (32-36); MEAN CORPUSCULAR VOLUME 102 fL (80-99); MEAN PLATELET VOLUME 9.3 fL (9.0-12.2); MONOCYTES # (AUTO) 0.5 10^3/uL (0.0-1.0); MONOCYTES % (AUTO) 6 % (0-12); NEUTROPHILS # (AUTO) 5.4 10^3/uL (1.8-7.8); NEUTROPHILS % (AUTO) 59 % (42-75); PLATELET COUNT 345 10^3/uL (130-400); WHITE BLOOD COUNT 9.1 10^3/uL (4.3-11.0)
[2021-01-21] MEDS ORDERED: PHEN-639 PO (20:27)
[2021-01-21] MEDS ORDERED: SULF1TAB38 PO (20:27)
[2021-01-21 20:58] LABS: POTASSIUM 3.4 MMOL/L (3.6-5.0)
[2021-01-21 21:00] LABS: CALCIUM 9.2 MG/DL (8.5-10.1)
[2021-01-21 21:01] LABS: TOTAL PROTEIN 7.2 GM/DL (6.4-8.2)
[2021-01-21 21:02] LABS: BILIRUBIN,TOTAL 0.4 MG/DL (0.1-1.0)
[2021-01-21 21:04] LABS: CREATININE SERUM 1.21 MG/DL (0.60-1.30)
[2021-01-21] MEDS ORDERED: TRIM/SULFAMETH 160/800 (SEPTRA DS) TAB PO ONE (21:45)
[2021-01-21 22:02] VITALS: BP 130/86
== END 2021-01-21 22:05 | disposition home or self-care (01) ==
LOC: EDUNIT# 19:46 → ER 19:49
DX: N39.0 Urinary tract infection, site not specified (principal); K21.9 Gastro-esophageal reflux disease without esophagitis; E03.9 Hypothyroidism, unspecified; F41.9 Anxiety disorder, unspecified; F32.9 Major depressive disorder, single episode, unspecified; Z79.890 Hormone replacement therapy; Z79.899 Other long term (current) drug therapy
CPT/HCPCS: 36415; 80053; 81000; 85025; 87077; 87088; 87186

== ENCOUNTER 2021-07-11 14:34 | Emergency (ER) | payer MEDICARE ==
[~2021-07-11] VITALS: Ht 167.4 cm; Wt 87.9 kg
[~2021-07-11 14:34] MED LIST changes: +CYCL10TA25 PO; -CYCL10TA9 PO; +PHEN-639 PO
[2021-07-11] MEDS ORDERED: ASPIRIN 81 MG CHEW (CHILDREN'S ASA) PO ONE (14:45)
[2021-07-11] MEDS ORDERED: KETOROLAC 30 MG/ML VIAL IVP ONE (14:45)
--- NOTE | 2021-07-11 14:48 | ED Chest Pain ---
General Chief Complaint: Chest Pain Stated Complaint: ABNORMAL EKG Source: patient Exam Limitations: no limitations History of Present Illness Date Seen by Provider: Jul 11, 2021 Time Seen by Provider: 14:46 Initial Comments To ER by private vehicle from [facility] with reports of chest pain and shortness of breath. This was noticed upon awakening this morning at about 6 or 7 AM. Symptoms have been constant since then. Pain is worsened by deep breathi ng and is rated at 8 out of 10. Nothing makes it better, the only thing that makes it worse is deep breathing. She does feel short of breath. No cough. No fevers or chills. No abdominal pain. No arm pain. She is a non-smoker. She does not have hypertension or hyperlipidemia or known history of coronary disease. Timing/Duration: constant Severity/Quality: sharp Location: other (Left-sided anterior chest) Radiation: no radiation Activities at Onset: none ASA po DIGITAL MARKETING ASSISTANT: No NTG SL DIGITAL MARKETING ASSISTANT: No Associated Symptoms: shortness of breath Allergies and Home Medications Allergies Coded Allergies: cephalexin (Verified Allergy, Severe, HIVES/LIPS SWELLING, 05/04/19) morphine (Verified Allergy, Severe, DIFFICULTY BREATHING/HIVES, 05/04/19) triamcinolone (Verified Allergy, Intermediate, HIVES/RASH, 05/04/19) Patient Home Medication List Home Medication List Reviewed: Yes Clonazepam (Clonazepam) 1 Mg Tablet, 1 MG PO BID PRN for ANXIETY, (Reported) Entered as Reported by: KWESI STEWART on 09/28/18 1302 Cyclobenzaprine HCl (Cyclobenzaprine HCl) 10 Mg Tablet, 10 MG PO Q8H PRN for SPASMS Prescribed by: PAO PALMA on 06/24/20 2310 Duloxetine HCl (Duloxetine HCl) 60 Mg Capsule.dr, 60 MG PO DAILY, (Reported) Entered as Reported by: KWESI STEWART on 09/28/18 1302 Famotidine (Pepcid) 20 Mg Tablet, 20 MG PO BID Prescribed by: CARRIE MIRANDA on 12/11/19 1439 Gabapentin (Gabapentin) 100 Mg Capsule, 200 MG PO HS, (Reported) Entered as Reported by: KWESI STEWART on 09/28/18 1302 Hydrocodone/Acetaminophen (Hydrocodone-Acetamin 5-325 mg) 1 Each Tablet, 1 TAB PO Q6H PRN for PAIN-MODERATE (5-7) Prescribed by: BOB WISEMAN on 06/07/20 0741 Ketorolac Tromethamine (Ketorolac Tromethamine) 10 Mg Tablet, 10 MG PO Q6H Prescribed by: PAO PALMA on 06/24/202309 Levothyroxine Sodium (Levothyroxine Sodium) 112 Mcg Tablet, 112 MG PO DAILY, (Reported) Entered as Reported by: KWESI STEWART on 09/28/18 1302 Omeprazole (Omeprazole) 40 Mg Capsule.dr, 40 MG PO DAILY, (Reported) Entered as Reported by: BEATRIZ LA on 12/27/19 1339 Pantoprazole Sodium (Pantoprazole Sodium) 40 Mg Tablet.dr, 40 MG PO DAILY Prescribed by: CHEL CAREY on 11/26/192221 Phenazopyridine HCl (Pyridium) 100 Mg Tablet, 100 MG PO TID Prescribed by: CHEL CAREY on 01/21/212026 Quetiapine Fumarate (Quetiapine Fumarate) 200 Mg Tablet, 200 MG PO HS, (Reported) Entered as Reported by: KWESI STEWART on 05/04/19 1338 Spironolactone (Spironolactone) 25 Mg Tablet, 25 MG PO DAILY, (Reported) Entered as Reported by: BEATRIZ LA on 07/28/19 1508 Sucralfate (Sucralfate) 1 Gm Tablet, 1 GM PO ACHS Prescribed by: CHEL CAREY on 11/26/192221 Sulfamethoxazole/Trimethoprim (Bactrim Ds Tablet) 1 Each Tablet, 1 EACH PO BID Prescribed by: CHEL CAREY on 01/21/212026 Tamsulosin HCl (Flomax) 0.4 Mg Cap, 0.4 MG PO DAILY Prescribed by: PAO PALMA on 06/24/202309 Review of Systems Review of Systems Constitutional: see HPI EENTM: No Symptoms Reported Respiratory: See HPI, Shortness of Air Cardiovascular: See HPI, Chest Pain Gastrointestinal: No Symptoms Reported Genitourinary: No Symptoms Reported Musculoskeletal: no symptoms reported Skin: no symptoms reported Psychiatric/Neurological: No Symptoms Reported Endocrine: No Symptoms Reported Hematologic/Lymphatic: No Symptoms Reported Past Ncojlbo-Zreypf-Jxbgrs Hx Immunizations Up To Date Tetanus Booster (TDap): Unknown PED Vaccines UTD: No First/Initial COVID19 Vaccinat: 2020 Second COVID19 Vaccination Parker: SEPTEMBER 2020 Seasonal Allergies Seasonal Allergies: No Past Medical History Surgeries: Yes (gastric bypass, carpal tunel, bilat shoulder, BILAT TKR) Abdominal, Gallbladder, Hysterectomy, Orthopedic, Thyroidectomy, 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 Respiratory: No Cardiac: No Neurological: No Reproductive Disorders: No SECOND HAND History: Hysterectomy, Menopausal Sexually Transmitted Disease: No HIV/AIDS: No Genitourinary: Yes Kidney Stones Gastrointestinal: Yes (GASTRITIS) Gastroesophageal Reflux, Chronic Constipation, Diverticulosis, Hemorrhoids, Polyps Musculoskeletal: Yes (MULTIPLE ORTHOPEDIC SURGERIES) Arthritis Endocrine: Yes Hypothyroidsim HEENT: Yes (GLASSES, DENTURES) Double Vision Loss of Vision: Denies Hearing Impairment: Denies Cancer: Yes (BASAL CELL ON NOSE) Skin Did You Recieve Any Treatments: Yes What Type of Treatment Did You: Surgical Intervention Psychosocial: Yes Sleep Difficulties, Anxiety, Depression Integumentary: No Blood Disorders: No Adverse Reaction/Blood Tranf: Yes (N/A) Family Medical History No Pertinent Family Hx PAST SURGICAL HISTORY: -BILATERAL TUBAL LIGATION -BILATERAL TOTAL KNEE REPLACEMENTS -CARPAL TUNNEL SURGERY -LAPAROSCOPIC CHOLECYSTECTOMY -HYSTERECTOMY -THROIDECTOMY -MJ-EN-Y GASTRIC BYPASS IN 2011 OR 2012 -EGD 12/2019--GASTRITIS -COLONOSCOPY 11/2019--POLYPS, DIVERTICULAR DISEASE, INTERNAL HEMORRHOIDS Physical Exam Vital Signs Vital Signs - First Documented 07/11/21 14:42 Temp 36.8 Pulse 71 Resp 16 B/P (MAP) 173/95 (121) Pulse Ox 98 Capillary Refill : Height, Weight, BMI Height: 5'6.00" Weight: 196lbs. 9.6oz. 89.250183vf; 32.00 BMI Method:Stated General Appearance: No Apparent Distress, WD/WN, Other (alert and oriented GCS 15 she is not tachycardic or hypotensive or hypoxic. Oxygen saturation is 99 to 100% on room air, heart rate in the 80s.) HEENT: PERRL/EOMI, TMs Normal Neck: Full Range of Motion, Normal Inspection Respiratory: No Accessory Muscle Use, No Respiratory Distress Cardiovascular: Regular Rate, Rhythm, Normal Peripheral Pulses Gastrointestinal: Normal Bowel Sounds, Non Tender, Soft Extremity: Normal Capillary Refill, Normal Inspection Neurologic/Psychiatric: Alert, Oriented x3 Skin: Normal Color, Warm/Dry Progress/Results/Core Measures Results/Orders Lab Results Laboratory Tests Test 07/11/21 14:45 Range/Units White Blood Count 7.6 4.3-11.0 10^3/uL Red Blood Count 3.81 3.80-5.11 10^6/uL Hemoglobin 13.4 11.5-16.0 g/dL Hematocrit 40 35-52 % Mean Corpuscular Volume 106 H 80-99 fL Mean Corpuscular Hemoglobin 35 H 25-34 pg Mean Corpuscular Hemoglobin Concent 33 32-36 g/dL Red Cell Distribution Width 14.2 10.0-14.5 % Platelet Count 359 130-400 10^3/uL Mean Platelet Volume 9.0 9.0-12.2 fL Immature Granulocyte % (Auto) 0 % Neutrophils (%) (Auto) 54 42-75 % Lymphocytes (%) (Auto) 36 12-44 % Monocytes (%) (Auto) 8 0-12 % Eosinophils (%) (Auto) 1 0-10 % Basophils (%) (Auto) 1 0-10 % Neutrophils # (Auto) 4.1 1.8-7.8 X 10^3 Lymphocytes # (Auto) 2.8 1.0-4.0 X 10^3 Monocytes # (Auto) 0.6 0.0-1.0 X 10^3 Eosinophils # (Auto) 0.1 0.0-0.3 10^3/uL Basophils # (Auto) 0.1 0.0-0.1 10^3/uL Immature Granulocyte # (Auto) 0.0 0.0-0.1 10^3/uL Prothrombin Time 12.2 12.2-14.7 SEC INR Comment 0.9 0.8-1.4 Activated Partial Thromboplast Time 34 24-35 SEC D-Dimer 0.33 0.00-0.49 UG/ML Sodium Level 141 135-145 MMOL/L Potassium Level 3.6 3.6-5.0 MMOL/L Chloride Level 99 98-107 MMOL/L Carbon Dioxide Level 29 21-32 MMOL/L Anion Gap 13 5-14 MMOL/L Blood Urea Nitrogen 12 7-18 MG/DL Creatinine 1.04 0.60-1.30 MG/DL Estimat Glomerular Filtration Rate 60 BUN/Creatinine Ratio 12 Glucose Level 70 70-105 MG/DL Calcium Level 9.3 8.5-10.1 MG/DL Corrected Calcium 9.3 8.5-10.1 MG/DL Magnesium Level 2.2 1.6-2.4 MG/DL Total Bilirubin 0.5 0.1-1.0 MG/DL Aspartate Amino Transf (AST/SGOT) 14 5-34 U/L Alanine Aminotransferase (ALT/SGPT) 15 0-55 U/L Alkaline Phosphatase 91 40-136 U/L Myoglobin 36.4 10.0-92.0 NG/ML Troponin I < 0.028 <0.028 NG/ML B-Type Natriuretic Peptide 31.0 <100.0 PG/ML Total Protein 6.9 6.4-8.2 GM/DL Albumin 4.0 3.2-4.5 GM/DL My Orders Orders - CHEL CAREY APRN Cbc With Automated Diff (07/11/21 14:45) Magnesium (07/11/21 14:45) Chest 1 View, Ap/Pa Only (07/11/21 14:45) Ekg Tracing (07/11/21 14:45) Comprehensive Metabolic Panel (07/11/21 14:45) Myoglobin Serum (07/11/21 14:45) Protime With Inr (07/11/21 14:45) Partial Thromboplastin Time (07/11/21 14:45) O2 (07/11/21 14:45) Monitor-Rhythm Ecg Trace Only (07/11/21 14:45) Lipid Panel (07/12/21 06:00) Ed Iv/Invasive Line Start (07/11/21 14:45) Bnp [place] (07/11/21 14:45) Fibrin Degradation Products (07/11/21 14:45) Troponin I [place] (07/11/21 14:45) Aspirin Chewable Tablet (Baby Aspirin Ch (07/11/21 14:45) Ketorolac Injection (Toradol Injection) (07/11/21 14:45) Nitroglycerin 0.4 Mg Btl 25's (Nitrostat (07/11/21 14:45) Fentanyl Inj (Sublimaze Injection) (07/11/21 16:00) Antacid Suspension (Mylanta Suspension (07/11/21 16:15) Lidocaine 2% Viscous 15 Ml (Xylocaine Vi (07/11/21 16:15) Lidocaine 2% Viscous 15 Ml (Xylocaine Vi (07/11/21 16:16) Antacid Suspension (Mylanta Suspension (07/11/21 16:17) Medications Given in ED Current Medications Medications Dose Ordered Sig/Vivian Route Start Time Stop Time Status Last Admin Dose Admin Al Hydrox/Mg Hydrox/Simethicone 30 ml ONCE ONCE PO 07/11/21 16:15 07/11/21 16:16 DC 07/11/21 16:22 30 ML Aspirin 324 mg ONCE ONCE PO 07/11/21 14:45 07/11/21 14:47 DC 07/11/21 15:04 324 MG Fentanyl Citrate 50 mcg ONCE ONCE IVP 07/11/21 16:00 07/11/21 16:01 DC 07/11/21 16:05 50 MCG Ketorolac Tromethamine 15 mg ONCE ONCE IVP 07/11/21 14:45 07/11/21 14:47 DC 07/11/21 15:04 15 MG Lidocaine HCl 15 ml ONCE ONCE PO 07/11/21 16:15 07/11/21 16:16 DC 07/11/21 16:22 15 ML Nitroglycerin 1 TAB Q 5 MIN X 3 NEEDED PRN SL 07/11/21 14:45 07/11/21 15:20 0.4 MG Vital Signs/I&O 07/11/21 14:42 Temp 36.8 Pulse 71 Resp 16 B/P (MAP) 173/95 (121) Pulse Ox 98 Departure Communication (Admissions) 1702-pain is completely gone after GI cocktail. Impression Primary Impression: Pleuritic chest pain Disposition: HOME, SELF-CARE Condition: Stable Departure-Patient Inst. Decision time for Depature: 16:14 Referrals: [facility]/K (PCP/Family) Primary Care Physician Patient Instructions: Pleuritic Chest Pain ED CHEL CAREY DIRECTOR OPERATIONS BROADCAST Jul 11, 2021 14:48
[2021-07-11 15:05] LABS: BASOPHILS # (AUTO) 0.1 10^3/uL (0.0-0.1); BASOPHILS % (AUTO) 1 % (0-10); EOSINOPHILS # (AUTO) 0.1 10^3/uL (0.0-0.3); EOSINOPHILS % (AUTO) 1 % (0-10); HEMATOCRIT 40 % (35-52); HEMOGLOBIN 13.4 g/dL (11.5-16.0); LYMPHOCYTES # (AUTO) 2.8 X 10^3 (1.0-4.0); LYMPHOCYTES % (AUTO) 36 % (12-44); MEAN CORPUSCULAR HEMOGLOBIN 35 pg (25-34); MEAN CORPUSCULAR HGB CONC 33 g/dL (32-36); MEAN CORPUSCULAR VOLUME 106 fL (80-99); MONOCYTES # (AUTO) 0.6 X 10^3 (0.0-1.0); MONOCYTES % (AUTO) 8 % (0-12); NEUTROPHILS # (AUTO) 4.1 X 10^3 (1.8-7.8); NEUTROPHILS % (AUTO) 54 % (42-75); PLATELET COUNT 359 10^3/uL (130-400); WHITE BLOOD COUNT 7.6 10^3/uL (4.3-11.0)
[2021-07-11] MEDS: NITROGLYCERIN 0.4 MG SL TABS BTL 25'S SL PRN ×3 (15:06→15:20)
[2021-07-11 15:09] LABS: POTASSIUM 3.6 MMOL/L (3.6-5.0)
[2021-07-11 15:10] LABS: CALCIUM 9.3 MG/DL (8.5-10.1)
[2021-07-11 15:11] LABS: INR 0.9 (0.8-1.4); PROTHROMBIN TIME PATIENT 12.2 SEC (12.2-14.7); TOTAL PROTEIN 6.9 GM/DL (6.4-8.2)
[2021-07-11 15:13] LABS: BILIRUBIN,TOTAL 0.5 MG/DL (0.1-1.0)
[2021-07-11 15:15] LABS: CREATININE SERUM 1.04 MG/DL (0.60-1.30)
[2021-07-11 15:17] LABS: MAGNESIUM 2.2 MG/DL (1.6-2.4)
--- NOTE | 2021-07-11 15:23 | Diagnostic Imaging Report ---
INDICATION: Chest pain. EXAMINATION: Portable chest at 3:11 PM. Heart size and pulmonary vascularity are normal. Lungs are clear. There are no effusions or pneumothoraces. IMPRESSION: No acute abnormalities in the chest. Dictated by: Dictated on workstation # [id number]
[2021-07-11] MEDS ORDERED: fentaNYL INJ 100 MCG/2 ML AMP IVP ONE (16:00)
[2021-07-11] MEDS ORDERED: ANTACID SUSP 30 ML UDC (MYLANTA) PO ONE (16:15)
[2021-07-11] MEDS ORDERED: LIDOCAINE 2% VISCOUS 15 ML UDC PO ONE (16:15)
[2021-07-11] MEDS ORDERED: LIDOCAINE 2% VISCOUS 15 ML UDC ONE (16:16)
[2021-07-11] MEDS ORDERED: ANTACID SUSP 30 ML UDC (MYLANTA) ONE (16:17)
[2021-07-11 17:06] VITALS: BP 134/74
== END 2021-07-11 17:03 | disposition home or self-care (01) ==
LOC: EDUNIT# 14:34 → ER 14:36
DX: R07.81 Pleurodynia (principal)
CPT/HCPCS: 36415; 71045; 80053; 83735; 83874; 83880; 84484; 85025; 85379; 85610; 85730; 93005; 93041

== ENCOUNTER 2021-11-26 12:47 | Observation (INO) | payer MEDICARE ==
[~2021-11-26] VITALS: Ht 167 cm; Wt 91.0 kg
--- NOTE | 2021-11-26 13:05 | ED Chest Pain ---
General Chief Complaint: Chest Pain Stated Complaint: CHEST/LEFT ARM PAIN SYNCOPAL EPISODE Source: patient Exam Limitations: no limitations History of Present Illness Date Seen by Provider: Nov 26, 2021 Time Seen by Provider: 12:50 Initial Comments 66-year-old female presents to the emergency department today for chest pain and syncope. She states she has had the pain for about 2 to 2-1/2 hours. It is a central pressure in her lower chest with radiation to her left arm. No aggravating or alleviating factors. Is associated with some mild shortness of breath. She was sitting down at the time and went to get up to use the restroom and had a syncopal episode. She does not recall a specific increase in her ches t pain just prior to passing out and had no prodromal symptoms to include dizziness lightheadedness, vision, shortness of breath. She woke up in the floor with no apparent injuries. She continues to have the midsternal chest pain. She has had these pains maybe once every 3 months or so but has not really had them checked out by a doctor. She denies any recent illness including fevers chills cough abdominal pain, changes in bowel or bladder habits. She does tell me she has a history of a "irregular heartbeat." She does not know much more about this. No cardiac history. She never had a heart catheter or stress test. Allergies and Home Medications Allergies Coded Allergies: cephalexin (Verified Allergy, Severe, HIVES/LIPS SWELLING, 05/04/19) morphine (Verified Allergy, Severe, DIFFICULTY BREATHING/HIVES, 05/04/19) triamcinolone (Verified Allergy, Intermediate, HIVES/RASH, 05/04/19) Patient Home Medication List Home Medication List Reviewed: Yes Acetaminophen (Tylenol Extra Strength) 500 Mg Tablet, 1,000 MG PO Q8H PRN for PAIN-MILD (1-4), (Reported) Entered as Reported by: REJI YOUNG on 11/27/21 9016 Last Action: Reviewed Clonazepam (Clonazepam) 0.5 Mg Tablet, 1 MG PO HS, (Reported) Entered as Reported by: REJI YOUNG on 11/27/21 1487 Last Action: Reviewed Duloxetine HCl (Duloxetine HCl) 60 Mg Capsule.dr, 60 MG PO DAILY, (Reported) Entered as Reported by: KWESI STEWART on 09/28/18 1302 Last Action: Reviewed Gabapentin (Gabapentin) 100 Mg Capsule, 200 MG PO HS, (Reported) Entered as Reported by: REJI YOUNG on 11/27/21 1401 Last Action: Reviewed Levothyroxine Sodium (Levothyroxine Sodium) 88 Mcg Tablet, 88 MCG PO DAILY, (Reported) Entered as Reported by: REJI YOUNG on 11/27/21 1359 Last Action: Reviewed Pantoprazole Sodium (Pantoprazole Sodium) 40 Mg Tablet.dr, 40 MG PO DAILY@0700 Prescribed by: STEFFANY RENNER on 11/28/21 1046 Quetiapine Fumarate (Quetiapine Fumarate) 100 Mg Tablet, 100 MG PO HS, (Reported) Entered as Reported by: REJI YOUNG on 11/27/21 1359 Last Action: Reviewed Discontinued Medications Clonazepam (Clonazepam) 1 Mg Tablet, 1 MG PO BID PRN for ANXIETY, (Reported) Discontinued Reason: Duplicate Order Entered as Reported by: KWESI STEWART on 09/28/18 1302 Last Action: Discontinued Cyclobenzaprine HCl (Cyclobenzaprine HCl) 10 Mg Tablet, 10 MG PO Q8H PRN for SPASMS Discontinued Reason: Duplicate Order Prescribed by: PAO PALMA on 06/24/202309 Last Action: Discontinued Famotidine (Pepcid) 20 Mg Tablet, 20 MG PO BID Discontinued Reason: Duplicate Order Prescribed by: CARRIE MIRANDA on 12/11/19 1439 Last Action: Discontinued Gabapentin (Gabapentin) 100 Mg Capsule, 200 MG PO HS, (Reported) Discontinued Reason: Duplicate Order Entered as Reported by: KWESI STEWART on 09/28/18 1302 Last Action: Discontinued Hydrocodone/Acetaminophen (Hydrocodone-Acetamin 5-325 mg) 1 Each Tablet, 1 TAB PO Q6H PRN for PAIN-MODERATE (5-7) Discontinued Reason: Duplicate Order Prescribed by: BOB WISEMAN on 06/07/20 0741 Last Action: Discontinued Ketorolac Tromethamine (Ketorolac Tromethamine) 10 Mg Tablet, 10 MG PO Q6H Discontinued Reason: Duplicate Order Prescribed by: PAO PALMA on 06/24/20 231 Last Action: Discontinued Levothyroxine Sodium (Levothyroxine Sodium) 112 Mcg Tablet, 112 MG PO DAILY, (Reported) Discontinued Reason: Duplicate Order Entered as Reported by: KWESI STEWART on 09/28/18 1302 Last Action: Discontinued Omeprazole (Omeprazole) 40 Mg Capsule.dr, 40 MG PO DAILY, (Reported) Discontinued Reason: Duplicate Order Entered as Reported by: BEATRIZ LA on 12/27/19 1339 Last Action: Discontinued Pantoprazole Sodium (Pantoprazole Sodium) 40 Mg Tablet.dr, 40 MG PO DAILY Discontinued Reason: Duplicate Order Prescribed by: CHEL CAREY on 11/26/192221 Last Action: Discontinued Phenazopyridine HCl (Pyridium) 100 Mg Tablet, 100 MG PO TID Discontinued Reason: Duplicate Order Prescribed by: CHEL CAREY on 01/21/212026 Last Action: Discontinued Propranolol HCl (Propranolol HCl) 10 Mg Tablet, 20 MG PO HS, (Reported) Entered as Reported by: REJI YOUNG on 11/27/21 1359 Last Action: Reviewed Quetiapine Fumarate (Quetiapine Fumarate) 200 Mg Tablet, 200 MG PO HS, (Reported) Discontinued Reason: Duplicate Order Entered as Reported by: KWESI STEWART on 05/04/19 1338 Last Action: Discontinued Spironolactone (Spironolactone) 25 Mg Tablet, 25 MG PO DAILY, (Reported) Discontinued Reason: Duplicate Order Entered as Reported by: BEATRIZ LA on 07/28/19 1508 Last Action: Discontinued Sucralfate (Sucralfate) 1 Gm Tablet, 1 GM PO ACHS Discontinued Reason: Duplicate Order Prescribed by: CHEL CAREY on 11/26/192221 Last Action: Discontinued Sulfamethoxazole/Trimethoprim (Bactrim Ds Tablet) 1 Each Tablet, 1 EACH PO BID Discontinued Reason: Duplicate Order Prescribed by: CHEL CAREY on 01/21/212026 Last Action: Discontinued Tamsulosin HCl (Flomax) 0.4 Mg Cap, 0.4 MG PO DAILY Discontinued Reason: Duplicate Order Prescribed by: PAO PALMA on 06/24/20 2310 Last Action: Discontinued Review of Systems Review of Systems Constitutional: no symptoms reported EENTM: No Symptoms Reported Respiratory: Shortness of Air Cardiovascular: Chest Pain Gastrointestinal: No Symptoms Reported Genitourinary: No Symptoms Reported Musculoskeletal: no symptoms reported Skin: no symptoms reported Psychiatric/Neurological: Other (Syncope) Endocrine: No Symptoms Reported Hematologic/Lymphatic: No Symptoms Reported Past Vaivmiq-Ikiusq-Ftimxt Hx Patient Social History Tobacco Use?: No Use of E-Cig and/or Vaping dev: No Substance use?: No Alcohol Use?: No Immunizations Up To Date Tetanus Booster (TDap): Unknown PED Vaccines UTD: No First/Initial COVID19 Vaccinat: 2020 Second COVID19 Vaccination Parker: SEPTEMBER 2020 Seasonal Allergies Seasonal Allergies: No Past Medical History Surgeries: Yes (gastric bypass, carpal tunel, bilat shoulder, BILAT TKR) Abdominal, Gallbladder, Hysterectomy, Orthopedic, Thyroidectomy, 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 Respiratory: No Cardiac: No Neurological: No Reproductive Disorders: No BAND TUMBLER History: Hysterectomy, Menopausal Sexually Transmitted Disease: No HIV/AIDS: No Genitourinary: Yes Kidney Stones Gastrointestinal: Yes (GASTRITIS) Gastroesophageal Reflux, Chronic Constipation, Diverticulosis, Hemorrhoids, Polyps Musculoskeletal: Yes (MULTIPLE ORTHOPEDIC SURGERIES) Arthritis Endocrine: Yes Hypothyroidsim HEENT: Yes (GLASSES, DENTURES) Double Vision Loss of Vision: Denies Hearing Impairment: Denies Cancer: Yes (BASAL CELL ON NOSE) Skin Did You Recieve Any Treatments: Yes What Type of Treatment Did You: Surgical Intervention Psychosocial: Yes Sleep Difficulties, Anxiety, Depression Integumentary: No Blood Disorders: No Adverse Reaction/Blood Tranf: Yes (N/A) Family Medical History Reviewed Nursing Family Hx No Pertinent Family Hx PAST SURGICAL HISTORY: -BILATERAL TUBAL LIGATION -BILATERAL TOTAL KNEE REPLACEMENTS -CARPAL TUNNEL SURGERY -LAPAROSCOPIC CHOLECYSTECTOMY -HYSTERECTOMY -THROIDECTOMY -MJ-EN-Y GASTRIC BYPASS IN 2011 OR 2012 -EGD 12/2019--GASTRITIS -COLONOSCOPY 11/2019--POLYPS, DIVERTICULAR DISEASE, INTERNAL HEMORRHOIDS Physical Exam Vital Signs Vital Signs - First Documented 11/26/21 12:50 Temp 36.9 Pulse 66 Resp 18 B/P (MAP) 159/84 (109) Pulse Ox 100 Capillary Refill : Height, Weight, BMI Height: 5'6.00" Weight: 196lbs. 9.6oz. 89.380362xl; 31.00 BMI Method:Stated General Appearance: No Apparent Distress, WD/WN HEENT: PERRL/EOMI, TMs Normal, Normal ENT Inspection, Pharynx Normal Neck: Full Range of Motion, Normal Inspection, Non Tender, Supple Respiratory: Chest Non Tender, Lungs Clear, Normal Breath Sounds, No Accessory Muscle Use, No Respiratory Distress Cardiovascular: Regular Rate, Rhythm, No Edema, No Gallop, No JVD, No Murmur, Normal Peripheral Pulses Gastrointestinal: Normal Bowel Sounds, No Organomegaly, No Pulsatile Mass, Non Tender, Soft Extremity: Normal Capillary Refill, Normal Inspection, Normal Range of Motion, Non Tender, No Calf Tenderness Skin: Normal Color, Warm/Dry Critical Care Note Critical Care Start Time: 13:40 Stop Time: 14:20 Progress/Results/Core Measures Results/Orders Lab Results Laboratory Tests Test 11/26/21 12:55 Range/Units White Blood Count 5.6 4.3-11.0 10^3/uL Red Blood Count 3.73 L 3.80-5.11 10^6/uL Hemoglobin 12.8 11.5-16.0 g/dL Hematocrit 39 35-52 % Mean Corpuscular Volume 104 H 80-99 fL Mean Corpuscular Hemoglobin 34 25-34 pg Mean Corpuscular Hemoglobin Concent 33 32-36 g/dL Red Cell Distribution Width 13.3 10.0-14.5 % Platelet Count 391 130-400 10^3/uL Mean Platelet Volume 9.8 9.0-12.2 fL Immature Granulocyte % (Auto) 0 % Neutrophils (%) (Auto) 52 42-75 % Lymphocytes (%) (Auto) 33 12-44 % Monocytes (%) (Auto) 7 0-12 % Eosinophils (%) (Auto) 6 0-10 % Basophils (%) (Auto) 1 0-10 % Neutrophils # (Auto) 2.9 1.8-7.8 10^3/uL Lymphocytes # (Auto) 1.9 1.0-4.0 10^3/uL Monocytes # (Auto) 0.4 0.0-1.0 10^3/uL Eosinophils # (Auto) 0.4 H 0.0-0.3 10^3/uL Basophils # (Auto) 0.1 0.0-0.1 10^3/uL Immature Granulocyte # (Auto) 0.0 0.0-0.1 10^3/uL Prothrombin Time 12.5 12.2-14.7 SEC INR Comment 0.9 0.8-1.4 Sodium Level 142 135-145 MMOL/L Potassium Level 4.1 3.6-5.0 MMOL/L Chloride Level 108 H 98-107 MMOL/L Carbon Dioxide Level 23 21-32 MMOL/L Anion Gap 11 5-14 MMOL/L Blood Urea Nitrogen 14 7-18 MG/DL Creatinine 1.07 0.60-1.30 MG/DL Estimat Glomerular Filtration Rate 58 BUN/Creatinine Ratio 13 Glucose Level 64 L 70-105 MG/DL Calcium Level 8.7 8.5-10.1 MG/DL Corrected Calcium 8.9 8.5-10.1 MG/DL Magnesium Level 2.1 1.6-2.4 MG/DL Total Bilirubin 0.5 0.1-1.0 MG/DL Aspartate Amino Transf (AST/SGOT) 16 5-34 U/L Alanine Aminotransferase (ALT/SGPT) 14 0-55 U/L Alkaline Phosphatase 127 40-136 U/L Troponin I 0.030 H <0.028 NG/ML Total Protein 6.8 6.4-8.2 GM/DL Albumin 3.8 3.2-4.5 GM/DL My Orders Orders - ODELLFIOR PETERSEN DO Ekg Tracing (11/26/21 12:52) Cbc With Automated Diff (11/26/21 13:01) Magnesium (11/26/21 13:01) Chest 1 View, Ap/Pa Only (11/26/21 13:01) Comprehensive Metabolic Panel (11/26/21 13:01) Protime With Inr (11/26/21 13:01) Monitor-Rhythm Ecg Trace Only (11/26/21 13:01) Lipid Panel (11/27/21 06:00) Ed Iv/Invasive Line Start (11/26/21 13:01) Troponin I [place] (11/26/21 13:01) Nitroglycerin 0.4 Mg Btl 25's (Nitrostat (11/26/21 13:15) Aspirin Chewable Tablet (Baby Aspirin Ch (11/26/21 13:15) Ct Angio Chest W (11/26/21 13:20) Iohexol Injection (Omnipaque 350 Mg/Ml 1 (11/26/21 13:30) Received Contrast (Hold Metformin- Contr (11/26/21 13:30) Ns (Ivpb) (Sodium Chloride 0.9% Ivpb Bag (11/26/21 13:30) Enoxaparin Injection (Lovenox Injection) (11/26/21 14:15) Ed Admission (Communication) (11/26/21 14:16) Medications Given in ED Vital Signs/I&O 11/26/21 12:50 Temp 36.9 Pulse 66 Resp 18 B/P (MAP) 159/84 (109) Pulse Ox 100 EKG : Comment Sinus rhythm with a rate of 64 bpm. Normal intervals. Normal axis. No ST or T wave abnormalities. No ectopy. No STEMI. Departure Communication (Admissions) Time/Spoke to Admitting Phy: 14:[address] Renner who accepts admission. She states she will put in acute orders. Time/Spoke to Consulting Phy: 14:[address] Goodwin. Reuqests orthostatic BP. If OK wants toprol XL 25 daily. Start therapeutic lovenox now. Also wants protonix 40mg IV once now. States she may eat. Patient is hemodynamically stable. She has continued chest pain down from an 8 out of 10 down to a 2 out of 3:10 nitroglycerin. She does endorse a headache currently from the nitroglycerin. CTA is negative for any evidence of pulmonary embolus. EKG is nonischemic. Troponin is 0.03 elevated. I spoke with Dr. Mcknight about her continued chest pain and he requests fentanyl/morphine for pain, Toprol-XL if orthostatic vital signs are normal and Protonix 40 mg IV x1 now. Spoke with Dr. Rubio who graciously excepted the patient in admission at this time. Impression Primary Impression: Chest pain Qualified Codes: R07.9 - Chest pain, unspecified Additional Impression: Syncope Qualified Codes: R55 - Syncope and collapse Disposition: ADMITTED INPATIENT Condition: Stable Admissions Decision to Admit Reason: Admit from ER (General) Decision to Admit/Date: Nov 26, 2021 Time/Decision to Admit Time: 14:00 Departure-Patient Inst. Referrals: [facility] (PCP/Family) Primary Care Physician Scripts Pantoprazole Sodium (Pantoprazole Sodium) 40 Mg Tablet. 40 MG PO DAILY@0700, #30 TAB Prov: STEFFANY RENNER DO 11/28/21 FIOR BAIN DO Nov 26, 2021 13:05
[2021-11-26 13:13] LABS: BASOPHILS # (AUTO) 0.1 10^3/uL (0.0-0.1); BASOPHILS % (AUTO) 1 % (0-10); EOSINOPHILS # (AUTO) 0.4 10^3/uL (0.0-0.3); EOSINOPHILS % (AUTO) 6 % (0-10); HEMATOCRIT 39 % (35-52); HEMOGLOBIN 12.8 g/dL (11.5-16.0); LYMPHOCYTES # (AUTO) 1.9 10^3/uL (1.0-4.0); LYMPHOCYTES % (AUTO) 33 % (12-44); MEAN CORPUSCULAR HEMOGLOBIN 34 pg (25-34); MEAN CORPUSCULAR HGB CONC 33 g/dL (32-36); MEAN CORPUSCULAR VOLUME 104 fL (80-99); MEAN PLATELET VOLUME 9.8 fL (9.0-12.2); MONOCYTES # (AUTO) 0.4 10^3/uL (0.0-1.0); MONOCYTES % (AUTO) 7 % (0-12); NEUTROPHILS # (AUTO) 2.9 10^3/uL (1.8-7.8); NEUTROPHILS % (AUTO) 52 % (42-75); PLATELET COUNT 391 10^3/uL (130-400); WHITE BLOOD COUNT 5.6 10^3/uL (4.3-11.0)
[2021-11-26] MEDS ORDERED: ASPIRIN 81 MG CHEW (CHILDREN'S ASA) PO ONE (13:15)
[2021-11-26] MEDS ORDERED: NITROGLYCERIN 0.4 MG SL TABS BTL 25'S SL PRN ×2 (13:15→15:45)
[2021-11-26 13:16] LABS: ALBUMIN 3.8 GM/DL (3.2-4.5); POTASSIUM 4.1 MMOL/L (3.6-5.0)
[2021-11-26 13:17] LABS: CALCIUM 8.7 MG/DL (8.5-10.1); INR 0.9 (0.8-1.4); PROTHROMBIN TIME PATIENT 12.5 SEC (12.2-14.7)
[2021-11-26 13:18] LABS: TOTAL PROTEIN 6.8 GM/DL (6.4-8.2)
[2021-11-26 13:20] LABS: BILIRUBIN,TOTAL 0.5 MG/DL (0.1-1.0)
[2021-11-26 13:22] LABS: CREATININE SERUM 1.07 MG/DL (0.60-1.30)
[2021-11-26 13:25] LABS: MAGNESIUM 2.1 MG/DL (1.6-2.4)
--- NOTE | 2021-11-26 13:25 | Diagnostic Imaging Report ---
INDICATION: Chest and left arm pain, syncopal episode. EXAMINATION: Chest 11/26/2021 COMPARISON: 07/11/2021. FINDINGS: The cardiomediastinal silhouette is unremarkable. The pulmonary vasculature is within normal limits. The lungs and pleural spaces are clear. IMPRESSION: No evidence of an acute cardiopulmonary process. Dictated by: Dictated on workstation # [id number]
[2021-11-26] MEDS ORDERED: HOLD METFORMIN - RECEIVED CONTRAST 20 ML VIAL IV SCH (13:30)
[2021-11-26] MEDS ORDERED: NS 100 ML (IVPB) BAG IV ONE (13:30)
[2021-11-26] MEDS ORDERED: IOHEXOL 350 MG/ML 100 ML (OMNIPAQUE 350) VIAL IV ONE (13:30)
--- NOTE | 2021-11-26 14:08 | Diagnostic Imaging Report ---
PROCEDURE: CT angiography of the chest with contrast. TECHNIQUE: Multiple contiguous axial images were obtained through the chest after uneventful bolus administration of intravenous contrast. 3D reconstructed CTA MIP acquisitions were also performed. Auto Exposure Controls were utilized during the CT exam to meet ALARA standards for radiation dose reduction. INDICATION: Chest pain syncope CTA of the chest from 11/26/2021. FINDINGS: There are no central or proximal segmental pulmonary emboli. Atherosclerotic disease noted within the aorta. There are no pericardial or pleural effusions. No mediastinal or hilar adenopathy. Scattered patchy atelectasis noted throughout the lungs. No pneumothorax. Visualized upper abdomen demonstrates postoperative changes about the stomach. There is previous cholecystectomy change. There is no acute osseous abnormality. IMPRESSION: 1. No central or proximal segmental pulmonary embolus. Incidental findings otherwise noted. Dictated by: Dictated on workstation # [id number]
[2021-11-26] MEDS ORDERED: ENOXAPARIN 100 MG/1 ML (LOVENOX) SYR SC SCH (14:15)
[2021-11-26] MEDS ORDERED: CALCIUM CARBONATE 500 MG (TUMS) TAB.CHEW PO PRN (15:45)
[2021-11-26] MEDS ORDERED: LORazepam 0.5 MG (ATIVAN) TABLET PO PRN (15:45)
[2021-11-26] MEDS ORDERED: diphenhydrAMINE 50 MG/ML INJ (BENADRYL) IVP PRN (15:45)
[2021-11-26] MEDS ORDERED: ONDANSETRON 4 MG (ZOFRAN) ORAL DISSOLVE TAB PO PRN (15:45)
[2021-11-26] MEDS ORDERED: diphenhydrAMINE 25 MG TAB (BENADRYL) PO PRN (15:45)
[2021-11-26] MEDS ORDERED: MELATONIN 3 MG TABLET PO PRN (15:45)
[2021-11-26] MEDS ORDERED: polyethylene glycoL POWDER 17 GM (MIRALAX) PACK PO PRN (15:45)
[2021-11-26] MEDS ORDERED: LACTULOSE SYRUP 10GM/15ML (ENULOSE) 30ML UDC PO PRN (15:45)
[2021-11-26] MEDS ORDERED: cloNIDine 0.1 MG (CATAPRES) TAB PO PRN (15:45)
[2021-11-26] MEDS ORDERED: HYDROmorphone 2 MG/ML VIAL (DILAUDID) IV PRN (15:45)
[2021-11-26] MEDS ORDERED: MILK OF MAGNESIA 400 MG/5 ML 30 ML UDC PO PRN (15:45)
[2021-11-26] MEDS ORDERED: ACETAMINOPHEN 325 MG TABLET PO PRN (15:45)
[2021-11-26] MEDS ORDERED: ANTACID SUSP 30 ML UDC (MYLANTA) PO PRN (15:45)
[2021-11-26] MEDS ORDERED: BISACODYL 10 MG SUPP (DULCOLAX) PR PRN (15:45)
[2021-11-26] MEDS ORDERED: ONDANSETRON 4 MG/2 ML (SDV) Z0FRAN IV PRN (15:45)
[2021-11-26 16:00] VITALS: BP 152/74
[2021-11-26 16:24] VITALS: BP 152/74
[2021-11-26] MEDS ORDERED: RT-ALBUTEROL SULF 2.5 MG/3 ML PRE-MIX VIAL INH PRN (16:30)
--- NOTE | 2021-11-26 17:09 | Consultation-Cardiology ---
HPI-Cardiology Cardiology Consultation: Date of Consultation 11/26/21 Time Seen by a Provider: 16:30 Date of Admission Attending Physician [place] Admitting Physician Admitting Physician: Nickie Dye DO Attending Physician: Nickie Dye DO Consulting Physician ZHOU RESENDEZ MD, MA, FACP, FACC, FSCAI, CCDS HPI: Chief Complaint: Syncope, chest discomfort 66 yo woman who has a longstanding h/o postural dizziness, but had syncope with standing up in her living room today. Says she fell to the carpeted floor and was out briefly but is unable to state how long. Went to ER and was evaluated for any injuries by the ER physician and admitted to the Hosp for further eval. She reports a h/o chest discomfort for the last 3-4 month, nearly daily, lower midsternal, mild to mod, pressure-like, lasting minutes to hours, unrelated to exertion, nonradiating except a feeling of tingling in the L shoulder on one occasion, not associated with other symptoms. Report chronic, intermittent swelling of the L ankle (years). Denies n/v/d. Denies fever or chills Review of Systems-Cardiology Review of Systems Constitutional: As described under HPI Eyes: No vision change Ears/Nose/Throat: No ear discharge, No nasal drainage, No recent hearing loss Respiratory: As described under HPI Cardiovascular: As described under HPI Gastrointestinal: As described under HPI Genitourinary: No dysuria, No hematuria, No urine frequency changes Musculoskeletal: No back pain, No joint pain Skin: No rash, No ulcerations Psychiatric/Neurological: No seizure, No focal weakness, No syncope Hematologic: No bleeding abnormalities [id number]-Kwwoci Hx Patient Social History 2nd Hand Smoke Exposure: No Have you traveled recently?: No Alcohol Use?: No Pt feels they are or have been: No Immunizations Up To Date Tetanus Booster (TDap): Unknown Date of Pneumonia Vaccine: Dec 22, 2013 Date of Influenza Vaccine: Nov 24, 2019 Past Medical History PMH As described under Assessment. Family Medical History Family Medical History: No fam h/o early CAD or SCD reported Allergies and Home Medications Allergies Coded Allergies: cephalexin (Verified Allergy, Severe, HIVES/LIPS SWELLING, 05/04/19) morphine (Verified Allergy, Severe, DIFFICULTY BREATHING/HIVES, 05/04/19) triamcinolone (Verified Allergy, Intermediate, HIVES/RASH, 05/04/19) Patient Home Medication List Home Medication List Reviewed: Yes Clonazepam (Clonazepam) 1 Mg Tablet, 1 MG PO BID PRN for ANXIETY, (Reported) Entered as Reported by: KWESI STEWART on 09/28/18 1302 Cyclobenzaprine HCl (Cyclobenzaprine HCl) 10 Mg Tablet, 10 MG PO Q8H PRN for SPASMS Prescribed by: PAO PALMA on 06/24/20 2310 Duloxetine HCl (Duloxetine HCl) 60 Mg Capsule., 60 MG PO DAILY, (Reported) Entered as Reported by: KWESI STEWART on 09/28/18 1302 Famotidine (Pepcid) 20 Mg Tablet, 20 MG PO BID Prescribed by: CARRIE MIRANDA on 12/11/19 1439 Gabapentin (Gabapentin) 100 Mg Capsule, 200 MG PO HS, (Reported) Entered as Reported by: KWESI STEWART on 09/28/18 1302 Hydrocodone/Acetaminophen (Hydrocodone-Acetamin 5-325 mg) 1 Each Tablet, 1 TAB PO Q6H PRN for PAIN-MODERATE (5-7) Prescribed by: BOB WISEMAN on 06/07/20 0741 Ketorolac Tromethamine (Ketorolac Tromethamine) 10 Mg Tablet, 10 MG PO Q6H Prescribed by: PAO PALMA on 06/24/20 2310 Levothyroxine Sodium (Levothyroxine Sodium) 112 Mcg Tablet, 112 MG PO DAILY, (Reported) Entered as Reported by: KWESI STEWART on 09/28/18 1302 Omeprazole (Omeprazole) 40 Mg Capsule., 40 MG PO DAILY, (Reported) Entered as Reported by: BEATRIZ LA on 12/27/19 1339 Pantoprazole Sodium (Pantoprazole Sodium) 40 Mg Tablet., 40 MG PO DAILY Prescribed by: CHEL CAREY on 11/26/19 222 Phenazopyridine HCl (Pyridium) 100 Mg Tablet, 100 MG PO TID Prescribed by: CHEL CAREY on 01/21/212026 Quetiapine Fumarate (Quetiapine Fumarate) 200 Mg Tablet, 200 MG PO HS, (Reported) Entered as Reported by: KWESI STEWART on 05/04/19 1338 Spironolactone (Spironolactone) 25 Mg Tablet, 25 MG PO DAILY, (Reported) Entered as Reported by: BEATRIZ LA on 07/28/19 1508 Sucralfate (Sucralfate) 1 Gm Tablet, 1 GM PO ACHS Prescribed by: CHEL CAREY on 11/26/192221 Sulfamethoxazole/Trimethoprim (Bactrim Ds Tablet) 1 Each Tablet, 1 EACH PO BID Prescribed by: CHEL CAREY on 01/21/212026 Tamsulosin HCl (Flomax) 0.4 Mg Cap, 0.4 MG PO DAILY Prescribed by: PAO PALMA on 06/24/20 2310 Physical Exam-Cardiology Physical Exam Vital Signs/I&O 11/26/21 11/26/21 11/26/21 11/26/21 12:50 15:15 15:45 15:53 Temp 36.9 Pulse 66 66 49 Resp 18 18 B/P (MAP) 159/84 (109) 150/80 Pulse Ox 100 100 98 O2 Delivery Room Air 11/26/21 11/26/21 16:00 16:24 Temp 36.9 Pulse 51 51 Resp 7 B/P (MAP) 152/74 (100) Pulse Ox 95 95 Capillary Refill : Less Than 3 Seconds Constitutional: AAO x 3, well-developed, well-nourished HEENT: hearing is well preserved; No xanthelasmas are seen Neck: carotid pulses are 2 + bilaterally, with good upstrokes Respiratory: No accessory muscle use; other (good, bilat air entry) Cardiovascular: regular rate-rhythm, S1 and S2, systolic murmur (soft LEEANNE at card basee) Gastrointestinal: No tender; soft; No guarding, No rebound; audible bowel sounds Extremities: No clubbing, No cyanosis, No significant edema Neurologic/Psychiatric: oriented x 3, other (moves all limbs equally) Skin: No rash on exposed areas, No ulcerations on exposed areas Data Review Labs Laboratory Tests 11/26/21 12:55: White Blood Count 5.6, Red Blood Count 3.73L, Hemoglobin 12.8, Hematocrit 39, Mean Corpuscular Volume 104H, Mean Corpuscular Hemoglobin 34, Mean Corpuscular Hemoglobin Concent 33, Red Cell Distribution Width 13.3, Platelet Count 391, Mean Platelet Volume 9.8, Immature Granulocyte % (Auto) 0, Neutrophils (%) (Auto) 52, Lymphocytes (%) (Auto) 33, Monocytes (%) (Auto) 7, Eosinophils (%) (Auto) 6, Basophils (%) (Auto) 1, Neutrophils # (Auto) 2.9, Lymphocytes # (Auto) 1.9, Monocytes # (Auto) 0.4, Eosinophils # (Auto) 0.4H, Basophils # (Auto) 0.1, Immature Granulocyte # (Auto) 0.0, Prothrombin Time 12.5, INR Comment 0.9, Sodium Level 142, Potassium Level 4.1, Chloride Level 108H, Carbon Dioxide Level 23, Anion Gap 11, Blood Urea Nitrogen 14, Creatinine 1.07, Estimat Glomerular Filtration Rate 58, BUN/Creatinine Ratio 13, Glucose Level 64L, Calcium Level 8.7, Corrected Calcium 8.9, Magnesium Level 2.1, Total Bilirubin 0.5, Aspartate Amino Transf (AST/SGOT) 16, Alanine Aminotransferase (ALT/SGPT) 14, Alkaline Phosphatase 127, Troponin I 0.030H, Total Protein 6.8, Albumin 3.8 Laboratory Tests 11/26/21 12:55 A/P-Cardiology Assessment/Admission Diagnosis Chest discomfort - probable ACS Syncope of undetermined etiology - consider ischemic arrhythmia Hypothyroidism treated with thyroid replacement therapy Hypertension Anxiety/depression Discussion and Recomendations * DAPT * Enoxaparin * BB, if tolerated * Tele * Serial enz * Card cath recommended. Rationale, procedure, risks, benefits, potential complications, alternatives of cath and possible ad hoc cor intervention reviewed. She understands and provides informed consent. Planned for tomorrow Clinical Quality Measures AMI/AHF: ASA po Prior to arrival: ZHOU Reyes [facility] CCDS Nov 26, 2021 17:09
[2021-11-26] MEDS ORDERED: PANTOPRAZOLE 40 MG (PROTONIX) TAB PO ONE ×2 (17:30→21:00)
[2021-11-26] MEDS ORDERED: CLOPIDOGREL 75 MG (PLAVIX) TABLET PO ONE ×2 (17:30→21:00)
[2021-11-26 19:26] VITALS: BP 149/85
[2021-11-26] MEDS: SENNOSIDES 8.6 MG (SENOKOT) TAB PO SCH (21:48)
[2021-11-26] MEDS: DOCUSATE SODIUM 100 MG (COLACE) CAP PO SCH (21:48)
[2021-11-27] VITALS (16 sets, daily range): BP systolic 113–147; BP diastolic 71–86
[2021-11-27] MEDS ORDERED: ENOXAPARIN 100 MG/1 ML (LOVENOX) SYR SC SCH (04:00)
[2021-11-27 05:53] LABS: BASOPHILS # (AUTO) 0.1 10^3/uL (0.0-0.1); BASOPHILS % (AUTO) 1 % (0-10); EOSINOPHILS # (AUTO) 0.4 10^3/uL (0.0-0.3); EOSINOPHILS % (AUTO) 6 % (0-10); HEMATOCRIT 37 % (35-52); HEMOGLOBIN 12.2 g/dL (11.5-16.0); LYMPHOCYTES # (AUTO) 2.7 10^3/uL (1.0-4.0); LYMPHOCYTES % (AUTO) 41 % (12-44); MEAN CORPUSCULAR HEMOGLOBIN 34 pg (25-34); MEAN CORPUSCULAR HGB CONC 33 g/dL (32-36); MEAN CORPUSCULAR VOLUME 102 fL (80-99); MONOCYTES # (AUTO) 0.5 10^3/uL (0.0-1.0); MONOCYTES % (AUTO) 7 % (0-12); NEUTROPHILS % (AUTO) 45 % (42-75); PLATELET COUNT 344 10^3/uL (130-400); WHITE BLOOD COUNT 6.6 10^3/uL (4.3-11.0)
[2021-11-27] MEDS: PANTOPRAZOLE 40 MG (PROTONIX) TAB PO SCH (06:06)
[2021-11-27 06:07] LABS: ALBUMIN 3.3 GM/DL (3.2-4.5); CHLORIDE 108 MMOL/L (98-107); SODIUM 143 MMOL/L (135-145)
[2021-11-27 06:08] LABS: CALCIUM 8.6 MG/DL (8.5-10.1)
[2021-11-27 06:09] LABS: GLUCOSE 80 MG/DL (70-105)
[2021-11-27 06:11] LABS: BILIRUBIN,TOTAL 0.6 MG/DL (0.1-1.0); CARBON DIOXIDE 23 MMOL/L (21-32); TRIGLYCERIDES 81 MG/DL (<150); VLDL CHOLESTEROL 16 MG/DL (5-40)
[2021-11-27 06:13] LABS: ALKALINE PHOSPHATASE 108 U/L (40-136); GFR ESTIMATED 63
[2021-11-27 06:14] LABS: BUN/CREATININE RATIO 13
[2021-11-27 06:16] LABS: ALANINE AMINOTRANSFERASE 8 U/L (0-55); CHOLESTEROL 181 MG/DL (< 200)
[2021-11-27 06:17] LABS: HDL CHOLESTEROL 55 MG/DL (40-60)
--- NOTE | 2021-11-27 06:59 | Short Stay Summary-Hospitalist ---
History of Present Illness HPI/Chief Complaint CC: Chest pain r/o ACS HPI: This is a 66yoWF clinic patient of [facility] who has no h/o CAD who presents to the [facility] with complaints of CP. All troponins were negative all evening and this am. She had a syncopal episode after chest pain and that is what brought her in. Dr Goodwin will plan on performing a cardiac cath today. Source: patient Exam Limitations: no limitations Date Seen 11/27/21 Time Seen by a Provider: 09:00 Attending Physician [place] PCP Admitting Physician: Nickie Dye DO Attending Physician: Nickie Dye DO Referring Physician Date of Admission Nov 26, 2021 at 14:16 Home Medications & Allergies Home Medications Reviewed patient Home Medication Reconciliation performed by pharmacy medication reconciliations solar panel technician and/or nursing. Patients Allergies have been reviewed. Allergies Allergies Coded Allergies cephalexin (Verified Allergy, Severe, HIVES/LIPS SWELLING, 05/04/19) morphine (Verified Allergy, Severe, DIFFICULTY BREATHING/HIVES, 05/04/19) triamcinolone (Verified Allergy, Intermediate, HIVES/RASH, 05/04/19) Past [id number]-Piytip Hx Patient Social History Marrital Status: single Employed/Student: unemployed Tobacco Use?: No Smoking Status: Former Smoker Use of E-Cig and/or Vaping dev: No Substance use?: No Alcohol Use?: No Pt feels they are or have been: No Immunizations Up To Date Date of Influenza Vaccine: Nov 24, 2019 First/Initial COVID19 Vaccinat: 2020 Second COVID19 Vaccination [place]: SEPTEMBER 2020 Tetanus Booster (TDap): Unknown PED Vaccines UTD: No Date of Pneumonia Vaccine: Dec 22, 2013 Seasonal Allergies Seasonal Allergies: No Current Status Advance Directives: No Communicates: Verbally Primary Language: South Korean Preferred Spoken Language: South Korean Is interpretation needed?: No Sensory deficits: Vision impairment Implanted or Applied Medical D: None Past Medical History Surgeries: Abdominal, Gallbladder, Hysterectomy, Orthopedic, Thyroidectomy, 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, 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 Sexually Transmitted Disease: No HIV/AIDS: No Kidney Stones Gastroesophageal Reflux, Chronic Constipation, Diverticulosis, Hemorrhoids, Polyps Arthritis Hypothyroidsim Double Vision Loss of Vision: Denies Hearing Impairment: Denies Skin Did You Recieve Any Treatments: Yes What Type of Treatment Did You: Surgical Intervention Sleep Difficulties, Anxiety, Depression Blood Disorders: No Adverse Reaction/Blood Tranf: Yes (N/A) Family Medical History Reviewed Nursing Family Hx No Pertinent Family Hx PAST SURGICAL HISTORY: -BILATERAL TUBAL LIGATION -BILATERAL TOTAL KNEE REPLACEMENTS -CARPAL TUNNEL SURGERY -LAPAROSCOPIC CHOLECYSTECTOMY -HYSTERECTOMY -THROIDECTOMY -MJ-EN-Y GASTRIC BYPASS IN 2011 OR 2012 -EGD 12/2019--GASTRITIS -COLONOSCOPY 11/2019--POLYPS, DIVERTICULAR DISEASE, INTERNAL HEMORRHOIDS Review of Systems Constitutional: see HPI EENTM: no symptoms reported Respiratory: no symptoms reported Cardiovascular: chest pain Gastrointestinal: no symptoms reported Musculoskeletal: no symptoms reported Skin: no symptoms reported Psychiatric/Neurological: No Symptoms Reported All Other Systems Reviewed Negative Unless Noted: Yes Physical Exam Physical Exam Vital Signs Vital Signs - First Documented 11/26/21 11/26/21 12:50 15:45 Temp 36.9 Pulse 66 Resp 18 B/P (MAP) 159/84 (109) Pulse Ox 100 O2 Delivery Room Air Capillary Refill : Less Than 3 Seconds Height, Weight, BMI Height: 5'6.00" Weight: 196lbs. 9.6oz. 89.922253br; 32.62 BMI Method:Stated General Appearance: No Apparent Distress, WD/WN HEENT: PERRL/EOMI, TMs Normal, Normal ENT Inspection, Pharynx Normal Neck: Full Range of Motion, Normal Inspection, Non Tender, Supple Respiratory: Chest Non Tender, Lungs Clear, Normal Breath Sounds, No Accessory Muscle Use, No Respiratory Distress Cardiovascular: Regular Rate, Rhythm, No Edema, No Gallop, No JVD, No Murmur, Normal Peripheral Pulses Gastrointestinal: Normal Bowel Sounds, No Organomegaly, No Pulsatile Mass, Non Tender, Soft Extremity: Normal Capillary Refill, Normal Inspection, Normal Range of Motion, Non Tender, No Calf Tenderness Skin: Normal Color, Warm/Dry Results Results/Procedures Labs Laboratory Tests 11/26/21 12:55 11/27/21 05:10 Patient resulted labs reviewed. Short Stay Diagnosis Discharge Diagnosis-Short Stay Admission Diagnosis Chest pain r/o ACS Final Discharge Diagnosis Chest pain r/o ACS Conclusion Plan Cath today Diagnosis/Problems Diagnosis/Problems (1) Pleuritic chest pain Status: Acute Clinical Quality Measures AMI/AHF: ASA po Prior to arrival: NICKIE Luan DO Nov 27, 2021 06:59
[2021-11-27] MEDS: ASPIRIN 81 MG CHEW (CHILDREN'S ASA) PO SCH (08:07)
[2021-11-27] MEDS ORDERED: LIDOCAINE 1% INJ 20 ML VIAL ONE (08:14)
[2021-11-27] MEDS ORDERED: HEParin (CATH LAB) 1,000 ML IV ONE (08:14)
[2021-11-27] MEDS: SENNOSIDES 8.6 MG (SENOKOT) TAB PO SCH ×2 (08:22→20:31)
[2021-11-27] MEDS: DOCUSATE SODIUM 100 MG (COLACE) CAP PO SCH ×2 (08:23→20:31)
[2021-11-27] MEDS ORDERED: NICOTINE PATCH REMOVAL TP SCH (08:59)
[2021-11-27] MEDS ORDERED: NICOTINE 21 MG (NICODERM) PATCH TD SCH (09:00)
[2021-11-27] MEDS ORDERED: CLOPIDOGREL 75 MG (PLAVIX) TABLET PO SCH (09:00)
[2021-11-27] MEDS ORDERED: MIDAZOLAM 5 MG/5 ML (VERSED) VIAL ONE ×2 (10:26→12:14)
[2021-11-27] MEDS ORDERED: fentaNYL INJ 100 MCG/2 ML AMP ONE ×2 (10:26→12:14)
[2021-11-27] MEDS ORDERED: NS IV 1000 ML 1,000 ML ONE (10:42)
[2021-11-27] MEDS ORDERED: diphenhydrAMINE 50 MG/ML INJ (BENADRYL) ONE (10:56)
[2021-11-27] MEDS ORDERED: HEParin 1000 UNIT/ML (10ML VIAL) FOR BOLUS ONE (11:31)
--- NOTE | 2021-11-27 11:51 | Progress Note - Cardiology ---
Cardiology SOAP Progress Note Subjective: No cp or palp or shortness of breath No recurrence of syncope since adm No n/v/d No focal weakness Objective: I&O/Vital Signs 11/27/21 11/27/21 11/27/21 11/27/21 00:00 00:00 00:00 01:00 Temp 36.7 Pulse 55 59 Resp 23 B/P (MAP) 147/76 (99) Pulse Ox 94 98 O2 Delivery Room Air Room Air 11/27/21 11/27/21 11/27/21 11/27/21 03:21 03:22 07:00 07:42 Temp 36.5 37.0 Pulse 64 61 Resp 16 B/P (MAP) 145/83 (103) Pulse Ox 98 93 O2 Delivery Room Air Room Air Room Air 11/27/21 07:45 Pulse Ox 97 O2 Delivery Room Air 11/27/21 00:00 Intake Total 336 ml Balance 336 ml Weight (Pounds): 196 Weight (Ounces): 9.6 Weight (Calculated Kilograms): 89.692561 Constitutional: AAO x 3, well-developed, well-nourished Respiratory: No accessory muscle use; other (good, bilat air entry) Cardiovascular: regular rate-rhythm, S1 and S2, systolic murmur (soft LEEANNE at card basee) Gastrointestional: No tender; soft; No guarding, No rebound; audible bowel sounds Extremities: No clubbing, No cyanosis, No significant edema Neurologic/Psychiatric: oriented x 3, other (moves all limbs equally) Skin: No rash on exposed areas, No ulcerations on exposed areas Results/Procedures: Labs Laboratory Tests 11/26/21 12:55: White Blood Count 5.6, Red Blood Count 3.73L, Hemoglobin 12.8, Hematocrit 39, Mean Corpuscular Volume 104H, Mean Corpuscular Hemoglobin 34, Mean Corpuscular Hemoglobin Concent 33, Red Cell Distribution Width 13.3, Platelet Count 391, Mean Platelet Volume 9.8, Immature Granulocyte % (Auto) 0, Neutrophils (%) (Auto) 52, Lymphocytes (%) (Auto) 33, Monocytes (%) (Auto) 7, Eosinophils (%) (Auto) 6, Basophils (%) (Auto) 1, Neutrophils # (Auto) 2.9, Lymphocytes # (Auto) 1.9, Monocytes # (Auto) 0.4, Eosinophils # (Auto) 0.4H, Basophils # (Auto) 0.1, Immature Granulocyte # (Auto) 0.0, Prothrombin Time 12.5, INR Comment 0.9, Sodium Level 142, Potassium Level 4.1, Chloride Level 108H, Carbon Dioxide Level 23, Anion Gap 11, Blood Urea Nitrogen 14, Creatinine 1.07, Estimat Glomerular Filtration Rate 58, BUN/Creatinine Ratio 13, Glucose Level 64L, Calcium Level 8.7, Corrected Calcium 8.9, Magnesium Level 2.1, Total Bilirubin 0.5, Aspartate Amino Transf (AST/SGOT) 16, Alanine Aminotransferase (ALT/SGPT) 14, Alkaline Phosphatase 127, Troponin I 0.030H, Total Protein 6.8, Albumin 3.8 11/26/21 23:48: Troponin I < 0.028 11/27/21 05:10: White Blood Count 6.6, Red Blood Count 3.59L, Hemoglobin 12.2, Hematocrit 37, Mean Corpuscular Volume 102H, Mean Corpuscular Hemoglobin 34, Mean Corpuscular Hemoglobin Concent 33, Red Cell Distribution Width 13.2, Platelet Count 344, Mean Platelet Volume 10.0, Immature Granulocyte % (Auto) 0, Neutrophils (%) (Auto) 45, Lymphocytes (%) (Auto) 41, Monocytes (%) (Auto) 7, Eosinophils (%) (Auto) 6, Basophils (%) (Auto) 1, Neutrophils # (Auto) 3.0, Lymphocytes # (Auto) 2.7, Monocytes # (Auto) 0.5, Eosinophils # (Auto) 0.4H, Basophils # (Auto) 0.1, Immature Granulocyte # (Auto) 0.0, Sodium Level 143, Potassium Level 4.0, Chloride Level 108H, Carbon Dioxide Level 23, Anion Gap 12, Blood Urea Nitrogen 13, Creatinine 1.00, Estimat Glomerular Filtration Rate 63, BUN/Creatinine Ratio 13, Glucose Level 80, Calcium Level 8.6, Corrected Calcium 9.2, Total Bilirubin 0.6, Aspartate Amino Transf (AST/SGOT) 14, Alanine Aminotransferase (ALT/SGPT) 8, Alkaline Phosphatase 108, Troponin I < 0.028, Total Protein 6.0L, Albumin 3.3, Triglycerides Level 81, Cholesterol Level 181, LDL Cholesterol Direct 110, VLDL Cholesterol 16, HDL Cholesterol 55 A/P: Assessment: Chest discomfort - no evidence of ACS: serial cardiac enzymes have been at upper end of normal and card cath does not show any acute lesions - card cath of 11/27/21: LMCA Ok, LAD 30% ostial and prox (IFR 0.97), LCx Ok, RCA dominant and Ok, LVEDP 13 mmHg, LVEF 60% Postural syncope - likely due to postural hypotension Hypothyroidism treated with thyroid replacement therapy Hypertension Anxiety/depression Plan: * Cardiac w/u, including cardiac cath, has not shown any acute coronary issues * Continue ASA * Hold off on bp meds because or postural symptoms that are likely due to intermittent postural hypotension * Risk factor modification reviewed * F/u as outpatient Clinical Quality Measures AMI/AHF: ASA po Prior to arrival: ZHOU Reyes MD FACP FAC CCDS Nov 27, 2021 11:51
[2021-11-27] MEDS ORDERED: NS IV 1000 ML 1,000 ML IV SCH (12:00)
[2021-11-27] MEDS ORDERED: PATIENT MAY USE OWN MEDS, ALL PO SCH (12:00)
--- NOTE | 2021-11-27 12:07 | Cardiac Procedure Note-CS/ASA ---
Pre-Procedure Note Pre-Op Procedure Note Date of Available H&P: Nov 26, 2021 Date H&P Reviewed: Nov 27, 2021 Time H&P Reviewed: 11:10 History & Physical: No changes noted Pre-Operative Diagnosis: chest pain, syncope Conscious Sedation Pre-Proced ASA Score 3 For ASA 3 and 4: Consider anesthesia and medical clearance. Also, for patients with a history of failed moderate sedation consider anesthesia. Airway Lungs Heart ASA score ASA 1: a normal healthy patient ASA 2: a patient with a mild systemic disease (mid diabetes, controlled hypertension, obesity ASA 3: a patient with a severe systemic disease that limits activity (angina, COPD, prior Myocardial infarction) ASA 4: a patient with an incapacitating disease that is a constant threat to life (CHF, renal failure) ASA 5: a moribund patient not expected to survive 24 hrs. (ruptured aneurysm) ASA 6: a declared brain- patient whose organs are being harvested. For emergent operations, add the letter E after the classification Mallampati Classification Grade 2 Sedation Plan Analgesia, Amnesia, Plan communicated to team members The patient is an appropriate candidate to undergo the planned procedure, sedation, and anesthesia. The patient immediately re-assessed prior to indication. ZHOU RESENDEZ MD FACP FAC CCDS Nov 27, 2021 12:07
[2021-11-27] MEDS ORDERED: ACET-2267 PO (13:59)
[2021-11-27] MEDS ORDERED: PROP10TA8 PO (13:59)
[2021-11-27] MEDS ORDERED: LEVO88TA54 PO (13:59)
[2021-11-27] MEDS ORDERED: QUET100T33 PO (13:59)
[2021-11-27] MEDS ORDERED: CLON0.5T4 PO (13:59)
[2021-11-27] MEDS ORDERED: GABA-486 PO (14:01)
[2021-11-28] VITALS: BP 131/72
[2021-11-28 03:41] VITALS: BP 118/74
[2021-11-28 05:20] LABS: BASOPHILS % (AUTO) 1 % (0-10); EOSINOPHILS # (AUTO) 0.2 10^3/uL (0.0-0.3); EOSINOPHILS % (AUTO) 3 % (0-10); HEMATOCRIT 33 % (35-52); LYMPHOCYTES # (AUTO) 2.3 10^3/uL (1.0-4.0); LYMPHOCYTES % (AUTO) 30 % (12-44); MEAN CORPUSCULAR HEMOGLOBIN 34 pg (25-34); MEAN CORPUSCULAR HGB CONC 33 g/dL (32-36); MEAN CORPUSCULAR VOLUME 102 fL (80-99); MEAN PLATELET VOLUME 9.8 fL (9.0-12.2); MONOCYTES # (AUTO) 0.7 10^3/uL (0.0-1.0); MONOCYTES % (AUTO) 8 % (0-12); NEUTROPHILS # (AUTO) 4.5 10^3/uL (1.8-7.8); NEUTROPHILS % (AUTO) 58 % (42-75); PLATELET COUNT 310 10^3/uL (130-400); WHITE BLOOD COUNT 7.8 10^3/uL (4.3-11.0)
[2021-11-28 05:29] LABS: ALBUMIN 3.3 GM/DL (3.2-4.5)
[2021-11-28 05:30] LABS: CHLORIDE 107 MMOL/L (98-107); POTASSIUM 3.8 MMOL/L (3.6-5.0); SODIUM 140 MMOL/L (135-145)
[2021-11-28 05:31] LABS: CALCIUM 8.6 MG/DL (8.5-10.1)
[2021-11-28 05:32] LABS: GLUCOSE 96 MG/DL (70-105); TOTAL PROTEIN 5.8 GM/DL (6.4-8.2)
[2021-11-28 05:33] LABS: CARBON DIOXIDE 23 MMOL/L (21-32)
[2021-11-28 05:34] LABS: BILIRUBIN,TOTAL 0.9 MG/DL (0.1-1.0)
[2021-11-28 05:36] LABS: ALKALINE PHOSPHATASE 103 U/L (40-136); CREATININE SERUM 0.96 MG/DL (0.60-1.30); GFR ESTIMATED 66
[2021-11-28 05:37] LABS: BUN/CREATININE RATIO 13
[2021-11-28 05:39] LABS: ALANINE AMINOTRANSFERASE 13 U/L (0-55)
[2021-11-28] MEDS ORDERED: PANT40TA52 PO (10:46)
[2021-11-28] MEDS: ASPIRIN 81 MG CHEW (CHILDREN'S ASA) PO SCH (10:47)
[2021-11-28] MEDS: PANTOPRAZOLE 40 MG (PROTONIX) TAB PO SCH (10:47)
[2021-11-28] MEDS: SENNOSIDES 8.6 MG (SENOKOT) TAB PO SCH (10:48)
[2021-11-28] MEDS: DOCUSATE SODIUM 100 MG (COLACE) CAP PO SCH (10:48)
--- NOTE | 2021-11-28 10:52 | Discharge Summary ---
Discharge Summary Hospital Course Was the Problem List Reviewed?: Yes Problems/Dx: (1) Pleuritic chest pain Status: Acute Hospital Course Date of Admission: Nov 26, 2021 at 14:16 Admission Diagnosis : Family Physician/Provider: [place] Date of Discharge: 11/28/21 Discharge Diagnosis: chest pain with normal cath Hospital Course: Pt had an uneventful hospital course after she was admitted for elevated troponin. Cardiac catheterization was performed showing no evidence of any obstructive CAD. No intervention was required. She was discharged in improved condition. Pt was placed on a PPI and we stopped her Propranolol to take at night. Labs and Pending Lab Test: Laboratory Tests 11/27/21 23:30: Troponin I < 0.028 11/28/21 05:05: Troponin I < 0.028, White Blood Count 7.8, Red Blood Count 3.24L, Hemoglobin 11.0L, Hematocrit 33L, Mean Corpuscular Volume 102H, Mean Corpuscular Hemoglobin 34, Mean Corpuscular Hemoglobin Concent 33, Red Cell Distribution Width 13.2, Platelet Count 310, Mean Platelet Volume 9.8, Immature Granulocyte % (Auto) 0, Neutrophils (%) (Auto) 58, Lymphocytes (%) (Auto) 30, Monocytes (%) (Auto) 8, Eosinophils (%) (Auto) 3, Basophils (%) (Auto) 1, Neutrophils # (Auto) 4.5, Lymphocytes # (Auto) 2.3, Monocytes # (Auto) 0.7, Eosinophils # (Auto) 0.2, Basophils # (Auto) 0.0, Immature Granulocyte # (Auto) 0.0, Sodium Level 140, Potassium Level 3.8, Chloride Level 107, Carbon Dioxide Level 23, Anion Gap 10, Blood Urea Nitrogen 12, Creatinine 0.96, Estimat Glomerular Filtration Rate 66, BUN/Creatinine Ratio 13, Glucose Level 96, Calcium Level 8.6, Corrected Calcium 9.2, Total Bilirubin 0.9, Aspartate Amino Transf (AST/SGOT) 18, Alanine Aminotransferase (ALT/SGPT) 13, Alkaline Phosphatase 103, Total Protein 5.8L, Albumin 3.3 Home Meds Active Pantoprazole Sodium 40 Mg Tablet.dr 40 Mg PO DAILY@0700 Reported Gabapentin 100 Mg Capsule 200 Mg PO HS TAKES 2 (100MG) CAPS Tylenol Extra Strength (Acetaminophen) 500 Mg Tablet 1,000 Mg PO Q8H PRN Quetiapine Fumarate 100 Mg Tablet 100 Mg PO HS Propranolol HCl 10 Mg Tablet 20 Mg PO HS TAKES 2 (10MG) TABS Levothyroxine Sodium 88 Mcg Tablet 88 Mcg PO DAILY Clonazepam 0.5 Mg Tablet 1 Mg PO HS TAKES 2 (0.5MG) TABS Duloxetine HCl 60 Mg Capsule.dr 60 Mg PO DAILY Assessment/Pt Instructions PCP 1 week Discharge Planning: <30 minutes discharge planning Discharge Instructions Discharge Diet: No Restrictions Discharge Physical Examination Vital Signs Vital Signs Date Time Temp Pulse Resp B/P (MAP) Pulse Ox O2 Delivery O2 Flow Rate FiO2 11/28/21 08:00 37.1 11/28/21 08:00 Room Air 11/28/21 07:51 92 11/28/21 05:44 96 11/28/21 03:41 16 118/74 (89) General Appearance: No Apparent Distress, WD/WN, Chronically ill Allergies: Coded Allergies: cephalexin (Verified Allergy, Severe, HIVES/LIPS SWELLING, 05/04/19) morphine (Verified Allergy, Severe, DIFFICULTY BREATHING/HIVES, 05/04/19) triamcinolone (Verified Allergy, Intermediate, HIVES/RASH, 05/04/19) Discharge Summary Date of Admission Nov 26, 2021 at 14:16 Date of Discharge Discharge Date: Nov 28, 2021 Admission Diagnosis Chest pain r/o ACS Discharge Diagnosis Cath today (1) Pleuritic chest pain Status: Acute Clinical Quality Measures AMI/AHF: ASA po Prior to arrival: STEFFANY Luna DO Nov 28, 2021 10:52
--- NOTE | 2021-11-28 16:31 | Progress Note - Cardiology ---
Cardiology SOAP Progress Note Subjective: No cp or palp or syncope No groin or leg discomfort No n/v/d No focal weakness Objective: I&O/Vital Signs 11/28/21 11/28/21 11/28/21 11/28/21 05:44 07:51 08:00 08:00 Temp 37.1 Pulse 92 Pulse Ox 96 O2 Delivery Room Air Room Air 11/28/21 00:00 Intake Total 1440 ml Balance 1440 ml Weight (Pounds): 196 Weight (Ounces): 9.6 Weight (Calculated Kilograms): [id number] Condition: DP/PT pulses palpable Swelling: mild amount of swelling Bruising: moderated bruising Constitutional: AAO x 3, well-developed, well-nourished Respiratory: No accessory muscle use; other (good, bilat air entry) Cardiovascular: regular rate-rhythm, S1 and S2, systolic murmur (soft LEEANNE at card basee) Gastrointestional: No tender; soft; No guarding, No rebound; audible bowel sounds Extremities: No clubbing, No cyanosis, No significant edema Neurologic/Psychiatric: oriented x 3, other (moves all limbs equally) Skin: No rash on exposed areas, No ulcerations on exposed areas Results/Procedures: Labs Laboratory Tests 11/27/21 23:30: Troponin I < 0.028 11/28/21 05:05: Troponin I < 0.028, White Blood Count 7.8, Red Blood Count 3.24L, Hemoglobin 11.0L, Hematocrit 33L, Mean Corpuscular Volume 102H, Mean Corpuscular Hemoglobin 34, Mean Corpuscular Hemoglobin Concent 33, Red Cell Distribution Width 13.2, Platelet Count 310, Mean Platelet Volume 9.8, Immature Granulocyte % (Auto) 0, Neutrophils (%) (Auto) 58, Lymphocytes (%) (Auto) 30, Monocytes (%) (Auto) 8, Eosinophils (%) (Auto) 3, Basophils (%) (Auto) 1, Neutrophils # (Auto) 4.5, Lymphocytes # (Auto) 2.3, Monocytes # (Auto) 0.7, Eosinophils # (Auto) 0.2, Basophils # (Auto) 0.0, Immature Granulocyte # (Auto) 0.0, Sodium Level 140, Potassium Level 3.8, Chloride Level 107, Carbon Dioxide Level 23, Anion Gap 10, Blood Urea Nitrogen 12, Creatinine 0.96, Estimat Glomerular Filtration Rate 66, BUN/Creatinine Ratio 13, Glucose Level 96, Calcium Level 8.6, Corrected Calcium 9.2, Total Bilirubin 0.9, Aspartate Amino Transf (AST/SGOT) 18, Alanine Aminotransferase (ALT/SGPT) 13, Alkaline Phosphatase 103, Total Protein 5.8L, Albumin 3.3 Laboratory Tests 11/27/21 05:10 11/28/21 05:05 A/P: Assessment: Chest discomfort - no evidence of ACS: serial cardiac enzymes have been at upper end of normal and card cath does not show any acute lesions - card cath of 11/27/21: LMCA Ok, LAD 30% ostial and prox (IFR 0.97), LCx Ok, RCA dominant and Ok, LVEDP 13 mmHg, LVEF 60% Postural syncope - likely due to postural hypotension Hypothyroidism treated with thyroid replacement therapy Hypertension Anxiety/depression Plan: * Cardiac w/u, including cardiac cath, has not shown any acute coronary issues * Continue ASA * Hold off on bp meds because or postural symptoms that are likely due to intermittent postural hypotension * Risk factor modification reviewed * F/u as outpatient * I had a long and detailed discussion with her regarding her cath findings and CV issues Clinical Quality Measures AMI/AHF: ASA po Prior to arrival: ZHOU Reyes MD FACP FAC CCDS Nov 28, 2021 16:31
== END 2021-11-28 11:38 | disposition home or self-care (01) ==
LOC: EDUNIT# 12:47 → ER 12:51 → INTOOBSV 14:16 → CSD 14:16
PROVIDERS: ADMIT Internal Medicine; ATTEND Internal Medicine
DX: R07.89 Other chest pain (principal); Z79.899 Other long term (current) drug therapy; R55 Syncope and collapse; E03.9 Hypothyroidism, unspecified; I10 Essential (primary) hypertension; F41.9 Anxiety disorder, unspecified; F32.9 Major depressive disorder, single episode, unspecified
CPT/HCPCS: 71045; 71275; 80053 ×3; 80061; 83735; 84484 ×3; 85025 ×3; 85610; 93005 ×2; 93041; 93458; 93571; 94760; 96372; 99284; C1760; C1769; C1887; C1894 ×2; G0378; 36415

== ENCOUNTER 2022-09-10 16:41 | Emergency (ER) | payer MEDICARE ==
[~2022-09-10] VITALS: Ht 167 cm; Wt 91.0 kg
[~2022-09-10 16:41] MED LIST changes: +ACET-2267 PO; +CLON0.5T4 PO; +LEVO88TA54 PO; +PROP10TA8 PO
[2022-09-10] MEDS ORDERED: CIPR500T5 PO (17:08)
[2022-09-10] MEDS ORDERED: TRZ50T PO (17:08)
[2022-09-10 18:02] LABS: BASOPHILS % (AUTO) 0 % (0-10); EOSINOPHILS # (AUTO) 0.2 10^3/uL (0.0-0.3); EOSINOPHILS % (AUTO) 2 % (0-10); HEMATOCRIT 35 % (35-52); HEMOGLOBIN 11.2 g/dL (11.5-16.0); LYMPHOCYTES # (AUTO) 2.5 10^3/uL (1.0-4.0); LYMPHOCYTES % (AUTO) 27 % (12-44); MEAN CORPUSCULAR HEMOGLOBIN 31 pg (25-34); MEAN CORPUSCULAR HGB CONC 32 g/dL (32-36); MEAN CORPUSCULAR VOLUME 97 fL (80-99); MEAN PLATELET VOLUME 9.1 fL (9.0-12.2); MONOCYTES # (AUTO) 0.6 10^3/uL (0.0-1.0); MONOCYTES % (AUTO) 6 % (0-12); NEUTROPHILS # (AUTO) 6.1 10^3/uL (1.8-7.8); NEUTROPHILS % (AUTO) 64 % (42-75); PLATELET COUNT 291 10^3/uL (130-400); WHITE BLOOD COUNT 9.4 10^3/uL (4.3-11.0)
[2022-09-10 18:09] LABS: ALBUMIN 3.2 GM/DL (3.2-4.5)
[2022-09-10 18:10] LABS: CALCIUM 8.5 MG/DL (8.5-10.1)
--- NOTE | 2022-09-10 18:10 | ED Abdominal Pain ---
General Chief Complaint: Abdominal/GI Problems Stated Complaint: ABDOMEN PAIN Nursing Triage Note: PT PRESENTS TO ED VIA POV FROM HOME WITH COMPLAINTS OF R LOWER ABDOMINAL PAIN THAT RADIATES TO HER BACK X 2 DAYS. PT REPORTS SHE HAS HAD N/V/D X 1 WEEK WITH HER LAST BM BEING YESTERDAY. Source of Information: Patient Exam Limitations: No Limitations History of Present Illness Date Seen by Provider: Sep 10, 2022 Time Seen by Provider: 18:01 Initial Comments 67-year-old female presents to the emergency department today for right-sided abdominal pain and diarrhea. Diarrhea started about 1 week ago when she got back from [place]. She has had about 3-4 loose stools daily. She has been seen in the [facility] clinic twice now. She gave a stool sample yesterday but does not know the results yet. Stool is not bloody, dark or tarry. 2 days ago she developed some right lower abdominal pain that radiates to her back. She denies any fevers but has had chills. No nausea or vomiting. No changes in urine. Abdominal surgeries include gastric bypass, hysterectomy with 1 ovary removed, tubal ligation, cholecystectomy. She denies any vaginal symptoms All other systems reviewed and negative except documented per HPI. Voice recognition software was used to help create this chart Allergies and Home Medications Allergies Coded Allergies: cephalexin (Verified Allergy, Severe, HIVES/LIPS SWELLING, 05/04/19) morphine (Verified Allergy, Severe, DIFFICULTY BREATHING/HIVES, 05/04/19) triamcinolone (Verified Allergy, Intermediate, HIVES/RASH, 05/04/19) Patient Home Medication List Home Medication List Reviewed: Yes Acetaminophen (Tylenol Extra Strength) 500 Mg Tablet, 1,000 MG PO Q8H PRN for PAIN-MILD (1-4), (Reported) Entered as Reported by: REJI YOUNG on 11/27/21 1359 Ciprofloxacin HCl (Ciprofloxacin HCl) 500 Mg Tablet, 500 MG PO, (Reported) Entered as Reported by: ANA OCHOA on 09/10/22 1708 Last Action: New Order Clonazepam (Clonazepam) 0.5 Mg Tablet, 1 MG PO HS, (Reported) Entered as Reported by: REJI YOUGN on 11/27/21 1359 Duloxetine HCl (Duloxetine HCl) 60 Mg Capsule.dr, 60 MG PO DAILY, (Reported) Entered as Reported by: KWESI STEWART on 09/28/18 1302 Last Action: Last Taken Edited Gabapentin (Gabapentin) 100 Mg Capsule, 200 MG PO HS, (Reported) Entered as Reported by: REJI YOUNG on 11/27/21 1401 Levothyroxine Sodium (Levothyroxine Sodium) 88 Mcg Tablet, 88 MCG PO DAILY, (Reported) Entered as Reported by: REJI YOUNG on 11/27/21 1359 Last Action: Last Taken Edited Ondansetron (Ondansetron Odt) 8 Mg Tab.rapdis, 8 MG SL Q6H PRN for NAUSEA/VOMITING Prescribed by: FIOR BAIN MD on 09/10/22 1934 Pantoprazole Sodium (Pantoprazole Sodium) 40 Mg Tablet.dr, 40 MG PO DAILY@0700 Prescribed by: STEFFANY RENNER on 11/28/21 1046 Quetiapine Fumarate (Quetiapine Fumarate) 100 Mg Tablet, 100 MG PO HS, (Reported ) Entered as Reported by: REJI YOUNG on 11/27/21 1359 Last Action: Last Taken Edited Trazodone HCl (Trazodone HCl) 50 Mg Tablet, 50 MG PO, (Reported) Entered as Reported by: ANA OCHOA on 09/10/22 1708 Last Action: New Order Review of Systems Review of Systems Constitutional: see HPI Past Faejtix-Swmpgr-Smhcvh Hx Patient Social History Tobacco Use?: No Substance use?: No Alcohol Use?: No Pt feels they are or have been: No Immunizations Up To Date Tetanus Booster (TDap): Unknown PED Vaccines UTD: No First/Initial COVID19 Vaccinat: 2020 Second COVID19 Vaccination Parker: SEPTEMBER 2020 Third COVID19 Vaccination Date: 2020 Seasonal Allergies Seasonal Allergies: No Past Medical History Surgery/Hospitalization HX: ANXIETY, DEPRESSION, THYROID, DECREASED KIDNEY FUNCTION Surgeries: Yes (gastric bypass, carpal tunel, bilat shoulder, BILAT TKR) Abdominal, Gallbladder, Hysterectomy, Orthopedic, Thyroidectomy, 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 Respiratory: No Cardiac: No Neurological: No Reproductive Disorders: No 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, 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 Sexually Transmitted Disease: No HIV/AIDS: No Genitourinary: Yes Kidney Stones Gastrointestinal: Yes (GASTRITIS) Gastroesophageal Reflux, Chronic Constipation, Diverticulosis, Hemorrhoids, Polyps Musculoskeletal: Yes (MULTIPLE ORTHOPEDIC SURGERIES) Arthritis Endocrine: Yes Hypothyroidsim HEENT: Yes (GLASSES, DENTURES) Double Vision Loss of Vision: Denies Hearing Impairment: Denies Cancer: Yes (BASAL CELL ON NOSE) Skin Did You Recieve Any Treatments: Yes What Type of Treatment Did You: Surgical Intervention Psychosocial: Yes Sleep Difficulties, Anxiety, Depression Integumentary: No Blood Disorders: No Adverse Reaction/Blood Tranf: Yes (N/A) Family Medical History No Pertinent Family Hx PAST SURGICAL HISTORY: -BILATERAL TUBAL LIGATION -BILATERAL TOTAL KNEE REPLACEMENTS -CARPAL TUNNEL SURGERY -LAPAROSCOPIC CHOLECYSTECTOMY -HYSTERECTOMY -THROIDECTOMY -MJ-EN-Y GASTRIC BYPASS IN 2011 OR 2012 -EGD 12/2019--GASTRITIS -COLONOSCOPY 11/2019--POLYPS, DIVERTICULAR DISEASE, INTERNAL HEMORRHOIDS Physical Exam Vital Signs Vital Signs - First Documented 09/10/22 09/10/22 17:02 19:50 Temp 36.1 Pulse 82 Resp 16 B/P (MAP) 122/79 (93) Pulse Ox 93 O2 Delivery Room Air Capillary Refill : Less Than 3 Seconds Height/Weight/BMI Height: 5'6.00" Weight: 196lbs. 9.6oz. 89.561628aa; 32.00 BMI Method:Stated General Appearance: WD/WN, no apparent distress HEENT: normal ENT inspection, pharynx normal Neck: non-tender, supple, normal inspection Respiratory: chest non-tender, lungs clear, normal breath sounds, no respiratory distress, no accessory muscle use Cardiovascular: regular rate, rhythm, no murmur Gastrointestinal: normal bowel sounds, soft, no organomegaly, no pulsatile mass, tenderness (Tenderness palpation of the right lower abdomen without rebound or guarding. No mass organomegaly. No skin changes.) Extremities: normal range of motion, non-tender, normal inspection, no pedal edema, no calf tenderness Neurologic/Psychiatric: alert, normal mood/affect, oriented x 3 Skin: normal color, warm/dry Progress/Results/Core Measures Results/Orders Lab Results Laboratory Tests Test 09/10/22 17:53 09/10/22 18:48 Range/Units White Blood Count 9.4 4.3-11.0 10^3/uL Red Blood Count 3.57 L 3.80-5.11 10^6/uL Hemoglobin 11.2 L 11.5-16.0 g/dL Hematocrit 35 35-52 % Mean Corpuscular Volume 97 80-99 fL Mean Corpuscular Hemoglobin 31 25-34 pg Mean Corpuscular Hemoglobin Concent 32 32-36 g/dL Red Cell Distribution Width 16.6 H 10.0-14.5 % Platelet Count 291 130-400 10^3/uL Mean Platelet Volume 9.1 9.0-12.2 fL Immature Granulocyte % (Auto) 1 % Neutrophils (%) (Auto) 64 42-75 % Lymphocytes (%) (Auto) 27 12-44 % Monocytes (%) (Auto) 6 0-12 % Eosinophils (%) (Auto) 2 0-10 % Basophils (%) (Auto) 0 0-10 % Neutrophils # (Auto) 6.1 1.8-7.8 10^3/uL Lymphocytes # (Auto) 2.5 1.0-4.0 10^3/uL Monocytes # (Auto) 0.6 0.0-1.0 10^3/uL Eosinophils # (Auto) 0.2 0.0-0.3 10^3/uL Basophils # (Auto) 0.0 0.0-0.1 10^3/uL Immature Granulocyte # (Auto) 0.1 0.0-0.1 10^3/uL Sodium Level 137 135-145 MMOL/L Potassium Level 3.0 L 3.6-5.0 MMOL/L Chloride Level 102 98-107 MMOL/L Carbon Dioxide Level 27 21-32 MMOL/L Anion Gap 8 5-14 MMOL/L Blood Urea Nitrogen 12 7-18 MG/DL Creatinine 1.23 0.60-1.30 MG/DL Estimat Glomerular Filtration Rate 49 BUN/Creatinine Ratio 10 Glucose Level 84 70-105 MG/DL Calcium Level 8.5 8.5-10.1 MG/DL Corrected Calcium 9.1 8.5-10.1 MG/DL Total Bilirubin 0.5 0.1-1.0 MG/DL Aspartate Amino Transf (AST/SGOT) 11 5-34 U/L Alanine Aminotransferase (ALT/SGPT) 12 0-55 U/L Alkaline Phosphatase 109 40-136 U/L C-Reactive Protein High Sensitivity 2.25 H 0.00-0.50 MG/DL Total Protein 5.8 L 6.4-8.2 GM/DL Albumin 3.2 3.2-4.5 GM/DL Lipase 12 8-78 U/L Urine Color YELLOW Urine Clarity CLEAR Urine pH 5.5 5-9 Urine Specific [place] 1.025 H 1.016-1.022 Urine Protein NEGATIVE NEGATIVE Urine Glucose (UA) NEGATIVE NEGATIVE Urine Ketones NEGATIVE NEGATIVE Urine Nitrite NEGATIVE NEGATIVE Urine Bilirubin NEGATIVE NEGATIVE Urine Urobilinogen 0.2 < = 1.0 MG/DL Urine Leukocyte Esterase NEGATIVE NEGATIVE Urine RBC (Auto) TRACE-I H NEGATIVE Urine RBC 0-2 /HPF Urine WBC 0-2 /HPF Urine Squamous Epithelial Cells 2-5 /HPF Urine Crystals NONE /LPF Urine Bacteria TRACE /HPF Urine Casts NONE /LPF Urine Mucus SMALL H /LPF Urine Culture Indicated NO My Orders Orders - FIOR BAIN DO Ct Abdomen/Pelvis W (09/10/22 18:07) Iohexol Injection (Omnipaque 350 Mg/Ml 1 (09/10/22 18:15) Received Contrast (Hold Metformin- Contr (09/10/22 18:15) Ns (Ivpb) (Sodium Chloride 0.9% Ivpb Bag (09/10/22 18:15) Iohexol Injection (Omnipaque 350 Mg/Ml 1 (09/10/22 18:30) Received Contrast (Hold Metformin- Contr (09/10/22 18:30) Ns (Ivpb) (Sodium Chloride 0.9% Ivpb Bag (09/10/22 18:30) Ed Admission (Communication) (09/10/22 19:19) Potassium Chloride (Tablet) (K Dur Table (09/10/22 19:30) Medications Given in ED Current Medications Medications Dose Ordered Sig/Vivian Route Start Time Stop Time Status Last Admin Dose Admin Iohexol 100 ml ONCE ONCE IV 09/10/22 18:15 09/10/22 18:16 DC 09/10/22 18:29 80 ML Potassium Chloride 40 meq ONCE ONCE PO 09/10/22 19:30 09/10/22 19:31 DC 09/10/22 19:49 40 MEQ Sodium Chloride 100 ml ONCE ONCE IV 09/10/22 18:15 09/10/22 18:16 DC 09/10/22 18:29 80 ML Vital Signs/I&O 09/10/22 09/10/22 17:02 19:50 Temp 36.1 Pulse 82 68 Resp 16 16 B/P (MAP) 122/79 (93) 126/76 Pulse Ox 93 97 O2 Delivery Room Air Blood Pressure Mean: 93 Departure Communication (Admissions) Patient is hemodynamically stable. I have independently reviewed the CT images. There is a questionable area in the right upper abdomen that I believe is likely peristalsis. She is having no symptoms in this area and all of her symptoms are in her right lower abdomen. This area is clear of any acute appendicitis, ovarian or female organ pathology, bowel pathology. She is feeling better on reevaluation after her work-up was completed. She does have some hypokalemia, 3.0. This repleted orally and she is given recommendations on high potassium diet and follow-up with her primary care doctor. I did call the [facility] clinic and her stool sample that she dropped off today still pending. Advised I will call her with the results of this. She is hemodynamically stable with a nonsurgical abdominal exam is stable for discharge home at this time. Impression Primary Impression: Right sided abdominal pain Additional Impressions: Diarrhea Qualified Codes: R19.7 - Diarrhea, unspecified Hypokalemia Disposition: 01 HOME, SELF-CARE Condition: Stable Departure-Patient Inst. Referrals: [facility] (PCP/Family) Primary Care Physician Patient Instructions: High Potassium Diet, Abdominal Pain, Adult ED Add. Discharge Instructions: You were seen in the emergency department today for abdominal pain and diarrhea. Your CT scan shows no evidence for any emergent medical condition and was otherwise normal. Your potassium was slightly low which is consistent with your diarrhea. I have given you some oral potassium supplementation here. Increase potassium-containing foods in your diet such as green leafy vegetables, salads and bananas. Have this rechecked with your primary doctor in the next 3 to 4 days. Continue Zofran which you may use as needed for nausea. We called the [facility] clinic. Your stool sample is still pending and I will call you with those results. Increase your fluids at home and rest as needed. Return to the emergency department for any severe concerns. Follow-up with primary doctor for any nonemergent needs All discharge instructions reviewed with patient and/or family. Voiced understanding. Scripts Ondansetron (Ondansetron Odt) 8 Mg Tab.rapdis 8 MG SL Q6H PRN for NAUSEA/VOMITING for 5 Days, #20 TAB Prov: FIOR BAIN DO 09/10/22 FIOR BAIN DO Sep 10, 2022 18:10
[2022-09-10 18:12] LABS: TOTAL PROTEIN 5.8 GM/DL (6.4-8.2)
[2022-09-10 18:13] LABS: BILIRUBIN,TOTAL 0.5 MG/DL (0.1-1.0)
[2022-09-10 18:15] LABS: CREATININE SERUM 1.23 MG/DL (0.60-1.30)
[2022-09-10] MEDS ORDERED: HOLD METFORMIN - RECEIVED CONTRAST 20 ML VIAL IV SCH ×2 (18:15→18:30)
[2022-09-10] MEDS ORDERED: IOHEXOL 350 MG/ML 100 ML (OMNIPAQUE 350) VIAL IV ONE ×2 (18:15→18:30)
[2022-09-10] MEDS ORDERED: NS 100 ML (IVPB) BAG IV ONE ×2 (18:15→18:30)
--- NOTE | 2022-09-10 18:39 | Diagnostic Imaging Report ---
PROCEDURE: CT abdomen and pelvis with contrast. TECHNIQUE: Multiple contiguous axial images were obtained through the abdomen and pelvis after administration of intravenous contrast. Auto Exposure Controls were utilized during the CT exam to meet ALARA standards for radiation dose reduction. All CT scans use one or more of the following dose optimizing techniques: automated exposure control, MA and/or KvP adjustment based on patient size and exam type or iterative reconstruction. INDICATION: Right lower abdominal pain radiating to the back for 2 days. Patient also complains of nausea, vomiting and diarrhea for one week. Comparison is made with prior CT from 10/18/2020. The lung bases are clear. No focal liver mass is detected. The gallbladder is surgically absent. There is no biliary duct dilatation. Pancreas and spleen are unremarkable. There are postop changes from gastric bypass surgery. No adrenal mass is detected. Kidneys contain small cortical low-attenuation lesions which are too small to characterize. There is no calculi or hydronephrosis identified. Aorta is nonaneurysmal. The bowel loops are normal caliber. There is diverticulosis of the sigmoid but no definite evidence of acute diverticulitis. There is no bowel obstruction. No free fluid or fluid collection is identified. There are postoperative changes involving small bowel loops in the left abdomen. No inflammatory changes are seen. The bladder is unremarkable. The uterus appears to be surgically absent. IMPRESSION: 1. Uncomplicated diverticulosis. 2. No acute feature is detected. Dictated by: Dictated on workstation # [id number]
[2022-09-10 18:57] LABS: BILIRUBIN,URINE NEGATIVE (NEGATIVE); CLARITY,URINE CLEAR; COLOR,URINE YELLOW; GLUCOSE, URINE (UA) NEGATIVE (NEGATIVE); KETONES,URINE NEGATIVE (NEGATIVE); LEUKOCYTE ESTERASE ,URINE NEGATIVE (NEGATIVE); NITRITE,URINE NEGATIVE (NEGATIVE); PH,URINE 5.5 (5-9); PROTEIN,URINE NEGATIVE (NEGATIVE)
[2022-09-10 19:12] LABS: BACTERIA,URINE TRACE /HPF; RBC,URINE 0-2 /HPF; WBC,URINE 0-2 /HPF
[2022-09-10] MEDS ORDERED: KCL 20 MEQ TAB (K-DUR) PO ONE (19:30)
[2022-09-10] MEDS ORDERED: ONDA8TAB13 SL (19:34)
[2022-09-10 19:50] VITALS: BP 126/76
== END 2022-09-10 19:50 | disposition home or self-care (01) ==
LOC: EDUNIT# 16:41 → ER 16:42
DX: R10.31 Right lower quadrant pain (principal); R19.7 Diarrhea, unspecified; E87.6 Hypokalemia; Z87.19 Personal history of other diseases of the digestive system
CPT/HCPCS: 36415; 74177; 80053; 81000; 83690; 85025; 86141